=== PATIENT | female | born 1985 | race Caucasian/White ===

== ENCOUNTER 2022-12-21 10:50 | Outpatient (OUT) | payer OTHER, SELFPAY ==
[2022-12-21 09:44] LABS: Alanine Aminotransferase 15 U/L (14-59); Albumin Globulin Ratio 1.2; Albumin Level 3.9 g/dL (3.4-5.0); Alkaline Phosphatase 48 U/L (46-116); Anion Gap 10.3; Aspartate Amino Transferase 8 U/L (15-37); Bilirubin Total 0.5 mg/dL (0.2-1.0); Calcium 8.6 mg/dL (8.5-10.1); Carbon Dioxide 29.7 mmol/L (21.0-32.0); Chloride 105 mmol/L (98-107); Estimated GFR (African America >60 (>=60); Estimated GFR (Non-African Ame >60 (>=60); Globulin 3.3 g/dL; Glucose 99 mg/dL (74-106); Sodium 141 mmol/L (136-145); Total Protein 7.2 g/dL (6.4-8.2)
== END 2022-12-21 10:51 | disposition home or self-care (01) ==
LOC: LAB 12-25 10:50
PROVIDERS: PCP Family Medicine; Visit Provider Family Medicine
DX: Z00.00 Encounter for general adult medical examination without abnormal findings (principal); Z13.1 Encounter for screening for diabetes mellitus; Z13.6 Encounter for screening for cardiovascular disorders
CPT/HCPCS: 36415; 80053

== ENCOUNTER 2023-06-21 09:37 | Outpatient (OUT) | payer OTHER, SELFPAY ==
--- NOTE | 2023-06-21 | XR_ITS ---
The [address] [address] Patient Name: JAMIL QUINN MRN: [id number] date: 1985 Sex: F Assigned Patient Location: LAB Current Patient Location: LAB Accession/Order Number: [id number] Exam Date: 06/21/2023 10:12 Report Date: 06/23/2023 07:14 At the request of: THEODORA JIMENEZ Procedure: XR abdomen 1V EXAMINATION: XR abdomen 1V HISTORY: kidney stones COMPARISON: No relevant comparison available. FINDINGS: KIDNEY/URETER - RIGHT: Punctate nephrolithiasis KIDNEY/URETER - LEFT: Punctate nephrolithiasis PELVIS: No visible ureteral calcifications. Any visible calcifications favor phleboliths. BOWEL: No abnormal dilation or deviation. BONES: No acute abnormality. Rotatory levocurvature centered at L3 OTHER: Negative. No abnormal gaseous collections. XR/XR abdomen 1V IMPRESSION: Bilateral punctate nephrolithiasis Electronically authenticated by: JERONIMO MTZ Date: 06/23/2023 07:14
== END 2023-06-21 09:38 | disposition home or self-care (01) ==
LOC: LAB 09:38
PROVIDERS: PCP Family Medicine; Visit Provider Urology
DX: N20.0 Calculus of kidney (principal)
CPT/HCPCS: 74018

== ENCOUNTER 2023-08-12 18:11 | Emergency (ER) | payer OTHER, SELFPAY ==
--- OUTSIDE RECORDS SUMMARY | 2023-08-12 18:33 | XMS_ITS | CCD ---
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 Name Role Phone BASIASUMMEREVELYN Unavailable Unavailab JARET Osei Attending Unavailable Lorenzo Conteh Primary Care Provider WILLOW FERRERA Consulting Unavailable Lorenzo Conteh Unavailable DO Lorenzo Conteh Primary Care Provider DO Lorenzo Conteh Attending Provider [phone] Se Walker Unavailable DO Lorenzo Conteh Primary Care Provider DO Lorenzo Conteh Attending Provider [phone] MD Se Walker Attending Provider [phone] LORENZO CONTEH Primary Care Physician [phone] LORENZO CONTEH [facility] Care Unavailable JIMENEZ ., DR YIP Consulting Unavailable JIMENEZ ., DR YIP Attending Unavailable JIMENEZ ., DR YIP Admitting Unavailable JIMENEZ ., DR YIP Consulting Unavailable JIMENEZ ., DR YIP Attending Unavailable JIMENEZ ., DR YIP Admitting Unavailable LORENZO CONTEH Primary Care Unavailable LORENZO CONTEH Primary Care Unavailable JIMENEZ ., DR YIP Consulting Unavailable JIMENEZ ., DR YIP Attending Unavailable JIMENEZ ., DR YIP Admitting Unavailable SMITH, DR JERONIMO Ocasio Consulting Unavailable AGUBOSIM, GIO Consulting Unavailable DORKARL, JOSE Consulting Unavailable LORENZO CONTEH Primary Care Unavailable JIMENEZ ., DR YIP Admitting Unavailable JIMENEZ ., DR YIP Attending Unavailable JIMENEZ ., DR YIP Consulting Unavailable ZITALHAER, DR DENVER Rhoades Consulting Unavailable AGUBOSIM, GIO Consulting Unavailable JOSE PADILLA Consulting Unavailable LORENZO CONTEH Primary Care Unavailable JIMENEZ ., DR YIP Admitting Unavailable JIMENEZ ., DR YIP Attending Unavailable JIMENEZ ., DR YIP Consulting Unavailable SIMIN JIMENEZ Consulting Unavailable KASANDRA TOVAR Consulting Unavailable CONTEH, ALSTEAD Primary Care Unavailable JIMENEZ ., DR YIP Consulting Unavailable JIMENEZ ., DR YIP Attending Unavailable JIMENEZ ., DR YIP Admitting Unavailable SMITH, DR JERONIMO cOasio Consulting Unavailable PANKAJ MARK Consulting Unavailable MCCORNADENVER KONG Consulting Unavailable CONTEH, LORENZO Consulting Unavailable CONTEH, ALSTEAD Primary Care Unavailable JIMENEZ ., DR YIP Consulting Unavailable JIMENEZ ., DR YIP Admitting Unavailable JIMENEZ ., DR YIP Attending Unavailable CHALINO MCKEE Consulting Unavailable CONTEH, LORENZO Consulting Unavailable CONTEH, ALSTEAD Primary Care Unavailable JIMENEZ ., DR YIP Attending Unavailable JIMENEZ ., DR YIP Admitting Unavailable JIMENEZ ., DR YIP Consulting Unavailable MILTON ., NOLAN Attending Unavailable MILTON ., NOLAN Admitting Unavailable ZIEBER, DR DENVER Rhoades Consulting Unavailable CONTEH, ALSTEAD Primary Care Unavailable MILTON ., NOLAN Consulting Unavailable CONTEH, ALSTEAD Primary Care Unavailable JIMENEZ ., DR YIP Consulting Unavailable JIMENEZ ., DR YIP Attending Unavailable JIMENEZ ., DR YIP Admitting Unavailable CONTEH, [facility] Care Unavailable JIMENEZ ., DR YIP Admitting Unavailable JIMENEZ ., DR YIP Attending Unavailable JIMENEZ ., DR YIP Consulting Unavailable ZIEBER, DR DENVER Rhoades Consulting Unavailable VERONICA SEGURA Attending Unavailable VERONICA SEGURA Admitting Unavailable ZIEBER, DR DENVER Rhoades Consulting Unavailable CONTEH, ALSTEAD Primary Care Unavailable IMELDAVERONICA Consulting Unavailable JIMENEZ ., DR YIP Attending Unavailable JIMENEZ ., DR YIP Admitting Unavailable CONTEH, ALSTEAD Primary Care Unavailable JIMENEZ, Theodora Rhoades Attending Unavailable JIMENEZ, Theodora Rhoades Attending Unavailable JIMENEZ, Theodora Rhoades Attending Unavailable JIMENEZ, Theodora R Attending Unavailable JIMENEZ, Theodora R Attending Unavailable JIMENEZ, Theodora R Attending Unavailable JIMENEZ, Theodora Rhoades Attending Unavailable Conteh, Lorenzo R Primary Care Unavailable Conteh, Lorenzo R Attending Unavailable Conteh, Lorenzo R Admitting Unavailable Conteh, Lorenzo R Attending Unavailable Conteh, Lorenzo R Admitting Unavailable Conteh, Lorenzo R Primary Care Unavailable Se Walker Admitting Unavailable Se Walker Attending Unavailable Conteh, Lorenzo R Primary Care Unavailable Se Walker Admitting Unavailable Se Walker Attending Unavailable Conteh, Lorenzo R Primary Care Unavailable CONTEHLORENZO CALVILLO R Primary Care Physician [phone] Allergies Allergy Classification Reported Allergen(s) Allergy Type Date of Onset Reaction(s) Facility (7 sources) Cephalexin; Translations: [cephalexin] Drug Allergy Diarrhea (finding) [facility] (1 source) Cephalexin Drug Allergy 2 [facility] (1 source) No Known Medication Allergies; Translations: [No Known Medication Allergies] Propensity to adverse reactions (disorder) [facility] Repository Medications Current Medications Medication Drug Class(es) Dates Sig (Normalized) Sig (Original) [id number] 200 actuat albuterol 0.09 mg/actuat metered dose inhaler (3 sources) beta2-Adrenergic Agonist Start: 06-09-2022 take 2 puff(s) by inhalation every four to six hours as needed Albuterol Sulfate HFA 108 (90 Base) MCG/ACT 2 puffs as needed Inhalation every 4-6 hours for 14 days May, Active Start: 06-09-2022 take 2 puff(s) by in halation every four to six hours as needed Albuterol Sulfate HFA 108 (90 Base) MCG/ACT 2 puffs as needed Inhalation every 4-6 hours for 14 days May, Active amLODIPine 5 mg oral tablet (1 source) Dihydropyridine Calcium Channel Newton take 1 tablet by mouth once daily amLODIPine 5 MG Tab tablet Take 5 mg by mouth daily. 0 Active belladonna-opium 16.2 mg-60 mg Supp (1 source) Start: 3 belladonna-opium 16.2 mg-60 mg Supp 1 supp, Rectal, q12hr for pain, 2 supp, Refill(s) 0, [id number], 153, cm, 07/17/22 13:08:00 EDT, Height/Length Dosing, 51.1, kg, 07/17/22 13:08:00 EDT, Weight Dosing Start Date: 07/17/22 Status: Ordered losartan potassium 50 mg oral tablet (18 sources) Angiotensin 2 Receptor Newton Start: 2 take 1 mg by mouth once daily losartan 50 mg Tab mg tab(s), Oral, Daily, Refills(s) 0 Start Date: 05/17/21 Status: Ordered Start: 03-19-2019 take 50 mg by mouth twice marsha y Losartan Active 50 MG PO Twice daily March 19, 2019 1:00am Losartan Potassi um 25 mg TAKE 2 TABLETS ONCE DAILY Active methylPREDNISolone 4 mg oral tablet (1 source) Corticosteroid Start: 06-09-2022 methylPREDNISolone 4 MG as directed Orally for daily dose take half with breakfast, half with dinner for 6 days May, Active nitrofurantoin, macrocrystals 25 mg / nitrofurantoin, monohydrate 75 mg oral capsule (5 sources) Nitrofuran Antibacterial Start: 07-01-2022 take 1 capsule by mouth every twelve hours Nitrofurantoin Monohyd Macro 100 MG 1 capsule with food Orally every 12 hrs for 5 days Jun, Active Start: 01-14-2018 End: 07-13-2018 take 1 capsule by mouth every twelve hours at mealtime Nitrofurantoin Monohyd/M-Cryst (Macrobid) 100 mg capsule Discontinued 100 MG PO Q12H January 14, 2018 12:00am July 13, 2018 2:37pm administer with a meal/food; swallow whole; do not open, crush, dissolve , or chew potassium bicarbonate 25 meq effervescent oral tablet (2 sources) take 1 tablet by mouth twice daily at mealtime Effer-K 25 MEQ 1 tablet dissolved in water with meals Orally Twice a day Active predniSONE 50 mg oral tablet (5 sources) Start: 1 take 1 tablet by mouth every twenty-four hours predniSONE 50 MG 1 tablet Orally Once a day for 3 days Feb, Active tamsulosin hydrochloride 0.4 mg oral capsule (2 sources) alpha-Adrenergic Newton Start: 3 End: 3 take 1 capsule by mouth twice daily Flomax 0.4 mg Cap 0.4 mg = 1 cap(s), Oral, BID, X 7 day(s), # 14 cap(s), Refills(s) 0, Pharmacy: [facility][id number], 153, cm, 07/17/22 13:08:00 EDT, Height/Length Dosing, 51.1, kg, 07/17/22 13:08:00 EDT, Weight Dosing Start Date: 07/17/22 Stop Date: 07/24/22 Status: Ordered Start: 02-21-2023 take 1 capsule by [facility] once daily Flomax 0.4 mg Cap 0.4 mg = 1 cap(s), Oral, Daily, # 14 cap(s), Refills(s) 0, Pharmacy: [facility]/pharmacy #[id number], 153, cm, 06/19/21 15:08:00 EST, Height/Length Dosing, 52, kg, 06/19/21 15:08:00 EST, Weight Dosing Start Date: 06/18/22 Status: Ordered Completed/Discontinued Medications Medication Drug Class(es) Dates Sig (Normalized) Sig (Original) {1 (ascorbic acid 7540 MG / polyethylene glycol 3350 83743 MG / potassium chloride 1200 MG / sodium ascorbate 84921 MG / sodium chloride 3200 MG Powder for Oral Solution) / 1 (polyethylene glycol 3350 419454 MG / potassium chloride 1000 MG / sodium chloride 2000 MG / sodium sulfate 9000 MG Powder for Oral Solution) } Pack [Plenvu] (2 sources) Osmotic Laxative, Vitamin C Start: 01-09-2022 Plenvu 140 GM dose 1 pouch at 4pm, dose 2 pouch A & B at 11pm Orally twice a day for 1 days BIN:[id number] PCN: [id number] GROUP:[id number] ID:[id number] 14 Dec, 2021 Not-Taking Start: 01-09-2022 Plenvu 140 GM dose 1 pouch at 4pm, dose 2 pouch A & B at 11pm Orally twice a day for 1 days BIN:[id number] PCN: CNRX GROUP:[id number] ID:[id number] 14 Dec, 2021 Active cloNIDine hydrochloride 0.1 mg oral tablet (1 source) Central alpha-2 Adrenergic Agonist Start: 07-11-2018 End: 07-11-2018 cloNIDine (CATAPRES) tablet 0.1 mg Start: 07-11-2018 End: 07-11-2018 cloNIDine (CATAPRES) tablet 0.1 mg 12 hr dextromethorphan hydrobromide 30 mg / guaiFENesin 600 mg extended release oral tablet (3 sources) Uncompetitive S-bbiadj-T-aspartate Receptor Antagonist, Sigma-1 Agonist take 1 tablet by mouth every twelve hours Mucinex DM 30-600 MG 1 tablet as needed Orally every 12 hrs Not-Taking diclofenac sodium 75 mg delayed release oral tablet (8 sources) Nonsteroidal Anti-inflammatory Drug Start: 2020 take 1 tablet by mouth every twelve hours Diclofenac Sodium 75 MG 1 tablet Orally Twice a day for 30 day(s) Dec, Not-Taking K-Effervescent 25 mEq oral tablet, effervescent (3 sources) Start: 2022 End: 2023 take 1 tablet by mouth twice daily K-Effervescent 25 mEq oral tablet, effervescent 25 mEq = 1 tab(s), Oral, BID, X 90 day(s), # 180 tab(s), Refills(s) 3, Pharmacy: [facility], 153, cm, 07/17/22 13:08:00 EDT, Height/Length Dosing, 51.1, kg, 07/17/22 13:08:00 EDT, Weight Dosing Start Date: 08/22/22 Stop Date: 08/17/23 Status: Ordered Start: 06-24-2022 End: 06-19-2023 take 1 tablet by mouth twice daily K-Effervescent 25 mEq oral tablet, effervescent 25 mEq = 1 tab(s), Oral, BID, X 30 day(s), # 60 tab(s), Refills(s) 11, Pharmacy: [facility] #[id number], 153, cm, 06/24/22 15:08:00 EST, Height/Length Dosing, 49, kg, 06/24/22 15:08:00 EST, Weight Dosing Start Date: 06/24/22 Stop Date: 06/19/23 Status: Ordered 24 hr metoprolol succinate 50 mg extended release oral tablet (6 sources) beta-Adrenergic Newton Start: 07-13-2018 End: 03-19-2019 take 50 mg by mouth twice daily Metoprolol Succinate Discontinued 50 MG PO Twice daily July 13, 2018 12:00am March 19, 2019 6:55am Start: 07-11-2018 End: 07-11-2018 metoprolol (LOPRESSOR) table t 50 mg Start: 07-11-2018 End: 07-25-2018 take 1 capsule by mouth twice daily Metoprolol Succinate 50 MG Capsule ER 24 Hour Sprinkle Take 1 capsule by mouth 2 times daily for 14 days. 28 capsule 0 07/11/2018 07/25/2018 Active Triamcinolone (10 sources) Corticosteroid Start: 10-11-2020 Kenalog -40 mg Sep, 40 mg Problems Active Problems Problem Classification Problem Date Documented Date Episodic/Chronic Abdominal pain (4 sources) Unspecified abdominal pain; Translations: [UNSPECIFIED ABDOMINAL PAIN] Onset: 06-22-2022 Episodic Calculus of urinary tract (20 sources) Kidney stone; Translations: [Calculus of kidney] Onset: 11-07-2021 Episodic Disorders of lipid metabolism (11 sources) Mixed hyperlipidemia; Translations: [Mixed hyperlipidemia] Chronic Essential hypertension (16 sources) Essential (primary) hypertension; Translations: [Essential hypertension] Onset: 07-11-2018 05-17-2021 Chronic Genitourinary congenital anomalies (11 sources) Cystic disease of kidney; 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, unspecified] Chronic Genitourinary symptoms and ill-defined conditions (3 sources) Genuine stress incontinence 05-17-2021 Chronic Genitourinary symptoms and ill-defined conditions (10 sources) Microscopic hematuria; Translations: [Asymptomatic microscopic hematuria] Onset: 11-07-2021 Episodic Headache; including migraine (9 sources) Tension-type headache; Translations: [Tension-type headache, unspecified, not intractable] Chronic Hypertension with complications and secondary hypertension (11 sources) Renal hypertension; Translations: [Hypertension secondary to other renal disorders] Chronic Nutritional deficiencies (11 sources) Vitamin D deficiency; Translations: [Vitamin D deficiency, unspecified] Chronic Other aftercare (1 source) Other fci (current) drug therapy; Translations: [OTH FDC CURRENT DRUG THERAPY] Onset: 07-09-2022 Episodic Other diseases of kidney and ureters (11 sources) Disorder of the urinary system; Translations: [Other specified disorders of kidney and ureter] Chronic Other injuries and conditions due to external causes (3 sources) Foreign body in bladder; Translations: [Foreign body in bladder, initial encounter] Onset: 07-17-2022 Episodic Other lower respiratory disease (8 sources) Nodule of lung; Translations: [Solitary pulmonary nodule] Episodic Other nervous system disorders (9 sources) Paresthesia; Translations: [Paresthesia of skin] Episodic Other screening for suspected conditions (not mental disorders or infectious disease) (2 sources) Encounter for screening for cardiovascular disorders; Translations: [Encounter for screening for cardiovascular disorders] Onset: 02-06-2023 Episodic Unclassified (3 sources) Asymptomatic microscopic hematuria 06-24-2022 Unclassified (1 source) Encounter for general adult medical examination without abnormal findings; Translations: [Encounter for general adult medical examination without abnormal findings] Onset: 02-06-2023 Unclassified (1 source) Encounter for preprocedural laboratory examination; Translations: [Encounter for preprocedural laboratory examination] Onset: 02-25-2022 Unclassified (1 source) Encounter for screening for diabetes mellitus; Translations: [Encounter for screening for diabetes mellitus] Onset: 02-12-2022 Past or Other Problems Problem Classification Problem Date Documented Da te Episodic/Chronic Allergic reactions (1 source) Urticaria, unspecified Onset: 03-27-2021 Resolved: 03-27-2021 Episodic Hemorrhage during ; abruptio placenta; placenta previa (1 source) Threatened ; Translations: [Threatened ] Onset: 03-30-2017 Episodic Noninfectious gastroenteritis (1 source) Noninfective gastroenteritis and colitis, unspecified Onset: 07-06-2021 Resolved: 07-06-2021 Episodic Other gastrointestinal disorders (2 sources) Other specified symptoms and signs involving the digestive system and abdomen Onset: 01-03-2022 Resolved: 01-07-2022 Episodic Other gastrointestinal disorders (1 source) Change in bowel habit; Translations: [Change in bowel habit] Onset: 02-27-2022 Episodic Other lower respiratory disease (1 source) Solitary pulmonary nodule Onset: 07-06-2021 Resolved: 07-06-2021 Episodic Results Test Name Value Interpretation Reference Range Facility Lipid Panelon 02-06-2023 Cholesterol [Mass/Vol] 204 mg/dL High 140-200 [facility] Comment on above: Order Comment: Reaso n for Exam Well adult exam;Screening for cardiovascular condition Result Comment: Chol less than 200 mg/dl low risk Chol 201-239 mg/dl borderline risk Chol 240 mg/dl and greater high risk Performed By: #### L IPID #### [address] Cholesterol in HDL [Mass/Vol] 52 mg/dL Normal 23-92 [facility] Comment on above: Order Comment: Reaso n for Exam Well adult exam;Screening for cardiovascular condition Result Comment: HDL CHOL ATP-III CLASSIFICATION Cardiovascular Risk HDL > or equal to 60 mg/dL LOW HDL < 40 mg/dL HIGH Performed By: #### L IPID #### [facility] [address] Cholesterol.total/Elenita sterol in HDL [Mass ratio] 3.9 {ratio} Normal <5.0 [facility] Comment on above: Order Comment: Reaso n for Exam Well adult exam;Screening for cardiovascular condition Result Comment: PERF ORMED BY: [facility] [address] [facility] [place] [address] PATHOLOGIST GYPSUM BLOCK SETTER KADEN NOLASCO M.D. Performed By: #### L IPID #### [facility] [address] LDL Cholesterol,Calculated 130 mg/dL High 0-100 [facility] Comment on above: Order Comment: Reaso n for Exam Well adult exam;Screening for cardiovascular condition Result Comment: LDL ATP III CLASSIFICATION LDL less than 100 mg/dL Optimal LDL 100-129 mg/dL Near or above optimal LDL 130-159 mg/dL Borderline high LDL 160-189 mg/dL High LDL greater than 189 mg/dL Very high Performed By: #### L IPID #### [facility] [address] Triglyceride w/Reflex 111 mg/dL Normal 0-149 [facility] Comment on above: Order Comment: Reaso n for Exam Well adult exam;Screening for cardiovascular condition Result Comment: TRIG ATP III CLASSIFICATION TRIG less than 150 mg/dL Normal TRIG 150-199 mg/dL Borderline high TRIG 200-500 mg/dL High TRIG greater than 500 mg/dL Very high Standard traceable to the Center for Disease Conrtrol and Prevention (CDC) test method. Performed By: #### L IPID #### [facility] [address] [place] [id number] [facility] VLDL CHOLESTEROL 22 mg/dL Normal [facility] Comment on above: Order Comment: Reaso n for Exam Well adult exam;Screening for cardiovascular condition Performed By: #### L IPID #### [facility] [address] [place] [address] [place] ECG 12-Leadon 07-23-2022 ECG 12-Lead [id number] D:127 Normal [facility] ED Note-Physicianon 07-24-19 ED Note-Physician [id number] D:127 Normal [facility] Lab Reportson 07-23-2022 Lab Reports [id number] D:127 Normal [facility] RAD - MISCon 07-23-2022 RAD - MISC [id number] D:127 Normal [facility] Consent for Procedure/Surger yon 07-18-2022 Consent for Procedure/Surgery [id number] :127 Normal [facility] Patient Educationon 07-18-19 Patient Education Urology Kidney Stones Kidney stones are rock-like masses that form inside of the kidneys. Kidneys are organs that make pee (urine). A kidney stone may move into other parts of the urinary tract, including: ? The tubes that connect the kidneys to the bladder (ureters). ? The bladder. ? The tube that carries urine out of the body (urethra). Kidney stones can cause very bad pain and can block the flow of pee. The stone usually leaves your body (passes) through your pee. You may need to have a doctor take out the stone. What are the causes? Kidney stones may be caused by: ? A condition in which certain glands make too much parathyroid hormone (primary hyperparathyroidism). ? A buildup of a type of crystals in the bladder made of a chemical called uric acid. The body makes uric acid when you eat certain foods. ? Narrowing (stricture) of one or both of the ureters. ? A kidney blockage that you were born with. ? Past surgery on the kidney or the ureters, such as gastric bypass surgery. What increases the risk? You are more likely to develop this condition if: ? You have had a kidney stone in the past. ? You have a family history of kidney stones. ? You do not drink enough water. ? You eat a diet that is high in protein, salt (sodium), or sugar. ? You are overweight or very overweight (obese). What are the signs or symptoms? Symptoms of a kidney stone may include: ? Pain in the side of the belly, right below the ribs (flank pain). Pain usually spreads (radiates) to the groin. ? Needing to pee often or right away (urgently). ? Pain when going pee (urinating). ? Blood in your pee (hematuria). ? Feeling like you may vomit (nauseous). ? Vomiting. ? Fever and chills. How is this treated? Treatment depends on the size, location, and makeup of the kidney stones. The stones will often pass out of the body through peeing. You may need to: ? Drink more fluid to help pass the stone. In some cases, you may be given fluids through an IV tube put into one of your veins at the hospital. ? Take medicine for pain. ? Make changes in your diet to help keep kidney stones from coming back. Sometimes, medical procedures are needed to remove a kidney stone. This may involve: ? A procedure to break up kidney stones using a beam of light (laser) or shock waves. ? Surgery to remove the kidney stones. Follow these instructions at home: Medicines ? Take tayo-jex-nioyjka and prescription medicines only as told by your doctor. ? Ask your doctor if the medicine prescribed to you requires you to avoid driving or using heavy machinery. Eating and drinking ? Drink enough fluid to keep your pee pale yellow. You may be told to drink at least 8?10 glasses of water each day. This will help you pass the stone. ? If told by your doctor, change your diet. This may include: ? Limiting how much salt you eat. ? Eating more fruits and vegetables. ? Limiting how much meat, poultry, fish, and eggs you eat. ? Follow instructions from your doctor about eating or drinking restrictions. General instructions ? Collect pee samples as told by your doctor. You may need to collect a pee sample: ? 24 hours after a stone comes out. ? 8?12 weeks after a stone comes out, and every 6?12 months after that. ? Strain your pee every time you pee (urinate), for as long as told. Use the strainer that your doctor recommends. ? Do not throw out the stone. Keep it so that it can be tested by your doctor. ? Keep all follow-up visits as told by your doctor. This is important. You may need follow-up tests. How is this prevented? To prevent another kidney stone: ? Drink enough fluid to keep your pee pale yellow. This is the best way to prevent kidney stones. ? Eat healthy foods. ? Avoid certain foods as told by your doctor. You may be told to eat less protein. ? Stay at a healthy weight. Where to find more information ? National Kidney Foundation (NKF): www.kidney.org ? [employer] (UCF): www.urologyhealth.org Contact a doctor if: ? You have pain that gets worse or does not get better with medicine. Get help right away if: ? You have a fever or chills. ? You get very bad pain. ? You get new pain in your belly (abdomen). ? You pass out (faint). ? You cannot pee. Summary ? Kidney stones are rock-like masses that form inside of the kidneys. ? Kidney stones can cause very bad pain and can block the flow of pee. ? The stones will often pass out of the body through peeing. ? Drink enough fluid to keep your pee pale yellow. This information is not intended to replace advice given to you by your health care provider. Make sure you discuss any questions you have with your health care provider. Document Released: 09/30/2008 Document Revised: 08/31/2019 Document Reviewed: 08/31/2019 [employer] Patient Education ? 2019 [employer]. [facility] Urology Office/Clinic Noteon 07-17-2022 Urology Office/Clinic Note Chief Complaint pt here for cysto and right stent removal HPI Staff Pt here for right stent removal History of Present Illness I have reviewed and verified the staff HPI to be accurate for this encounter. Review of Systems PHQ Score Initial Depression Screen Score: 0 ROS - Provider Constitutional: denies weight loss, denies hot flashes. Eyes: denies eye problems. Gastrointestinal: denies nausea, denies vomiting. Cardiovascular: denies chest pain or angina. Integumentary: no dryness Musculoskeletal: denies musculoskeletal symptoms. ENMT: denies otolaryngeal symptoms. Respiratory: no shortness of breath. Heme/Lymph: denies easy bleeding tendency, denies easy bruising tendency. Psychiatric: no confusion, no anxiety. Genitourinary: denies vaginal discharge, denies incontinence, denies dysuria, denies hematuria, denies urinary frequency, denies amenorrhea, denies menorrhagia, denies abnormal bleeding, denies pelvic pain, denies genital sores, and denies decreased libido. Physical Exam Vitals & Measurements BP: 151/45 HT: 60 in HT: 153 cm WT: 51.1 kg WT: 112.42 lb BMI: 21.83 General Appearance: alert , no acute distress, well nourished, well developed female. Genitourinary: bladder nonpalpable, no flank pain. Procedure Operative Information Anesthesia Type: Local Procedure: Local Cystoscopy with Stent Removal Complications: None Surgical risks, benefits, details of the procedure have been explained to the patient. Full informed consent has been obtained. Intraoperative Information Prepped: Patient is placed in modified dorso/lithotomy position. The patient was prepped with the Betadine solution. Anesthesia: 2% Xylocaine Jelly per urethra. Procedure: Cystoscopy and right stent removal. The flexible Cystoscope was passed in retrograde fashion into the bladder without difficulty. The bladder was viewed in entirety and found to be without tumors or stones. Mild inflammation was seen surrounding the orifice with the stent seen protruding from it. The stent was then grasped and removed in its entirety. Specimens Removed: None Postoperative Information The patient tolerated the procedure well and was subsequently discharged home. Assessment/Plan 1. Foreign body in bladder (T19.1XXA: Foreign body in bladder, initial encounter) Cysto/Right stent removal done IO today. 2. Ureteral stone (N20.1: Calculus of ureter) S/P Cysto/UD/RG/Laser/Baske t/Right stent placement done 07/11/2022. KUB done 06/18/2022 showed 7 x 4 mm stone within the distal ureter. Cysto/Right stent removal done IO today w/o complications. 3. Kidney stone (N20.0: Calculus of kidney) S/P Rt ESWL 11/08/21 & 11/15/21. Lt ESWL done 07/19/21. Metabolic workup done 02/11/22: Volume 825 cc, very L. U24hr Citric acid 227 Effer-K 25 mEq BID. KUB done 06/18/2022 showed several tiny bilateral calcifications. Will order Flomax 1 tab BID 14tabs and B&O Suppository 60gms 1 per rectum q8 PRN for bladder spasms. Pt will f/u in 6 months w/KUB Follow-up With When Contact Information TONY ROSALES, Theodora Rhoades, [facility] [address], [place] [address] [phone] Additional Instructions: Pt will f/u in 6 months w/KUB. Patient Education Kidney Stones, [id number] I, Janelle Alvarez, personally scribed for Dr. Jimenez on 07/17/2022 13:25:41. . Documentation recorded by the scribe, Janelle Alvarez, accurately reflects the services(s) I performed and decisions made by me. Problem List/Past Medical History Ongoing Asymptomatic microscopic hematuria Foreign body in bladder Hematuria History of kidney stones Hypertension Kidney stone Stress incontinence Ureteral stone Urinary frequency Historical No qualifying data Procedure/Surgical History ESWL of kidney (11/15/2021), ESWL of kidney (11/08/2021), ESWL of kidney (07/19/2021), Cystoscopy (06/19/2021), Cataract, Cystoscopy, Lithotripsy. Medications Flomax 0.4 mg Cap, 0.4 mg= 1 cap(s), Oral, Daily K-Effervescent 25 mEq oral tablet, effervescent, 25 mEq= 1 tab(s), Oral, BID, 11 refills losartan 50 mg Tab, Oral, Daily Allergies Keflex (Diarrhea) Social History Tobacco Never (less than 100 in lifetime) Tobacco Use:. Never Smokeless Tobacco Use:., 07/17/2022 Immunizations Vaccine Date Status influenza virus vaccine, inactivated 06/20/2021 Recorded SARS-CoV-2 (COVID-19) Ad26 vaccine 07/2020 Recorded SARS-CoV-2 (COVID-19) mRNA BNT-162b2 vax 07/27/2020 Recorded SARS-CoV-2 (COVID-19) mRNA BNT-162b2 vax 07/06/2020 Recorded SARS-CoV-2 (COVID-19) Ad26 vaccine 06/2020 Recorded Normal [facility] Comment on above: Result Comment: Elec tronically Signed By: Theodora JIMENEZ MD\.br\Date and Time Signed: 07/17/22 13:48 EDT\.br\Electronically Co-Signed By: Janelle Alvarez MA\.br\Date and Time Co-Signed: 07/17/22 13:41 EDT CALCULI, URINARYon 3 2,8 Dihydroxyadenine Normal [facility] Comment on above: Performed By: #### C ALCULI #### [facility] [address] [address] [address] Holland Caballero Ammonium Acid Urate Normal [facility] Comment on above: Performed By: #### C ALCULI #### [facility] [address] [place] [address] Dr. Holland Caballero Bilirubin Ql (U) Normal [facility] Comment on above: Performed By: #### C ALCULI #### [facility] [address] [address] [address] Holland Caballero Ca Oxalate Dihydrate 70 % [facility] Comment on above: Performed By: #### C ALCULI #### [facility] [address] [address] [address] Holland Caballero CaHPO4 (Brushite) Normal [facility] Comment on above: Performed By: #### C ALCULI #### [facility] [address] [address] [address] Holland Caballero Calcium Bilirubinate Normal [facility] Comment on above: Performed By: #### C ALCULI #### [facility] [address] [address] [address] Holland Caballero Calcium Carbonate Normal [facility] Comment on above: Performed By: #### C ALCULI #### [facility] [address] [address] [address] Holland Caballero Calcium Oxalate Monohydrate 20 % Normal [facility] Comment on above: Performed By: #### C ALCULI #### [facility] [address] [address] [address] Holland Caballero Calcium Palmitate [facility] Comment on above: Performed By: #### C ALCULI #### [facility] [address] [address] [address] Holland Caballero Calcium Phosphate [facility] Comment on above: Performed By: #### C ALCULI #### [facility] [address] [address] [address] Holland Caballero Calcium Stearate [facility] Comment on above: Performed By: #### C ALCULI #### [facility] [address] [address] [address] Holland Caballero Carbonate Apatite [facility] Comment on above: Performed By: #### C ALCULI #### [facility] [address] [address] [address] Holland Caballero Cellular Material [facility] Comment on above: Performed By: #### C ALCULI #### [facility] [address] [place] [address] Dr. Holland Caballero Cholesterol [facility] Comment on above: Performed By: #### C ALCULI #### [facility] [address] [address] [address] Holland Caballero Color (U) [facility] Comment on above: Performed By: #### C ALCULI #### [facility] [address] [place] [address] Dr. Holland Caballero Comment Comment [facility] Comment on above: Result Comment: Calc ium phosphate (hydroxyl form) includes hydroxyapatite, amorphous calcium phosphate, and whitlockite. Hydroxyapatite is the most common of the calcium phosphate salts found in human kidney stones. Performed By: #### C ALCULI #### [facility] [address] [address] [address] Holland Caballero Result Comment: Calc ulus received wet. Wet calculi must be dried before analysis, which delays reporting of results. Leaving calculi wet (such as water, saline, blood, urine) may lead to changes in composition. Comment: Comment Normal [facility] Comment on above: Result Comment: Rudy maldonado questions regarding Calculi Analysis contact [employer] at: [phone]. Performed By: #### C ALCULI #### [facility] [address] [place] [address] Dr. Holland Caballero Composition Comment Normal [facility] Comment on above: Result Comment: Perc entage (Represents the % composition) Performed By: #### C ALCULI #### [facility] [address] [place] [address] Dr. Holland Caballero Cystine Normal [facility] Comment on above: Performed By: #### C ALCULI #### [facility] [address] [place] [address] Dr. Holland Caballero Disclaimer: Comment Normal [facility] Comment on above: Result Comment: This test was developed and its performance characteristics determined by [employer]. It has not been cleared or approved by the Food and Drug Administration. Performed By: #### C ALCULI #### [facility] [address] [place] [address] Dr. Holland Caballero Dried Blood Normal [facility] Comment on above: Performed By: #### C ALCULI #### [facility] [address] [place] [address] Dr. Holland Caballero Drug or Metabolite Normal [facility] Comment on above: Performed By: #### C ALCULI #### [facility] [address] [place] [address] Dr. Holland Caballero Hydroxyapatite 10 % Normal [facility] Comment on above: Performed By: #### C ALCULI #### [facility] [address] [place] [address] Dr. Holland Caballero Mg NH4 PO4 (Struvite) Normal [facility] Comment on above: Performed By: #### C ALCULI #### [facility] [address] [place] [address] Dr. Holland Caballero MgHPO4 (Newberyite) [facility] Comment on above: Performed By: #### C ALCULI #### [facility] [address] [place] [address] Dr. Holland Caballero Other component(s) Normal [facility] Comment on above: Performed By: #### C ALCULI #### [facility] [address] [address] [address] Holland Caballero PDF . Normal [facility] Comment on above: Performed By: #### C ALCULI #### [facility] [address] [address] [address] Holland Caballero Photo Comment Normal [facility] Comment on above: Result Comment: Phot ograph will follow under a separate cover Performed By: #### C ALCULI #### [facility] [address] [address] [address] Holland Caballero Please note: Comment Normal [facility] Comment on above: Result Comment: Calc erica report will follow via computer, mail or rod cup filler delivery. Performed By: #### C ALCULI #### [facility] [address] [address] [address] Holland Caballero Size 4x2 [facility] Comment on above: Result Comment: Mult iple pieces received. Dimensions of the largest piece reported. Performed By: #### C ALCULI #### [facility] [address] [address] [address] Holland Caballero Sodium Acid Urate [facility] Comment on above: Performed By: #### C ALCULI #### [facility] [address] [address] [address] Holland Caballero Source Comment [facility] Comment on above: Result Comment: Righ t Ureter Performed By: #### C ALCULI #### [facility] [address] [address] [address] Holland Caballero Triamterene [facility] Comment on above: Performed By: #### C ALCULI #### [facility] [address] [address] [address] Holland Caballero Uric Acid [facility] Comment on above: Performed By: #### C ALCULI #### [facility] [address] [address] [address] Holland Caballero Uric Acid Dihydrate [facility] Comment on above: Performed By: #### C ALCULI #### [facility] [address] [address] [address] Holland Caballero Weight 33.0 mg Normal [facility] Comment on above: Performed By: #### C ALCULI #### [facility] [address] [address] [address] Holland Caballero Xanthine Normal [facility] Comment on above: Performed By: #### C ALCULI #### [facility] [address] [address] [address] Holland Caballero Operative Reporton Operative Report [id number] D:127 Normal [facility] PREG HCG QUALon 07-11-2022 , QUAL Negative Normal NEGATIVE [facility] Comment on above: Performed By: #### C ITRATU #### [facility] [address] [place] [address] Dr. Holland Caballero Consent for Procedure/Surger yon 07-08-2022 Consent for Procedure/Surgery [id number] D:127 Normal [facility] CBC AUTO DIFFon 2022 BASO # 0.0 103/ul Normal 0.0-0.1 [facility] Comment on above: Performed By: #### P REGJEOVANNY SchreiberR UMICRO #### [facility] [address] [place] [address] Dr. Holladn Caballero Basophils/100 WBC (Bld) 0.7 % Normal 0.2-2.0 [facility] Comment on above: Performed By: #### P REGU ERUR, UMICRO #### [facility] [address] [place] [address] Dr. Holland Caballero EO # 0.2 103/ul Normal 0.0-0.7 [facility] Comment on above: Performed By: #### P REGU ERUR, UMICRO #### [facility] [address] [place] [address] Dr. Holland Caballero Eosinophils/100 WBC (Bld) 3.9 % Normal 0.9-7.0 [facility] Comment on above: Performed By: #### P REGUJEOVANNYR UMICRO #### [facility] [address] [place] [address] Dr. Holland Caballero Erythrocyte distribution width (RBC) [Ratio] 12.3 % Normal 11.0-15.0 [facility] Comment on above: Performed By: #### P REGUJEOVANNYR UMICRO #### [facility] [address] [place] [address] Dr. Holland Caballero Hematocrit (Bld) [Volume fraction] 42.5 % Normal 36.0-48.0 [facility] Comment on above: Performed By: #### P REGJEOVANNY SchreiberR UMICRO #### [facility] [address] [place] [address] Dr. Holland Caballero Hemoglobin (Bld) [Mass/Vol] 14.3 g/dL Normal 12.0-16.0 [facility] Comment on above: Performed By: #### P REGAbdoul ERUR UMICRO #### [facility] [address] [place] [address] Dr. Holland Caballero IG # 0.01 10e3/ul Normal 0.00-0.03 [facility] Comment on above: Performed By: #### P REGJEOVANNY SchreiberR UMICRO #### [facility] [address] [place] [address] Dr. Holland Caballero IG % 0.2 % Normal 0.0-0.5 [facility] Comment on above: Performed By: #### P REGU ERUR, UMICRO #### [facility] [address] [place] [address] Dr. Holland Caballero LYMPH # 1.2 103/ul Normal 1.2-3.8 [facility] Comment on above: Performed By: #### P REGU ERUR, UMICRO #### [facility] [address] [place] [address] Dr. Holland Caballero Lymphocytes/100 WBC (Bld) 25.4 % Normal 20.5-60.0 [facility] Comment on above: Performed By: #### P REGU, ERUR, UMICRO #### [facility] [address] [place] [address] Dr. Holland Caballero MANUAL DIFF REQ NO Normal [facility] Comment on above: Performed By: #### P REGU, ERUR, UMICRO #### [facility] [address] [place] [address] Dr. Holland Caballero MCH (RBC) [Entitic mass] 31.0 pg Normal 26.7-34.0 [facility] Comment on above: Performed By: #### P REGU, ERUR, UMICRO #### [facility] [address] [place] [address] Dr. Holland Caballero MCHC (RBC) [Mass/Vol] 33.6 g/dL Normal 29.9-35.2 [facility] Comment on above: Performed By: #### P REGU, ERUR, UMICRO #### [facility] [address] [place] [address] Dr. Holland Caballero MCV (RBC) [Entitic vol] 92.0 fL Normal 81.0-99.0 [facility] Comment on above: Performed By: #### P REGU, ERUR, UMICRO #### [facility] [address] [place] [address] Dr. Holland Caballero MONO # 0.6 103/ul Normal 0.3-0.8 [facility] Comment on above: Performed By: #### P REGU, ERUR, UMICRO #### [facility] [address] [place] [address] Dr. Holland Caballero Monocytes/100 WBC (Bld) 12.6 % Critically high 1.7-12. 0 [facility] Comment on above: Performed By: #### P REGU, ERUR, UMICRO #### [facility] [address] [place] [address] Dr. Holland Caballero NEUT # 2.6 103/ul Normal 1.4-6.5 [facility] Comment on above: Performed By: #### P REGU, ERUR, UMICRO #### [facility] [address] [address] [address] Holland Caballero Neutrophils/100 WBC (Bld) 57.2 % Normal 43.0-75.0 [facility] Comment on above: Performed By: #### P REGU, ERUR, UMICRO #### [facility] [address] [place] [address] Dr. Holland Caballero Platelet mean volume (Bld) [Entitic vol] 10.5 fL Normal 9.5-13.5 [facility] Comment on above: Performed By: #### P REGU, ERUR, UMICRO #### [facility] [address] [place] [address] Dr. Holland Caballero PLT 241 103/ul Normal 150-450 [facility] Comment on above: Performed By: #### P REGU, ERUR, UMICRO #### [facility] [address] [place] [address] Dr. Holland Caballero RBC 4.62 106/ul Normal 4.20-5.40 [facility] Comment on above: Performed By: #### P REGU, ERUR, UMICRO #### [facility] [address] [place] [address] Dr. Holland Caballero WBC 4.6 103/ul Normal 4.0-11.0 [facility] Comment on above: Performed By: #### P REGU, ERUR, UMICRO #### [facility] [address] [place] [address] Dr. Holland Caballero ER URINE PROFILEon 3 Bilirubin Ql (U) Negative Normal NEGATIVE [facility] Comment on above: Performed By: #### P REGU, ERUR, UMICRO #### [facility] [address] [place] [address] Dr. Holland Caballero Clarity (U) CLEAR Normal CLEAR [facility] Comment on above: Performed By: #### P REGU, ERUR, UMICRO #### [facility] [address] [place] [address] Dr. Holland Caballero Color (U) LT. YELLOW Normal YELLOW [facility] Comment on above: Performed By: #### P REGU, ERUR, UMICRO #### [facility] [address] [address] [address] Holland GARCIA A micrscopic examination will be performed if indicated. Normal [facility] Comment on above: Performed By: #### P REGU, ERUR, UMICRO #### [facility] [address] [address] [address] Holland Cablalero Glucose Ql (U) Negative Normal NEGATIVE [facility] Comment on above: Performed By: #### P REGU, ERUR, UMICRO #### [facility] [address] [address] [address] Holland Caballero Hemoglobin Ql (U) SMALL Abnormal NEGATIVE [facility] Comment on above: Performed By: #### P REGU, ERUR, UMICRO #### [facility] [address] [address] [address] Holland Caballero Ketones Ql (U) Negative Normal NEGATIVE [facility] Comment on above: Performed By: #### P REGU, ERUR, UMICRO #### [facility] [address] [address] [address] Holland Caballero LEUKOCYTES TRACE Abnormal NEGATIVE [facility] Comment on above: Performed By: #### P REGU, ERUR, UMICRO #### [facility] [address] [address] [address] Holland Caballero Nitrite Ql (U) Negative Normal NEGATIVE [facility] Comment on above: Performed By: #### P REGU, ERUR, UMICRO #### [facility] [address] [address] [address] Holland Caballero pH (U) 7.5 [pH] Normal 5-9 [facility] Comment on above: Performed By: #### P REGU, ERUR, UMICRO #### [facility] [address] [address] [address] Holland Caballero SPEC GRAVITY 1.010 Normal 1.005-<=1.0 25 [facility] Comment on above: Performed By: #### P REGU, ERUR, UMICRO #### [facility] [address] [place] [address] Dr. Holland Caballero UA PROTEIN Negative Normal NEGATIVE/ TRACE [facility] Comment on above: Performed By: #### P REGU, ERUR, UMICRO #### [facility] [address] [place] [address] Dr. Holland Caballero UR MICRO IND INDICATED Normal [facility] Comment on above: Performed By: #### P REGU, ERUR, UMICRO #### [facility] [address] [place] [address] Dr. Holland Caballero Urobilinogen Qn (U) 0.2 {Cheo'U}/dL Normal 0.2 - 1. 0 [facility] Comment on above: Performed By: #### P REGU, ERUR, UMICRO #### [facility] [address] [place] [address] Dr. Holland Caballero URon 2022 , QUAL Negative Normal NEGATIVE [facility] Comment on above: Performed By: #### P REGU, ERUR, UMICRO #### [facility] [address] [place] [address] Dr. Holland Caballero PROF CHEM 8 (BAS METB)on Anion gap [Moles/Vol] 13.4 mmol/L Normal [facility] Comment on above: Performed By: #### C ITRATU #### [facility] [address] [place] [address] Dr. Holland Caballero Calcium [Mass/Vol] 8.6 mg/dL Normal 8.5-10.1 [facility] Comment on above: Performed By: #### C ITRATU #### [facility] [address] [place] [address] Dr. Holland Caballero Chloride [Moles/Vol] 103 mmol/L Normal 98-107 [facility] Comment on above: Performed By: #### C ITRATU #### [facility] [address] [place] [address] Dr. Holland Caballero CO2 [Moles/Vol] 28.4 mmol/L Normal 21.0-32.0 [facility] Comment on above: Performed By: #### C ITRATU #### [facility] [address] [place] [address] Dr. Holland Caballero Creatinine [Mass/Vol] 0.82 mg/dL Normal 0.55-1.02 [facility] Comment on above: Performed By: #### C ITRATU #### [facility] [address] [address] [address] Holland Caballero EGFR-AF CYPRIOT >60 Normal >=60 [facility] Comment on above: Performed By: #### C ITRATU #### [facility] [address] [place] [address] Dr. Holland Caballero EGFR-NON AF CYPRIOT >60 Normal >=60 [facility] Comment on above: Performed By: #### C ITRATU #### [facility] [address] [place] [address] Dr. Holland Caballero Glucose [Mass/Vol] 104 mg/dL Normal 74-106 [facility] Comment on above: Performed By: #### C ITRATU #### [facility] [address] [place] [address] Dr. Holland Caballero Potassium [Moles/Vol] 3.8 mmol/L Normal 3.5-5.1 [facility] Comment on above: Performed By: #### C ITRATU #### [facility] [address] [place] [address] Dr. Holland Caballero Sodium [Moles/Vol] 141 mmol/L Normal 136-145 [facility] Comment on above: Performed By: #### C ITRATU #### [facility] [address] [place] [address] Dr. Holland Caballero Urea nitrogen [Mass/Vol] 16.0 mg/dL Normal 7.0-18.0 [facility] Comment on above: Performed By: #### C ITRATU #### [facility] [address] [place] [address] Dr. Holland Caballero Urea nitrogen/Creatinine [Mass ratio] 19.5 mg/mg Normal [facility] [facility] Comment on above: Performed By: #### C ITRATU #### [facility] [address] [place] [address] Dr. Holland Caballero URINE MICROSCOPIC ONLYon BACTERIA NONE SEEN Normal NONE SEEN [facility] Comment on above: Performed By: #### P REGU, ERUR, UMICRO #### [facility] [address] [place] [address] Dr. Holland Caballero Bacteria identified Cx Nom (U) NOT INDICATED Normal [facility] Comment on above: Performed By: #### P REGU, ERUR, UMICRO #### [facility] [address] [place] [address] Dr. Holland Caballero CAST NONE SEEN Normal NONE SEEN [facility] Comment on above: Performed By: #### P REGU, ERUR, UMICRO #### [facility] [address] [place] [address] Dr. Holland Caballero Crystals LM Nom (Urine sed) NONE SEEN Normal NONE SEEN [facility] Comment on above: Performed By: #### P REGU, ERUR, UMICRO #### [facility] [address] [place] [address] Dr. Holland Caballero Epithelial cells LM Ql (Urine sed) RARE Normal NONE SEEN /RARE [facility] Comment on above: Performed By: #### P REGU, ERUR, UMICRO #### [facility] [address] [place] [address] Dr. Holland Caballero MUCOUS NONE SEEN Normal NONE SEEN [facility] Comment on above: Performed By: #### P REGU, ERUR, UMICRO #### [facility] [address] [place] [address] Dr. Holland Caballero RBC 2-5 Abnormal 0-2 [facility] Comment on above: Performed By: #### P REGU, ERUR, UMICRO #### [facility] [address] [place] [address] Dr. Holland Caballero WBC NONE SEEN Normal NONE SEEN [facility] Comment on above: Performed By: #### P REGU, ERUR, UMICRO #### [facility] [address] [address] [address] Holland Caballero XR ABD FLAT UP_PA Kyleigh 07-07 XR ABD FLAT UP_PA CH EXAMINATION: XR ABD FLAT UP_PA CH HISTORY: Pain ; suprapubic pain, flank pain COMPARISON: XR KUB 06/18/2022 FINDINGS: LUNGS: No infiltrate, pneumothorax, or pleural effusion. MEDIASTINUM: No abnormal widening. BOWEL GAS PATTERN: Non-obstructed. FREE AIR: None. CALCIFICATIONS: Distal progression of a 7 x 4 mm stone, now likely within distal ureter approaching the ureterovesical junction. Additional pelvic calcifications are stable compatible with phleboliths. Several tiny calcifications projecting over kidneys. BONES: No fracture or visible bone lesion. OTHER: Negative. IMPRESSION: 1. Distal progression of distal right ureteral stone. 2. Bilateral nephrolithiasis. 3. Normal bowel gas pattern. Electronically authenticated by: DENVER SHINE Date: 2022 11:57 Normal [facility] Patient Educationon 06-24-19 Patient Education Urology Dietary Guidelines to Help Prevent Kidney Stones Kidney stones are deposits of minerals and salts that form inside your kidneys. Your risk of developing kidney stones may be greater depending on your diet, your lifestyle, the medicines you take, and whether you have certain medical conditions. Most people can reduce their chances of developing kidney stones by following the instructions below. Depending on your overall health and the type of kidney stones you tend to develop, your dietitian may give you more specific instructions. What are tips for following this plan? Reading food labels ? Choose foods with no salt added or low-salt labels. Limit your sodium intake to less than 1500 mg per day. ? Choose foods with calcium for each meal and snack. Try to eat about 300 mg of calcium at each meal. Foods that contain 200?500 mg of calcium per serving include: ? 8 oz (237 ml) of milk, fortified nondairy milk, and fortified fruit juice. ? 8 oz (237 ml) of kefir, yogurt, and soy yogurt. ? 4 oz (118 ml) of tofu. ? 1 oz of cheese. ? 1 cup (300 g) of dried figs. ? 1 cup (91 g) of cooked broccoli. ? 1?3 oz can of sardines or mackerel. ? Most people need 1000 to 1500 mg of calcium each day. Talk to your dietitian about how much calcium is recommended for you. Shopping ? Buy plenty of fresh fruits and vegetables. Most people do not need to avoid fruits and vegetables, even if they contain nutrients that may contribute to kidney stones. ? When shopping for convenience foods, choose: ? Whole pieces of fruit. ? Premade salads with dressing on the side. ? Low-fat fruit and yogurt smoothies. ? Avoid buying frozen meals or prepared deli foods. ? Look for foods with live cultures, such as yogurt and kefir. Cooking ? Do not add salt to food when cooking. Place a salt shaker on the table and allow each person to add his or her own salt to taste. ? Use vegetable protein, such as beans, textured vegetable protein (TVP), or tofu instead of meat in pasta, casseroles, and soups. Meal planning ? Eat less salt, if told by your dietitian. To do this: ? Avoid eating processed or premade food. ? Avoid eating fast food. ? Eat less animal protein, including cheese, meat, poultry, or fish, if told by your dietitian. To do this: ? Limit the number of times you have meat, poultry, fish, or cheese each week. Eat a diet free of meat at least 2 days a week. ? Eat only one serving each day of meat, poultry, fish, or seafood. ? When you prepare animal protein, cut pieces into small portion sizes. For most meat and fish, one serving is about the size of one deck of cards. ? Eat at least 5 servings of fresh fruits and vegetables each day. To do this: ? Keep fruits and vegetables on hand for snacks. ? Eat 1 piece of fruit or a handful of berries with breakfast. ? Have a salad and fruit at lunch. ? Have two kinds of vegetables at dinner. ? Limit foods that are high in a substance called oxalate. These include: ? Spinach. ? Rhubarb. ? Beets. ? Potato chips and swedish fries. ? Nuts. ? If you regularly take a diuretic medicine, make sure to eat at least 1?2 fruits or vegetables high in potassium each day. These include: ? Avocado. ? Banana. ? [place], prune, carrot, or tomato juice. ? Baked potato. ? Cabbage. ? Beans and split peas. General instructions ? Drink enough fluid to keep your urine clear or pale yellow. This is the most important thing you can do. ? Talk to your health care provider and dietitian about taking daily supplements. Depending on your health and the cause of your kidney stones, you may be advised: ? Not to take supplements with vitamin C. ? To take a calcium supplement. ? To take a daily probiotic supplement. ? To take other supplements such as magnesium, fish oil, or vitamin B6. ? Take all medicines and supplements as told by your health care provider. ? Limit alcohol intake to no more than 1 drink a day for non women and 2 drinks a day for men. One drink equals 12 oz of beer, 5 oz of wine, or 1? oz of hard liquor. ? Lose weight if told by your health care provider. Work with your dietitian to find strategies and an eating plan that works best for you. What foods are not recommended? Limit your intake of the following foods, or as told by your dietitian. Talk to your dietitian about specific foods you should avoid based on the type of kidney stones and your overall health. Grains Breads. Bagels. Rolls. Baked goods. Salted crackers. Cereal. Pasta. Vegetables Spinach. Rhubarb. Beets. Canned vegetables. Pickles. Olives. Meats and other protein foods Nuts. Nut butters. Large portions of meat, poultry, or fish. Salted or cured meats. Deli meats. Hot dogs. Sausages. Dairy Cheese. Beverages Regular soft drinks. Regular vegetable juice. Seasonings and other foods Seasoning blends with salt. Johnnie alexander (more content not included)... Normal [facility] RAD - MISCon 06-20-2022 [facility] - MIS [id number]#1.00C D:127 Normal [facility] XR KUB 1 VIEWon 06-19-2022 XR KUB 1 VIEW EXAMINATION: XR KUB 1 VIEW HISTORY: Kidney stone ; right flank pain for 4 days COMPARISON: XR KUB 12/08/2021 FINDINGS: KIDNEY/URETER - RIGHT: 4 mm calcification projecting over mid sacrum, possibly a ureteral stone. KIDNEY/URETER - LEFT: No visible renal or ureteral calcifications. PELVIS: Stable pelvic calcifications compatible with phleboliths. BOWEL: No abnormal dilation or deviation. BONES: No acute abnormality. OTHER: Negative. No abnormal gaseous collections. IMPRESSION: 1. New mid right ureter 4 mm stone versus bowel content artifact. Electronically authenticated by: DENVER SHINE Date: 2022-06-19 17:02 Normal [facility] HCG,Urineon 02-27-2022 Beta HCG ( test) Ql (U) Negative Normal [facility] Comment on above: Result Comment: PERF ORMED BY: [place] [address] PATHOLOGIST GYPSUM BLOCK SETTER KADEN NOLASCO M.D. Performed By: #### U HCG #### [address] COVID-19 Antigenon 2 COVID-19 Antigen Healthcare Worker?: N Reference Range: Negative Negative results, from patients with symptom onset beyond five days, should be treated as presumptive and confirmation with a molecular assay, if necessary, for patient management, may be performed. Negative results do not rule out COVID-19 and should not be used as the sole basis for treatment or patient management decisions, including infection control decisions. Negative results should be considered in the context of a patient's recent exposures, history and the presence of clinical signs and symptoms consistent with COVID-19. The Bret SARS Antigen BETTY does not differentiate between SARS-CoV and SARS-CoV-2. This test was developed and its performance characteristic determined by [employer] and validated at [facility]. This test has not been FDA cleared or approved. This test has been authorized by FDA under an Emergency Use Authorization (EUA). This test has been validated in accordance with the FDA's Guidance Document (Policy for Diagnostics Testing in Laboratories Certified to Perform High Complexity Testing under CLIA prior to Emergency Use Authorization for Coronavirus Disease-2019 during the Public Health Emergency) issued on July 29, 2019. This test is only authorized for the duration of time the declaration that circumstances exist justifying the authorization of the emergency use of in vitro diagnostic tests for detection of SARS-CoV-2 virus and/or diagnosis of COVID-19 infection under section 564(b)(1) of the Act, 21 U.S.C. 360bbb-3(b)(1), unless the authorization is terminated or revoked sooner. SARS-CoV+SARS-CoV-2 (COVID-19) Ag [Presence] in Respiratory specimen by Rapid immunoassay Negative for SARS Antigen by [employer] PERFORMED BY: [place] [address] PATHOLOGIST GYPSUM BLOCK SETTER KADEN NOLASCO M.D. Normal [facility] Comment on above: Performed By: #### S OFKERENEG, COVID-19 BRET #### [address] COVID-19 SOFIAOrdered By: Luzma Walker on 02-25-2022 SARS-CoV+SARS-CoV-2 (COVID-19) Ag IA.rapid Ql (Resp) Negative Negative [facility] Comment on above: This is a duplicate Bret SARS Antigen (BETTY) result to be used for statistical tracking purpose only. No Panel InformationOrdered By: Se Walker on 02-25-2022 SARS Antigen (LFIA) [facility] Bret Ag Negativeon 02-26-20 22 Bret Ag Negative Negative Normal Negative [facility] Comment on above: Result Comment: This is a duplicate Bret SARS Antigen (BETTY) result to be used for statistical tracking purpose only. PERFORMED BY: [place] [address] PATHOLOGIST GYPSUM BLOCK SETTER KADEN NOLASCO M.D. Performed By: #### S OFIANEG, COVID-19 BRET #### [facility] [address] [place] [address] Lab Reportson 02-18-2022 Lab Reports [id number]#1.00C D:127 Normal [facility] CITRATE URINE 24HRon 022 Citric Acid, U, 24hr 227 mg/24 hr Critically low 320-1240 [facility] Comment on above: Result Comment: This test was developed and its performance characteristics determined by [employer]. It has not been cleared or approved by the Food and Drug Administration. Performed By: #### C ITRATU #### [facility] [address] [place] [address] Dr. Holland Caballero Citric Acid, Urine 275 mg/L Normal Undefined [facility] Comment on above: Result Comment: For proper preservation, the pH of urine for analysis of oxalate or citric acid must be <3.0. Specimen received was not preserved correctly, therefore results may be questionable. Performed By: #### C ITRATU #### [facility] [address] [place] [address] Dr. Holland Caballero MAGNESIUM 24HR URINEon 02-14 Magnesium 24hr Urine 70.1 mg/24 hr Normal 12.0-293.0 T [facility] Comment on above: Result Comment: No t otal volume submitted. Unable to calculate 24 hour result. Performed By: #### P REGU, ERUR, UMICRO #### [facility] [address] [place] [address] Dr. Holland Caballero Magnesium UR 8.5 mg/dL Normal Not Estab. [facility] Comment on above: Performed By: #### P REGU, ERUR, UMICRO #### [facility] [address] [place] [address] Dr. Holland Caballero OXALATE 24HR URINEon 022 Oxalates, Urine 24 mg/L Normal Undefined [facility] Comment on above: Performed By: #### P THINT #### [facility] [address] [place] [address] Dr. Holland Caballero Oxalates, Urine 24hr 20 mg/24 hr Normal 4-31 [facility] Comment on above: Performed By: #### P THINT #### [facility] [address] [place] [address] Dr. Holland Caballero PHOSPHORUS 24HR URINEon 01-27 Phosphorus, Urine 69.2 mg/dL Normal Not Estab. [facility] Comment on above: Performed By: #### P HOS 24 #### [facility] [address] [address] [address] Holland Caballero Phosphorus, Urine 24hr 571 mg/24 hr Normal 261-1078 [facility] Comment on above: Result Comment: No t otal volume submitted. Unable to calculate 24 hour result. Performed By: #### P HOS 24 #### [facility] [address] [address] [address] Holland Caballero URIC ACID 24 HR URINEon 01-27 Uric Acid, Urine 37.6 mg/dL Normal Not Estab. [facility] Comment on above: Performed By: #### C ITRATU #### [facility] [address] [place] [address] Dr. Holland Caballero Uric Acid, Urine 24hr 310.2 mg/24 hr Normal 173.7-902. 1 [facility] Comment on above: Result Comment: No t otal volume submitted. Unable to calculate 24 hour result. Performed By: #### C ITRATU #### [facility] [address] [place] [address] Dr. Holland Caballero PTH INTACTon 02-13-2022 PTH, Intact 31 pg/mL Normal 15-65 [facility] Comment on above: Performed By: #### P THINT #### [facility] [address] [place] [address] Dr. Holland Caballero Body fluid albumin measureme nt (mass/volume)Ordered By: Lorenzo Conteh on 02-12-2022 Albumin (Body fld) [Mass/Vol] 4.0 g/dL 3.2-5.5 [facility] Cholesterol [Mass/volume] in Serum or PlasmaOrdered By: Lorenzo Conteh on 02-12-2022 Cholesterol [Mass/Vol] 203 mg/dL 140-200 [facility] Comment on above: Chol less than 200 m g/dl low riskChol 201-239 mg/dl borderline riskChol 240 mg/dl and greater high risk Cholesterol in LDL Calc [Mas s/Vol]Ordered By: Lorenzo Conteh on 02-12-2022 Cholesterol in LDL [Mass/Vol] 126 mg/dL 0-100 [facility] Comment on above: LDL ATP III CLASSIFI CATIONLDL less than 100 mg/dL OptimalLDL 100-129 mg/dL Near or above optimalLDL 130-159 mg/dL Borderline highLDL 160-189 mg/dL HighLDL greater than 189 mg/dL Very high Cholesterol in VLDL Calc [Ma ss/Vol]Ordered By: Lorenzo Conteh on 02-12-2022 Cholesterol in VLDL [Mass/Vol] 23 mg/dL [facility] Comprehensive Metabolic Pane josh 02-12-2022 Albumin [Mass/Vol] 4.0 g/dL Normal 3.2-5.5 [facility] Comment on above: Order Comment: Reaso n for Exam Screening for diabetes mellitus;Screening for cardiovascular Performed By: #### C MP, CBCNO, LIPID #### [facility] [address] Albumin/Globulin [Mass ratio] 1.7 {ratio} Normal [facility] Comment on above: Order Comment: Reaso n for Exam Screening for diabetes mellitus;Screening for cardiovascular Performed By: #### C MP, CBCNO, LIPID #### [facility] [address] [id number] [place] ALP [Catalytic activity/Vol] 50 U/L Normal 32-92 [facility] Comment on above: Order Comment: Reaso n for Exam Screening for diabetes mellitus;Screening for cardiovascular Performed By: #### C MP, CBCNO, LIPID #### [facility] [address] [id number] [place] ALT [Catalytic activity/Vol] 12 U/L Normal 10-60 [facility] Comment on above: Order Comment: Reaso n for Exam Screening for diabetes mellitus;Screening for cardiovascular Performed By: #### C MP, CBCNO, LIPID #### [facility] [address] [id number] [place] Anion gap [Moles/Vol] 11.0 mmol/L Normal 6.0-15.0 [facility] Comment on above: Order Comment: Reaso n for Exam Screening for diabetes mellitus;Screening for cardiovascular Performed By: #### C MP, CBCNO, LIPID #### [facility] [address] [id number] [place] AST [Catalytic activity/Vol] 16 U/L Normal 10-42 [facility] Comment on above: Order Comment: Reaso n for Exam Screening for diabetes mellitus;Screening for cardiovascular Performed By: #### C MP, CBCNO, LIPID #### [facility] [address] Bilirubin [Mass/Vol] 0.8 mg/dL Normal 0.3-1.2 [facility] Comment on above: Order Comment: Reaso n for Exam Screening for diabetes mellitus;Screening for cardiovascular Performed By: #### C MP, CBCNO, LIPID #### [facility] [address] Calcium [Mass/Vol] 9.3 mg/dL Normal 8.2-10.2 [facility] Comment on above: Order Comment: Reaso n for Exam Screening for diabetes mellitus;Screening for cardiovascular Performed By: #### C MP, CBCNO, LIPID #### [facility] [address] [place] [address] [place] Chloride [Moles/Vol] 103 mmol/L Normal 95-114 [facility] Comment on above: Order Comment: Reaso n for Exam Screening for diabetes mellitus;Screening for cardiovascular Performed By: #### C MP, CBCNO, LIPID #### [facility] [address] [place] [address] [place] CO2 [Moles/Vol] 26.0 mmol/L Normal 22.0-30.0 [facility] Comment on above: Order Comment: Reaso n for Exam Screening for diabetes mellitus;Screening for cardiovascular Performed By: #### C MP, CBCNO, LIPID #### [facility] [address] [id number] [place] Creatinine [Mass/Vol] 0.82 mg/dL Normal 0.44-1.03 [facility] Comment on above: Order Comment: Reaso n for Exam Screening for diabetes mellitus;Screening for cardiovascular Performed By: #### C MP, CBCNO, LIPID #### [facility] [address] [id number] [place] Estimated GFR ( Jocy > 60 Normal [facility] Comment on above: Order Comment: Reaso n for Exam Screening for diabetes mellitus;Screening for cardiovascular Result Comment: GFR estimated reference range: According to KDOQI guidelines, <60 ml/min/1.73m2 is sufficient to diagnose a patient with chronic kidney disease. Performed By: #### C MP, CBCNO, LIPID #### [facility] [address] Estimated GFR (Non- Am > 60 Normal [facility] Comment on above: Order Comment: Reaso n for Exam Screening for diabetes mellitus;Screening for cardiovascular Performed By: #### C MP, CBCNO, LIPID #### [facility] [address] Globulin (S) [Mass/Vol] 2.4 g/dL Normal [facility] Comment on above: Order Comment: Reaso n for Exam Screening for diabetes mellitus;Screening for cardiovascular Performed By: #### C MP, CBCNO, LIPID #### [address] Glucose [Mass/Vol] 100 mg/dL Normal 70-100 [facility] Comment on above: Order Comment: Reaso n for Exam Screening for diabetes mellitus;Screening for cardiovascular Result Comment: [place] Glucose Reference Range is dependent on time and content of last meal. Glucose of more than 200 mg/dL in a nonstressed, ambulatory subject supports the diagnosis of Diabetes Mellitus. ADA recommended reference range Performed By: #### C MP, CBCNO, LIPID #### [address] Potassium [Moles/Vol] 4.0 mmol/L Normal 3.5-5.1 [facility] Comment on above: Order Comment: Reaso n for Exam Screening for diabetes mellitus;Screening for cardiovascular Performed By: #### C MP, CBCNO, LIPID #### [place] [address] [place] Protein [Mass/Vol] 6.4 g/dL Normal 6.1-7.9 [facility] Comment on above: Order Comment: Reaso n for Exam Screening for diabetes mellitus;Screening for cardiovascular Performed By: #### C MP, CBCNO, LIPID #### [place] [address] [place] Sodium [Moles/Vol] 136 mmol/L Normal 136-146 [facility] Comment on above: Order Comment: Reaso n for Exam Screening for diabetes mellitus;Screening for cardiovascular Performed By: #### C MP, CBCNO, LIPID #### [facility] [address] [place] [address] [place] Urea nitrogen [Mass/Vol] 14 mg/dL Normal 9-23 [facility] Comment on above: Order Comment: Reaso n for Exam Screening for diabetes mellitus;Screening for cardiovascular Performed By: #### C MP, CBCNO, LIPID #### [facility] [address] [place] [address] [place] Creatinine and Glomerular fi ltration rate.predicted panel (S/P/Bld)Ordered By: Lorenzo Conteh on 02-12-2022 Creatinine [Mass/Vol] 0.82 mg/dL 0.44-1.03 [facility] Erythrocyte distribution wid th Auto (RBC) [Ratio]Ordered By: Lorenzo Conteh on 02-12-2022 Erythrocyte distribution width (RBC) [Ratio] 12.4 % 11.9-15.3 [facility] Estimated glomerular filtrat ion rate (GFR) non- AmericanOrdered By: Lorenzo Conteh on 02-12-2022 GFR/1.73 sq M.predicted among non-blacks MDRD (S/P/Bld) [Vol rate/Area] > 60 mL/Min [facility] Globulin Calc (S) [Mass/Vol] Ordered By: Lorenzo Conteh on 02-12-2022 Globulin (S) [Mass/Vol] 2.4 g/dL [facility] Hematocrit Auto (Bld) [Volum e fraction]Ordered By: Lorenzo Conteh on 02-12-2022 Hematocrit (Bld) [Volume fraction] 42.4 % 34.0-46.4 [facility] Hemoglobin [Mass/volume] in BloodOrdered By: Lorenzo Conteh on 02-12-2022 Hemoglobin (Bld) [Mass/Vol] 13.9 g/dL 11.8-15.4 [facility] Hemogram CBC Without Diffon 02-12-2022 Erythrocyte distribution width (RBC) [Ratio] 12.4 % Normal 11.9-15.3 [facility] Comment on above: Order Comment: Reaso n for Exam Screening for diabetes mellitus;Screening for cardiovascular Performed By: #### C MP, CBCNO, LIPID #### [facility] [address] Hematocrit (Bld) [Volume fraction] 42.4 % Normal 34.0-46.4 [facility] Comment on above: Order Comment: Reaso n for Exam Screening for diabetes mellitus;Screening for cardiovascular Performed By: #### C MP, CBCNO, LIPID #### [facility] [address] [place] [address] Hemoglobin (Bld) [Mass/Vol] 13.9 g/dL Normal 11.8-15.4 [facility] Comment on above: Order Comment: Reaso n for Exam Screening for diabetes mellitus;Screening for cardiovascular Performed By: #### C MP, CBCNO, LIPID #### [facility] [address] [place] [address] MCH (RBC) [Entitic mass] 30.8 pg Normal 24.7-34.3 [facility] Comment on above: Order Comment: Reaso n for Exam Screening for diabetes mellitus;Screening for cardiovascular Performed By: #### C MP, CBCNO, LIPID #### [facility] [address] [place] [address] MCV (RBC) [Entitic vol] 94.0 fL Normal 80-100 [facility] Comment on above: Order Comment: Reaso n for Exam Screening for diabetes mellitus;Screening for cardiovascular Performed By: #### C MP, CBCNO, LIPID #### [facility] [address] [place] [address] Mean Corpuscular HGB Conc 32.8 g/dL Normal 32.0-35.0 [facility] Comment on above: Order Comment: Reaso n for Exam Screening for diabetes mellitus;Screening for cardiovascular Performed By: #### C MP, CBCNO, LIPID #### [facility] [address] [place] [address] Platelet mean volume (Bld) [Entitic vol] 10.1 fL Normal 6.3-10.7 [facility] Comment on above: Order Comment: Reaso n for Exam Screening for diabetes mellitus;Screening for cardiovascular Result Comment: PERF ORMED BY: [place] [address] PATHOLOGIST GYPSUM BLOCK SETTER KADEN NOLASCO M.D. Performed By: #### C MP, CBCNO, LIPID #### [facility] [address] Platelets (Bld) [#/Vol] 250 10*3/uL Normal 150-450 [facility] Comment on above: Order Comment: Reaso n for Exam Screening for diabetes mellitus;Screening for cardiovascular Performed By: #### C MP, CBCNO, LIPID #### [facility] [address] [place] [address] RBC (Bld) [#/Vol] 4.51 10*6/uL Normal 3.60-5.00 [facility] Comment on above: Order Comment: Reaso n for Exam Screening for diabetes mellitus;Screening for cardiovascular Performed By: #### C MP, CBCNO, LIPID #### [facility] [address] WBC (Bld) [#/Vol] 4.4 10*3/uL Normal 3.8-11.6 [facility] Comment on above: Order Comment: Reaso n for Exam Screening for diabetes mellitus;Screening for cardiovascular Performed By: #### C MP, CBCNO, LIPID #### [facility] [address] [place] [address] Lipid Panelon 02-12-2022 Cholesterol [Mass/Vol] 203 mg/dL High 140-200 [facility] Comment on above: Order Comment: Reaso n for Exam Screening for diabetes mellitus;Screening for cardiovascular Result Comment: Chol less than 200 mg/dl low risk Chol 201-239 mg/dl borderline risk Chol 240 mg/dl and greater high risk Performed By: #### C MP, CBCNO, LIPID #### [facility] [address] [place] [address] Cholesterol in HDL [Mass/Vol] 54 mg/dL Normal 35-85 [facility] Comment on above: Order Comment: Reaso n for Exam Screening for diabetes mellitus;Screening for cardiovascular Result Comment: HDL CHOL ATP-III CLASSIFICATION Cardiovascular Risk HDL > or equal to 60 mg/dL LOW HDL < 40 mg/dL HIGH Performed By: #### C MP, CBCNO, LIPID #### [facility] [address] Cholesterol.total/Elenita sterol in HDL [Mass ratio] 3.8 {ratio} Normal <5.0 [facility] Comment on above: Order Comment: Reaso n for Exam Screening for diabetes mellitus;Screening for cardiovascular Result Comment: PERF ORMED BY: [place] [address] PATHOLOGIST GYPSUM BLOCK SETTER KADEN NOLASCO M.D. Performed By: #### C MP, CBCNO, LIPID #### [facility] [address] LDL Cholesterol,Calculated 126 mg/dL High 0-100 [facility] Comment on above: Order Comment: Reaso n for Exam Screening for diabetes mellitus;Screening for cardiovascular Result Comment: LDL ATP III CLASSIFICATION LDL less than 100 mg/dL Optimal LDL 100-129 mg/dL Near or above optimal LDL 130-159 mg/dL Borderline high LDL 160-189 mg/dL High LDL greater than 189 mg/dL Very high Performed By: #### C MP, CBCNO, LIPID #### [facility] [address] Triglyceride w/Reflex 116 mg/dL Normal 35-149 [facility] Comment on above: Order Comment: Reaso n for Exam Screening for diabetes mellitus;Screening for cardiovascular Result Comment: TRIG ATP III CLASSIFICATION TRIG less than 150 mg/dL Normal TRIG 150-199 mg/dL Borderline high TRIG 200-500 mg/dL High TRIG greater than 500 mg/dL Very high Standard traceable to the Center for Disease Conrtrol and Prevention (CDC) test method. Performed By: #### C MP, CBCNO, LIPID #### [facility] [address] VLDL CHOLESTEROL 23 mg/dL Normal [facility] Comment on above: Order Comment: Reaso n for Exam Screening for diabetes mellitus;Screening for cardiovascular Performed By: #### C MP, CBCNO, LIPID #### [facility] [address] MCH Auto (RBC) [Entitic mass ]Ordered By: Lorenzo Conteh on 02-12-2022 MCH (RBC) [Entitic mass] 30.8 pg 24.7-34.3 [facility] MCHC Auto (RBC) [Mass/Vol]Or dered By: Lorenzo Conteh on 02-12-2022 MCHC (RBC) [Mass/Vol] 32.8 g/dL 32.0-35.0 [facility] MCV Auto (RBC) [Entitic vol] Ordered By: Lorenzo Conteh on 02-12-2022 MCV (RBC) [Entitic vol] 94.0 fL 80-100 [facility] No Panel InformationOrdered By: Lorenzo Conteh on 02-12-2022 Estimated GFR () > 60 mL/Min [facility] Comment on above: GFR estimated refere nce range: According to KDOQI guidelines, <60 ml/min/1.73m2 is sufficient to diagnose a patient with chronic kidney disease. Pharmacy Creatinine Clearance (Chem N/A [facility] Platelet mean volume Auto (B ld) [Entitic vol]Ordered By: Lorenzo Conteh on 02-12-2022 Platelet mean volume (Bld) [Entitic vol] 10.1 fL 6.3-10.7 [facility] Platelets Auto (Bld) [#/Vol] Ordered By: Lorenzo Conteh on 02-12-2022 Platelets (Bld) [#/Vol] 250 10*3/uL 150-450 [facility] Protein [Mass/volume] in Ser um or PlasmaOrdered By: Lorenzo Conteh on 02-12-2022 Protein [Mass/Vol] 6.4 g/dL 6.1-7.9 [facility] RBC Auto (Bld) [#/Vol]Ordere d By: Lorenzo Conteh on 02-12-2022 RBC (Bld) [#/Vol] 4.51 10*6/uL 3.60-5.00 [facility] Serum or plasma alanine cobb otransferase measurement without P-5'-P (enzymatic activiOrdered By: Lorenzo Conteh on 02-12-2022 ALT No additional P-5'-P [Catalytic activity/Vol] 12 U/L 10-60 [facility] Serum or plasma albumin/glob ulin mass ratioOrdered By: Lorenzo Conteh on 02-12-2022 Albumin/Globulin [Mass ratio] 1.7 {ratio} [facility] Serum or plasma alkaline abril sphatase measurement (enzymatic activity/volume)Ordered By: Lorenzo Conteh on 02-12-2022 ALP [Catalytic activity/Vol] 50 U/L 32-92 [facility] Serum or plasma anion gap de terminationOrdered By: Lorenzo Conteh on 02-12-2022 Anion gap [Moles/Vol] 11.0 mmol/L 6.0-15.0 [facility] Serum or plasma aspartate am inotransferase measurement (enzymatic activity/volume)Ordered By: Lorenzo Conteh on 02-12-2022 AST [Catalytic activity/Vol] 16 U/L 10-42 [facility] Serum or plasma calcium sadia urement (mass/volume)Ordered By: Lorenzo Conteh on 02-12-2022 Calcium [Mass/Vol] 9.3 mg/dL 8.2-10.2 [facility] Serum or plasma chloride delfino surement (moles/volume)Ordered By: Lorenzo Conteh on 02-12-2022 Chloride [Moles/Vol] 103 mmol/L 95-114 [facility] Serum or plasma glucose sadia urement (mass/volume)Ordered By: Lorenzo Conteh on 02-12-2022 Glucose [Mass/Vol] 100 mg/dL 70-100 [facility] Comment on above: ADA recommended refe rence rangeRandom Glucose Reference Range is dependent on time and content of last meal. Glucose of more than 200 mg/dL in a nonstressed, ambulatory subject supports the diagnosis of Diabetes Mellitus. Serum or plasma high density lipoprotein (HDL) cholesterol measurementOrdered By: Lorenzo Conteh on 02-12-2022 Cholesterol in HDL [Mass/Vol] 54 mg/dL 35-85 [facility] Comment on above: HDL CHOL ATP-III CLA SSIFICATION Cardiovascular RiskHDL > or equal to 60 mg/dL LOWHDL < 40 mg/dL HIGH Serum or plasma potassium me asurement (moles/volume)Ordered By: Lorenzo Conteh on 02-12-2022 Potassium [Moles/Vol] 4.0 mmol/L 3.5-5.1 [facility] Serum or plasma sodium measu rement (moles/volume)Ordered By: Lorenzo Conteh on 02-12-2022 Sodium [Moles/Vol] 136 mmol/L 136-146 [facility] Serum or plasma total biliru bin measurement (mass/volume)Ordered By: Lorenzo Conteh on 02-12-2022 Bilirubin [Mass/Vol] 0.8 mg/dL 0.3-1.2 [facility] Serum or plasma total carbon dioxide measurement (moles/volume)Ordered By: Lorenzo Conteh on 02-12-2022 CO2 [Moles/Vol] 26.0 mmol/L 22.0-30.0 [facility] Serum or plasma total choles terol/high density lipoprotein (HDL) cholesterol mass ratOrdered By: Lorenzo Conteh on 02-12-2022 Cholesterol.total/Elenita sterol in HDL [Mass ratio] 3.8 {ratio} <5.0 [facility] Serum or plasma urea nitroge n measurement (mass/volume)Ordered By: Lorenzo Conteh on 02-12-2022 Urea nitrogen [Mass/Vol] 14 mg/dL 9-23 [facility] Triglyceride [Mass/volume] i n Serum or PlasmaOrdered By: Lorenzo Conteh on 02-12-2022 Triglyceride [Mass/Vol] 116 mg/dL 35-149 [facility] Comment on above: TRIG ATP III CLASSIF ICATIONTRIG less than 150 mg/dL NormalTRIG 150-199 mg/dL Borderline highTRIG 200-500 mg/dL High TRIG greater than 500 mg/dL Very highStandard traceable to the Center for Disease Conrtrol and Prevention (CDC) test method. WBC Auto (Bld) [#/Vol]Ordere d By: Lorenzo Conteh on 02-12-2022 WBC (Bld) [#/Vol] 4.4 10*3/uL 3.8-11.6 [facility] BUNon 02-11-2022 Urea nitrogen [Mass/Vol] 16.0 mg/dL Normal 7.0-18.0 [facility] Comment on above: Performed By: #### C ITRATU #### [facility] [address] [place] [address] Dr. Holland Caballero CALCIUMon 02-11-2022 Calcium [Mass/Vol] 8.4 mg/dL Critically low 8.5-10.1 [facility] Comment on above: Performed By: #### C ITRATU #### [facility] [address] [place] [address] Dr. Holland Caballero CALCIUM 24 HR URINEon 2021 CALC, 24 HR UR 54.4 mg/24 hr Critically low 100.0-300.0 [facility] Comment on above: Performed By: #### P ENRRIQUE MUÑOZ UMICRO #### [facility] [address] [place] [address] Dr. Holland Caballero UR CALCIUM 6.6 mg/dL Normal 5.1-21.0 [facility] Comment on above: Performed By: #### ENRRIQUE KRUSE UMICRO #### [facility] [address] [place] [address] Dr. Holland Caballero CHLORIDEon 02-11-2022 Chloride [Moles/Vol] 102 mmol/L Normal 98-107 [facility] Comment on above: Performed By: #### P ENRRIQUE MUÑOZ UMICRO #### [facility] [address] [place] [address] Dr. Holland Caballero CO2on 02-11-2022 CO2 [Moles/Vol] 27.7 mmol/L Normal 21.0-32.0 [facility] Comment on above: Performed By: #### C ITRATU #### [facility] [address] [place] [address] Dr. Holland Caballero CREA 24 HR URINEon 2 CREA, 24 HR UR 772.45 mg/24 hr Critically low 800.00-1 ,80 0.00 [facility] Comment on above: Performed By: #### C REA24U, NA24U #### [facility] [address] [place] [address] Dr. Holland Caballero URINE CREAT 93.63 mg/dL Normal 20.00-300.0 0 [facility] Comment on above: Performed By: #### C REA24U, NA24U #### [facility] [address] [place] [address] Dr. Holland Caballero CREATININEon 02-11-2022 Creatinine [Mass/Vol] 0.81 mg/dL Normal 0.55-1.02 [facility] Comment on above: Performed By: #### C ITRATU #### [facility] [address] [place] [address] Dr. Holland Caballero EGFR-AF CYPRIOT >60 Normal >=60 [facility] Comment on above: Performed By: #### C ITRATU #### [facility] [address] [place] [address] Dr. Holland Caballero EGFR-NON AF CYPRIOT >60 Normal >=60 [facility] Comment on above: Performed By: #### C ITRATU #### [facility] [address] [place] [address] Dr. Holland Caballero NAon 02-11-2022 Sodium [Moles/Vol] 138 mmol/L Normal 136-145 [facility] Comment on above: Performed By: #### C ITRATU #### [facility] [address] [place] [address] Dr. Holland Caballero POTASSIUMon 02-11-2022 Potassium [Moles/Vol] 3.7 mmol/L Normal 3.5-5.1 [facility] Comment on above: Performed By: #### C ITRATU #### [facility] [address] [place] [address] Dr. Holland Caballero SODIUM 24 HR URINEon 022 NA, 24 HR UR 67 mmol/24 hr Normal 40-220 [facility] Comment on above: Performed By: #### C REA24U, NA24U #### [facility] [address] [place] [address] Dr. Holland Caballero Sodium (U) [Moles/Vol] 81 mmol/L Normal 30-90 [facility] Comment on above: Performed By: #### C REA24U, NA24U #### [facility] [address] [address] [address] Holland Caballero UR TOT VOL 825 ml/24 HR Normal [facility] Comment on above: Performed By: #### C REA24U, NA24U #### [facility] [address] [address] [address] Holland Caballero Performed By: #### P REGU, ERUR, UMICRO #### [facility] [address] [address] [address] Holland Caballero URIC ACID SERUMon 02-11-2022 Urate [Mass/Vol] 3.5 mg/dL Normal 2.6-6.0 [facility] Comment on above: Performed By: #### C ITRATU #### [facility] [address] [place] [address] Dr. Holland Caballero Turner's yeast IgE Ab [Units/ volume] in SerumOrdered By: Lorenzo Conteh on 12-25-2021 Turner's yeast IgE Qn (S) <0.10 kU/L Class 0 [facility] Comment on above: Performed at: [address] [id number] Director: Zhane Roland MD, Phone: [phone] Turner's yeast IgG Ab [Units/ volume] in Serum by ImmunoassayOrdered By: Lorenzo Conteh on 12-25-2021 Turner's yeast IgG IA Qn (S) 23 units 0-50 [facility] Comment on above: Negative <45 Equivocal 45 - 50 Positive >50 Negative <45 Equivoc al 45 - 50 Positive >50 Banana IgE Ab [Units/volume] in SerumOrdered By: Lorenzo Conteh on 12-25-2021 Banana IgE Qn (S) <0.10 kU/L Class 0 [facility] Barley IgE Ab [Units/volume] in SerumOrdered By: Lorenzo Conteh on 12-25-2021 Barley IgE Qn (S) <0.10 kU/L Class 0 [facility] Beef IgE Ab [Units/volume] i n SerumOrdered By: Lorenzo Conteh on 12-25-2021 Beef IgE Qn (S) <0.10 kU/L Class 0 [facility] Cheese cheddar type IgE Ab [ Units/volume] in SerumOrdered By: Lorenzo Conteh on 12-25-2021 Cheese cheddar type IgE Qn (S) <0.10 kU/L Class 0 [facility] Chitobioside IgA Ab [Units/v olume] in Serum or Plasma by ImmunoassayOrdered By: Lorenzo Conteh on 12-25-2021 Chitobioside IgA IA Qn 26 units 0-90 [facility] Comment on above: Negative <80 Equivocal 80 - 90 Positive >90 Negative <80 Equivoc al 80 - 90 Positive >90 Showell IgE Ab [Units/volume] i n SerumOrdered By: Lorenzo Conteh on 12-25-2021 Showell IgE Qn (S) <0.10 kU/L Class 0 [facility] Cow milk IgE Ab [Units/volum e] in SerumOrdered By: Lorenzo Conteh on 12-25-2021 Cow milk IgE Qn (S) <0.10 kU/L Class 0 [facility] Gluten IgE Ab [Units/volume] in SerumOrdered By: Lorenzo Conteh on 12-25-2021 Gluten IgE Qn (S) <0.10 kU/L Class 0 [facility] IgA [Mass/volume] in Serum o r PlasmaOrdered By: Lorenzo Conteh on 12-25-2021 IgA [Mass/Vol] 285 mg/dL 87-352 [facility] Comment on above: Performed at: [employer] [address] [place] [id number] [employer] Bander: Anupam Castellanos PhD, Phone: [phone] Performed at: [employer] [facility] [place] [id number] Director: Anupam Castellanos PhD, Phone: [phone] Laminaribioside IgG Ab [Unit s/volume] in Serum or Plasma by ImmunoassayOrdered By: Lorenzo Conteh on 12-25-2021 Laminaribioside IgG IA Qn 6 units 0-60 [facility] Comment on above: Negative <55 Equivocal 55 - 60 Positive >60 Negative <55 Equivoc al 55 - 60 Positive >60 Mannobioside IgG Ab [Units/v olume] in Serum or Plasma by ImmunoassayOrdered By: Lorenzo Conteh on 12-25-2021 Mannobioside IgG IA Qn 14 units 0-100 [facility] Comment on above: Negative < 90 Equivocal 90 - 100 Positive >100 In patients diagnosed with Crohn's disease, a positive result for two or more antibodies in this panel (Alfonzo, ACCA, ALCA, or AMCA) has been reported to be associated with an elevated risk of more aggressive disease behavior (1-4). The incidence of complications and/or need for abdominal surgery has been reported to increase with both the number of positive antibodies and with the relative reactivity of individual antibodies (1-4). 1. Aletha I. et al. Gastroenterology. 2006; 131:366-378 2. Viola M. et al. Gut. 2007; 56:8185-9470 3. Philipp M. et al. Am J Gastroenterology. 2007; 102:1-17 4. Amara Griffin. et al. World J Gastroenterology. 2008; 14:5406-4561 This test was developed and its performance characteristics determined by [employer]. It has not been cleared or approved by the Food and Drug Administration. The FDA has determined that such clearance or approval is not necessary. Performed at: [address] [id number] Sizing [employer] Bander: Zhane Roland MD, Phone: [phone] Negative < 90 Equivo jessy 90 - 100 Positive >100In patients diagnosed with Crohn's disease, a positive result fortwo or more antibodies in this panel (Alfonzo, ACCA, ALCA, or AMCA)has been reported to be associated with an elevated risk of moreaggressive disease behavior (1-4). The incidence of complicationsand/or need for abdominal surgery has been reported to increase withboth the number of positive antibodies and with the relativereactivity of individual antibodies (1-4).1. Aletha I. et al. Gastroenterology. 2006; 131:366-3782. Viola M. et al. Gut. 2007; 56:1394-06086. Philipp M. et al. Am J Gastroenterology. 2007; 102:1-174. Li X. et al. World J Gastroenterology. 2008; 14:5115-5124This test was developed and its performance characteristics determinedby [facility]. It has not been cleared or approved by the Food and DrugAdministration. The FDA has determined that such clearance orapproval is not necessary.Performed at: [address] [id number] Director: Zhane Roland MD, Phone: [phone] No Panel InformationOrdered By: Lorenzo Conteh on 12-25-2021 Allergen Note See comment . [facility] Comment on above: Levels of Specific I gE Class Description of Class ----- < 0.10 0 Negative 0.10 - 0.31 0/I Equivocal/Low 0.32 - 0.55 I Low 0.56 - 1.40 II Moderate 1.41 - 3.90 III High 3.91 - 19.00 IV Very High 19.01 - 100.00 V Very High >100.00 Very High Endomysial IgA Antibody Negative Negative [facility] Oat IgE Ab [Units/volume] in SerumOrdered By: Lorenzo Conteh on 12-25-2021 Oat IgE Qn (S) <0.10 kU/L Class 0 [facility] Ballard IgE Ab [Units/volume] in SerumOrdered By: Lorenzo Conteh on 12-25-2021 Ballard IgE Qn (S) <0.10 kU/L Class 0 [facility] Peanut IgE Ab [Units/volume] in SerumOrdered By: Lorenzo Conteh on 12-25-2021 Peanut IgE Qn (S) <0.10 kU/L Class 0 [facility] Pork IgE Ab [Units/volume] i n SerumOrdered By: Lorenzo Conteh on 12-25-2021 Pork IgE Qn (S) <0.10 kU/L Class 0 [facility] Rice IgE Ab [Units/volume] i n SerumOrdered By: Lorenzo Conteh on 12-25-2021 Rice IgE Qn (S) <0.10 kU/L Class 0 [facility] Derby IgE Ab [Units/volume] in SerumOrdered By: Lorenzo Conteh on 12-25-2021 Derby IgE Qn (S) <0.10 kU/L Class 0 [facility] Serum chicken droppings IgE antibody assay (units/volume)Ordered By: Lorenzo Conteh on 12-25-2021 Chicken droppings IgE Qn (S) <0.10 kU/L Class 0 [facility] Serum gliadin peptide IgA an tibody assay (units/volume)Ordered By: Lorenzo Conteh on 12-25-2021 Gliadin peptide IgA Qn (S) 16 units 0-19 [facility] Comment on above: Negative 0 - 19 Weak Positive 20 - 30 Moderate to Strong Positive >30 Negative 0 - 19 Weak Positive 20 - 30 Moderate to Strong Positive >30 Serum gliadin peptide IgG an tibody assay (units/volume)Ordered By: Lorenzo Conteh on 12-25-2021 Gliadin peptide IgG Qn (S) 2 units 0-19 [facility] Comment on above: Negative 0 - 19 Weak Positive 20 - 30 Moderate to Strong Positive >30 Negative 0 - 19 Weak Positive 20 - 30 Moderate to Strong Positive >30 Serum tissue transglutaminas e (tTG) IgA antibody assay (units/volume)Ordered By: Lorenzo Conteh on 12-25-2021 tTG IgA Qn (S) <2 U/mL 0-3 [facility] Comment on above: Negative 0 - 3 Weak Positive 4 - 10 Positive >10 Tissue Transglutaminase (tTG) has been identified as the endomysial antigen. Studies have demonstr- ated that endomysial IgA antibodies have over 99% specificity for gluten sensitive enteropathy. Negative 0 - 3 Weak Positive 4 - 10 Positive >10 Tissue Transglutaminase (tTG) has been identified as the endomysial antigen. Studies have demonstr- ated that endomysial IgA antibodies have over 99% specificity for gluten sensitive enteropathy. Serum tissue transglutaminas e (tTG) IgG antibody assay (units/volume)Ordered By: Lorenzo Conteh on 12-25-2021 tTG IgG Qn (S) <2 U/mL 0-5 [facility] Comment on above: Negative 0 - 5 Weak Positive 6 - 9 Positive >9 Negative 0 - 5 Weak Positive 6 - 9 Positive >9 Serum white potato specific IgE antibody assayOrdered By: Lorenzo Conteh on 12-25-2021 Potato IgE Qn (S) <0.10 kU/L Class 0 [facility] Soybean specific IgE antibod y assayOrdered By: Lorenzo Conteh on 12-25-2021 Soybean IgE Qn (S) <0.10 kU/L Class 0 [facility] Tomato IgE Ab [Units/volume] in SerumOrdered By: Lorenzo Conteh on 12-25-2021 Tomato IgE Qn (S) <0.10 kU/L Class 0 [facility] Wheat IgE Ab [Units/volume] in SerumOrdered By: Lorenzo Conteh on 12-25-2021 Wheat IgE Qn (S) <0.10 kU/L Class 0 [facility] RAD - MISCon 12-11-2021 [facility] [id number] D:127 Normal [facility] XR KUB 1 VIEWon 12-10-2021 XR KUB 1 VIEW EXAMINATION: XR KUB 1 VIEW HISTORY: Kidney stone COMPARISON: XR KUB 11/15/2021 FINDINGS: KIDNEY/URETER - RIGHT: Several calcifications projecting over kidney, unchanged. KIDNEY/URETER - LEFT: Several tiny calcifications projecting over kidney, unchanged. PELVIS: No visible ureteral stones. Stable pelvic calcifications favoring phleboliths. BOWEL: No abnormal dilation or deviation. BONES: No acute abnormality. OTHER: Negative. No abnormal gaseous collections. IMPRESSION: 1. Grossly stable bilateral nephrolithiasis. Electronically authenticated by: DNEVER SHINE Date: 2021-12-10 07:15 Normal [facility] RAD - MISCon 11-16-2021 [facility] [id number] D:127 Normal [facility] RAD - [facility] [id number] D:127 Normal [facility] Operative Reporton Operative Report [id number] D:127 Normal [facility] PREG HCG QUALon 11-15-2021 , QUAL Negative Normal NEGATIVE [facility] Comment on above: Performed By: #### P ENRRIQUE MUÑOZ UMICRO #### [facility] [address] [place], [place] [address] Dr. Holland Caballero XR KUB 1 VIEWon 11-15-2021 XR KUB 1 VIEW EXAMINATION: XR KUB 1 VIEW HISTORY: Urolithiasis COMPARISON: 11/13/2021 FINDINGS: KIDNEY/URETER - RIGHT: Stable nephrolithiasis KIDNEY/URETER - LEFT: Stable nephrolithiasis PELVIS: No visible ureteral calcifications. Any visible calcifications favor phleboliths. BOWEL: No abnormal dilation or deviation. Moderate stool BONES: No acute abnormality. Rotatory levocurvature centered at L3 OTHER: Negative. No abnormal gaseous collections. IMPRESSION: Bilateral nephrolithiasis Electronically authenticated by: JERONIMO MTZ Date: 2021-11-15 16:21 Normal [facility] Provider Letter FTMCon 11-14 Provider Letter FT (Inserted Image. Un able to display) November 14, 2021 JAMIL QUINN [address] [place] [address] JAMIL QUINN 1985 To Whom It May Concern, Please excuse above patient from work. Date of Illness: From: 11/08/21 To: 11/18/21 May Return to Work On: 11/19/21 Restrictions: None Comments: Patient had surgical procedures with Dr. Jimenez on 11/08/21 and 11/15/21. She may return to work 11/19/21 without restrictions from urology. Sincerely, Theodora Jimenez M.D., F.A.C.S. [facility] [address] [place] [id number] Normal [facility] XR KUB 1 VIEWon 11-14-2021 XR KUB 1 VIEW EXAMINATION: XR KUB 1 VIEW HISTORY: Kidney stone on right COMPARISON: XR KUB 11/08/2021 FINDINGS: KIDNEY/URETER - RIGHT: 2 calcifications project over right kidney. A previously seen 5 mm calcification is no longer visible. KIDNEY/URETER - LEFT: A few tiny calcifications project over left kidney. PELVIS: No visible ureteral stones. Stable pelvic calcifications compatible with phleboliths. BOWEL: No abnormal dilation or deviation. BONES: No acute abnormality. OTHER: Negative. No abnormal gaseous collections. IMPRESSION: 1. Bilateral nephrolithiasis. 2. A previously seen 5 mm stone is no longer visible over the right kidney; recently passed stone versus bowel content artifact on prior study. Electronically authenticated by: DENVER SHINE Date: 2021-11-14 20:42 Normal [facility] Lab Reportson 11-09-2021 Lab Reports [id number]#1.00C D:127 Normal [facility] Lab Reports [id number] D:127 Normal [facility] Operative Reporton Operative Report [id number]#1.00C D:127 Normal [facility] RAD - MISCon 11-09-2021 RAD - MISC [id number] D:127 Normal [facility] PREG HCG QUALon 11-08-2021 , QUAL Negative Normal NEGATIVE [facility] Comment on above: Performed By: #### P REGU, ERUR, UMICRO #### [facility] [address] [place] [address] Dr. Holland Caballero XR KUB 1 VIEWon 11-08-2021 XR KUB 1 VIEW EXAMINATION: XR KUB 1 VIEW HISTORY: Urolithiasis COMPARISON: 08/04/2021 FINDINGS: KIDNEY/URETER - RIGHT: Stable nephrolithiasis KIDNEY/URETER - LEFT: Stable nephrolithiasis PELVIS: No visible ureteral calcifications. Any visible calcifications favor phleboliths. BOWEL: No abnormal dilation or deviation. Moderate stool in the rectum BONES: No acute abnormality. OTHER: Negative. No abnormal gaseous collections. IMPRESSION: Stable bilateral nephrolithiasis Electronically authenticated by: JERONIMO MTZ Date: 2021-11-08 08:10 Normal [facility] CBC AUTO DIFFon 11-05-2021 BASO # 0.0 103/ul Normal 0.0-0.1 [facility] Comment on above: Performed By: #### C BC #### [facility] [address] [place] [address] Dr. Holland Caballero Basophils/100 WBC (Bld) 0.4 % Normal 0.2-2.0 [facility] Comment on above: Performed By: #### C BC #### [facility] [address] [place] [address] Dr. Holland Caballero EO # 0.1 103/ul Normal 0.0-0.7 [facility] Comment on above: Performed By: #### C BC #### [facility] [address] [place] [address] Dr. Holland Caballero Eosinophils/100 WBC (Bld) 1.6 % Normal 0.9-7.0 [facility] Comment on above: Performed By: #### C BC #### [facility] [address] [place] [address] Dr. Holland Caballero Erythrocyte distribution width (RBC) [Ratio] 12.0 % Normal 11.0-15.0 [facility] Comment on above: Performed By: #### C BC #### [facility] [address] [place] [address] Dr. Holland Caballero Hematocrit (Bld) [Volume fraction] 43.3 % Normal 36.0-48.0 [facility] Comment on above: Performed By: #### C BC #### [facility] [address] [place] [address] Dr. Holland Caballero Hemoglobin (Bld) [Mass/Vol] 14.3 g/dL Normal 12.0-16.0 [facility] Comment on above: Performed By: #### C BC #### [facility] [address] [place] [address] Dr. Holland Caballero IG # 0.01 10e3/ul Normal 0.00-0.03 [facility] Comment on above: Performed By: #### C BC #### [facility] [address] [place] [address] Dr. Holland Caballero IG % 0.2 % Normal 0.0-0.5 [facility] Comment on above: Performed By: #### C BC #### [facility] [address] [place] [address] Dr. Holland Caballero LYMPH # 1.2 103/ul Normal 1.2-3.8 [facility] Comment on above: Performed By: #### C BC #### [facility] [address] [place] [address] Dr. Holland Caballero Lymphocytes/100 WBC (Bld) 23.9 % Normal 20.5-60.0 [facility] Comment on above: Performed By: #### C BC #### [facility] [address] [place] [address] Dr. Holland Caballero MANUAL DIFF REQ NO Normal [facility] Comment on above: Performed By: #### C BC #### [facility] [address] [place] [address] Dr. Holland Caballero MCH (RBC) [Entitic mass] 30.8 pg Normal 26.7-34.0 [facility] Comment on above: Performed By: #### C BC #### [facility] [address] [place] [address] Dr. Holland Caballero MCHC (RBC) [Mass/Vol] 33.0 g/dL Normal 29.9-35.2 [facility] Comment on above: Performed By: #### C BC #### [facility] [address] [place] [address] Dr. Holland Caballero MCV (RBC) [Entitic vol] 93.3 fL Normal 81.0-99.0 [facility] Comment on above: Performed By: #### C BC #### [facility] [address] [place] [address] Dr. Holland Caballero MONO # 0.7 103/ul Normal 0.3-0.8 [facility] Comment on above: Performed By: #### C BC #### [facility] [address] [place] [address] Dr. Holland Caballero Monocytes/100 WBC (Bld) 12.7 % Critically high 1.7-12. 0 [facility] Comment on above: Performed By: #### C BC #### [facility] [address] [place] [address] Dr. Holland Caballero NEUT # 3.1 103/ul Normal 1.4-6.5 [facility] Comment on above: Performed By: #### C BC #### [facility] [address] [address] [address] Holland Caballero Neutrophils/100 WBC (Bld) 61.2 % Normal 43.0-75.0 [facility] Comment on above: Performed By: #### C BC #### [facility] [address] [place] [address] Dr. Holland Caballero Platelet mean volume (Bld) [Entitic vol] 10.6 fL Normal 9.5-13.5 [facility] Comment on above: Performed By: #### C BC #### [facility] [address] [place] [address] Dr. Holland Caballero PLT 197 103/ul Normal 150-450 [facility] Comment on above: Performed By: #### C BC #### [facility] [address] [place] [address] Dr. Holland Caballero RBC 4.64 106/ul Normal 4.20-5.40 [facility] Comment on above: Performed By: #### C BC #### [facility] [address] [place] [address] Dr. Holland Caballero WBC 5.1 103/ul Normal 4.0-11.0 [facility] Comment on above: Performed By: #### C BC #### [facility] [address] [place] [address] Dr. Holland Caballero PROF CHEM 8 (BAS METB)on Anion gap [Moles/Vol] 12.5 mmol/L Normal [facility] Comment on above: Performed By: #### P REGU, ERUR, UMICRO #### [facility] [address] [place] [address] Dr. Holland Caballero Calcium [Mass/Vol] 9.1 mg/dL Normal 8.5-10.1 [facility] Comment on above: Performed By: #### P REGU, ERUR, UMICRO #### [facility] [address] [place] [address] Dr. Holland Caballero Chloride [Moles/Vol] 105 mmol/L Normal 98-107 [facility] Comment on above: Performed By: #### P REGU, ERUR, UMICRO #### [facility] [address] [place] [address] Dr. Holland Caballero CO2 [Moles/Vol] 26.4 mmol/L Normal 21.0-32.0 [facility] Comment on above: Performed By: #### P REGU, ERUR, UMICRO #### [facility] [address] [place] [address] Dr. Holland Caballero Creatinine [Mass/Vol] 0.83 mg/dL Normal 0.55-1.02 [facility] Comment on above: Performed By: #### P REGU, ERUR, UMICRO #### [facility] [address] [place] [address] Dr. Holland Caballero EGFR-AF CYPRIOT >60 Normal >=60 [facility] Comment on above: Performed By: #### P REGU, ERUR, UMICRO #### [facility] [address] [place] [address] Dr. Holland Caballero EGFR-NON AF CYPRIOT >60 Normal >=60 [facility] Comment on above: Performed By: #### P REGU, ERUR, UMICRO #### [facility] [address] [place] [address] Dr. Holland Caballero Glucose [Mass/Vol] 103 mg/dL Normal 74-106 [facility] Comment on above: Performed By: #### P REGU, ERUR, UMICRO #### [facility] [address] [place] [address] Dr. Holland Caballero Potassium [Moles/Vol] 3.9 mmol/L Normal 3.5-5.1 [facility] Comment on above: Performed By: #### P REGU, ERUR, UMICRO #### [facility] [address] [address] [address] Holland Caballero Sodium [Moles/Vol] 140 mmol/L Normal 136-145 [facility] Comment on above: Performed By: #### P REGJEOVANNY SchreiberR, UMICRO #### [facility] [address] [address] [address] Holland Caballero Urea nitrogen [Mass/Vol] 14.0 mg/dL Normal 7.0-18.0 [facility] Comment on above: Performed By: #### P REGUJEOVANNYR, UMICRO #### [facility] [address] [place] [address] Dr. Holland Caballero Urea nitrogen/Creatinine [Mass ratio] 16.9 mg/mg Normal [facility] Comment on above: Performed By: #### P REGJEOVANNY SchreiberR UMICRO #### [facility] [address] [place] [address] Dr. Holland Caballero PROTIMEon 11-05-2021 INR Coag (PPP) [Relative time] 1.02 {INR} Normal [facility] Comment on above: Performed By: #### P ENRRIQUE MUÑOZ UMICRO #### [facility] [address] [place] [address] Dr. Holland Caballero INR GUIDELINES SEE BELOW Normal [facility] Comment on above: Result Comment: GENARO RED INR: 2.0 - 3.0 CONDITIONS NOT LISTED BELOW 2.5 - 3.5 FOR PROSTHETIC HEART VALVE REPLACEMENT 2.5 - 3.5 RECURRENT THROMBOSIS Performed By: #### P REGU ERUR, UMICRO #### [facility] [address] [place] [address] Dr. Holland Caballero PT Coag (PPP) [Time] 11.0 s Normal 9.0-11.6 [facility] Comment on above: Performed By: #### P REGU, ERUR, UMICRO #### [facility] [address] [place] [address] Dr. Holland Caballero PTTon 11-05-2021 aPTT Coag (Bld) [Time] 29.7 s Normal 22.3-36.2 e [facility] Comment on above: Performed By: #### P ENRRIQUE MUÑOZ UMICRO #### [facility] [address] [address] [address] Holland Caballero RAD - MISCon 08-06-2021 RAD - MIS [id number]#1.00C D:127 Normal [facility] Reminderson 08-06-2021 Reminders - From: Morenita Silva To: EU - Clinical; Sent: 08/02/2021 12:58:11 EDT Show up: 08/06/2021 12:58:00 EDT Subject: Reminder Message Reminder Message Please Remember to:_ PATIENT RELATED REMINDER:_ Order was faxed to [facility] for KUB; Pt was to have done on Friday08/04/2021 ( ) Call Patient ( ) Ask Patient to ( ) Call Relative ( ) Schedule Patient ( ) Follow up on Results ( ) Other: PROVIDER RELATED REMINDER:_ ( ) Tar Roofer ( ) Call Pharmacy ( ) Call Lab ( ) Other: Special Instructions:_ Comments:_ addressed. SABINE Normal [facility] XR KUB 1 VIEWon 08-04-2021 XR KUB 1 VIEW EXAMINATION: XR KUB 1 VIEW HISTORY: Kidney stone COMPARISON: XR KUB 07/19/2021 FINDINGS: KIDNEY/URETER - RIGHT: 2 adjacent approximately 6 mm stones within superior pole and the small 3 mm stone within inferior pole. KIDNEY/URETER - LEFT: A few small calcifications project over left kidney. PELVIS: No appreciable ureteral stones. Stable pelvic calcifications favoring phleboliths. BOWEL: No abnormal dilation or deviation. BONES: No acute abnormality. OTHER: Negative. No abnormal gaseous collections. IMPRESSION: 1. Grossly stable right nephrolithiasis. 2. Decreased stone burden within left kidney. 3. No ureteral stones. Electronically authenticated by: DENVER SHINE Date: 2021-08-04 10:36 Normal [facility] PREG HCG QUALon 07-19-2021 , QUAL Negative Normal NEGATIVE [facility] Comment on above: Performed By: #### P ENRRIQUE MUÑOZ UMICRO #### [facility] [address] [address] [address] Holland Caballero XR KUB 1 VIEWon 07-19-2021 XR KUB 1 VIEW EXAMINATION: XR KUB 1 VIEW HISTORY: Urolithiasis COMPARISON: XR abdomen with PA chest 06/19/2021 FINDINGS: KIDNEY/URETER - RIGHT: Several kidney stones up to 6 mm in size. KIDNEY/URETER - LEFT: Several kidney stones up to 6 mm in size. PELVIS: No convincing ureteral stones. Stable pelvic calcifications favoring phlebolith. BOWEL: No abnormal dilation or deviation. BONES: No acute abnormality. OTHER: Negative. No abnormal gaseous collections. IMPRESSION: 1. Grossly stable bilateral nephrolithiasis. Electronically authenticated by: DENVER SHINE Date: 2021-07-19 07:48 Normal [facility] CNOVon 09-23-2018 CNOV Office Visit (NEPHMN ) CHEYENNEJAMIL Brittani ([id number]) 1985 F Date Time Provider Department 09/23/18 8:10 AM RANDY SILVA NEPHVENANCIO During your visit today, we recorded the following information about you: Temperature Pulse Blood pressure Weight 97.6 degrees 71/minute 124/83 49.3 kg Height 1.524 m Randy Silva MD 09/23/2018 3:03 PM Signed Ms. Quinn is a 33 year old woman from [place] here with her boyfriend seen at the request of Her LMD for my opinion regarding PKD. My final recommendations will be communicated back to the requesting physician by way of letter. ? ? Dr. Javier Piedra MD Internal Medicine, Nephrology [facility] [place] [address] ? ? HPI: ? 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 Done locally, not in Care Everywhere Also had CT abdomen in 2017 for stone pain. Will get the films to review At [facility]. Question if ADPKD ? No prior information. No family Hx. Adopted but she knows siblings. No renal hx there No mention of cysts in CT 2010. ? CT Abdomen and Pelvis without IV contrast COMPARISON- No prior for comparison. CLINICAL INDICATION- Left flank pain. Hematuria. FINDINGS- Lack of IV and oral contrast limits sensitivity for visceral organ pathology. Basilar atelectasis. Multiple intrarenal calculi are seen bilaterally. There is mild to moderate left hydronephrosis. A calculus is seen within the distal left ureter on image 63 measuring approximately 5 mm. This is approximately 1 cm proximal to the UVJ. Bladder is decompressed. No gross bladder calculus. 1.2 cm fluid density lesion within the right kidney, typically representing cyst in a young otherwise healthy patient. Noncontrast views of the liver and spleen are grossly unremarkable. Gallbladder is unremarkable. Adrenal glands are within normal limits. Aorta is grossly within normal limits in caliber. Loops of small and large bowel are nondilated, in a nonobstructed pattern. Stool seen within the colon. Portions of appendix are seen which contain air and are within normal limits in caliber. Low-density fullness of the adnexa, typically representing follicular change in a reproductive aged female. No evidence of free air. Probable bone islands within each iliac bone. IMPRESSION- 1. 5 mm distal left ureteral calculus with mild to moderate left hydronephrosis and hydroureter. 2. Additional nonobstructing intrarenal calculi bilaterally. These findings were communicated to the emergency department by the [facility] at the time of the exam. 10/16/2010 ? 2) HTN - BP up when on BCPs, had migraine Torre. Meds started then. Had elevated BPs during first . Was on bed rest but does not think it with eclampsia. Resolved and not started on meds. Had eval for secondary causes in 2009 that was negative with Dr. Jesse Dominguez at [facility]. 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 Better with decrease ? NA 139 ? ? K 4.0 ? ? CL 103 ? ? CO2 30 ? ? BUN 12 ? ? CREAT 0.7 ? ? eGFR ? ? ? GLUC 98 ? ? ALB/CREAT RATIO ? ? ? PROT/CREAT RATIO U/A neg ? ? PTH ? ? ? Ca++ / Phos 9.2 ? ? Hb ? 3. Renal stones since teen age years. Family Hx? Not in siblings. [place] Had ESWL in 2005, cysto - last event Passed 7 stones spontaneously Over 20 altogether First 2002 - Does not know type of stone. Did collect 24 hr urine told high CA++ but no Rx ever given. ? TODAY Stable Rec'd her records from [facility] but not RENAL US done in April. BP 124/83 (BP Site: Left Arm, BP Position: Sitting, BP Cuff Size: Regular Adult) Pulse 71 Temp 36.4 ?C (97.6 ?F) (Tympanic) Ht 152.4 cm (5') Wt 49.3 kg (108 lb 9.6 oz) BMI 21.21 kg/m? EXAM Average BP (BpTru): 124/83 BpTRU BP #1 discard value (BpTru): 144/93 Pulse #1 Discard Value (BpTru): 70 beats/min BP #2 (BpTru): 126/84 Pulse #2 (BpTru): 68 beats/min BP #3 (BpTru): 125/83 Pulse #3 (BpTru): 70 beats/min BP #4 (BpTru): 126/85 Pulse #4 (BpTru): 69 beats/min BP #5 (BpTru): 112/82 Pulse #5 (BpTru): 74 beats/min BP #6 (BpTru): 131/83 Pulse #6 (BpTru): 75 beats/min Average BP (BpTru): 124/83 Average Pulse (BpTru): 71 beats/min BP cuff location: Left upper arm BP cuff size: regular adult Orthostatic Vitals Standing BP (BpTru): 122/90 Standing pulse (BpTru): 76 GENERAL: WD,WN, NAD SKIN: Normal color, turgor. No rashes, lesions HEAD: Sclera anicteric, conjunctiva non inflamed, oral mucosa moist, no lesions NECK: No bruits, adenopathy, masses. Supple. No JVD LUNGS: Clear bilat CARDIOVASC: RRR no murmurs, rubs, or gallops. ABDOM: Soft, no tenderness, no organomegaly EXT: No edema. Normal turgor, color NEUROL: Alert, oriented A/P: 1) Renal stones Ask stone clinic to see. Dr. Holman 2) Cysts - awaiting RENAL US report - 04/2018 Will repeat a study here with stone eval ADPKD ? Current stones? - never evaluated , never had metabolic studies 2) HTN Fatigue, weight gain with metoprolol Unable to run as far or fast as before D/c metoprolol. Monitor BP for 4-6 weeks Can incr losartan to 50 mg daily if it rises. F/u after above Referring Provider: SELF [200] Allergies As of Date: 09/23/2018 (No Known Allergies) Date Reviewed: 09/23/2018 Reviewed by: Randy Silva - Fully Assessed Primary Visit Diagnosis:Screening for genitourinary condition [Z13.89] Other Visit Diagnoses:Renal stones [N20.0] Essential hypertension [I10] Multiple kidney stones [N20.0] Order(s):UA CHEMSTRIP ONLY [SQUA] Order #: [id number] FUTURE UA CHEMSTRIP ONLY [SQUA] Order #: [id number]. #:[id number] CONSULT TO NEPHROL/HYPERTENS [19990503] Order #: [id number]: 1 Prescriptions as of 09/23/2018 Sig: METOPROLOL SUCCINATE ER 25 MG* 25 mg once daily. LOSARTAN 25 MG TABLET 25 mg once daily. 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 Follow-up and Disposition History Recorded Encounter Status:Closed by RANDY SILVA MD on 09/23/18 Normal [facility] PROGRESSon 09-23-2018 Protein mass conc HNO ID: [id number] Author: Randy Silva Service: ? Author Type: Physician Type: Progress Notes Filed: 09/23/2018 3:03 PM Note Text: Ms. Quinn is a 33 year old woman from [place] here with her boyfriend seen at the request of Her LMD for my opinion regarding PKD. My final recommendations will be communicated back to the requesting physician by way of letter. ? ? Dr. Javier Piedra MD Internal Medicine, Nephrology [facility] [address] [place] [address] ? ? HPI: ? 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 Done locally, not in Care Everywhere Also had CT abdomen in 2017 for stone pain. Will get the films to review At [facility]. Question if ADPKD ? No prior information. No family Hx. Adopted but she knows siblings. No renal hx there No mention of cysts in CT 2010. ? CT Abdomen and Pelvis without IV contrast COMPARISON- No prior for comparison. CLINICAL INDICATION- Left flank pain. Hematuria. FINDINGS- Lack of IV and oral contrast limits sensitivity for visceral organ pathology. Basilar atelectasis. Multiple intrarenal calculi are seen bilaterally. There is mild to moderate left hydronephrosis. A calculus is seen within the distal left ureter on image 63 measuring approximately 5 mm. This is approximately 1 cm proximal to the UVJ. Bladder is decompressed. No gross bladder calculus. 1.2 cm fluid density lesion within the right kidney, typically representing cyst in a young otherwise healthy patient. Noncontrast views of the liver and spleen are grossly unremarkable. Gallbladder is unremarkable. Adrenal glands are within normal limits. Aorta is grossly within normal limits in caliber. Loops of small and large bowel are nondilated, in a nonobstructed pattern. Stool seen within the colon. Portions of appendix are seen which contain air and are within normal limits in caliber. Low-density fullness of the adnexa, typically representing follicular change in a reproductive aged female. No evidence of free air. Probable bone islands within each iliac bone. IMPRESSION- 1. 5 mm distal left ureteral calculus with mild to moderate left hydronephrosis and hydroureter. 2. Additional nonobstructing intrarenal calculi bilaterally. These findings were communicated to the emergency department by the [facility] at the time of the exam. 10/16/2010 ? 2) HTN - BP up when on BCPs, had migraine Torre. Meds started then. Had elevated BPs during first . Was on bed rest but does not think it with eclampsia. Resolved and not started on meds. Had eval for secondary causes in 2009 that was negative with Dr. Jesse Dominguez at [facility]. 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 Better with decrease ? NA 139 ? ? K 4.0 ? ? CL 103 ? ? CO2 30 ? ? BUN 12 ? ? CREAT 0.7 ? ? eGFR ? ? ? GLUC 98 ? ? ALB/CREAT RATIO ? ? ? PROT/CREAT RATIO U/A neg ? ? PTH ? ? ? Ca++ / Phos 9.2 ? ? Hb ? 3. Renal stones since teen age years. Family Hx? Not in siblings. [place] Had ESWL in 2005, cysto - last event Passed 7 stones spontaneously Over 20 altogether First 2002 - Does not know type of stone. Did collect 24 hr urine told high CA++ but no Rx ever given. ? TODAY Stable Rec'd her records from [facility] but not RENAL US done in April. BP 124/83 (BP Site: Left Arm, BP Position: Sitting, BP Cuff Size: Regular Adult) Pulse 71 Temp 36.4 ?C (97.6 ?F) (Tympanic) Ht 152.4 cm (5') Wt 49.3 kg (108 lb 9.6 oz) BMI 21.21 kg/m? EXAM Average BP (BpTru): 124/83 BpTRU BP #1 discard value (BpTru): 144/93 Pulse #1 Discard Value (BpTru): 70 beats/min BP #2 (BpTru): 126/84 Pulse #2 (BpTru): 68 beats/min BP #3 (BpTru): 125/83 Pulse #3 (BpTru): 70 beats/min BP #4 (BpTru): 126/85 Pulse #4 (BpTru): 69 beats/min BP #5 (BpTru): 112/82 Pulse #5 (BpTru): 74 beats/min BP #6 (BpTru): 131/83 Pulse #6 (BpTru): 75 beats/min Average BP (BpTru): 124/83 Average Pulse (BpTru): 71 beats/min BP cuff location: Left upper arm BP cuff size: regular adult Orthostatic Vitals Standing BP (BpTru): 122/90 Standing pulse (BpTru): 76 GENERAL: WD,WN, NAD SKIN: Normal color, turgor. No rashes, lesions HEAD: Sclera anicteric, conjunctiva non inflamed, oral mucosa moist, no lesions NECK: No bruits, adenopathy, masses. Supple. No JVD LUNGS: Clear bilat CARDIOVASC: RRR no murmurs, rubs, or gallops. ABDOM: Soft, no tenderness, no organomegaly EXT: No edema. Normal turgor, color NEUROL: Alert, oriented A/P: 1) Renal stones Ask stone clinic to see. Dr. Holman 2) Cysts - awaiting RENAL US report - 04/2018 Will repeat a study here with stone eval ADPKD ? Current stones? - never evaluated , never had metabolic studies 2) HTN Fatigue, weight gain with metoprolol Unable to run as far or fast as before D/c metoprolol. Monitor BP for 4-6 weeks Can incr losartan to 50 mg daily if it rises. F/u after above Normal [facility] Urinalysison 09-23-2018 Bilirubin, Urine Negative Normal [facility] Comment on above: Performed By: #### U A #### [facility] [employer] [facility] [place], [place] [address] Clarity Nom (U) Clear Normal Clear [facility] Comment on above: Performed By: #### U A #### [facility] [employer] [facility] [place], [place] [address] Color Nom (U) Yellow Normal Yellow [facility] Comment on above: Performed By: #### U A #### [facility] [employer] [address] [place] [id number] Comments SEE COMMENT Normal [facility] Comment on above: Result Comment: Micr oscopic Examination Performed Performed By: #### U A #### [facility] [employer] [facility] [place], [place] [address] Epithelial cells LM.HPF #/area (Urine sed) SEE COMMENT Normal [facility] Comment on above: Result Comment: Few Squamous Epithelial Cells Performed By: #### U A #### [facility] [employer] [address] [place], [place] [address] Glucose Ql (U) Negative Normal Negative [facility] Comment on above: Performed By: #### U A #### [facility] [employer] [facility] [place] [address] Hemoglobin/Blood,Ur Trace Critically abnormal Negative [facility] Comment on above: Performed By: #### U A #### [place] [address] [place] [address] Ketones Ql (U) Negative Normal Negative [facility] Comment on above: Performed By: #### U A #### [place] [address] Leukest Trace Critically abnormal Negative [facility] Comment on above: Performed By: #### U A #### [facility] [employer] [facility] [place] [address] Nitrite Ql (U) Negative Normal Negative [facility] Comment on above: Performed By: #### U A #### [facility] [employer] [facility] [place] [address] pH (Bld) 7.0 Normal 4.5-8.0 [facility] Comment on above: Performed By: #### U A #### [facility] [employer] [address] [place] [address] Protein mass conc (U) Negative Normal Negative [facility] Comment on above: Performed By: #### U A #### [facility] [employer] [facility] [place] [address] RBC #/vol (U) 0-3 Normal 0-3 [facility] Comment on above: Performed By: #### U A #### [facility] [employer] [address] [place], [place] [address] Specific [place], [place] 1.007 Normal 1.005-1.030 [facility] Comment on above: Performed By: #### U A #### [facility] [address] [place], [place] [id number] Urine Royal Comment SEE COMMENT Normal [facility] Comment on above: Result Comment: N/A Performed By: #### U A #### [facility] [employer] [address] [place] [phone] Urobilinogen Qn (U) Normal Normal Normal [facility] Comment on above: Performed By: #### U A #### [place] [address] [place], [place] [address] WBC #/vol (Bld) 0-5 Normal 0-5 [facility] Comment on above: Performed By: #### U A #### [facility] [address] [place] [phone] CNOVon 08-26-2018 CNOV Office Visit (NEPHMN ) JAMIL QUINN ([id number]) 1985 F Date Time Provider Department 08/26/18 9:30 AM RANDY SILVA NEPHMN During your visit today, we recorded the following information about you: Temperature Weight Height 97.5 degrees 48.5 kg 1.524 m Randy Silva MD 08/27/2018 2:06 PM Signed Ms. Quinn is a 33 year old woman from [place] here with her boyfriend seen at the request of Her LMD for my opinion regarding PKD. My final recommendations will be communicated back to the requesting physician by way of letter. Dr. 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 Done locally, not in Care Everywhere Also had CT abdomen in 2017 for stone pain. Will get the films to review At [facility]. Question if ADPKD No prior information. No family Hx. Adopted but she knows siblings. No renal hx there No mention of cysts in CT 2010. CT Abdomen and Pelvis without IV contrast COMPARISON- No prior for comparison. CLINICAL INDICATION- Left flank pain. Hematuria. FINDINGS- Lack of IV and oral contrast limits sensitivity for visceral organ pathology. Basilar atelectasis. Multiple intrarenal calculi are seen bilaterally. There is mild to moderate left hydronephrosis. A calculus is seen within the distal left ureter on image 63 measuring approximately 5 mm. This is approximately 1 cm proximal to the UVJ. Bladder is decompressed. No gross bladder calculus. 1.2 cm fluid density lesion within the right kidney, typically representing cyst in a young otherwise healthy patient. Noncontrast views of the liver and spleen are grossly unremarkable. Gallbladder is unremarkable. Adrenal glands are within normal limits. Aorta is grossly within normal limits in caliber. Loops of small and large bowel are nondilated, in a nonobstructed pattern. Stool seen within the colon. Portions of appendix are seen which contain air and are within normal limits in caliber. Low-density fullness of the adnexa, typically representing follicular change in a reproductive aged female. No evidence of free air. Probable bone islands within each iliac bone. IMPRESSION- 1. 5 mm distal left ureteral calculus with mild to moderate left hydronephrosis and hydroureter. 2. Additional nonobstructing intrarenal calculi bilaterally. These findings were communicated to the emergency department by the [facility] at the time of the exam. 10/16/2010 ? 2) HTN - BP up when on BCPs, had migraine Torre. Meds started then. Had elevated BPs during first . Was on bed rest but does not think it with eclampsia. Resolved and not started on meds. Had eval for secondary causes in 2009 that was negative with Dr. Jesse Dominguez at [facility]. 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 Better with decrease NA 139 K 4.0 CL 103 CO2 30 BUN 12 CREAT 0.7 eGFR GLUC 98 ALB/CREAT RATIO PROT/CREAT RATIO U/A neg PTH Ca++ / Phos 9.2 Hb 3. Renal stones since teen age years. Family Hx? Not in siblings. Bilat Had ESWL in 2005, cysto - last event Passed 7 stones spontaneously Over 20 altogether First 2002 - Does not know type of stone. Did collect 24 hr urine told high CA++ but no Rx ever given. 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 [facility] ADL / LIVING SITUATION: MARITAL STATUS: CHILDREN: miscarriage elevated BP. Not toxemia. Bedrest. COFFEE: no TEA: raspberry 1/da SODA: 2/wk ALCOHOL: no TOBACCO USE: never EXERCISE: 2-3 /wk running. Distances DIET: regular There is no problem list on file for this patient. Current Outpatient Medications: metoprolol succinate ER (TOPROL XL) 25 mg 24 hr tablet 25 mg once daily. losartan (COZAAR) 25 mg tablet 25 mg once daily. No current facility-administered medications for this visit. Allergies: Review of patient's allergies indicates: No Known Allergies. REVIEW OF SYSTEMS: Pertinent positives and negatives in HPI. All other systems reviewed and negative. Temp 36.4 ?C (97.5 ?F) (Tympanic) Ht 152.4 cm (5') Wt 48.5 kg (107 lb) BMI 20.90 kg/m? EXAM Average BP (BpTru): 126/92 BpTRU BP #1 discard value (BpTru): 140/103 Pulse #1 Discard Value (BpTru): 85 beats/min BP #2 (BpTru): 127/94 Pulse #2 (BpTru): 87 beats/min BP #3 (BpTru): 130/95 Pulse #3 (BpTru): 80 beats/min BP #4 (BpTru): 127/93 Pulse #4 (BpTru): 87 beats/min BP #5 (BpTru): 124/88 Pulse #5 (BpTru): 84 beats/min BP #6 (BpTru): 123/90 Pulse #6 (BpTru): 76 beats/min Average BP (BpTru): 126/92 Average Pulse (BpTru): 83 beats/min BP cuff location: Right upper arm BP cuff size: regular adult First BP (Left): 132/105 First BP (Right): 148/96 Orthostatic Vitals Standing BP (BpTru): 122/86 Standing pulse (BpTru): 86 No orthostatic Sx GENERAL: WD,WN, NAD SKIN: Normal color, turgor. No rashes, lesions HEAD: Sclera anicteric, conjunctiva non inflamed, oral mucosa moist, no lesions NECK: No bruits, adenopathy, masses. Supple. No JVD LUNGS: Clear bilat CARDIOVASC: RRR no murmurs, rubs, or gallops. ABDOM: Soft, no tenderness, no organomegaly. No palpable masses EXT: No edema. Normal turgor, color NEUROL: Alert, oriented A/P: 1) Stones / HTN / cysts One or multiple issues? Start with CT scan from 2017. ROR done Ask Dr. Holman is Stone clinic to see for her long, complicated Hx BP controlled . 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 #:[id number] CONSULT TO NEPHROL/HYPERTENS [19990503] Order #: [id number]: 1 Prescriptions as of 08/26/2018 Sig: METOPROLOL SUCCINATE ER 25 MG* 25 mg once daily. LOSARTAN 25 MG TABLET 25 mg once daily. Problem List As Of Date: 08/26/2018 (None) Medications Discontinued During This Encounter LABETALOL HCL (LABETALOL ORAL) 08/26/2018 Class: Historical Med Route: ORAL Sig: Take 100 mg by mouth. Disc: Course of therapy completed VIT CALC,IRON,FOLIC (PRENAT* 08/26/2018 Class: Historical Med Route: ORAL Sig: Take by mouth. Disc: Course of therapy completed Disposition: Return in about 1 month (around 09/23/2018). Follow-up and Disposition History Recorded Encounter Status:Closed by RANDY SILVA MD on 08/27/18 Normal [facility] PROGRESSon 08-26-2018 Protein mass conc HNO ID: [id number] Author: Randy Silva Service: ? Author Type: Physician Type: Progress Notes Filed: 08/27/2018 2:06 PM Note Text: Ms. Quinn is a 33 year old woman from [place] here with her boyfriend seen at the request of Her LMD for my opinion regarding PKD. My final recommendations will be communicated back to the requesting physician by way of letter. Dr. 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 Done locally, not in Care Everywhere Also had CT abdomen in 2017 for stone pain. Will get the films to review At [facility]. Question if ADPKD No prior information. No family Hx. Adopted but she knows siblings. No renal hx there No mention of cysts in CT 2010. CT Abdomen and Pelvis without IV contrast COMPARISON- No prior for comparison. CLINICAL INDICATION- Left flank pain. Hematuria. FINDINGS- Lack of IV and oral contrast limits sensitivity for visceral organ pathology. Basilar atelectasis. Multiple intrarenal calculi are seen bilaterally. There is mild to moderate left hydronephrosis. A calculus is seen within the distal left ureter on image 63 measuring approximately 5 mm. This is approximately 1 cm proximal to the UVJ. Bladder is decompressed. No gross bladder calculus. 1.2 cm fluid density lesion within the right kidney, typically representing cyst in a young otherwise healthy patient. Noncontrast views of the liver and spleen are grossly unremarkable. Gallbladder is unremarkable. Adrenal glands are within normal limits. Aorta is grossly within normal limits in caliber. Loops of small and large bowel are nondilated, in a nonobstructed pattern. Stool seen within the colon. Portions of appendix are seen which contain air and are within normal limits in caliber. Low-density fullness of the adnexa, typically representing follicular change in a reproductive aged female. No evidence of free air. Probable bone islands within each iliac bone. IMPRESSION- 1. 5 mm distal left ureteral calculus with mild to moderate left hydronephrosis and hydroureter. 2. Additional nonobstructing intrarenal calculi bilaterally. These findings were communicated to the emergency department by the [facility] at the time of the exam. 10/16/2010 ? 2) HTN - BP up when on BCPs, had migraine Torre. Meds started then. Had elevated BPs during first . Was on bed rest but does not think it with eclampsia. Resolved and not started on meds. Had eval for secondary causes in 2009 that was negative with Dr. Jesse Dominguez at [facility]. 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 Better with decrease NA 139 K 4.0 CL 103 CO2 30 BUN 12 CREAT 0.7 eGFR GLUC 98 ALB/CREAT RATIO PROT/CREAT RATIO U/A neg PTH Ca++ / Phos 9.2 Hb 3. Renal stones since teen age years. Family Hx? Not in siblings. Bilat Had ESWL in 2005, cysto - last event Passed 7 stones spontaneously Over 20 altogether First 2002 - Does not know type of stone. Did collect 24 hr urine told high CA++ but no Rx ever given. 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 [employer] ADL / LIVING SITUATION: MARITAL STATUS: CHILDREN: miscarriage elevated BP. Not toxemia. Bedrest. COFFEE: no TEA: raspberry 1/da SODA: 2/wk ALCOHOL: no TOBACCO USE: never EXERCISE: 2-3 /wk running. Distances DIET: regular There is no problem list on file for this patient. Current Outpatient Medications: metoprolol succinate ER (TOPROL XL) 25 mg 24 hr tablet 25 mg once daily. losartan (COZAAR) 25 mg tablet 25 mg once daily. No current facility-administered medications for this visit. Allergies: Review of patient's allergies indicates: No Known Allergies. REVIEW OF SYSTEMS: Pertinent positives and negatives in HPI. All other systems reviewed and negative. Temp 36.4 ?C (97.5 ?F) (Tympanic) Ht 152.4 cm (5') Wt 48.5 kg (107 lb) BMI 20.90 kg/m? EXAM Average BP (BpTru): 126/92 BpTRU BP #1 discard value (BpTru): 140/103 Pulse #1 Discard Value (BpTru): 85 beats/min BP #2 (BpTru): 127/94 Pulse #2 (BpTru): 87 beats/min BP #3 (BpTru): 130/95 Pulse #3 (BpTru): 80 beats/min BP #4 (BpTru): 127/93 Pulse #4 (BpTru): 87 beats/min BP #5 (BpTru): 124/88 Pulse #5 (BpTru): 84 beats/min BP #6 (BpTru): 123/90 Pulse #6 (BpTru): 76 beats/min Average BP (BpTru): 126/92 Average Pulse (BpTru): 83 beats/min BP cuff location: Right upper arm BP cuff size: regular adult First BP (Left): 132/105 First BP (Right): 148/96 Orthostatic Vitals Standing BP (BpTru): 122/86 Standing pulse (BpTru): 86 No orthostatic Sx GENERAL: WD,WN, NAD SKIN: Normal color, turgor. No rashes, lesions HEAD: Sclera anicteric, conjunctiva non inflamed, oral mucosa moist, no lesions NECK: No bruits, adenopathy, masses. Supple. No JVD LUNGS: Clear bilat CARDIOVASC: RRR no murmurs, rubs, or gallops. ABDOM: Soft, no tenderness, no organomegaly. No palpable masses EXT: No edema. Normal turgor, color NEUROL: Alert, oriented A/P: 1) Stones / HTN / cysts One or multiple issues? Start with CT scan from 2017. ROR done Ask Dr. Holman is Stone clinic to see for her long, complicated Hx BP controlled . As is 3-4 weeks Normal [facility] Urinalysison 08-26-2018 Bilirubin, Urine Negative Normal Negative [facility] Comment on above: Performed By: #### U A #### [place] [id number] [place] [phone] Clarity Nom (U) Cloudy Critically abnormal Clear [facility] Comment on above: Performed By: #### U A #### [place] [phone] Color Nom (U) Yellow Normal Yellow [facility] Comment on above: Performed By: #### U A #### [place] [phone] Comments SEE COMMENT Normal [facility] Comment on above: Result Comment: Micr oscopic not warranted Performed By: #### U A #### [place] [phone] Glucose Ql (U) Negative Normal Negative [facility] Comment on above: Performed By: #### U A #### [place] [phone] Hemoglobin/Blood,Ur Negative Normal Negative [facility] Comment on above: Performed By: #### U A #### [place] [phone] Ketones Ql (U) Negative Normal Negative [facility] Comment on above: Performed By: #### U A #### [place] [phone] Leukest 1+ Critically abnormal Negative [facility] Comment on above: Performed By: #### U A #### [facility] [address] [place] [address] Nitrite Ql (U) Negative Normal Negative [facility] Comment on above: Performed By: #### U A #### [place] [address] [place] [phone] pH (Bld) 7.0 Normal 4.5-8.0 [facility] Comment on above: Performed By: #### U A #### [place] [address] [place] [address] Protein mass conc (U) Trace Critically abnormal Negative [facility] Comment on above: Performed By: #### U A #### [place] [address] Specific [place], [place] 1.[address] Normal 1.005-1.030 [facility] Comment on above: Performed By: #### U A #### [place] [address] Urine Royal Comment SEE COMMENT Normal [facility] Comment on above: Result Comment: N/A Performed By: #### U A #### [place] [address] Urobilinogen Qn (U) Normal Normal Normal [facility] Comment on above: Performed By: #### U A #### [place] [address] CBCon 07-11-2018 ABSOLUTE BAS 0.0 X10 Normal [facility] Comment on above: Result Comment: Test ing performed at [place] [address] Performed By: #### GINGER Peter SR, CHEM7F #### [place] [address] ABSOLUTE EOS 0.00 X10 Normal [facility] Comment on above: Performed By: #### E SR, ACBC, CHEM7F #### Testing performed at [address] [place] [address] ABSOLUTE NEUTROPHIL COUNT 3.5 x10 Normal 1.0-7.0 [facility] Comment on above: Performed By: #### E SR, ACBC, CHEM7F #### Testing performed at [address] [address] Basophils/100 WBC (Bld) 0.4 % Normal 0.0-2.0 [facility] Comment on above: Performed By: #### E SR, ACBC, CHEM7F #### Testing performed at [address] [address] DTYPE AUTO DIFF Normal [facility] Comment on above: Performed By: #### E SR, ACBC, CHEM7F #### Testing performed at [address] [address] Eosinophils/100 WBC (Bld) 0.9 % Normal 0.0-11.0 [facility] Comment on above: Performed By: #### E SR, ACBC, CHEM7F #### Testing performed at [address] [address] Lymphocytes #/vol (Bld) 1.10 X10 Normal [facility] Comment on above: Performed By: #### E SR, ACBC, CHEM7F #### Testing performed at [address] [address] Lymphocytes/100 WBC (Bld) 21.6 % Normal 20.0-55.0 [facility] Comment on above: Performed By: #### E SR, ACBC, CHEM7F #### Testing performed at [address] [address] Monocytes #/vol (Bld) 0.5 X10 Normal [facility] Comment on above: Performed By: #### E SR, ACBC, CHEM7F #### Testing performed at [address] [address] Monocytes/100 WBC (Bld) 10.0 % Normal 0.0-10.0 [facility] Comment on above: Performed By: #### E SR, ACBC, CHEM7F #### Testing performed at [place] [phone] Neutrophils/100 WBC (Bld) 67.1 % Normal 37.0-75.0 [facility] Comment on above: Performed By: #### E SR, ACBC, CHEM7F #### Testing performed at [place] [phone] Erythrocyte distribution width Ratio (RBC) 13.1 % Normal 11.5-14.5 [facility] Comment on above: Performed By: #### E SR, ACBC, CHEM7F #### [place] [address] Hematocrit Volume Fraction (Bld) 42.5 % Normal 36.0-48.0 [facility] Comment on above: Performed By: #### E SR, ACBC, CHEM7F #### Testing performed at [place] [phone] Hemoglobin mass conc (Bld) 14.8 g/dL Normal 12.0-16.0 [facility] Comment on above: Performed By: #### E SR, ACBC, CHEM7F #### Testing performed at [place] [phone] MCH Entitic mass (RBC) 31.6 pg Normal 26.0-35.0 [facility] Comment on above: Performed By: #### E SR, ACBC, CHEM7F #### Testing performed at [place] [phone] MCHC mass conc (RBC) 34.7 g/dL Normal 27.0-37.0 [facility] Comment on above: Performed By: #### E SR, ACBC, CHEM7F #### Testing performed at [place] [phone] MCV Entitic volume (RBC) 91.2 fL Normal 80.0-100.0 [facility] Comment on above: Performed By: #### E SR, ACBC, CHEM7F #### Testing performed at [address] [address] Platelet mean volume Entitic volume (Bld) 8.9 fL Normal 7.4-11.0 [facility] Comment on above: Performed By: #### E SR, ACBC, CHEM7F #### Testing performed at [address] [address] Platelets #/vol (Bld) 229 /cmm Normal 130.0-400.0 [facility] Comment on above: Performed By: #### E , ACBC, CHEM7F #### Testing performed at [place] [phone] RBC #/vol (Bld) 4.67 /cmm Normal 4.0-5.4 [facility] Comment on above: Performed By: #### Brittani REDDY, ACBC, CHEM7F #### Testing performed at [place] [phone] WBC #/vol (Bld) 5.3 /cmm Normal 3.6-11.0 [facility] Comment on above: Performed By: #### E , ACBC, CHEM7F #### Testing performed at [place] [phone] CBC, EDIF, PLATELETon 2018 ABSOLUTE BASOPHIL COUNT 0.0 X10 [facility] Comment on above: Testing performed at [place] [id number] Basophils/100 WBC (Bld) 0.4 % 0 - 2 % [facility] Differential cell count method Nom (Bld) AUTO DIFF % [facility] [employer] Eosinophils (Bld) [#/Vol] 0.00 10*3/uL X10 [facility] Eosinophils/100 WBC (Bld) 0.9 % 0 - 11 % [facility] Erythrocyte distribution width (RBC) [Ratio] 13.1 % 11.5 - 14.5 % [facility] Hematocrit (Bld) [Volume fraction] 42.5 % 36 - 48 % [facility] Hemoglobin (Bld) [Mass/Vol] 14.8 g/dL [facility] [employer] Lymphocytes (Bld) [#/Vol] 1.10 10*3/uL X10 [facility] Lymphocytes/100 WBC (Bld) 21.6 % 20 - 55 % [facility] [employer] MCH (RBC) [Entitic mass] 31.6 pg 26 - 35 PG [facility] MCHC (RBC) [Mass/Vol] 34.7 g/dL [facility] [employer] MCV (RBC) [Entitic vol] 91.2 fL [facility] Monocytes (Bld) [#/Vol] 0.5 10*3/uL X10 [facility] Monocytes/100 WBC (Bld) 10.0 % 0 - 10 % [facility] Neutrophils (Bld) [#/Vol] 3.5 10*3/uL [facility] [employer] Neutrophils/100 WBC (Bld) 67.1 % 37 - 75 % [facility] Platelet mean volume (Bld) [Entitic vol] 8.9 fL [facility] [employer] Platelets (Bld) [#/Vol] 229 10*3/uL [facility] [employer] RBC (Bld) [#/Vol] 4.67 10*6/uL [facility] [employer] WBC (Bld) [#/Vol] 5.3 10*3/uL [facility] [employer] CHEM 7 FASTINGon 07-11-2018 Chloride molar conc 104 mmol/L Normal 98-107 [facility] Comment on above: Result Comment: Librado betancur note: Triglyceride levels of 600mg/dL or higher may positively bias chloride results by approximately 2.1 mmol Performed By: #### Brittani REDDY ACBC, CHEM7F #### [place] [address] CO2 molar conc 27 mmol/L Normal 22-30 [facility] Comment on above: Performed By: #### Brittani REDDY ACBC, CHEM7F #### Testing performed at [address] [address] Creatinine mass conc 0.7 mg/dL Normal 0.7-1.2 [facility] Comment on above: Performed By: #### Brittani REDDY ACBC, CHEM7F #### Testing performed at [address] [address] EST. GFR, >60 Normal [facility] Comment on above: Performed By: #### E SR, ACBC, CHEM7F #### Testing performed at [place] [id number] EST. GFR,Non >60 Normal [facility] Comment on above: Performed By: #### GINGER Peter SR CHEM7F #### [place] [address] GFR/1.73 sq M predicted among non-blacks MDRD vol rate/area (S/P/Bld) Average GFR for 30-39 years old = 109. Normal [facility] Comment on above: Result Comment: Executive Coordinator elidia Kidney disease, GFR = <60. Kidney failure, GFR = <15. The GFR estimate is not adjusted for extreme body surface area or acute process, nor has it been validated for women or ethnic groups other than and . Testing performed at [place] [address] Performed By: #### GINGER Peter SR, CHEM7F #### [place] [address] Glucose mass conc 93 mg/dL Normal 70-100 [facility] Comment on above: Result Comment: NORMAL <100 mg/dL PREDIABETES 101-126 mg/dL DIABETES 126 mg/dL or higher Performed By: #### GINGER Peter SR CHEM7F #### [place] [address] Potassium molar conc 3.5 mmol/L Normal 3.5-5.1 [facility] Comment on above: Performed By: #### GINGER Peter SR CHEM7F #### [place] [address] Sodium molar conc 140 mmol/L Normal 137-145 [facility] Comment on above: Performed By: #### GINGER Peter SR, CHEM7F #### [place] [address] Urea nitrogen mass conc 18 mg/dL Normal 7-20 [facility] Comment on above: Performed By: #### GINGER Peter SR, CHEM7F #### Testing performed at [address] [place] [address] CHEM 7 (LYTES,BUN,CREA,GLUC) on 07-11-2018 Chloride [Moles/Vol] 104 mmol/L [facility] [employer] Comment on above: Please note: Triglyc eride levels of 600mg/dL or higher may positively bias chloride results by approximately 2.1 mmol CO2 [Moles/Vol] 27 mmol/L [facility] [employer] Creatinine [Mass/Vol] 0.7 mg/dL [facility] [employer] GFR/1.73 sq M predicted among blacks MDRD (S/P/Bld) [Vol rate/Area] mL/min/{1.73_m2} ml/min/1.73 sq.m [facility] [employer] GFR/1.73 sq M predicted among non-blacks MDRD (S/P/Bld) [Vol rate/Area] Average GFR for 30-39 years old = 109. [facility] [employer] Comment on above: Chronic Kidney disea se, GFR = <60. Kidney failure, GFR = <15. The GFR estimate is not adjusted for extreme body surface area or acute process, nor has it been validated for women or ethnic groups other than and . Testing performed at [place] [address] GFR/1.73 sq M predicted among non-blacks MDRD (S/P/Bld) [Vol rate/Area] mL/min/{1.73_m2} ml/min/1.73 sq.m [facility] [employer] Glucose post fast [Mass/Vol] 93 mg/dL [facility] [employer] Comment on above: NORMAL <100 mg/dL PREDIABETES 101-126 mg/dL DIABETES 126 mg/dL or higher Potassium [Moles/Vol] 3.5 mmol/L [facility] [employer] Sodium [Moles/Vol] 140 mmol/L [facility] [employer] Urea nitrogen [Mass/Vol] 18 mg/dL [facility] [employer] ESRon 07-11-2018 ESR Velocity (Bld) 3 mm/h Normal 0-15 [facility] Comment on above: Result Comment: Test ing performed at [place] [id number] Performed By: #### E SR, ACBC, CHEM7F #### Testing performed at [place] [id number] SEDIMENTATION RATE, AUTOMATE Don 07-11-2018 ESR (Bld) [Velocity] 3 mm/h [facility] Comment on above: Testing performed at [facility], [place], [place] [address] CT-CT abdomen pelvis w con I MPORTon 01-14-2018 CT-CT abdomen pelvis w con IMPORT Images were obtained outside of [facility] [id number] Normal [facility] Bact/Cand Vag Grm Ston 03-30 Bact/Cand Vag Grm St Smear Result - BACTERIAL VAGINOSIS RESULT: Stain results consistent with normal vaginal luann. No Yeast observed Few Polymorphonuclear leukocytes Normal [facility] Comment on above: Performed By: #### B VCNSM ####[facility] [address] [place], [place] [phone] CBC and Differentialon 03-30 Abs Baso 0.05 k/uL Normal <0.11 [facility] Abs [place] 1.24 k/uL High <0.87 [facility] Abs Neut 6.94 k/uL Normal 1.45-7.50 [facility] Basophils/100 WBC Auto (Bld) 0.5 % Normal [facility] DTYPE Auto Diff Normal [facility] Eosinophils 0.12 10*3/uL Normal <0.46 [facility] Eosinophils/100 leukocytes 1.2 % Normal [facility] Erythrocyte distribution width Auto Ratio (RBC) 12.3 % Normal 11.5-15.0 [facility] Erythrocytes (RBC) 10*6/uL Normal <0.01 [facility] Erythrocytes (RBC) 4.16 10*6/uL Normal 3.90-5.20 [facility] Erythrocytes (RBC) 0.0 /100 WBC Normal 0 [facility] Hematocrit (HCT) 38.2 % Normal 36.0-46.0 [facility] Hemoglobin mass conc (Bld) 12.9 g/dL Normal 11.5-15.5 [facility] Lymphocytes 1.79 10*3/uL Normal 1.00-4.00 [facility] Lymphocytes/100 leukocytes 17.6 % Normal [facility] MCH 31.0 pG Normal 26.0-34.0 [facility] MCHC mass conc (RBC) 33.8 g/dL Normal 30.5-36.0 [facility] MCV 91.8 fL Normal 80.0-100.0 [facility] Monocytes/100 leukocytes 12.2 % Normal [facility] Neutrophils/100 WBC Auto (Bld) 68.5 % Normal [facility] Platelet mean volume (PMV) 11.2 fL Normal 9.0-12.7 [facility] Platelets 210 10*3/uL Normal 150-400 [facility] WBC (Leukocytes) 10.16 10*3/uL Normal 3.70-11.00 [facility] Comp Metabolic Panelon 03-30 Alanine aminotransferase (ALT) 9 U/L Normal 7-38 [facility] Albumin 4.0 g/dL Normal 3.9-4.9 [facility] Alkaline phosphatase (ALP) 49 U/L Normal 32-117 [facility] Anion gap 12 mmol/L Normal 9-18 [facility] Aspartate aminotransferase (AST) 13 U/L Normal 13-35 [facility] Bilirubin (total) mg/dL Low 0.2-1.3 [facility] Calcium 8.6 mg/dL Normal 8.6-10.0 [facility] Chloride 101 mmol/L Normal 97-105 [facility] CO2 24 mmol/L Normal 22-30 [facility] Creatinine 0.70 mg/dL Normal 0.58-0.96 [facility] eGFR (non-black) mL/min/{1.73_m2} Normal [facility] Comment on above: Result Comment: eGFR (Estimated GFR) Units of measure: mL/min/1.73 meters squaredeGFR is derived from the reexpressed MDRD Study equation using the following parameters: serum creatinine, age, gender and race. The creatinine assay has been calibrated to be traceable to IDMS.An eGFR <60 mL/min/1.73m2 for >3 months is consistent with chronic kidney disease. Refer to KDOQI guidelines for clinical interpretation.In patients with unstable renal function, e.g. those with acute kidney injury, the eGFR may not accurately reflect actual GFR. Glucose mass conc 104 mg/dL High 74-99 [facility] Comment on above: Result Comment: The [place] Diabetes [employer] (ADA) provides guidance for cutoff values for fasting glucose and random glucose. The ADA defines fasting as no caloric intake for at least 8 hours. Fasting plasma glucose results between 100 to 125 mg/dL indicate increased risk for diabetes (prediabetes).Fasting plasma glucose results greater than or equal to 126 mg/dL meet the criteria for diagnosis of diabetes. In the absence of unequivocal hyperglycemia, results should be confirmed by repeat testing. In a patient with classic symptoms of hyperglycemia or hyperglycemic crisis, random plasma glucose results greater than or equal to 200 mg/dL meet the criteria for diagnosis of diabetes.Reference: Standards of Medical Care in Diabetes 2016, [place] [employer]. Diabetes Care. 2016.39(Suppl 1). Potassium molar conc 3.5 mmol/L Low 3.7-5.1 [facility] Protein 6.9 g/dL Normal 6.3-8.0 [facility] Sodium 137 mmol/L Normal 136-144 [facility] Urea nitrogen 11 mg/dL Normal 7-21 [facility] ED NOTEon 03-30-2017 ED NOTE HNO ID: [id number]: Veronica (Rn) Melissa Douglasice: (none)Author Type: Registered NurseType: ED NotesFiled: 03/30/2017 1:21 AMNote Text: Discharge instructions per provider, the patient verbalizesunderstanding . No additional questions or concerns at this time. Patient Vital signs stable, no acute distress noted. Patient ambulatory out ofED. Psychiatric ED NOTE HNO ID: [id number] Author: Veronica (Rn) MEGA Douglas Service: (none) Author Type: Registered Nurse Type: ED Notes Filed: 03/30/2017 12:43 AM Note Text: Dr. Evans at bedside. Psychiatric ED NOTE HNO ID: [id number] Author: Nato (Medic) Dylon VILLALTA Service: (none) Author Type: Seasonal Greenery Bundler and Heavy Forging Machine Operator Type: ED Notes Filed: 03/30/2017 12:07 AM Note Text: Pt ambulated to the restroom. Psychiatric ED NOTE HNO ID: [id number]: Veronica (Rn) REJI Douglaservice: (none)Author Type: Registered NurseType: ED NotesFiled: 03/29/2017 11:37 PMNote Text: Introduced myself to the Pt as the nurse that is caring for her today. Ptis speaking full sentences and has regular respirations. No needs at themoment. Pt is awake, alert and oriented. Informed the pt that I will keepthem updated about her care throughout the day. Will continue to monitorpt. Call light within reach. Pt states of having abdominal cramping, pt issitting up in bed with at bedside. Psychiatric ED NOTE HNO ID: [id number] Author: Veronica VasquezRn) MEGA Goins Service: Nursing Author Type: Registered Nurse Type: ED Notes Filed: 03/29/2017 11:09 PM Note Text: Reported off to Veronica Rhoades RN. Pt to u/s with tech. Psychiatric ED NOTE HNO ID: [id number]: Veronica VasquezRn) REJI Goinservice: NursingAuthor Type: Registered NurseType: ED NotesFiled: 03/29/2017 10:32 PMNote Text: Agree with triage note. Pt has soaked more than 1 pad an hour prior toarrival. Pt felt lightheaded and dizzy prior to arrival, and feelsslightly lightheaded now. Pt in bed, significant other at bedside. Calllight within reach. Psychiatric ED NOTE HNO ID: [id number] Author: Suzanne Palomino) MEGA Warren Service: (none) Author Type: Registered Nurse Type: ED Notes Filed: 03/29/2017 10:24 PM Note Text: Urine specimen obtained and sent. Psychiatric ED NOTE HNO ID: [id number]: Suzanne Palomino) REJI Warrenervice: (none)Author Type: Registered NurseType: ED NotesFiled: 03/29/2017 10:17 PMNote Text:Pt presents to the ED with complaints of abd cramping, pelvic pain andvaginal bleeding with . Pt states 7 weeks . Statesbleeding started this morning and has progressed throughout the day. Shealso states she just had her blood pressure medication changed fromlosartan to labetalol once she had a positive test. Startedtaking the labetalol on . Psychiatric ED PROV NOTEon 03-30-2017 ED PROV NOTE HNO ID: [id number]: Mary Ruelasice: (none)Author Type: PhysicianType: ED Provider NotesFiled: 03/30/2017 8:59 AMNote Text:ED Provider NotePatient Name: Jamil SimonsMRN: [id number] DATE: 03/29/17HistoryPatient presents with:Abdominal Pain: since this amBleeding With : since this am 7 weeks HPIThe patient is a 31-year-old female, approximately 7 weeks bylast menstrual period, , presenting today for evaluation of abdominalcramping and vaginal bleeding which started this morning. Bleeding hasbecome somewhat more heavy throughout the day today. She states shefilled up one pad in 30 minutes she presents to the ED. She states shefelt lightheaded and dizzy earlier today which has improved. She deniesany nausea, vomiting or diarrhea. She denies any chest pain or shortnessof breath. She does report lower abdominal cramping but no severeabdominal pain. She denies a flank pain, fevers or chills. She has notyet had an ultrasound to confirm IUP.PAST MEDICAL HISTORYDiagnosis Date- HypertensionNo past surgical history on file.No family history on file.Social HistorySocial History Main Topics- Smoking status: Never Smoker- Smokeless tobacco: None- Alcohol use No- Drug use: No- Sexual activity: Not AskedALLERGIESNo Known AllergiesReview of SystemsConstitutional: Negative for chills, fatigue and fever.HENT: Negative for ear pain, rhinorrhea and sore throat.Eyes: Negative for pain and redness.Respiratory: Negative for cough and shortness of breath.Cardiovascular: Negative for chest pain.Gastrointestinal: Positive for abdominal pain. Negative for diarrhea,nausea and vomiting.Endocrine: Negative for polyuria.Genitourinary: Positive for pelvic pain (cramping) and vaginal bleeding.Negative for dysuria, frequency and urgency.Musculoskeletal : Negative for back pain and neck pain.Skin: Negative for rash.Neurological: Positive for dizziness and light-headedness. Negative forsyncope, weakness and headaches.Hematological : Does not bruise/bleed easily.Psychiatric/Beha vioral: Negative for confusion.Physical ExamBP 132/94 Pulse 87 Temp (Src) 98.6 (Oral) Resp 18 Ht 5' 0 (1.52m) Wt 105 lb (47.6kg) SpO2 99% BMI 20.51 kg/(m2).Physical ExamConstitutional: She is oriented to person, place, and time. She appearswell-developed and well-nourished. No distress.Nontoxic appearingHENT:Head: Normocephalic.Mouth/Thr oat: Oropharynx is clear and moist.Eyes: Conjunctivae are normal.Neck: Normal range of motion. Neck supple.Cardiovascular: Normal rate, regular rhythm and intact distal pulses.Pulmonary/Chest: Effort normal and breath sounds normal. She exhibits notenderness.Abdominal: Soft. Bowel sounds are normal. She exhibits no distension.There is no tenderness. There is no rebound and no guarding.No flank tenderness.Genitourinar y:Genitourinary Comments: Pelvic exam: On external inspection there is noswelling, erythema or lesions. Speculum exam revealed a moderate amountof dark red blood in the vaginal vault with no clotting or tissue. Thereis a small amount of active bleeding. Cervical os difficult to visualize,but on palpation does feel somewhat open. There is no cervical motiontenderness or adnexal tenderness.Neurological : She is alert and oriented to person, place, and time.Skin: Skin is warm and dry. She is not diaphoretic.Nursing note and vitals reviewed.Diagnostic TestingED Labs Ordered and ReviewedURINALYSIS WITH MICROSCOPIC (AK,AV,EU,FV,HL,VICKY,MM,S P) - Abnormal; Notablefor the following: Result Value Ref Range Color Ballard (*) Yellow Hemoglobin/Blood,Ur 3+ (*) Negative Protein, Urine 30 (*) Negative mg/dL Leukest 2+ (*) Negative WBC, Urine 11-25 (*) 0 - 5 /HPF RBC, Urine 6-10 (*) 0 - 3 /HPF Bacteria Present (*) 0 /HPF All other components within normal limitsHCG URINE - ED(POC) - Abnormal; Notable for the following:CBC + AUTO DIFF (AK,AV,EU,FV,HL,VICKY,MM,S P) - Abnormal; Notable for thefollowing: Abs [place] 1.24 (*) <0.87 k/uL All other components within normal limitsCOMPREHENSIVE METABOLIC PANEL (AK,AV,EU,FV,HL,VICKY,MM,S P) - Abnormal;Notable for the following: Bilirubin, Total <0.2 (*) 0.2 - 1.3 mg/dL Glucose 104 (*) 74 - 99 mg/dL Potassium 3.5 (*) 3.7 - 5.1 mmol/L All other components within normal limitsHCG QUANTITATIVE BLOOD (AK,AV,EU,FV,HL,VICKY,MM,S P) - Abnormal; Notable forthe following: hCG Quantitative, Blood 137.5 (*) <5.3 mU/mL All other components within normal limitsTYPE + SCREEN (AK,AV,EU,FV,HL,VICKY,MM,S P)GC/CHLAMYDIA DNA DETECTION (AK,AV,EU,FV,HL,VICKY,MM,S P)TRICHOMONAS PREP (AK,AV,EU,FV,HL,VICKY,MM,S P)BACT/LASHA VAG GRAM STAIN (AV,EU,FV,HL,VICKY,MM,SP)U RINE CULTURE (AK,AV,EU,FV,HL,VICKY,MM,S P)ProceduresMedical Decision Making / ED CourseAttending NoteI have personally performed a face to face assessment of the patient andhave reviewed the PA/RELAY ASSEMBLER note. My torres findings include:the pt was seen bythe pa and presented to me. The pt states her lmp was mid January. She is. She has not had any care yet, but has an appointmentscheduled for Friday. She states she is about 7 weeks . Shelast had sexual intercourse Friday night. She awoke Friday and notedlower belly cramping. She also had vaginal bleeding. She noted dime sizeclots. She was initially using panty liners, but was soaking them so shestarted using pads. She has been changing a pad every hour. Mildlightheadedness that has improved over the day. No n/v. No loc. Nochest pain. No sob. She denies urinary symptoms. No bleeding from otherareas. Nothing makes her better or worse. No radiation.PHYSICAL EXAMINATIONBP 132/94 Pulse 87 Temp 37 ?C (98.6 ?F) (Oral) Resp 18 Ht 152.4 cm(5') Wt 47.6 kg (105 lb) SpO2 99% BMI 20.51 kg/y1TIKLSJV APPEARANCE: nontoxic; no acute distressSKIN:warm, dry; intact; no rashes; no bruisingHEAD:normocepha lic, atraumaticEYES:no icterusEARS:normal hearingNOSE:patentMOUTH and PHARYNX: moist oral mucosaTONGUE:normalTEET H:normalNECK:no nuchal rigidity; no meningeal signsLUNGS:no conversational dyspneaEXTERNAL GENITALIA: see pa noteBACK, MUSCLES AND BONES:no swellingNEUROLOGIC FINDIGNS, MENTAL STATUS: aANDox3; no focal neuro deficitsGAIT: steadyCRANIAL NERVES: intactMOTOR: full rom ue/le bilateralCatherine MD NathanOther additions or changes:noneThe pa initiated a workup, including labs and an u/s.Cbc shows no anemia or leukocytosis.ua appears contaminated. Urine cx ordered.Pelvic swabs done.Serum quant is low.U/s report reviewed.I talked with the pt and her spouse. They are aware of the low hcg levelsand u/s report. They are aware there is no signs of iup. I discussed thepossible causes of the us findings, including ectopic, miscarriage, orthreatended ab. The pt is aware she will need to have a repeat hormonelevel to assess viability, etc. I instructed to on pelvic rest, no sex,nothing in the vagina, and close ob f/u. The pt agreed. Signs andsymptoms of concern discussed at length with the pt. Instructed the pt toreturn to the ER if any concerns or problems. Pt agrees. Close f/urecommended. Pt agrees. Fluids.Signature: vEelyn Evans, MDDate: 03/30/2017Time: 8:41 SUYAPA CourseCourse:Vital signs were reviewed.Triage records were reviewed.Medical records were reviewed.Nursing notes were reviewed and incorporated.31 yo F, , ~ 7 wks by LMP w/ vaginal bleeding and lowerabdominal cramping started this morning, no history of miscarriage. Doescomplain of lightheadedness and dizziness which has improved throughoutthe day. On exam she is well appearing, initially hypertensive, she doeshave a history of hypertension, blood pressure improved throughout ED staywithout intervention. Her abdomen is soft and nontender. Pelvic examrevealing a moderate amount of blood in the vaginal vault, with a smallamount of active bleeding, the os does feel somewhat open. No cervicalmotion tenderness or adnexal tenderness.Intravenous fluids were given.CBC negative for leukocytosis. No anemia noted. Mild hypokalemia withpotassium of 3.5Blood type A+, no indication for Rhogam. HCG quantitative 137.5.Urinalysis with 11-25 white blood cells, but also red blood cells, likelycontaminated, sent for culture, no urinary complaints. Urine ispositive.Ultrasound showing no intrauterine gestational sac or adnexal masses.Thickened endometrium, concerning for failed with spontaneousabortion.His tory, exam and workup consistent with threatened miscarriage in earlypregnancy, likely incomplete miscarriage. Patient has a follow-up in 3days with her MARINE PAINTER. Recommend she have repeat ultrasound and Quantdrawn in 2 days. We will suspicion for early ectopic, however sheunderstands this cannot be entirely ruled out and she will need a repeatultrasound and blood work and close follow-up. At this time do not seeindication for further workup or admission. Patient is feeling betterwith IV fluids. She was educated on emergency department returnprecautions. She voiced understanding and agreement with plan asconsultation discharge home.The attending who evaluated and managed this patient was Dr. Evans.Encounter Diagnosis ICD-10-CM1. Threatened miscarriage in early O20.0PlanThe Patient was DISCHARGED: Counseled patient and family regarding labresults AND radiology results AND suspected diagnosis AND need for follow-up.Discharged home with verbal and written instructions. They wereinstructed to return as needed for persistent or worsening symptoms or anynew concerns.Condition at time of disposition: stableSIGNATURE: Demetrice De Jesus (Pa)03/30/17 0304Catherine Ondina Evans DO03/30/17 0859 Psychiatric GC/Chlamydia Amplifon 2016 Chlamydia Amplif Negative Psychiatric Comment on above: Performed By: #### G CCT ####[facility] [address] [place], [place] [phone] GC Amplification Negative Psychiatric Comment on above: Performed By: #### G CCT ####[facility] [address] [place], [place] [phone] GC/Chlam Amp Source Vaginal Normal [facility] Comment on above: Performed By: #### G CCT ####[facility] [address] [place], [place] [phone] HCG, Quantitative Blon 03-30 HCG, Quantitative Bl 137.5 mU/mL High <5.3 [facility] Comment on above: Result Comment: NUNU TITATIVE HCG NORMAL RANGESWeeks of Gestation (Weeks Since LMP)3 Weeks (5.8-71.2 mIU/mL)4 Weeks (9.5-750 mIU/mL)5 Weeks (217-7138 mIU/mL)6 Weeks (158-62396 mIU/mL)7 Weeks (3697-016339 mIU/mL)8 Weeks (25161-009178 mIU/mL)9 Weeks (68319-429661 mIU/mL)10 Weeks (76098-339063 mIU/mL)12 Weeks (61421-368675 mIU/mL)Referenced to 4th IS of NIBSCReference ranges were not locally established for this patient's age group. PROGRESSon 03-30-2017 PROGRESS HNO ID: [id number]: Maggie Alexandreervice: RadiologyAuthor Type: Cardiac SonographerType: Progress NotesFiled: 03/29/2017 11:25 PMNote Text: Radiology Service Progress NotePATIENT NAME: Jamil SimonsMRN: [id number] OF SERVICE: March 29, 2017TIME: 11:24 PMPATIENT IDENTITY VERIFICATION COMPLETED USING TWO (2) METHODS: Patientconfirmed name verbally and Date of .PATIENT GENDER DATA: Female. status: : Yes.Urinalysis hCG results are as follows: Positive status:NO.PATIENT RELEVANT IMPLANT DATA REVIEWED: Not ApplicableRADIOLOGY DEPARTMENT: UltrasoundPERIPHERAL IV DATA: Not applicablePregnancy transvaginal US doneSIGNED BY: Maggie Monaco RDMS, RVTDecember 2016 11:24 PM Psychiatric Trichomonas Prepon 7 Trichomonas Prep Smear Result - Negat nic for Trichomonas vaginalis antigen This test was developed and its performance characteristics determined by [facility]'s Randy Candido [facility] Pathology and Laboratory [facility] [place] ([facility]). It has not been cleared or approved by the FDA. [facility] is regulated under CLIA as qualified to perform high-complexity testing. This test is used for clinical purposes. It should not be regarded as investigational or for research. Psychiatric Comment on above: Performed By: #### T SANDRA ####[facility] [place], [place] [phone] Type and Screenon 03-30-2017 ABO/RH(D) Positive Psychiatric Antibody Screen Negative Psychiatric US PREG TRANSVAG <14 WEEKSon 03-30-2017 US PREG TRANSVAG <14 WEEKS * * *Final Report* * *DATE OF EXAM: Mar 29 2017 11:28PM U 1034 - US PREG TRANSVAG <14 WEEKS / REASON: Vaginal bleeding in * * * * Physician Interpretation * * * * Technique: Endovaginal OB/pelvic ultrasound to evaluate early less than 14 weeks. Complementary color Doppler assessment. Images were obtained and stored in a permanent archive.COMPARISON: No relevant prior studies are available for comparison.CLINICAL INDICATION:Vaginal bleeding in . First trimester female presented to emergency department with heavy bleeding.RESULTS:Uterus measures 8.4 x 4.9 x 5.9 cm with heterogeneous thickened endometrium measuring 1.7 cm in thickness. Linear hypoechogenicity noted at the anterior isthmus may suggest prior .No Gestational sac is noted within the uterus.No yolk sac is visualized.No adnexal masses.The right ovary measures 3.1 x 1.4 x 1.8 cm and appears unremarkable with color Doppler flow.The left ovary measures 3.3 x 2.1 x 3.2 cm and containing simple appearing cyst measuring 1.9 x 1.5 x 1.7 cm favoring dominant follicle.Trace free fluid in the pelvis.IMPRESSION:No intrauterine gestational sac or adnexal masses. Heterogeneous thickened endometrium, along with the history of heavy bleeding, the findings are concerning for failed with spontaneous . Please correlate with beta-hCG levels and if the levels are suggesting early , then short-term follow-up ultrasound can be considered.Please reviewed the body of the report for complete information.Transcripti onist: JOELLE Transcribe Date/Time: Mar 29 2017 11:35PDictated by : HLAI SAHU MDThis examination was interpreted and the report reviewed and electronically signed by: HALI SAHU MD on Mar 29 2017 11:41PM [id number] CN [facility]iatric Urinalysis with Microscopico n 03-30-2017 Bilirubin, Urine Negative Normal Negative [facility] Cast SEE COMMENT Normal 0 [facility] Comment on above: Result Comment: 0 Erythrocytes (RBC) 6-10 Critically abnormal 0-3 [facility] Hemoglobin mass conc (Bld) 3+ Critically abnormal Negative [facility] Leukest 2+ Critically abnormal Negative [facility] pH of blood 7.5 [pH] Normal 4.5-8.0 [facility] Protein, Urine 30 mg/dL Critically abnormal Negative [facility] Specific [place], Ur 1.016 Normal 1.005-1.030 [facility] Urine, bacteria in sediment Present Critically abnormal 0 [facility] Urine, clarity Clear Normal Clear [facility] Urine, color [place] Critically abnormal Yellow [facility] Urine, epithelial cells in sediment SEE COMMENT Normal [facility] Comment on above: Result Comment: Rare Urine, glucose presence Negative Normal [facility] Urine, ketones presence Negative Normal Negative [facility] Urine, nitrite presence Negative Normal Negative [facility] Urine, urobilinogen Normal Normal Normal [facility] WBC (Leukocytes) 11-25 Critically abnormal 0-5 [facility] Urine Cultureon 03-30-2017 Urine culture, bacteria Sp. Request/Comm ent: - Specimen received in preservative Culture Result - 10,000 - <50,000 CFU/ml Normal urogenital luann Normal [facility] Comment on above: Performed By: #### U RCUL ####[facility] [id number] [place], [place] [id number] Vital Signs Date Time Vital Sign Value Performing Clinician Facility 06-27-2023 08:16-0500 Blood Pressure Location Theodora JIMENEZ [facility] 06-27-2023 08:16-0500 Diastolic blood pressure 86 mm[Hg] Theodora JIMENEZ [facility] 06-27-2023 08:16-0500 Heart rate 89 /min Theodora JIMENEZ [facility] 06-27-2023 08:16-0500 Respiratory rate 16 /min Theodora JIMENEZ [facility] 06-27-2023 08:16-0500 Systolic blood pressure 107 mm[Hg] Theodora JIMENEZ [facility] 07-17-2022 12:58-0400 Blood Pressure Location Theodora JIMENEZ [facility] 07-17-2022 12:58-0400 Diastolic blood pressure 45 mm[Hg] Theodora JIMENEZ [facility] 07-17-2022 12:58-0400 Systolic blood pressure 151 mm[Hg] Theodora JIMENEZ [facility] 06-24-2022 15:05-0500 Blood Pressure Location Theodoraelaina JIMENEZ [facility] 06-24-2022 15:05-0500 Diastolic blood pressure 80 mm[Hg] Theodoraelaina JIMENEZ [facility] 06-24-2022 15:05-0500 Heart rate 86 /min Theodora JIMENEZ [facility] 06-24-2022 15:05-0500 Respiratory rate 16 /min Theodora JIMENEZ [facility] 06-24-2022 15:05-0500 Systolic blood pressure 112 mm[Hg] Theodora JIMENEZ [facility] 02-12-2022 16:30-0400 Body height 152.4 cm Lorenzo Conteh Other [facility] Other 02-12-2022 16:30-0400 Body mass index (BMI) [Ratio] 21.48 kg/m2 Lorenzo Conteh Other [facility] 02-12-2022 16:30-0400 Body weight 49.9 kg Lorenzo Conteh Other [facility] Other 02-12-2022 16:30-0400 Diastolic blood pressure 84 mm[Hg] Lorenzo Conteh Other [facility] Other 02-12-2022 16:30-0400 Respiratory rate 18 /min Lorenzo Conteh Other [facility] Other 02-12-2022 16:30-0400 SaO2% (BldA) [Mass fraction] 98 % Lorenzo Conteh Other [facility] Other 02-12-2022 16:30-0400 Systolic blood pressure 136 mm[Hg] Lorenzo Conteh Other [facility] 01-03-2022 17:00-0400 Body height 152.4 cm Lorenzo Conteh Other [facility] 01-03-2022 17:00-0400 Body mass index (BMI) [Ratio] 22.07 kg/m2 Lorenzo Conteh Other [facility] 01-03-2022 17:00-0400 Body weight 51.26 kg Lorenzo Conteh Other [facility] Other 01-03-2022 17:00-0400 Diastolic blood pressure 87 mm[Hg] Lorenzo Conteh Other [facility] Other 01-03-2022 17:00-0400 Respiratory rate 18 /min Lorenzo Conteh Other [facility] Other 01-03-2022 17:00-0400 SaO2% (BldA) [Mass fraction] 99 % Lorenzo Conteh Other [facility] Other 01-03-2022 17:00-0400 Systolic blood pressure 129 mm[Hg] Lorenzo Conteh Other [facility] Other 03-27-2021 17:30-0500 Body height 152.4 cm Lorenzo Conteh Other [facility] Other 03-27-2021 17:30-0500 Body mass index (BMI) [Ratio] 23.04 kg/m2 Lorenzo Conteh Other [facility] Other 03-27-2021 17:30-0500 Body temperature 97.6 [degF] Lorenzo Conteh Other [facility] Other 03-27-2021 17:30-0500 Body weight 53.52 kg Lorenzo Conteh Other [facility] Other 03-27-2021 17:30-0500 Diastolic blood pressure 82 mm[Hg] Lorenzo Conteh Other [facility] 03-27-2021 17:30-0500 Respiratory rate 16 /min Lorenzo Conteh Other [facility] Other 03-27-2021 17:30-0500 SaO2% (BldA) [Mass fraction] 100 % Lorenzo Conteh Other [facility] Other 03-27-2021 17:30-0500 Systolic blood pressure 134 mm[Hg] Lorenzo Conteh Other [facility] Other 07-11-2018 17:34-0400 BP Diastolic 89 mm[Hg] [facility] 07-11-2018 17:34-0400 BP Systolic 129 mm[Hg] [facility] 07-11-2018 17:34-0400 Pulse (Heart Rate) 74 /min [facility] 07-11-2018 17:34-0400 Pulse Oximetry 99 % [facility] 07-11-2018 17:34-0400 Respiratory Rate 16 /min [facility] 07-11-2018 15:05-0400 Height 152.4 cm [facility] 07-11-2018 15:04-0400 Body Temperature 98.01 [degF] [facility] Encounters Encounter Date Encounter Type Care Provider Facility Start: 06-27-2023 End: 06-27-2023 Patient encounter procedure Theodora JIMENEZ [facility] Start: 02-06-2023 End: 02-06-2023 ambulatory Lorenzo Conteh Facility:[facility] Start: 02-04-2023 End: 02-04-2023 ambulatory Lorenzo Conteh Other [facility] Other Start: 02-04-2023 Encounter for genera l adult medical examination without abnormal findings [facility] [place] Start: 02-04-2023 Telephone encounter Lorenzo [facility] Start: 01-28-2023 End: 01-28-2023 ambulatory Lorenzo Conteh Other [facility] Other Start: 01-28-2023 Telephone encounter Lorenzo [facility] [place] Start: 07-17-2022 Encounter for preprocedural cardiovascular examination DR THEODORA JIMENEZ . [facility] Start: 07-17-2022 End: 03-23-2023 ambulatory Theodora JIMENEZ Facility:[facility] [place] Start: 07-17-2022 End: 07-17-2022 Patient encounter procedure Theodora JIMENEZ [facility] [place] Start: 07-11-2022 End: 07-11-2022 ambulatory LORENZO CONTEH Facility:[facility] Start: 07-10-2022 End: 07-11-2022 ambulatory LORENZO CONTEH Facility:[facility] Start: 07-10-2022 End: 07-11-2022 Encounter for preprocedural cardiovascular examination LORENZO CONTEH Facility:[facility] Start: 2022 End: 2022 ambulatory NOLAN Greco Facility:[facility] Start: 07-01-2022 End: 07-01-2022 ambulatory Lorenzo Conteh Other [facility] Other Start: 07-01-2022 Telephone encounter Lorenzo Conteh [facility] [place] Start: 06-24-2022 End: 06-25-2022 ambulatory Theodora JIMENEZ Facility:[facility] Start: 06-24-2022 End: 06-24-2022 Patient encounter procedure Theodora JIMENEZ [facility] Start: 06-18-2022 End: 06-19-2022 ambulatory VERONICA SEGURA Facility:[facility] Start: 03-06-2022 ambulatory Theodora JIMENEZ Facili ty:[facility] [place] Start: 02-27-2022 End: 02-27-2022 ambulatory Se Walker Facility:[facility] Start: 02-25-2022 End: 02-25-2022 ambulatory Se Walker Facility:[facility] Start: 02-25-2022 End: 02-25-2022 ambulatory DO Lorenzo Conteh Work Phone: [facility] Work Phone: Start: 02-25-2022 End: 02-25-2022 Patient encounter procedure DO Lorenzo Conteh Work Phone: [facility] Start: 02-12-2022 Encounter for genera l adult medical examination without abnormal findings Lorenzo Conteh [facility] [place] Start: 02-12-2022 Periodic preventive med est patient 18-39 yrs Lorenzo Conteh [facility] [place] Start: 02-12-2022 End: 02-12-2022 ambulatory Lorenzo Conteh Facility:[facility] Start: 02-12-2022 End: 02-12-2022 ambulatory DO Lorenzo Conteh Work Phone: [facility] Work Phone: Start: 02-12-2022 End: 02-12-2022 Patient encounter procedure DO Lorenzo Conteh Work Phone: [facility] Start: 02-11-2022 End: 02-12-[address] THEODORA JIMENEZ . Facility: Start: 01-31-2022 End: 02-01-[address] THEODORA JIMENEZ . Facility: Start: 01-07-2022 End: 01-07-2022 ambulatory Se Walker Other [facility] Other Start: 01-07-2022 Telephone encounter Se Rose [facility] Start: 01-03-2022 End: 01-03-2022 ambulatory Lorenzo Conteh Other [facility] Other Start: 01-03-2022 Office outpatient vi sit 15 minutes Lorenzo Conteh [facility] [place] Start: 01-01-2022 End: 01-01-2022 ambulatory Lorenzo Conteh Other [facility] Other Start: 01-01-2022 Telephone encounter Lorenzo Rose [facility] [place] Start: 12-29-2021 End: 12-29-2021 Patient encounter procedure DO Lorenzo Conteh Work Phone: [facility] [place] Start: 12-25-2021 End: 12-25-2021 Patient encounter procedure DO Lorenzo Conteh Work Phone: [facility] [place] Start: 12-08-2021 End: 12-09-2021 ambulatory LORENZO CONTEH Facility:[facility] Start: 11-15-2021 End: 11-16-2021 ambulatory LORENZO CONTEH Facility:[facility] Start: 11-13-2021 End: 11-14-2021 ambulatory LORENZO CONTEH Facility:[facility] Start: 11-08-2021 End: 11-09-2021 ambulatory LORENZO CONTEH Facility:[facility] Start: 11-07-2021 Encounter for preprocedural laboratory examination DR THEODORA JIMENEZ . [facility] Start: 11-05-2021 End: 11-06-2021 ambulatory LORENZO CONTEH Facility:[facility] Start: 10-26-2021 End: 10-26-2021 Patient encounter procedure DO Lorenzo Conteh Work Phone: [facility] [place] Start: 08-16-2021 End: 08-16-2021 ambulatory Lorenzo Conteh Other [facility] Other Start: 08-16-2021 Telephone encounter Lorenzo [facility] [place] Start: 08-04-2021 End: 08-05-2021 ambulatory LORENZO CONTEH Facility:[facility] Start: 07-19-2021 End: 07-19-2021 ambulatory LORENZO CONTEH Facility:[facility] Start: 07-16-2021 End: 07-16-2021 ambulatory Lorenzo Conteh Other [facility] Other Start: 07-16-2021 Telephone encounter Lorenzo [facility] [place] Start: 07-06-2021 End: 07-06-2021 ambulatory Lorenzo Conteh Other [facility] Other Start: 07-06-2021 Telephone encounter Lorenzo [facility] [place] Start: 06-16-2021 ambulatory WILLOW Salamanca y:[facility] Start: 03-27-2021 End: 03-27-2021 ambulatory Lorenzo Conteh Other [facility] [employer] Other Start: 03-27-2021 Office outpatient vi sit 15 minutes Lroenzo Conteh [facility] [place] Start: 07-11-2018 End: 07-11-2018 Emergency department patient visit JARET MANNING [facility] Start: 07-11-2018 End: 07-11-2018 Emergency department patient visit Jaret Manning Work Phone: [facility] Start: 03-30-2017 End: 03-30-2017 Emergency department patient visit [facility] Procedures Date Procedure Procedure Detail Performing Clinician Start: 11-15-2021 Extracorporeal shock wave lithotripsy of calculus of kidney Theodora JIMENEZ Start: 11-08-2021 Extracorporeal shock wave lithotripsy of calculus of kidney Theodora JIMENEZ Start: 10-26-2021 CT of chest without contrast DO Lorenzo Conteh Work Phone: Start: 07-19-2021 Extracorporeal shock wave lithotripsy of calculus of kidney Theodora JIMENEZ Start: 06-19-2021 Cystoscopy Theodora CLYDE QUILESColin Start: 07-11-2018 CBC, EDIF, PLATELET Barrera ene Aleida Minussusan Work Phone: Start: 07-11-2018 Creatinine blood Jaret Aleida Nigel Work Phone: Start: 07-11-2018 Sedimentation rate r bc automated Jaret Aleida Nigel Work Phone: Cataract (disorder) Theodora JIMENEZ Cystoscopy Theodora JIMENEZ Lactoferrin measurement DO John Conteh Work Phone: Lithotripsy Theodora JIMENEZ SARS Antigen (LFIA) DO Marleni Conteh Work Phone: Stool culture for bacteria Terri Conteh Work Phone: Plan of Treatment Date Care Activity Detail Author Start: 06-27-2023 ambulatory Ambulatory Facility:[facility] [place] Start: 12-27-2017 Influenza vaccination INFLUENZA VACC INE (#1) [facility] Start: 2005 Screening for malign ant neoplasm of cervix PAP SMEAR DISCUSSION [facility] Start: 07-08-2003 Third diphtheria, tetanus and acellular pertussis (DTaP) vaccination TDAP (ADULT) [facility] Start: 2002 Tetanus vaccination [facility] Start: 1997 HIV screening [facility] Bacteria identified in Stool by Culture [facility] Work Phone: Turner's yeast IgE Ab [Units/volume] in Serum [facility] Work Phone: Banana IgE Ab [Units/volume] in Serum [facility] Work Phone: Barley IgE Ab [Units/volume] in Serum [facility] Work Phone: Beef IgE Ab [Units/volume] in Serum [facility] Work Phone: Cheese cheddar type IgE Ab [Units/volume] in Serum [facility] Work Phone: Chicken meat IgE Ab [Units/volume] in Serum [facility] Work Phone: [place] IgE Ab [Units/volume] in Serum [facility] Work Phone: Cow milk IgE Ab [Units/volume] in Serum [facility] Work Phone: Egg white IgE Ab [Units/volume] in Serum [facility] Work Phone: Gluten IgE Ab [Units/volume] in Serum [facility] Work Phone: Oat IgE Ab [Units/volume] in Serum [facility] Work Phone: Ballard IgE Ab [Units/volume] in Serum [facility] Work Phone: Peanut IgE Ab [Units/volume] in Serum [facility] Work Phone: Pork IgE Ab [Units/volume] in Serum [facility] Work Phone: Potato IgE Ab [Units/volume] in Serum [facility] Work Phone: Rice IgE Ab [Units/volume] in Serum [facility] Work Phone: [place] IgE Ab [Units/volume] in Serum [facility] Work Phone: Soybean IgE Ab [Units/volume] in Serum [facility] Work Phone: Tomato IgE Ab [Units/volume] in Serum [facility] Work Phone: Wheat IgE Ab [Units/volume] in Serum [facility] Work Phone: Immunizations Immunization Date Immunization Notes Care Provider [facility] 12-28-2022 influenza, injectabl e, quadrivalent, preservative free Lorenzo Conteh Other [facility] Other 12-28-2022 influenza virus vaccine, unspecified formulation Theodora JIMENEZ [facility] 06-20-2021 influenza virus vaccine, unspecified formulation Theodora JIMENEZ [facility] 07-27-2020 COVID-19 Vaccine Pfi zer - Documentation Purposes Only Lorenzo Conteh Other [facility] 07-27-2020 SARS-CoV-2 (COVID-19 ) Ad26 vaccine, recombinant Theodora JIMENEZ [facility] 07-06-2020 COVID-19 Vaccine Pfi zer - Documentation Purposes Only Lorenzo Conteh Other [facility] 06-26-2020 SARS-CoV-2 (COVID-19 ) Ad26 vaccine, recombinant Theodora JIMENEZ [facility] Payers Date Payer Category Payer Self-pay [id number] 2018 Unknown [employer] [place] xxxxxxxxxxxx 2018-Present [id number] 1984 Unknown [id number] 1984 Unknown [id number] [id number]3 1984 Unknown [id number] 2.16.840.1.146231.3.579.2.593 1984 Unknown [id number] 2.16.840.1.228805.3.579.2.593 1984 Unknown [id number] 2.16.840.1.545653.3.579.2.593 1984 Unknown [id number] 2.16.840.1.032320.3.579.2.593 1984 Unknown [id number] 2.16.840.1.286364.3.579.2.593 1984 Unknown [id number] 2.16.840.1.575244.3.579.2.593 1984 Unknown [id number] 2.16.840.1.988878.3.579.2.593 1984 Unknown [id number] 2.16.840.1.798705.3.579.2.593 1984 Unknown [id number] 2.16.840.1.292333.3.579.2.593 1984 Unknown [id number] 2.16840.1.969295.3.579.2.593 1984 Unknown [id number] 2.16840.1.448516.3.579.2.593 1984 Unknown [id number] 2.16840.1.658333.3.579.2.593 1984 Unknown [id number] 2.16840.1.978011.3.579.2.727 1984 Unknown [id number] 2.16840.1.312164.3.579.2.727 1984 Unknown [id number] 2.16840.1.320234.3.579.2.727 1984 Unknown [id number] 2.840.1.069307.3.579.2.727 1984 Unknown [id number] 2.840.1.963570.3.579.2.727 1984 Unknown [id number] 2.840.1.068791.3.579.2.727 1959 Unknown [id number] Medicaid [place] Medicaid [place] HMO 110 [id number] Unknown [id number] 06.13.830.1.834526.3.579.2.531 Unknown [id number] 06.13.830.1.443386.3.579.2.531 Unknown [id number] Unknown [id number].531 Social History Date Type Detail Facility Start: 07-11-2018 End: 06-27-2023 Tobacco smoking status NHIS Never smoker [facility] Start: 07-11-2018 History SDOH Alcohol Frequency 1 [facility] Sex Assigned At Not on file [facility] Sex Assigned At [facility] Start: 1985 Sex Assigned At Female [facility] Tobacco smoking status Never [facility] Functional Status Date Assessment Result Facility 06-27-2023 Functional Status N/A [facility] 07-17-2022 Functional Status N/A [facility] 06-24-2022 Functional Status N/A [facility] Clinical Notes 03-27-2021 to 06-27-2023 Note Date & Type Note Facility 06-27-2023 Hospital Discharg e instructions Patient Education 06/27/2023 08:46:20 Dietary Guidelines to Help Prevent Kidney Stones Dietary Guidelines to Help Prevent Kidney Stones Kidney stones are deposits of minerals and salts that form inside your kidneys. Your risk of developing kidney stones may be greater depending on your diet, your lifestyle, the medicines you take, and whether you have certain medical conditions. Most people can lower their risks of developing kidney stones by following these dietary guidelines. Your dietitian may give you more specific instructions depending on your overall health and the type of kidney stones you tend to develop. What are tips for following this plan? Reading food labels Choose foods with no salt added or low-salt labels. Limit your salt (sodium) intake to less than 1,500 mg a day. Choose foods with calcium for each meal and snack. Try to eat about 300 mg of calcium at each meal. Foods that contain 200 500 mg of calcium a serving include: ?8 oz (237 mL) of milk, lhoptkb-kycjbfybwyvu-pbazl milk, and calcium-fortifiedfruit juice. Calcium-fortified means that calcium has been added to these drinks. ?8 oz (237 mL) of kefir, yogurt, and soy yogurt. ?4 oz (114 g) of tofu. ?1 oz (28 g) of cheese. ?1 cup (150 g) of dried figs. ?1 cup (91 g) of cooked broccoli. ?One 3 oz (85 g) can of sardines or mackerel. Most people need 1,000 1,500 mg of calcium a day. Talk to your dietitian about how much calcium is recommended for you. Shopping Buy plenty of fresh fruits and vegetables. Most people do not need to avoid fruits and vegetables, even if these foods contain nutrients that may contribute to kidney stones. When shopping for convenience foods, choose: ?Whole pieces of fruit. ?Pre-made salads with dressing on the side. ?Low-fat fruit and yogurt smoothies. Avoid buying frozen meals or prepared deli foods. These can be high in sodium. Look for foods with live cultures, such as yogurt and kefir. Choose high-fiber grains, such as whole-wheat breads, oat bran, and wheat cereals. Cooking Do not add salt to food when cooking. Place a salt shaker on the table and allow each person to add their own salt to taste. Use vegetable protein, such as beans, textured vegetable protein (TVP), or tofu, instead of meat in pasta, casseroles, and soups. Meal planning Eat less salt, if told by your dietitian. To do this: ?Avoid eating processed or pre-made food. ?Avoid eating fast food. Eat less animal protein, including cheese, meat, poultry, or fish, if told by your dietitian. To do this: ?Limit the number of times you have meat, poultry, fish, or cheese each week. Eat a diet free of meat at least 2 days a week. ?Eat only one serving each day of meat, poultry, fish, or seafood. ?When you prepare animal proteins, cut pieces into small portion sizes. For most meat and fish, one serving is about the size of the palm of your hand. Eat at least five servings of fresh fruits and vegetables each day. To do this: ?Keep fruits and vegetables on hand for snacks. ?Eat one piece of fruit or a handful of berries with breakfast. ?Have a salad and fruit at lunch. ?Have two kinds of vegetables at dinner. You may be told to limit foods that are high in a substance called oxalate. These include: ?Spinach (cooked), rhubarb, beets, sweet potatoes, and [place] chard. ?Peanuts. ?Potato chips, swedish fries, and baked potatoes with skin on. ?Nuts and nut products. ?Chocolate. If you regularly take a diuretic medicine, make sure to eat at least 1 or 2 servings of fruits or vegetables that are high in potassium each day. These include: ?Avocado. ?Banana. ?Ballard, prune, carrot, or tomato juice. ?Baked potato. ?Cabbage. ?Beans and split peas. Lifestyle Drink enough fluid to keep your urine pale yellow. This is the most important thing you can do. Spread your fluid intake throughout the day. If you drink alcohol: ?Limit how much you have to: ?0 1 drink a day for women who are not . ?0 2 drinks a day for men. ?Know how much alcohol is in your drink. In the [place] one drink equals one 12 oz bottle of beer (355 mL), one 5 oz glass of wine (148 mL), or one 1 oz glass of hard liquor (44 mL). Lose weight if told by your health care provider. Work with your dietitian to find an eating plan and weight loss strategies that work best for you. General information Talk to your health care provider and dietitian about taking daily supplements. Depending on your health and the cause of your kidney stones, you may be told: ?Do not take high-dose supplements of vitamin C (1,000 mg a day or more). ?To take a calcium supplement. ?To take a daily probiotic supplement. ?To take other supplements such as magnesium, fish oil, or vitamin B6. Take fjtc-jwt-mrcksgs and prescription medicines only as told by your health care provider. These include supplements. What foods should I limit? Limit your intake of the following foods, or eat them as told by your dietitian. Vegetables Spinach. Rhubarb. Beets. Canned vegetables. Pickles. Olives. Baked potatoes with skin. Grains Wheat bran. Baked goods. Salted crackers. Cereals high in sugar. Meats and other proteins Nuts. Nut butters. Large portions of meat, poultry, or fish. Salted, precooked, or cured meats, such as sausages, meat loaves, and hot dogs. Dairy Cheeses. Beverages Regular soft drinks. Regular vegetable juice. Seasonings and condiments Seasoning blends with salt. Salad dressings. Soy sauce. Ketchup. Barbecue sauce. Other foods Canned soups. Canned pasta sauce. Casseroles. Pizza. Lasagna. Frozen meals. Potato chips. Kosovan fries. The items listed above may not be a complete list of foods and beverages you should limit. Contact a dietitian for more information. What foods should I avoid? Talk to your dietitian about specific foods you should avoid based on the type of kidney stones you have and your overall health. Fruits Grapefruit. The item listed above may not be a complete list of foods and beverages you should avoid. Contact a dietitian for more information. Summary Kidney stones are deposits of minerals and salts that form inside your kidneys. You can lower your risk of kidney stones by making changes to your diet. The most important thing you can do is drink enough fluid. Drink enough fluid to keep your urine pale yellow. Talk to your dietitian about how much calcium you should have each day, and eat less salt and animal protein as told by your dietitian. This information is not intended to replace advice given to you by your health care provider. Make sure you discuss any questions you have with your health care provider. Document Revised: 07/25/2022 Document Reviewed: 07/25/2022 [employer] Patient Education 2022 [employer]. Follow Up Care 06/24/2022 15:38:24 With:TONY ROSALES, Theodora Rhoades, URL Address: [address] [place], [place] [id number]- When: Unknown [facility] 02-04-2023 Evaluation note Encounter Date Diagnosis Assessment Notes Jan, Well adult exam (ICD-10 - Z00.00) Jan, Screening for cardiovascular condition (ICD-10 - Z13.6) [facility] Other 03-22-2023 Hospital Discharge instructions Patient Education 07/17/2022 13:05:05 Kidney Stones, Pqku-ra-Yngv Kidney Stones Kidney stones are rock-like masses that form inside of the kidneys. Kidneys are organs that make pee (urine). A kidney stone may move into other parts of the urinary tract, including: The tubes that connect the kidneys to the bladder (ureters). The bladder. The tube that carries urine out of the body (urethra). Kidney stones can cause very bad pain and can block the flow of pee. The stone usually leaves your body (passes) through your pee. You may need to have a doctor take out the stone. What are the causes? Kidney stones may be caused by: A condition in which certain glands make too much parathyroid hormone (primary hyperparathyroidism). A buildup of a type of crystals in the bladder made of a chemical called uric acid. The body makes uric acid when you eat certain foods. Narrowing (stricture) of one or both of the ureters. A kidney blockage that you were born with. Past surgery on the kidney or the ureters, such as gastric bypass surgery. What increases the risk? You are more likely to develop this condition if: You have had a kidney stone in the past. You have a family history of kidney stones. You do not drink enough water. You eat a diet that is high in protein, salt (sodium), or sugar. You are overweight or very overweight (obese). What are the signs or symptoms? Symptoms of a kidney stone may include: Pain in the side of the belly, right below the ribs (flank pain). Pain usually spreads (radiates) to the groin. Needing to pee often or right away (urgently). Pain when going pee (urinating). Blood in your pee (hematuria). Feeling like you may vomit (nauseous). Vomiting. Fever and chills. How is this treated? Treatment depends on the size, location, and makeup of the kidney stones. The stones will often pass out of the body through peeing. You may need to: Drink more fluid to help pass the stone. In some cases, you may be given fluids through an IV tube put into one of your veins at the hospital. Take medicine for pain. Make changes in your diet to help keep kidney stones from coming back. Sometimes, medical procedures are needed to remove a kidney stone. This may involve: A procedure to break up kidney stones using a beam of light (laser) or shock waves. Surgery to remove the kidney stones. Follow these instructions at home: Medicines Take wctl-zhx-pqtrmek and prescription medicines only as told by your doctor. Ask your doctor if the medicine prescribed to you requires you to avoid driving or using heavy machinery. Eating and drinking Drink enough fluid to keep your pee pale yellow. You may be told to drink at least 8 10 glasses of water each day. This will help you pass the stone. If told by your doctor, change your diet. This may include: ?Limiting how much salt you eat. ?Eating more fruits and vegetables. ?Limiting how much meat, poultry, fish, and eggs you eat. Follow instructions from your doctor about eating or drinking restrictions. General instructions Collect pee samples as told by your doctor. You may need to collect a pee sample: ?24 hours after a stone comes out. ?8 12 weeks after a stone comes out, and every 6 12 months after that. Strain your pee every time you pee (urinate), for as long as told. Use the strainer that your doctor recommends. Do not throw out the stone. Keep it so that it can be tested by your doctor. Keep all follow-up visits as told by your doctor. This is important. You may need follow-up tests. How is this prevented? To prevent another kidney stone: Drink enough fluid to keep your pee pale yellow. This is the best way to prevent kidney stones. Eat healthy foods. Avoid certain foods as told by your doctor. You may be told to eat less protein. Stay at a healthy weight. Where to find more information National Kidney Foundation (NKF): www.kidney.org [facility] [employer] [facility] (UCF): www.urologyhealth.org Contact a doctor if: You have pain that gets worse or does not get better with medicine. Get help right away if: You have a fever or chills. You get very bad pain. You get new pain in your belly (abdomen). You pass out (faint). You cannot pee. Summary Kidney stones are rock-like masses that form inside of the kidneys. Kidney stones can cause very bad pain and can block the flow of pee. The stones will often pass out of the body through peeing. Drink enough fluid to keep your pee pale yellow. This information is not intended to replace advice given to you by your health care provider. Make sure you discuss any questions you have with your health care provider. Document Released: 09/30/2008 Document Revised: 08/31/2019 Document Reviewed: 08/31/2019 [employer] Patient Education 2020 [employer]. Follow Up Care 07/12/2022 14:53:06 With:TONY ROSALES, Theodora Rhoades, URL Address: [facility] [address] , [place] [phone] When: Unknown [facility] 03-16-2023 NoteOP Note OPERATION DATE: 07/11/2022 PREOPERATIVE DIAGNOSIS: Right ureteral calculus. POSTOPERATIVE DIAGNOSIS: Right ureteral calculus. PROCEDURE: 1. Cystoscopy. 2. Rigid right ureteral dilation. 3. Right ureteroscopy. 4. Right holmium laser lithotripsy of ureteral calculus. 5. Right stone basket extraction. 6. Placement of 6-Kosovan variable length right ureteral stent. ANESTHESIA: General by LMA. COMPLICATIONS: None. BLOOD LOSS: Minimal. INDICATIONS: Jamil Quinn is a 37-year-old lady with history of recurrent nephrolithiasis. She has had bilateral ESWL and she has passed numerous pieces from these procedures. She was found to have a large 7-9 mm distal right ureteral calculus causing pain and exquisite urinary frequency and urgency. She has been unable to pass this stone. She now presents for definitive ureteroscopic stone manipulation and possible right stent placement. She has signed an informed consent, after the risks were explained to her. PROCEDURE: Patient was brought to the operating room and placed on the operating room table in the spine position. Time out was done by all parties in the room. We all agreed upon the patient's identification and the planned procedures for this patient. General anesthesia was then administered via LMA. She was then repositioned in to the modified dorsolithotomy position. All pressure points were satisfactorily padded. Genitalia was sterilely prepped and draped in the usual fashion. I started by passing a 22-Kosovan Olympus cystoscope per urethra and into the bladder. Black endoscopy in the bladder showed no pathology. I then passed a Glidewire through the scope and cannulated the right ureter. Within 3 cm of the UO, the wire buckled and, while using fluoroscopy, I could see that was the area of the stone burden. The wire was able to get beyond the stone and up into the kidney. I then used an 8 and 10-Kosovan rigid dilator to dilate the distal ureter. I was actually very difficult due to a stricture formation. The cystoscope was removed. I then passed a semi-rigid ureteroscope adjacent to the wire, through the urethra, into the bladder and up the right ureter. I had a somewhat difficult time getting the scope through this narrowed area, but eventually I was able. I then got to the stone. The stone seemed as though it was impacted. I passed a 365 angstrom holmium laser fiber through the scope and made contact with the stone. Laser lithotripsy was done at 6 matamoros continuously. There was quite a bit of stone and quite a bit of lasering that took place. Once I had satisfactory fragmentation, I then used a Zero-Tip Nitinol basket and engaged pieces and dumped them in the base of the bladder. I went up and down the ureter numerous times, pulling out pieces, until the ureter was free of stone. The ureter was very friable, edematous and bleeding somewhat; therefore, I elected to place a stent. The ureteroscope was removed. I then backloaded the cystoscope over the wire and passed it into the bladder, and then slid a 6-Kosovan variable length ureteral stent over the wire, into the kidney. The wire was removed and there were good curls in the kidney and in the bladder. I then used the Thalchemy evacuator to get all the stone pieces from the base of the bladder out, and they were sent for stone analysis. The bladder was drained of its contents and the scope was the removed. She was then transferred to a [facility] bed and wheeled to PACU in stable condition. She will be discharged to home later today with a script for VESIcare 10 mg daily, #14 and Macrobid 100 mg daily, #14. Her stent will get taken out within two weeks.[facility] [id number] NoteChief Complaint F/U to ESWL procedures. HPI Staff 3m KUB & Metabolic Work Up. S/P Rt ESWl 11/08/21 & 11/15/21. Lt ESWL done 07/19/21 Pt called our office last week c/o Rt Flank pain. KUB was done at that time. Was given Toradol & Flomax from our office. Passed stone, Friday. Willow immediate relief after passing. Flank pain has since then subsided. No KUB after passing stone. Denies visible blood in urine. Denies any complaints at this time. History of Present Illness Tests reviewed: reviewed UA, 24 hr urine, KUB. I have reviewed the previous health record information and history for this patient from Dr. Jimenez. I have reviewed and verified the staff HPI to be accurate for this encounter. There have been no associated fever, chills, flank pain, or blood in the urine. Denies any urinary infections since last encounter. Review of Systems PHQ Score Initial Depression Screen Score: 0 ROS - Provider Constitutional: denies weight loss, denies hot flashes. Eyes: denies eye problems. Gastrointestinal: denies nausea, denies vomiting. Cardiovascular: denies chest pain or angina. Integumentary: no dryness Musculoskeletal: denies musculoskeletal symptoms. ENMT: denies otolaryngeal symptoms. Respiratory: no shortness of breath. Heme/Lymph: denies easy bleeding tendency, denies easy bruising tendency. Psychiatric: no confusion, no anxiety. Genitourinary: See HPI. Physical Exam Vitals & Measurements HR: 86(Peripheral) RR: 16 BP: 112/80 HT: 60 in HT: 153 cm WT: 49 kg WT: 107.8 lb BMI: 20.93 General Appearance: alert , no acute distress, well nourished, well developed female. Genitourinary: bladder nonpalpable, no flank pain. Assessment/Plan 1. Ureteral stone (N20.1: Calculus of ureter) S/P Rt ESWL 11/08/21 & 11/15/21. Lt ESWL done 07/19/21. Metabolic workup done 02/11/22: Volume 825 cc, very L. U24hr Citric acid 227 L. Pt called our office last week c/o Rt Flank pain. Was given Toradol & Flomax from our office. KUB was done at that time. KUB done 06/18/22 shows new mid right ureter 4 mm stones versus bowel content artifact. Passed stone, Friday. Willow immediate relief after passing. Flank pain has since thensubsided. No KUB after passing stone. Explained findings from metabolic workup. Pt to start Effer-K 25 mEq BID. Rx sent to [facility]. Verydehydrated. Recommended to increase fluid intake to ten to twelve 16 oz bottles a day; preferably water, clear pop, and sugar free lemonade. Follow up 1 year with KUB or sooner if needed. Pt understands and agrees with plan. -start Effer-K 25 mEq BID -high fluid intake 2. History of kidney stones (Z87.442: Personal history of urinary calculi) See #1. 3. Asymptomatic microscopic hematuria (R31.21: Asymptomatic microscopic hematuria) UA today shows trace-lysed blood (small) and small leuks. Denies visible blood in urine. Will continue to monitor as stone events subsides. Follow-up With When Contact Information TONY ROSALES, Theodora Rhoades, URL [facility] [address] [place] [address] Additional Instructions: 1 yr w/KUB Patient Education Dietary Guidelines to Help Prevent Kidney Stones I, Angy Nuno, personally scribed for Dr. Jimenez on 06/24/2022 15:35:15. . Documentation recorded by the scribe, Angy Nuno, accurately reflects the services(s) I performed and decisions made by me. Authenticated by Dr. Jimenez on 06/24/2022 15:38:23. Problem List/Past Medical History Ongoing Asymptomatic microscopic hematuria Hematuria History of kidney stones Hypertension Kidney stone Stress incontinence Ureteral stone Urinary frequency Historical No qualifying data Procedure/Surgical History ESWL of kidney (11/15/2021), ESWL of kidney (11/08/2021), ESWL of kidney (07/19/2021), Cystoscopy (06/19/2021), Cataract, Lithotripsy. Medications Flomax 0.4 mg Cap, 0.4 mg= 1 cap(s), Oral, Daily losartan 50 mg Tab, Oral, Daily Allergies Keflex (Diarrhea) Social History Tobacco Never (less than 100 in lifetime) Tobacco Use:. Never Smokeless Tobacco Use:., 06/24/2022 Immunizations Vaccine Date Status influenza virus vaccine, inactivated 06/20/2021 Recorded SARS-CoV-2 (COVID-19) Ad26 vaccine 07/2020 Recorded SARS-CoV-2 (COVID-19) mRNA BNT-162b2 vax 07/27/2020 Recorded SARS-CoV-2 (COVID-19) mRNA BNT-162b2 vax 07/06/2020 Recorded SARS-CoV-2 (COVID-19) Ad26 vaccine 06/2020 Recorded Lab Results Ambulatory Point of Care Results Bilirubin Urine Dipstick: Negative (06/24/22 15:04:00) Blood Urine Dipstick: Trace-lysed (06/24/22 15:04:00) Glucose Urine Dipstick: Negative (06/24/22 15:04:00) Ketones Urine Dipstick: Negative (06/24/22 15:04:00) Leukocytes Urine Dipstick: 1+ Small (06/24/22 15:04:00) Nitrite Urine Dipstick: Negative (06/24/22 15:04:00) Protein Urine Dipstick: Trace (06/24/22 15:04:00) Specific [place] Urine Dipstick: 1.025 (06/24/22 15:04:00 (more content not included)...[facility] SystemComment on above:Result Comment: Electronically Signed By: Theodora JIMENEZ MD\.br\Date and Time Signed: 06/24/22 15:38 EST\.br\Electronically Co-Signed By: Angy Nuno\.br\Date and Time Co-Signed: 06/24/22 15:35 [id number] Hospital Discharge instructions Patient Education 06/24/2022 08:36:57 Dietary Guidelines to Help Prevent Kidney Stones Dietary Guidelines to Help Prevent Kidney Stones Kidney stones are deposits of minerals and salts that form inside your kidneys. Your risk of developing kidney stones may be greater depending on your diet, your lifestyle, the medicines you take, and whether you have certain medical conditions. Most people can reduce their chances of developing kidney stones by following the instructions below. Depending on your overall health and the type of kidney stones you tend to develop, your dietitian may give you more specific instructions. What are tips for following this plan? Reading food labels Choose foods with no salt added or low-salt labels. Limit your sodium intake to less than 1500 mg per day. Choose foods with calcium for each meal and snack. Try to eat about 300 mg of calcium at each meal.Foods that contain 200 500 mg of calcium per serving include: ?8 oz (237 ml) of milk, fortified nondairy milk, and fortified fruit juice. ?8 oz (237 ml) of kefir, yogurt, and soy yogurt. ?4 oz (118 ml) of tofu. ?1 oz of cheese. ?1 cup (300 g) of dried figs. ?1 cup (91 g) of cooked broccoli. ?1 3 oz can of sardines or mackerel. Most people need 1000 to 1500 mg of calcium each day. Talk to your dietitian about how much calciumis recommended for you. Shopping Buy plenty of fresh fruits and vegetables. Most people do not need to avoid fruits and vegetables, even if they contain nutrients that may contribute to kidney stones. When shopping for convenience foods, choose: ?Whole pieces of fruit. ?Premade salads with dressing on the side. ?Low-fat fruit and yogurt smoothies. Avoid buying frozen meals or prepared deli foods. Look for foods with live cultures, such as yogurt and kefir. Cooking Do not add salt to food when cooking. Place a salt shaker on the table and allow each person to addhis or her own salt to taste. Use vegetable protein, such as beans, textured vegetable protein (TVP), or tofu instead of meat in pasta, casseroles, and soups. Meal planning Eat less salt, if told by your dietitian. To do this: ?Avoid eating processed or premade food. ?Avoid eating fast food. Eat less animal protein, including cheese, meat, poultry, or fish, if told by your dietitian. To dothis: ?Limit the number of times you have meat, poultry, fish, or cheese each week. Eat a diet free of meat at least 2 days a week. ?Eat only one serving each day of meat, poultry, fish, or seafood. ?When you prepare animal protein, cut pieces into small portion sizes. For most meat and fish, one serving is about the size of one deck of cards. Eat at least 5 servings of fresh fruits and vegetables each day. To do this: ?Keep fruits and vegetables on hand for snacks. ?Eat 1 piece of fruit or a handful of berries with breakfast. ?Have a salad and fruit at lunch. ?Have two kinds of vegetables at dinner. Limit foods that are high in a substance called oxalate. These include: ?Spinach. ?Rhubarb. ?Beets. ?Potato chips and swedish fries. ?Nuts. If you regularly take a diuretic medicine, make sure to eat at least 1 2 fruits or vegetables high in potassium each day. These include: ?Avocado. ?Banana. ?[place], prune, carrot, or tomato juice. ?Baked potato. ?Cabbage. ?Beans and split peas. General instructions Drink enough fluid to keep your urine clear or pale yellow. This is the most important thing you can do. Talk to your health care provider and dietitian about taking daily supplements. Depending on your health and the cause of your kidney stones, you may be advised: ?Not to take supplements with vitamin C. ?To take a calcium supplement. ?To take a daily probiotic supplement. ?To take other supplements such as magnesium, fish oil, or vitamin B6. Take all medicines and supplements as told by your health care provider. Limit alcohol intake to no more than 1 drink a day for non women and 2 drinks a day for men. One drink equals 12 oz of beer, 5 oz of wine, or 1 oz of hard liquor. Lose weight if told by your health care provider. Work with your dietitian to find strategies and an eating plan that works best for you. What foods are not recommended? Limit your intake of the following foods, or as told by your dietitian. Talk to your dietitian about specific foods you should avoid based on the type of kidney stones and your overall health. Grains Breads. Bagels. Rolls. Baked goods. Salted crackers. Cereal. Pasta. Vegetables Spinach. Rhubarb. Beets. Canned vegetables. Pickles. Olives. Meats and other protein foods Nuts. Nut butters. Large portions of meat, poultry, or fish. Salted or cured meats. Deli meats. Hotdogs. Sausages. Dairy Cheese. Beverages Regular soft drinks. Regular vegetable juice. Seasonings and other foods Seasoning blends with salt. Salad dressings. Canned soups. Soy sauce. Ketchup. Barbecue sauce. Canned pasta sauce. Casseroles. Pizza. Lasagna. Frozen meals. Potato chips. Kosovan fries. Summary You can reduce your risk of kidney stones by making changes to your diet. The most important thing you can do is drink enough fluid. You should drink enough fluid to keep your urine clear or pale yellow. Ask your health care provider or dietitian how much protein from animal sources you should eat eachday, and also how much salt and calcium you should have each day. This information is not intended to replace advice given to you by your health care provider. Make sure you discuss any questions you have with your health care provider. Document Released: 08/09/2011 Document Revised: 08/04/2019 Document Reviewed: 03/25/2017 [employer] Patient Education 2020 [employer]. Follow Up Care 03/01/2022 09:02:20 With:TONY ROSALES, Theodora Rhoades, URL Address: [facility] [address] , [place] [address]- When: Unknown [facility] [place] 10-18-2022 Evaluation note* Encounter Date Diagnosis Assessment Notes Treatment Notes Treatment Clinical Notes Jan, Well adult exam (ICD-10 - Z00.00) Paperwork completed for her physical, she will continue working with healthy dietary and exercise habits. She does plan to follow through with her colonoscopy, given the length and severity of her symptoms I agree with her doing so [facility] Other 09-12-2022 Evaluation note* Encounter Date Diagnosis Assessment Notes Treatment Notes Treatment Clinical Notes Dec, Alternating constipation and diarrhea (ICD-10 - R19.8) [facility] Other 09-08-2022 Evaluation note* Encounter Date Diagnosis Assessment Notes Treatment Notes Treatment Clinical Notes Dec, Alternating constipation and diarrhea (ICD-10 - R19.8) She needs to have a colonoscopy done, referral sent. In the meantime I recommended a lactose-free, low FODMAP diet and I also recommended she start an [id number] probiotic [facility] Other 07-01-2022 History general Narrative - Reported* Type Description Date Medical History hypertension Surgical History Cataract Surgery 10/2021 Surgical History Lithotripsy X2 10/2021 Hospitalization History child x 2 [facility] Other 07-01-2022 History general Narrative - Reported* Type Description Date Medical History hypertension Medical History kidney stones Surgical History Cataract Surgery 10/2021 Surgical History Lithotripsy X2 10/2021 Hospitalization History child x 2 [facility] Other 03-11-2022 Evaluation note* Encounter Date Diagnosis Assessment Notes Treatment Notes Treatment Clinical Notes Jun, Right lower lobe pulmonary nodule (ICD-10 - R91.1) 11 Jun, 2021 Chronic diarrhea (ICD-10 - K52.9) [facility] Other 11-30-2021 Evaluation note* Encounter Date Diagnosis Assessment Notes Treatment Notes Treatment Clinical Notes Feb, Urticarial rash (ICD-10 - L50.9) Discussed that this would likely resolve on its own with Benadryl, but she prefers to take a few days of prednisone. She will call if the rash does not completely resolve [facility] Other Evaluation + Plan note Future Appointments Appointment Date:06/27/2023 08:00:00 AM Scheduled Provider:Theodora JIMENEZ MD Location:[facility] Appointment Type:URO Office Visit [facility] [facility] evaluation + Plan note Future Appointments Appointment Date:07/02/2024 08:00:00 AM Scheduled Provider:Theodora JIMENEZ MD Location:[facility] Appointment Type:URO Office Visit [facility] evalpetlfp noteNo [employer] Other evaluation noteNo assessment information available [facility] Work Phone: Hisrrur general Narrative - Reported* Type Description Date Medical History hypertension Surgical History No Surgical history information Hospitalization History child x 2 Div[facility] Other Hospital course Narrative No data available for this section [facility] progress note No data available for this section [facility] Summary Purpose Family History Relationship Condition Age at Onset Recorded Date/T jody Not Specified Adopted Unknown Advance Directives Advance Directive Response Recorded Date/ Time Advance Directives No March 31, 2017 12:07pm Discharge Instructions * Instructions* Jaret Manning DO - 07/11/2018 Follow-up with your physician for recheck. Take your blood pressure once a day. See a physician if new or worsening symptoms. Do not take metoprolol if your heart rate is less than 60 * Attachments The following attachments cannot be sent through Care Everywhere. * High Blood Pressure ([facility]) (Setswana) documented in this encounter Assessments Diagnosis Essential hypertension- Primary Unspecified essential hypertension Chief Complaint and Reason for Visit Chief Complaint right lower lobe pul monary nodule K52.9 Chief Complaint right lower lobe pul monary nodule K52.9 K52.9 Chief Complaint K52.9 K52.9 Z13.1 Z13.6 Chief Complaint K52.9 K52.9 Z13.1 Z13.6 Constipation, Diarrhea Reason for Referral Reason alternating constipa tion and diarrhea -needs colonoscopy Diagnosis 1 Alternating constipa tion and diarrhea (R19.8) Referral Organization [facility] Iesha Hamilton Referring Provider First Name Lorenzo Referring Provider Last Name Angel Referring Provider Specialty Family Prac krystal Referred Provider Specialty Gastroentero logy Referral Priority Routine Additional Source Comments INFORMATION SOURCE (unrecogn ized section and content) DATE CREATED AUTHOR 10/21/2017 [facility] DATE CREATED AUTHOR AUTHOR'S ORGANIZ ATION [facility]12/[facility] DATE CREATED AUTHOR AUTHOR'S ORGANIZ ATION 10/04/2018 [facility] DATE CREATED AUTHOR AUTHOR'S ORGANIZ ATION 06/17/2021 [facility] DATE CREATED AUTHOR AUTHOR'S ORGANIZ ATION 07/17/2022 [facility] DATE CREATED AUTHOR AUTHOR'S ORGANIZ ATION 07/25/2022 [facility] DATE CREATED AUTHOR AUTHOR'S ORGANIZ ATION 02/07/2023 [facility] Reason for Visit (unrecogniz ed section and content) Reason Comments Dizziness pt c/o dizziness jasvir t started yesterday. pt denies any syncopal episodes at this time. pt denies any n/v. Care Teams (unrecognized sec tion and content) Personnel Name: LORENZO CONTEH DO Address: Address: [address] [place] [address] [place], [place] [address] Team Status: Inactive Member Role Status Dates Lorenzo Conteh DO Primary Care Provider, Attending Provider Active Team Status: Active Member Role Status Dates Lorenzo Conteh DO Primary Care Provider Active Team Status: Inactive Member Role Status Dates Lorenzo Conteh , DO Primary Care Provider Active Se Walker MD Attending Provider Active Goals (unrecognized section and content) Goals may be documented in a n alternate section FOR RECORDS PERTAINING TO PATIENTS WHO ARE OR HAVE BEEN ENROLLED IN A CHEMICAL DEPENDENCY/SUBSTANCEABUSE PROGRAM, SOME INFORMATION MAY BE OMITTED. This clinical summary was aggregated from multiple sources. Caution should be exercised in using it in the provision of clinical care. This summary normalizes information from multiple sources, and as a consequence, information in this document may materially change the coding, format and clinical context of patient data. In addition, data may be omitted in some cases. CLINICAL DECISIONS SHOULD BE BASED ON THE PRIMARY CLINICAL RECORDS. [employer] [facility]. provides no warranty or guarantee of the accuracy or completeness of information in this document.
[2023-08-12 18:39] VITALS: BP 146/84; PULSE 92; TEMP 36.8; O2SAT 100; BMI 21.1
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
[2023-08-12 19:50] LABS: Basophils Percent Auto 0.5 % (0.2-2.0); Eosinophils Percent Auto 0.5 % (0.9-7.0); Hematocrit 45.5 % (36.0-48.0); Hemoglobin 14.9 g/dL (12.0-16.0); Immature Granulocytes Abs Auto 0.02 10^3/uL (0.00-0.03); Immature Granulocytes Pct Auto 0.2 % (0.0-0.5); Lymphocytes Absolute Auto 1.3 10^3/uL (1.2-3.8); Lymphocytes Percent Auto 14.1 % (20.5-60.0); Mean Corpuscular HGB Conc 32.7 g/dL (29.9-35.2); Mean Corpuscular Hemoglobin 31.2 pg (26.7-34.0); Mean Corpuscular Volume 95.2 fL (81.0-99.0); Mean Platelet Volume 10.7 fL (9.5-13.5); Monocytes Absolute Auto 0.7 10^3/uL (0.3-0.8); Monocytes Percent Auto 7.6 % (1.7-12.0); Neutrophils Absolute Auto 6.8 10^3/uL (1.4-6.5); Neutrophils Percent Auto 77.1 % (43.0-75.0); Platelet Count 309 10^3/uL (150-450); Red Blood Count 4.78 10^6/uL (4.20-5.40); Red Cell Distribution Width 11.9 % (11.0-15.0); White Blood Count 8.8 10^3/uL (4.0-11.0)
[2023-08-12 19:50] LABS: Bilirubin Urine NEGATIVE (NEGATIVE); Blood Urine NEGATIVE (NEGATIVE); Clarity Urine CLEAR (CLEAR); Color Urine LT. YELLOW (YELLOW); Glucose Urine UA NEGATIVE (NEGATIVE); Ketones Urine NEGATIVE (NEGATIVE); Leukocyte Esterase Urine NEGATIVE (NEGATIVE); Nitrite Urine NEGATIVE (NEGATIVE); Protein Urine NEGATIVE (NEG/TRACE); Specific Gravity Urine <=1.005 (1.005-1.025); Urobilinogen Urine 0.2 EU/dL (0.2-1.0)
[2023-08-12 19:51] LABS: Urine Microscopic Indicated NO
[2023-08-12 20:04] LABS: HCG Qualitative NEGATIVE (NEGATIVE)
[2023-08-12 20:09] LABS: Lactate/Lactic Acid 1.2 mmol/L (0.4-2.0)
[2023-08-12 20:10] LABS: Alanine Aminotransferase 19 U/L (14-59); Albumin Globulin Ratio 1.1; Albumin Level 4.4 g/dL (3.4-5.0); Alkaline Phosphatase 64 U/L (46-116); Anion Gap 15.1; Aspartate Amino Transferase 13 U/L (15-37); BUN Creatinine Ratio 14.8; Bilirubin Total 0.3 mg/dL (0.2-1.0); Calcium 9.4 mg/dL (8.5-10.1); Carbon Dioxide 26.9 mmol/L (21.0-32.0); Chloride 101 mmol/L (98-107); Estimated GFR (African America >60 (>=60); Estimated GFR (Non-African Ame >60 (>=60); Globulin 3.9 g/dL; Glucose 103 mg/dL (74-106); Sodium 139 mmol/L (136-145); Total Protein 8.3 g/dL (6.4-8.2); Troponin I High Sensitivity 4.3 pg/mL (4.0-51.3)
== END 2023-08-12 22:09 | disposition home or self-care (01) ==
PROVIDERS: Emergency Provider Internal Medicine; PCP Family Medicine
DX: S09.90XA Unspecified injury of head, initial encounter (principal); S30.1XXA Contusion of abdominal wall, initial encounter; S20.219A Contusion of unspecified front wall of thorax, initial encounter; V43.52XA Car driver injured in collision with other type car in traffic accident, initial encounter
CPT/HCPCS: 36415; 70450; 70486; 71260; 72125; 74177; 80053; 81003; 83605; 83690; 84484; 84703; 85025; 99285; Q9967

== ENCOUNTER 2024-07-01 16:36 | Outpatient (OUT) | payer OTHER, SELFPAY ==
--- NOTE | 2024-07-01 16:48 | XR_ITS ---
The [address] [address] Patient Name: JAMIL QUINN MRN: [id number] date: 1985 Sex: F Assigned Patient Location: [facility] Current Patient Location: [facility] Accession/Order Number: [id number] Exam Date: 07/01/2024 23:15 Report Date: 07/01/2024 23:16 At the request of: CYNDIE CÁRDENAS Procedure: XR abdomen 1V KUB: CLINICAL INFORMATION: Kidney stone follow-up. COMPARISON: CT abdomen and pelvis 08/12/2023. FINDINGS: 3 mm stone left kidney. 3 mm stone right kidney. Phleboliths are seen within the pelvis. No bowel obstruction or free air. XR/XR abdomen 1V IMPRESSION: BILATERAL NEPHROLITHIASIS. Impression dictated by: Srinivasan Mabry Jr. [email or web address]/01/2024 11:16 PM Dictation Location: [place] [address] Electronically authenticated by: [id number] Y Date: 07/01/2024 23:16
--- OUTSIDE RECORDS SUMMARY | 2024-07-01 16:58 | XMS_ITS | CCD ---
Author Organization [facility] ion [facility] Care Team Providers Care Third Cook Name Role Phone BASIASUMMER EVELYN ANNA Unavailable Unavailab JARET Osei Attending Unavailable Lorenzo Conteh Primary Care Provider [phone] WILLOW FERRERA Consulting Unavailable Lorenzo Conteh Unavailable DO Lorenzo Conteh Primary Care Provider DO Lorenzo Conteh Attending Provider Se Walker Unavailable DO Lorenzo Conteh Primary Care Provider DO Lorenzo Conteh Attending Provider MD Se Walker Attending Provider LORENZO CONTEH Primary Care Physician LORENZO CONTEH [facility] Unavailable JIMENEZ ., DR YIP Consulting Unavailable JIMENEZ ., DR YIP Attending Unavailable JIMENEZ ., DR YIP Admitting Unavailable JIMENEZ ., DR YIP Consulting Unavailable JIMENEZ ., DR YIP Attending Unavailable JIMENEZ ., DR YIP Admitting Unavailable LORENZO CONTEH Primary Care Unavailable LORENZO CONTEH [facility] Unavailable JIMENEZ ., DR YIP Consulting Unavailable JIMENEZ ., DR YIP Attending Unavailable JIMENEZ ., DR YIP Admitting Unavailable SMITH, DR JERONIMO Ocasio Consulting Unavailable ZION, GIO Consulting Unavailable JOSE PADILLA Consulting Unavailable LORENZO CONTEH [facility] Unavailable JIMENEZ ., DR YIP Admitting Unavailable JIMENEZ ., DR YIP Attending Unavailable JIMENEZ ., DR YIP Consulting Unavailable ZIHÉCTOR, DR DENVER Rhoades Consulting Unavailable AGCURTIS, GIO Consulting Unavailable JOSE PDAILLA Consulting Unavailable LORENZO CONTEH Primary Care Unavailable JIMENEZ ., DR YIP Admitting Unavailable JIMENEZ ., DR YIP Attending Unavailable JIMENEZ ., DR YIP Consulting Unavailable SIMIN JIMENEZ Consulting Unavailable KASANDRA TOVAR Consulting Unavailable CON[place]H, [place] Primary Care Unavailable JIMENEZ ., DR YIP Consulting Unavailable JIMENEZ ., DR YIP Attending Unavailable JIMENEZ ., DR YIP Admfranko Unavailable WEST, DR JERONIMO Ocasio Consulting Unavailable JAS, PANKAJ Consulting Unavailable DENVER COYNE Consulting Unavailable CONTEH, LORENZO Consulting Unavailable CONTEH, [place] Primary Care Unavailable JIMENEZ ., DR YIP Consulting Unavailable JIMENEZ ., DR YIP Admitting Unavailable JIMENEZ ., DR YIP Attending Unavailable CHALINO MCKEE Consulting Unavailable CONTEH, LORENZO Consulting Unavailable CON[place]H, [place] Primary Care Unavailable JIMENEZ ., DR YIP Attending Unavailable JIMENEZ ., DR YIP Admitting Unavailable JIMENEZ ., DR YIP Consulting Unavailable MILTON ., NOLAN Attending Unavailable MILTON ., NOLAN Admitting Unavailable ZIEBER, DR DENVER Rhoades Consulting Unavailable CON[place]H, [place] Primary Care Unavailable MILTON ., NOLAN Consulting Unavailable CON[place]H, [place] Primary Care Unavailable JIMENEZ ., DR YIP Consulting Unavailable JIMENEZ ., DR YIP Attending Unavailable JIMENEZ ., DR YIP Admitting Unavailable CON[place]H, [place] Primary Care Unavailable JIMENEZ ., DR YIP Admitting Unavailable JIMENEZ ., DR YIP Attending Unavailable JIMENEZ ., DR YIP Consulting Unavailable ZIEBER, DR DENVER Rhoades Consulting Unavailable VERONICA SEGURA Attending Unavailable VERONICA SEGURA Admitting Unavailable ZIEBER, DR DENVER Rhoades Consulting Unavailable CONTEH, [place] Primary Care Unavailable VERONICA SEGURA Consulting Unavailable JIMENEZ ., DR YIP Attending Unavailable JIMENEZ ., DR YIP Admitting Unavailable CONTEH, LORENZO Primary Care Unavailable LORENZO CONTEH R Primary Care Physician DO Lorenzo Conteh Primary Care Provider Angel, DO Bennett R Attending Provider Lorenzo Conteh R Attending Unavailable Angel, Lorenzo R Admitting Unavailable Conteh, Lorenzo R Primary Care Unavailable Lorenzo Conteh R Attending Unavailable Conteh, Lorenzo R Admitting Unavailable Conteh, Lorenzo R Primary Care Unavailable Lorenzo Conteh MD Primary Care Provider WILLIAM POSADA Attending Unavailable TANIA MASSEY Attending Unavailable RIKKI SHEIKH Attending Unavailable RUSSELL SEGURA Attending Theodora Ellison Attending Unavailable Allergies Allergy Classification Reported Allergen(s) Allergy Type Date of Onset Reaction(s) Facility (14 sources) Cephalexin; Translations: [cephalexin] Drug Allergy 3 Diarrhea (finding), Diarrhea [facility] (1 source) Cephalexin Drug Allergy 2 [facility] Rep[facility] (1 source) Cephalexin Drug Allergy 4 [facility] Repository (1 source) No Known Medication Allergies; Translations: [No Known Medication Allergies] Propensity to adverse reactions (disorder) [facility] Rep[facility] Medications Current Medications Medication Drug Class(es) Dates Sig (Normalized) Sig (Original) [id number] 200 actuat albuterol 0.09 mg/actuat metered dose [...] oral tablet (1 source) Dihydropyridine Calcium Channel Joceline take 1 tablet by mouth once daily amLODIPine 5 MG Tab tablet Take 5 mg by mouth daily. 0 Active belladonna-opium 16.2 mg-60 mg Supp (1 source) Start: 07-18-19 belladonna-opium 16.2 mg-60 mg Supp 1 supp, Rectal, q12hr for pain, 2 supp, Refill(s) 0, [facility]/pharmacy #[id number], 153, cm, 07/17/22 13:08:00 EDT, Height/Length Dosing, 51.1, kg, 07/17/22 13:08:00 EDT, Weight Dosing Start Date: 07/17/22 Status: Ordered cetirizine hydrochloride 10 mg oral tablet (2 sources) Histamine-1 Receptor Antagonist Start: 04-29-19 End: 04-29-19 take 2 tablets by mouth in the morning cetirizine (ZyrTEC) 10 MG tablet Indications: Chronic Urticaria , L50 Chronic Urticaria Take 2 tablets (20 mg) by mouth in the morning and 2 tablets (20 mg) before bedtime. 360 tablet 3 04/29/2024 04/29/2025 Active famotidine 20 mg oral tablet (2 sources) Histamine-2 Receptor Antagonist Start: 04-29-19 End: 04-29-19 take 1 tablet by mouth in the morning famotidine (Pepcid) 20 MG tablet Indications: Chronic idiopathic urticaria Take 1 tablet (20 mg) by mouth in the morning and 1 tablet (20 mg) before bedtime. 180 tablet 3 04/29/2024 04/29/2025 Active losartan potassium 25 mg oral tablet (20 sources) Angiotensin 2 Receptor Joceline Start: 12-01-19 take 50 mg by mouth once daily Losartan Active 50 MG PO Daily December 01, 2023 2:35pm Start: 05-17-2021 take 1 mg by mouth once daily losartan 50 mg Tab mg tab(s), Oral, Daily, Refills(s) 0 Start Date: 05/17/21 Status: Ordered Start: 03-19-2019 End: 12-01-2023 take 50 mg by mouth twice daily Losartan Discontinued 50 MG PO Twice daily March 19, 2019 1:00am December 01, 2023 2:36pm take 1 tablet by nneka th twice daily losartan (Cozaar) 25 MG tablet 1 tablet Orally two times daily Active Losartan Potassi um 25 mg TAKE 2 TABLETS ONCE DAILY Active montelukast 10 mg oral tablet (2 sources) Leukotriene Receptor Antagonist Start: 04-29-2024 End: 04-29-2025 take 1 tablet by mouth at bedtime montelukast (Singulair) 10 MG tablet Indications: Chronic idiopathic urticaria Take 1 tablet (10 mg) by mouth at bedtime 90 tablet 3 04/29/2024 04/29/2025 Active nitrofurantoin, macrocrystals 25 mg / nitrofurantoin, monohydrate 75 mg oral capsule (11 sources) Nitrofuran Antibacterial Start: 07-01-2022 take 1 [...] not open, crush, dissolve , or chew predniSONE 50 mg oral tablet (5 sources) Start: 03-27-2021 take 1 tablet by mouth every twenty-four hours predniSONE 50 MG 1 tablet Orally Once a day for 3 days Feb, Active tamsulosin hydrochloride 0.4 mg oral capsule (2 sources) alpha-Adrenerg ic Joceline Start: 07-17-2022 End: 07-24-2022 take 1 capsule by mouth twice daily Flomax 0.4 mg Cap 0.4 mg = 1 cap(s), Oral, BID, X 7 day(s), # 14 cap(s), Refills(s) 0, Pharmacy: [facility]/pharmacy #[id number], 153, cm, 07/17/22 13:08:00 EDT, Height/Length Dosing, 51.1, kg, 07/17/22 13:08:00 EDT, Weight Dosing Start Date: 07/17/22 Stop Date: 07/24/22 Status: Ordered Start: 06-18-2022 take 1 capsule by mo uth once daily Flomax 0.4 mg Cap 0.4 mg = 1 cap(s), Oral, Daily, # 14 cap(s), Refills(s) 0, Pharmacy: [facility]/pharmacy #[id number], 153, cm, 06/19/21 15:08:00 EST, Height/Length Dosing, 52, kg, 06/19/21 15:08:00 EST, Weight Dosing Start Date: 06/18/22 Status: Ordered Completed/Discontinued Medications Medication Drug Class(es) Dates Sig (Normalized) Sig (Original) {1 (ascorbic acid 7540 MG / polyethylene glycol 3350 27173 MG / potassium chloride 1200 MG / sodium ascorbate 35391 MG / sodium chloride 3200 MG Powder for Oral Solution) / 1 (polyethylene glycol 3350 889205 MG / potassium chloride 1000 MG / sodium chloride 2000 MG / sodium sulfate 9000 MG Powder for Oral Solution) } Pack [Plenvu] (2 sources) Osmotic Laxative, Vitamin C Start: 01-09-2022 Plenvu 140 GM dose 1 pouch at 4pm, dose 2 pouch A & B at 11pm Orally twice a day for 1 days BIN:[id number] PCN: CNRX GROUP:[id number] ID:[id number] 14 Dec, 2021 Not-Taking Start: 01-09-2022 Plenvu 140 GM dose 1 pouch at 4pm, dose 2 pouch A & B at 11pm Orally twice a day for 1 days BIN:[id number] PCN: CNRX GROUP:[id number] ID:[id number] Dec, Active cloNIDine hydrochloride 0.1 mg oral tablet (1 source) Central alpha-2 Adrenergic Agonist Start: 07-11-2018 End: 07-11-2018 cloNIDine (CATAPRES) tablet 0.1 mg Start: 07-11-2018 End: 07-11-2018 cloNIDine (CATAPRES) tablet 0.1 mg 12 hr dextromethorphan hydrobromide 30 mg / guaiFENesin 600 mg extended release oral tablet (3 sources) Uncompetitive V-qvunju-T-aspartate Receptor Antagonist, Sigma-1 Agonist take 1 tablet [...] day(s), # 180 tab(s), Refills(s) 3, Pharmacy: [facility], 153, cm, 07/17/22 13:08:00 EDT, Height/Length Dosing, 51.1, kg, 07/17/22 13:08:00 EDT, Weight Dosing Start Date: 08/22/22 Stop Date: 08/17/23 Status: Ordered Start: 06-24-2022 End: 06-19-2023 take 1 tablet by mouth twice daily K-Effervescent 25 mEq oral tablet, effervescent 25 mEq = 1 tab(s), Oral, BID, X 30 day(s), # 60 tab(s), Refills(s) 11, Pharmacy: [facility] #[id number], 153, cm, 06/24/22 15:08:00 EST, Height/Length Dosing, 49, kg, 06/24/22 15:08:00 EST, Weight Dosing Start Date: 06/24/22 Stop Date: 06/19/23 Status: Ordered methylPREDNISolone 4 mg oral tablet (7 sources) Corticosteroid Start: 12-01-2023 End: 12-24-2023 take 1 tablet by mouth once Methylprednisolone (Medrol ([place])) 4 mg tablets,dose pack Discontinued 0 PO per package directions December 01, 2023 12:00am December 24, 2023 1:47pm PO PER PKG DIR for 6 days Start: 06-09-2022 methylPREDNISo lone 4 MG as directed Orally for daily dose take half with breakfast, half with dinner for 6 days May, Active 24 hr metoprolol succinate 50 mg extended release oral tablet (12 sources) beta-Adrenergic Joceline Start: 07-13-2018 End: 03-19-2019 take 50 mg [...] days. 28 capsule 0 07/11/2018 07/25/2018 Active potassium bicarbonate 25 meq effervescent oral tablet (20 sources) Start: 12-01-2023 End: 03-12-2024 Klor-Con/EF 25 MEQ effervesc ent tablet 01/25/2024 03/12/2024 Discontinued Potassium Bicarb bradly (EFFER-K PO) Effer-K Active take 1 tablet by nneka twice daily at mealtime Effer-K 25 MEQ 1 tablet dissolved in sharon er with meals Orally Twice a day Active Triamcinolone (10 sources) Corticosteroid Start: 10-11-2020 Kenalog -40 mg Sep, 40 mg Problems Active Problems Problem Classification Problem Date Documented Date Episodic/Chronic Abdominal pain (4 sources) Unspecified abdominal pain; Translations: [UNSPECIFIED ABDOMINAL PAIN] Onset: 06-22-2022 Episodic Allergic reactions (5 sources) Urticaria, unspecified; Translations: [Idiopathic urticaria] Onset: 03-27-2021 Resolved: 03-27-2021 Episodic Calculus of urinary tract (20 sources) Kidney stone; Translations: [Calculus of kidney] Onset: 11-07-2021 Episodic Disorders of lipid metabolism (17 sources) Mixed hyperlipidemia; Translations: [Mixed hyperlipidemia] 11-28-2023 Chronic Essential hypertension (20 sources) Essential (primary) hypertension; Translations: [Essential hypertension] Onset: 07-11-2018 05-17-2021 Chronic Genitourinary congenital anomalies (17 sources) Cystic disease of kidney; 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, unspecified] 11-28-2023 Chronic Genitourinary symptoms and ill-defined conditions (3 sources) Genuine stress incontinence 05-17-2021 Chronic Genitourinary symptoms and ill-defined conditions (10 sources) Microscopic hematuria; Translations: [Asymptomatic microscopic hematuria] Onset: 11-07-2021 Episodic Headache; including migraine (9 sources) Tension-type headache; Translations: [Tension-type headache, unspecified, not intractable] Chronic Hypertension with complications and secondary hypertension (17 sources) Renal hypertension; Translations: [Hypertension secondary to other renal disorders] 11-28-2023 Chronic Nutritional deficiencies (17 sources) Vitamin D deficiency; Translations: [Vitamin D deficiency, unspecified] 11-28-2023 Chronic Other aftercare (1 source) Other fpc (current) drug therapy; Translations: [OTH HALFWAY CURRENT DRUG THERAPY] Onset: 07-09-2022 Episodic Other circulatory disease (2 sources) Spider nevus; Translations: [Nevus, non-neoplastic] 02-25-2024 Episodic Other connective tissue disease (6 sources) Trochanteric bursitis, right hip; Translations: [Enthesopathy of hip region] 12-24-2023 Episodic Other connective tissue disease (2 sources) Myalgia, other site; Translations: [Myalgia and myositis, unspecified] 01-14-2024 Episodic Other diseases of kidney and ureters [...] pulmonary nodule] Episodic Other nervous system disorders (7 sources) Lesion of sciatic nerve, right lower limb; 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] 12-24-2023 Chronic Other nervous system disorders (9 sources) Paresthesia; Translations: [Paresthesia of skin] Episodic Other screening for suspected conditions (not mental disorders or infectious disease) (11 sources) Encounter for screening for cardiovascular disorders; Translations: [Encounter for screening for diabetes mellitus] Onset: 01-30-2024 Episodic Spondylosis; intervertebral disc disorders; other back problems (6 sources) Low back pain; Translations: [Chronic lumbosacral pain] 12-01-2023 Episodic Unclassified (3 sources) Asymptomatic microscopic hematuria 06-24-2022 Unclassified (1 source) Low back pain, unspecified; Translations: [Low back pain, unspecified] Onset: 12-01-2023 Past or Other Problems Problem Classification Problem Date Documented Da te Episodic/Chronic Hemorrhage during ; abruptio placenta; placenta previa (1 source) Threatened ; Translations: [Threatened ] Onset: 03-30-2017 Episodic Noninfectious gastroenteritis (1 source) Noninfective gastroenteritis and colitis, unspecified Onset: 07-06-2021 Resolved: 07-06-2021 Episodic Other gastrointestinal disorders (2 sources) Other specified symptoms and signs involving the digestive system and abdomen Onset: 01-03-2022 Resolved: 01-07-2022 Episodic Other lower respiratory disease (1 source) Solitary pulmonary nodule Onset: 07-06-2021 Resolved: 07-06-2021 Episodic Results Test Name Value Interpretation Reference Range Facility Alanine aminotransferase [En zymatic activity/volume] in Serum or PlasmaOrdered By: Lorenzo Conteh on 01-30-2024 ALT [Catalytic activity/Vol] 7 U/L Normal 7-52 [facility] Comment on above: Order Comment: [email or web address] Performed By: #### C MP wRFX A1C, LIPID, TSH3 wRFLX, CBC #### [place] [address] [place] #### NICOTINE #### [facility] , Albumin [Mass/volume] in Ser um or Plasma by Bromocresol green (BCG) dye binding methoOrdered By: Lorenzo Conteh on 01-30-2024 Albumin BCG dye [Mass/Vol] 4.1 g/dL 3.5-5.7 [facility] Alkaline phosphatase [Enzyma tic activity/volume] in Serum or PlasmaOrdered By: Lorenzo Conteh on 01-30-2024 ALP [Catalytic activity/Vol] 46 U/L Normal 34-104 [facility] Comment on above: Order Comment: [email or web address] Performed By: #### C MP wRFX A1C, LIPID, TSH3 wRFLX, CBC #### [place] [address] [place] #### NICOTINE #### [facility] , Aspartate aminotransferase [ Enzymatic activity/volume] in Serum or PlasmaOrdered By: Lorenzo Conteh on 01-30-2024 AST [Catalytic activity/Vol] 11 U/L Low 13-39 [facility] Comment on above: Order Comment: [email or web address] Performed By: #### C MP wRFX A1C, LIPID, TSH3 wRFLX, CBC #### [facility] [address] [place] [address] [place] #### NICOTINE #### [facility] , Automated basophil %Ordered By: Lorenzo Conteh on 01-30-2024 Basophils/100 WBC (Bld) 0.4 % Normal . [facility] Comment on above: Order Comment: Comme [facility] for all labs Performed By: #### C MP wRFX A1C, LIPID, TSH3 wRFLX, CBC #### [facility] [address] [place] [address] [place] #### NICOTINE #### [facility] , Automated basophil countOrde red By: Lorenzo Conteh on 01-30-2024 Basophils (Bld) [#/Vol] 0.0 10*3/uL Normal 0.0-0.2 [facility] Comment on above: Order Comment: Comme [facility] for all labs Result Comment: PERF ORMED BY: [place] [address] PATHOLOGIST SALES ARCHITECT KADEN NOLASCO M.D. Performed By: #### C MP wRFX A1C, LIPID, TSH3 wRFLX, CBC #### [facility] [address] [place] [address] #### NICOTINE #### [facility] , Automated blood monocyte cou ntOrdered By: Lorenzo Conteh on 01-30-2024 Monocytes (Bld) [#/Vol] 0.7 10*3/uL Normal 0.0-0.8 [facility] Comment on above: Order Comment: [facility] Performed By: #### C MP wRFX A1C, LIPID, TSH3 wRFLX, CBC #### [facility] [address] [place] [address] [place] #### NICOTINE #### [facility] , Automated eosinophil %Ordere d By: Lorenzo Conteh on 01-30-2024 Eosinophils/100 WBC (Bld) 2.5 % Normal . [facility] Comment on above: Order Comment: Comme [facility] for all labs Performed By: #### C MP wRFX A1C, LIPID, TSH3 wRFLX, CBC #### [facility] [address] [place] [address] [place] #### NICOTINE #### [facility] , Automated eosinophil countOr dered By: Lorenzo Conteh on 01-30-2024 Eosinophils (Bld) [#/Vol] 0.1 10*3/uL Normal 0.0-0.45 [facility] Comment on above: Order Comment: Comme [facility] for all labs Performed By: #### C MP wRFX A1C, LIPID, TSH3 wRFLX, CBC #### [facility] [address] [place] [address] [place] #### NICOTINE #### [facility] , Automated monocyte %Ordered By: Lorenzo Conteh on 01-30-2024 Monocytes/100 WBC (Bld) 12.1 % Normal . [facility] Comment on above: Order Comment: Comme [facility] for all labs Performed By: #### C MP wRFX A1C, LIPID, TSH3 wRFLX, CBC #### [facility] [address] [place] [address] [place] #### NICOTINE #### [facility] , Automated neutrophil %Ordere d By: Lorenzo Conteh on 01-30-2024 Neutrophils/100 WBC (Bld) 62.6 % Normal . [facility] Comment on above: Order Comment: Comme [facility] for all labs Performed By: #### C MP wRFX A1C, LIPID, TSH3 wRFLX, CBC #### [facility] [address] [place] [address] [place] #### NICOTINE #### [facility] , Bilirubin.total [Mass/volume ] in Serum or PlasmaOrdered By: Lorenzo Conteh on 01-30-2024 Bilirubin [Mass/Vol] 0.7 mg/dL Normal 0.3-1.0 [facility] Comment on above: Order Comment: [email or web address] Performed By: #### C MP wRFX A1C, LIPID, TSH3 wRFLX, CBC #### [facility] [address] [place] [address] [place] #### NICOTINE #### [facility] , CMP with reflex to A1Con Albumin [Mass/Vol] 4.1 g/dL Normal 3.5-5.7 [facility] Comment on above: Order Comment: [email or web address] Performed By: #### C MP wRFX A1C, LIPID, TSH3 wRFLX, CBC #### [place] [address] [place] #### NICOTINE #### [facility] , GFR/1.73 sq M.predicted MDRD (S/P/Bld) [Vol rate/Area] mL/min/{1.73_m2} Normal [facility] Comment on above: Order Comment: [email or web address] Performed By: #### C MP wRFX A1C, LIPID, TSH3 wRFLX, CBC #### [place] [address] [place] #### NICOTINE #### [facility] , Calcium [Mass/volume] in Ser um or PlasmaOrdered By: Lorenzo Conteh on 01-30-2024 Calcium [Mass/Vol] 9.0 mg/dL Normal 8.6-10.3 [facility] Comment on above: Order Comment: [email or web address] Performed By: #### C MP wRFX A1C, LIPID, TSH3 wRFLX, CBC #### [place] [address] [place] #### NICOTINE #### [facility] , Carbon dioxide, total [Moles /volume] in Serum or PlasmaOrdered By: Lorenzo Conteh on 01-30-2024 CO2 [Moles/Vol] 29.3 mmol/L Normal 21.0-31.0 [facility] Comment on above: Order Comment: [email or web address] Performed By: #### C MP wRFX A1C, LIPID, TSH3 wRFLX, CBC #### [place] [address] [place] #### NICOTINE #### [facility] , Chloride [Moles/volume] in S irma or PlasmaOrdered By: Lorenzo Conteh on 01-30-2024 Chloride [Moles/Vol] 106 mmol/L Normal 98-107 [facility] Comment on above: Order Comment: [email or web address] Performed By: #### C MP wRFX A1C, LIPID, TSH3 wRFLX, CBC #### [facility] [address] [place] [address] [place] #### NICOTINE #### [facility] , Cholesterol [Mass/volume] in Serum or PlasmaOrdered By: Lorenzo Conteh on 01-30-2024 Cholesterol [Mass/Vol] 211 mg/dL High 140-200 [facility] Comment on above: Chol less than 200 m g/dl low riskChol 201-239 mg/dl borderline riskChol 240 mg/dl and greater high risk Order Comment: ISIDRA FERREIRAKW Result Comment: Chol less than 200 mg/dl low risk Chol 201-239 mg/dl borderline risk Chol 240 mg/dl and greater high risk Performed By: #### C MP wRFX A1C, LIPID, TSH3 wRFLX, CBC #### [facility] [address] [place] [address] [place] #### NICOTINE #### [facility] , Cholesterol in LDL Calc [Mas s/Vol]Ordered By: Lorenzo Conteh on 01-30-2024 Cholesterol in LDL [Mass/Vol] 138 mg/dL High 0-100 [facility] Comment on above: LDL ATP III CLASSIFI CATIONLDL less than 100 mg/dL OptimalLDL 100-129 mg/dL Near or above optimalLDL 130-159 mg/dL Borderline highLDL 160-189 mg/dL HighLDL greater than 189 mg/dL Very high Cholesterol in VLDL Calc [Ma ss/Vol]Ordered By: Lorenzo Conteh on 01-30-2024 Cholesterol in VLDL [Mass/Vol] 15 mg/dL [facility] Complete Blood Count Auto Di ffon 01-30-2024 Mean Corpuscular HGB Conc 33.3 g/dL Normal 32.0-35.0 [facility] Comment on above: Order Comment: Svetlana castillo [facility] for all labs Performed By: #### C MP wRFX A1C, LIPID, TSH3 wRFLX, CBC #### [facility] [address] [place] [address] [place] #### NICOTINE #### [facility] , NRBC% 0.1 /100{WBC} Normal 0-0.5 [facility] Comment on above: Order Comment: Comme [facility] for all labs Performed By: #### C MP wRFX A1C, LIPID, TSH3 wRFLX, CBC #### [address] #### NICOTINE #### [facility] , Creatinine [Mass/volume] in Serum or PlasmaOrdered By: Lorenzo Conteh on 01-30-2024 Creatinine [Mass/Vol] 0.82 mg/dL Normal 0.60-1.20 [facility] Comment on above: Order Comment: ISIDRA LYNCHW Performed By: #### C MP wRFX A1C, LIPID, TSH3 wRFLX, CBC #### [address] #### NICOTINE #### [facility] , Erythrocyte distribution wid th [Ratio] by Automated countOrdered By: Lorenzo Conteh on 01-30-2024 Erythrocyte distribution width (RBC) [Ratio] 13.3 % Normal 11.9-15.3 [facility] Comment on above: Order Comment: Svetlana [facility] for all labs Performed By: #### C MP wRFX A1C, LIPID, TSH3 wRFLX, CBC #### [address] #### NICOTINE #### [facility] , Erythrocytes [#/volume] in B lood by Automated countOrdered By: Lorenzo Conteh on 01-30-2024 RBC (Bld) [#/Vol] 4.59 10*6/uL Normal 3.60-5.00 [facility] Comment on above: Order Comment: Svetlana [facility] for all labs Performed By: #### C MP wRFX A1C, LIPID, TSH3 wRFLX, CBC #### [place] [address] [place] #### NICOTINE #### [facility] , Glucose [Mass/volume] in Ser um or PlasmaOrdered By: Lorenzo Conteh on 01-30-2024 Glucose [Mass/Vol] 98 mg/dL Normal 70-100 [facility] Comment on above: Order Comment: ISIDRA LYNCHW Performed By: #### C MP wRFX A1C, LIPID, TSH3 wRFLX, CBC #### [place] [address] [place] #### NICOTINE #### [facility] , Hematocrit [Volume Fraction] of Blood by Automated countOrdered By: Lorenzo Conteh on 01-30-2024 Hematocrit (Bld) [Volume fraction] 43.5 % Normal 34.0-46.4 [facility] Comment on above: Order Comment: [facility] for all labs Performed By: #### C MP wRFX A1C, LIPID, TSH3 wRFLX, CBC #### [place] [address] [place] #### NICOTINE #### [facility] , Hemoglobin [Mass/volume] in BloodOrdered By: Lorenzo Conteh on 01-30-2024 Hemoglobin (Bld) [Mass/Vol] 14.5 g/dL Normal 11.8-15.4 [facility] Comment on above: Order Comment: [facility] Performed By: #### C MP wRFX A1C, LIPID, TSH3 wRFLX, CBC #### [place] [address] [place] #### NICOTINE #### [facility] , Leukocytes [#/volume] correc ej for nucleated erythrocytes in Blood by Automated counOrdered By: Lorenzo Conteh on 01-30-2024 WBC corrected for nucl RBC Auto (Bld) [#/Vol] 5.5 10*3/uL 3.8-11.6 [facility] Leukocytes [#/volume] in Blo od by Automated countOrdered By: Lorenzo Conteh on 01-30-2024 WBC (Bld) [#/Vol] 5.5 10*3/uL Normal 3.8-11.6 [facility] Comment on above: Order Comment: Comme [facility] for all labs Performed By: #### C MP wRFX A1C, LIPID, TSH3 wRFLX, CBC #### [facility] [address] [place] [address] [place] #### NICOTINE #### [facility] , Lipid Panelon 01-30-2024 LDL Cholesterol,Calculated 138 mg/dL High 0-100 [facility] Comment on above: Order Comment: [email or web address] Result Comment: LDL ATP III CLASSIFICATION LDL less than 100 mg/dL Optimal LDL 100-129 mg/dL Near or above optimal LDL 130-159 mg/dL Borderline high LDL 160-189 mg/dL High LDL greater than 189 mg/dL Very high Performed By: #### C MP wRFX A1C, LIPID, TSH3 wRFLX, CBC #### [place] [address] [place] #### NICOTINE #### [facility] , Triglyceride w/Reflex 77 mg/dL Normal 0-149 [facility] Comment on above: Order Comment: [email or web address] Result Comment: TRIG ATP III CLASSIFICATION TRIG less than 150 mg/dL Normal TRIG 150-199 mg/dL Borderline high TRIG 200-500 mg/dL High TRIG greater than 500 mg/dL Very high Standard traceable to the Center for Disease Conrtrol and Prevention (CDC) test method. Performed By: #### C MP wRFX A1C, LIPID, TSH3 wRFLX, CBC #### [facility] [address] [place] [address] [place] #### NICOTINE #### [facility] , VLDL CHOLESTEROL 15 mg/dL Normal [facility] Comment on above: Order Comment: [email or web address] Performed By: #### C MP wRFX A1C, LIPID, TSH3 wRFLX, CBC #### [facility] [address] [place] [address] [place] #### NICOTINE #### [facility] , Lymphocytes [#/volume] in Bl ood by Automated countOrdered By: Lorenzo Conteh on 01-30-2024 Lymphocytes (Bld) [#/Vol] 1.2 10*3/uL Normal 1.00-4.8 [facility] Comment on above: Order Comment: [facility] for all labs Performed By: #### C MP wRFX A1C, LIPID, TSH3 wRFLX, CBC #### [place] [address] [place] #### NICOTINE #### [facility] , Lymphocytes/100 leukocytes i n Blood by Automated countOrdered By: Lorenzo Conteh on 01-30-2024 Lymphocytes/100 WBC (Bld) 22.4 % Normal . [facility] Comment on above: Order Comment: [facility]lana [facility] for [facility] labs Performed By: #### C MP wRFX A1C, LIPID, TSH3 wRFLX, CBC #### [place] [address] [place] #### NICOTINE #### [facility] , MCH [Entitic mass] by Automa ej countOrdered By: Lorenzo Conteh on 01-30-2024 MCH (RBC) [Entitic mass] 31.6 pg Normal 24.7-34.3 [facility] Comment on above: Order Comment: [facility] Performed By: #### C MP wRFX A1C, LIPID, TSH3 wRFLX, CBC #### [place] [address] [place] #### NICOTINE #### [facility] , MCHC Auto (RBC) [Mass/Vol]Or dered By: Lorenzo Conteh on 01-30-2024 MCHC (RBC) [Mass/Vol] 33.3 g/dL 32.0-35.0 [facility] MCV [Entitic volume] by Auto mated countOrdered By: Lorenzo Conteh on 01-30-2024 MCV (RBC) [Entitic vol] 94.8 fL Normal 80-100 [facility] Comment on above: Order Comment: [facility] Performed By: #### C MP wRFX A1C, LIPID, TSH3 wRFLX, CBC #### [place] [address] [place] #### NICOTINE #### [facility] , Neutrophils [#/volume] in Bl ood by Automated countOrdered By: Lorenzo Conteh on 01-30-2024 Neutrophils (Bld) [#/Vol] 3.4 10*3/uL Normal 1.8-7.7 [facility] Comment on above: Order Comment: Comme [facility] labs Performed By: #### C MP wRFX A1C, LIPID, TSH3 wRFLX, CBC #### [facility] [address] [place] [address] [place] #### NICOTINE #### [facility] , Nicotine/Cotinine Bloodon Cotinine, Blood <1.0 Normal . [facility] Comment on above: Result Comment: This test was developed and its performance characteristics determined by [employer]. It has not been cleared or approved by the Food and Drug Administration. Cotinine levels greater than 20.0 are consistent with the use of tobacco or tobacco cessation products. Performed at: [address] [id number] Home Lending Officer: Zhane Roland MD, Phone: [phone] PERFORMED BY: [place] [address] PATHOLOGIST SALES ARCHITECT KADEN NOLASCO M.D. Performed By: #### C MP wRFX A1C, LIPID, TSH3 wRFLX, CBC #### [facility] [address] [place] [address] [place] #### NICOTINE #### [facility] , Nicotine, Blood <1.0 Normal . [facility] Comment on above: Result Comment: This test was developed and its performance characteristics determined by [employer]. It has not been cleared or approved by the Food and Drug Administration. Nicotine levels greater than 2.0 are consistent with the use of tobacco or tobacco cessation products. Performed By: #### C MP wRFX A1C, LIPID, TSH3 wRFLX, CBC #### [facility] [address] [place] [address] [place] #### NICOTINE #### [facility] , No Panel InformationOrdered By: Lorenzo Conteh on 01-30-2024 Estimated GFR (CKD-EPI) > 60.0 mL/Min [facility] Creatinine Clearance (Chem N/A [facility] Nucleated erythrocytes [Pres ence] in Blood by Automated countOrdered By: Lorenzo Conteh on 01-30-2024 Nucleated RBC Auto Ql (Bld) 0.1 /100{WBC} 0-0.5 [facility] Platelet mean volume [Entiti c volume] in Blood by Automated countOrdered By: Lorenzo Conteh on 01-30-2024 Platelet mean volume (Bld) [Entitic vol] 9.4 fL Normal 6.3-10.7 [facility] Comment on above: Order Comment: [facility] labs Performed By: #### C MP wRFX A1C, LIPID, TSH3 wRFLX, CBC #### [facility] [address] [place] [address] [place] #### NICOTINE #### [facility] , Platelets [#/volume] in Bloo d by Automated countOrdered By: Lorenzo Conteh on 01-30-2024 Platelets (Bld) [#/Vol] 222 10*3/uL Normal 150-450 [facility] Comment on above: Order Comment: [facility] labs Performed By: #### C MP wRFX A1C, LIPID, TSH3 wRFLX, CBC #### [facility] [address] [place] [address] [place] #### NICOTINE #### [facility] , Potassium [Moles/volume] in Serum or PlasmaOrdered By: Lorenzo Conteh on 01-30-2024 Potassium [Moles/Vol] 4.2 mmol/L Normal 3.5-5.1 [facility] Comment on above: Order Comment: ISIDRA FERREIRAKW Performed By: #### C MP wRFX A1C, LIPID, TSH3 wRFLX, CBC #### [facility] [address] [place] [address] [place] #### NICOTINE #### [facility] , Protein [Mass/volume] in Ser um or PlasmaOrdered By: Lorenzo Conteh on 01-30-2024 Protein [Mass/Vol] 6.8 g/dL Normal 6.4-8.9 [facility] Comment on above: Order Comment: [email or web address] [email or web address] Performed By: #### C MP wRFX A1C, LIPID, TSH3 wRFLX, CBC #### [facility] [address] [place] [address] [place] #### NICOTINE #### [facility] , Serum globulin measurement b y calculation (mass/volume)Ordered By: Lorenzo Conteh on 01-30-2024 Globulin (S) [Mass/Vol] 2.7 g/dL Normal [facility] Comment on above: Order Comment: [email or web address] [email or web address] Performed By: #### C MP wRFX A1C, LIPID, TSH3 wRFLX, CBC #### [facility] [address] [place] [address] [place] #### NICOTINE #### [facility] , Serum or plasma albumin/glob ulin mass ratioOrdered By: Lorenzo Conteh on 01-30-2024 Albumin/Globulin [Mass ratio] 1.5 {ratio} [facility] Comment on above: Order Comment: [email or web address] Performed By: #### C MP wRFX A1C, LIPID, TSH3 wRFLX, CBC #### [facility] [address] [place] [address] [place] #### NICOTINE #### [facility] , Serum or plasma anion gap de terminationOrdered By: Lorenzo Conteh on 01-30-2024 Anion gap [Moles/Vol] 9.9 mmol/L Normal 6.0-15.0 [facility] Comment on above: Order Comment: [email or web address] Performed By: #### C MP wRFX A1C, LIPID, TSH3 wRFLX, CBC #### [facility] [address] [place] [address] [place] #### NICOTINE #### [facility] , Serum or plasma high density lipoprotein (HDL) cholesterol measurementOrdered By: Lorenzo Conteh on 01-30-2024 Cholesterol in HDL [Mass/Vol] 58 mg/dL Normal 23-92 [facility] Comment on above: HDL CHOL ATP-III CLA SSIFICATION Cardiovascular RiskHDL > or equal to 60 mg/dL LOWHDL < 40 mg/dL HIGH Order Comment: [email or web address] Result Comment: HDL CHOL ATP-III CLASSIFICATION Cardiovascular Risk HDL > or equal to 60 mg/dL LOW HDL < 40 mg/dL HIGH Performed By: #### C MP wRFX A1C, LIPID, TSH3 wRFLX, CBC #### [facility] [address] [place] [address] [place] #### NICOTINE #### [facility] , Serum or plasma total choles terol/high density lipoprotein (HDL) cholesterol mass ratOrdered By: Lorenzo Conteh on 01-30-2024 Cholesterol.total/[place] sterol in HDL [Mass ratio] 3.6 {ratio} Normal <5.0 [facility] Comment on above: Order Comment: [email or web address] Performed By: #### C MP wRFX A1C, LIPID, TSH3 wRFLX, CBC #### [place] [address] [place] #### NICOTINE #### [facility] , Sodium [Moles/volume] in Ser um or PlasmaOrdered By: Lorenzo Conteh on 01-30-2024 Sodium [Moles/Vol] 141 mmol/L Normal 136-145 [facility] Comment on above: Order Comment: [email or web address] Performed By: #### C MP wRFX A1C, LIPID, TSH3 wRFLX, CBC #### [facility] [address] [place] [address] [place] #### NICOTINE #### [facility] , Thyroid Stim Hormone w/Rflxo n 01-30-2024 Thyroid Stim Hormone w/Rflx 1.85 u[iU]/mL Normal 0.45-5.33 [facility] Comment on above: Order Comment: ISIDRA MAC Result Comment: PERF ORMED BY: [place] [address] PATHOLOGIST SALES ARCHITECT KADEN NOLASCO M.D. Performed By: #### C MP wRFX A1C, LIPID, TSH3 wRFLX, CBC #### [place] [address] [place] #### NICOTINE #### [facility] , Thyrotropin [Units/volume] i n Serum or PlasmaOrdered By: Lorenzo Conteh on 01-30-2024 TSH Qn 1.85 m[IU]/L 0.45-5.33 [facility] Triglyceride [Mass/volume] i n Serum or PlasmaOrdered By: Lorenzo Conteh on 01-30-2024 Triglyceride [Mass/Vol] 77 mg/dL 0-149 F [facility] Comment on above: TRIG ATP III CLASSIF ICATIONTRIG less than 150 mg/dL NormalTRIG 150-199 mg/dL Borderline highTRIG 200-500 mg/dL High TRIG greater than 500 mg/dL Very highStandard traceable to the Center for Disease Conrtrol and Prevention (CDC) test method. Urea nitrogen [Mass/volume] in Serum or PlasmaOrdered By: Lorenzo Conteh on 01-30-2024 Urea nitrogen [Mass/Vol] 14 mg/dL Normal 7-25 [facility] Comment on above: Order Comment: ISIDRA MAC Performed By: #### C MP wRFX A1C, LIPID, TSH3 wRFLX, CBC #### [place] [address] [place] #### NICOTINE #### [facility] , XR lumbar spine 6V w bending on 12-01-2023 XR lumbar spine 6V w bending [facility] [place] [address] [place] [address] XRay Report Signed Patient: Jamil Quinn MR#: [id number] : 1985 Acct:[id number] Age/Sex: 38 / F ADM Date: 12/01/23 Loc: [facility] Room: Type: [facility] Attending Dr: Lorenzo Conteh DO Copies to: Lorenzo Conteh DO Ordering Provider: Lorenzo Conteh DO Date of Service: 12/01/23 XR/XR lumbar spine 6V w bending: M54.50 - Low back pain, unspecified LUMBAR SPINE - 7 views CLINICAL HISTORY: Low back pain COMPARISON: None FINDINGS: Scoliosis. Vertebral body and disc space heights appear maintained. Mild facet joint degenerative changes. XR/XR lumbar spine 6V w bending IMPRESSION: SCOLIOSIS WITH MILD FACET JOINT DEGENERATIVE CHANGES. NO SIGNIFICANT DISC HEIGHT LOSS. Impression dictated by: Srinivasan Mabry Jr., D.O.12/01/2023 4:11 PM Dictation Location: [place] [address] Transcribed By: [facility] 12/01/23 1611 Dictated By: Srinivasan Mabry Jr, DO 12/01/23 1611 Signed By: 12/01/23 1611 Normal [facility] Ambulatory Visit Summaryon 0 06-27-2023 Ambulatory Visit Summary JAMIL QUINN :1985 Visit Date:06/27/2023 Ambulatory Visit Instructions Your Diagnosis Kidney stone Ureteral stone Tests Performed XR Abdomen 1 View -- Results Pending -- Please visit your patient portal for your results or contact your primary care physician. Your Care Team Attending Physician - Theodora JIMENEZ MD Primary Care Physician - LORENZO CONTEH DO This Is Your Medications List potassium bicarbonate (K-Effervescent 25 mEq oral tablet, effervescent) Contact prescribing physician if questions or concerns losartan (losartan 50 mg Tab) Procedures Performed ESWL of kidney (11/15/2021), ESWL of kidney (11/08/2021), ESWL of kidney (07/19/2021), Cystoscopy (06/19/2021), Cataract, Cystoscopy, Lithotripsy. Discharge Vitals Heart Rate (Peripheral) 89 Respiratory Rate 16 Blood Pressure 107/86 Height 153 cm Height 60 in Weight 48.5 kg Weight 106.7 lb BMI 20.72 What to do next Scheduled Follow-Up Appointments Friday 8:00 AM EST With: TONY ROSALES, Theodora Rhoades Where: [facility] Patient Educationon 06-27-19 24 Patient Education Nephrology Dietary Guidelines to Help Prevent Kidney Stones [...] to less than 1,500 mg a day. ? Choose foods with calcium for each meal and snack. Try to eat about 300 mg of calcium at each meal. Foods that contain 200?500 mg of calcium a serving include: ? 8 oz (237 mL) of milk, abobzyf-qiyqfwwbcmse-dr iry milk, and calcium-fortifiedfruit juice. Calcium-fortified means that calcium has been added to these drinks. ? 8 oz (237 mL) of kefir, yogurt, and soy yogurt. ? 4 oz (114 g) of tofu. ? 1 oz (28 g) of cheese. ? 1 cup (150 g) of dried figs. ? 1 cup (91 g) of cooked broccoli. ? One 3 oz (85 g) can of sardines or mackerel. Most people need 1,000?1,500 mg of calcium a day. Talk to your dietitian about how much calcium is recommended for you. Shopping ? Buy plenty of fresh fruits and vegetables. Most people do not need to avoid fruits and vegetables, even if these foods contain nutrients that may contribute to kidney stones. ? When shopping for convenience foods, choose: ? Whole pieces of fruit. ? Pre-made salads with dressing on the side. ? Low-fat fruit and yogurt smoothies. ? Avoid buying frozen meals or prepared deli foods. These can be high in sodium. ? Look for foods with live cultures, such as yogurt and kefir. ? Choose high-fiber grains, such as whole-wheat breads, oat bran, and wheat cereals. Cooking ? Do not add salt to food when cooking. Place a salt shaker on the table and allow each person to add their own salt to taste. ? Use vegetable protein, such as beans, textured vegetable protein (TVP), or tofu, instead of meat in pasta, casseroles, and soups. Meal planning ? Eat less salt, if told by your dietitian. To do this: ? Avoid eating processed or pre-made food. ? Avoid eating fast food. ? [...] or seafood. ? When you prepare animal proteins, cut pieces into small portion sizes. For most meat and fish, one serving is about the size of the palm of your hand. ? Eat at least five servings of fresh fruits and vegetables each day. To do this: ? Keep fruits and vegetables on hand for snacks. ? Eat one piece of fruit or a handful of berries with breakfast. ? Have a salad and fruit at lunch. ? Have two kinds of vegetables at dinner. ? You may be told to limit foods that are high in a substance called oxalate. These include: ? Spinach (cooked), rhubarb, beets, sweet potatoes, and [place] chard. ? Peanuts. ? Potato chips, welsh fries, and baked potatoes with skin on. ? Nuts and nut products. ? Chocolate. ? If you regularly take a diuretic medicine, make sure to eat at least 1 or 2 servings of fruits or vegetables that are high in potassium each day. These include: ? Avocado. ? Banana. ? [place], prune, carrot, or tomato juice. ? Baked potato. ? Cabbage. ? Beans and split peas. Lifestyle ? Drink enough fluid to keep your urine pale yellow. This is the most important thing you can do. Spread your fluid intake throughout the day. ? If you drink alcohol: ? Limit how much you have to: ? 0?1 drink a day for women who are not . ? 0?2 drinks a day for men. ? Know how much alcohol is in your drink. In the [place] one drink equals one 12 oz bottle of beer (355 mL), one 5 oz glass of wine (148 mL), or one 1? oz glass of hard liquor (44 mL). ? Lose weight if told by your health care provider. Work with your dietitian to find an eating plan and weight loss strategies that work best for you. General information ? Talk to your health care provider and dietitian about taking daily supplements. Depending on your health and the cause of your kidney stones, you may be told: ? Do not take high-dose supplements of vitamin C (1,000 mg a day or more). ? To take a calcium supplement. ? To take a daily probiotic supplement. ? To take other supplements such as magnesium, fish oil, or vitamin B6. ? Take jnaj-dow-utqjirh and prescription medicines only as told by your health care provider. These include supplements. What foods sh (more content not included)... [facility] Provider Letteron 06-27-2023 Provider Letter (Inserted Image. Maile ble to display) June 27, 2023 JAMIL CHEYENNE [address] [place] [id number] : 1985 To Whom It May Concern, Please excuse above patient from work. Date of Illness: From: 06/27/2023 To: 06/27/2023 May Return to Work On: 06/27/2023 Restrictions: None Comments: Patient had an appointment with Dr. Jimenez 06/27/23. Sincerely, [facility] Urology Office/Clinic Noteon 06-27-2023 Urology Office/Clinic Note Chief Complaint 1yr KUB HPI Staff 1 year f/u with KUB Dx: ureteral stone, hx of kidney stone and asymptomatic microhematuria KUB done 06/21/23 showed bilateral punctate nephrolithiasis. Effer-K 25mEq BID started at last office visit. Denies all sx of kidney stone. Denies pain/burning and blood in urine. No concerns at this time. History of Present Illness Tests reviewed: reviewed UA, KUB, and prior stone analysis. I have reviewed the previous health record information and history for this patient from Dr. Jimenez. I have reviewed and verified the staff HPI to be accurate for this encounter. There have been no associated fever, chills, flank pain, or blood in the urine. Denies any urinary infections since last encounter. Review of Systems PHQ Score Initial Depression Screen Score: 0 SCORE ROS - Provider Constitutional: denies weight loss, [...] HPI. Physical Exam Vitals & Measurements HR: 89(Peripheral) RR: 16 BP: 107/86 HT: 60 in HT: 153 cm WT: 48.5 kg WT: 106.7 lb BMI: 20.72 General Appearance: alert , no acute distress, well nourished, well developed female. Assessment/Plan 1. Kidney stone (N20.0: Calculus of kidney) S/p L ESWL 07/19/21. S/p R ESWL 11/08/21 & 11/15/21. Stone analysis 05/2021 - 45% ca ox monohydrate, 50% ca ox dihydrate, and 5% hydroxyapatite. Metabolic workup completed 02/11/22: Volume 825 cc, very L. Urine Citric acid 227 KUB 06/18/2022 showed several tiny bilateral calcifications. KUB 06/21/23 shows punctate bilateral nephrolithiasis. UA today shows trace-intact blood and small leuks. Denies infections since last visit. Taking Effer-K 25 mEq bid. Reports she takes medication routinely. 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 Again discussed the importance of adequate water intake for stone prevention. -Cont Effer-K as directed, call for refills -Follow up in 1 year with KUB 2. Ureteral stone (N20.1: Calculus of ureter) KUB 06/18/2022 showed 7 x 4 mm stone within the distal ureter. S/p Cysto/UD/RG/Laser/Baske t/Right stent placement 07/11/2022. Cysto with R stent removal 07/17/22. See #1 Follow-up With When Contact Information TONY ROSALES, Theodora Rhoades, URL [address] [place] [phone] Additional Instructions: 1 year w/ KUB Patient Education Dietary Guidelines to Help Prevent Kidney Stones I, Nyla Bledsoe, personally scribed for Dr. Jimenez on 06/27/2023 08:49:08. . Documentation recorded by the scribe, Nyla Bledsoe, accurately reflects the services(s) I performed and decisions made by me. Authenticated by Dr. Jimenez on 06/27/2023 08:50:29. Problem List/Past Medical History Ongoing Asymptomatic microscopic hematuria Foreign body in bladder Hematuria History of kidney stones Hypertension Kidney stone Stress incontinence Ureteral stone Urinary frequency Historical No qualifying data Procedure/Surgical History ESWL of kidney (11/15/2021), ESWL of kidney (11/08/2021), ESWL of kidney (07/19/2021), Cystoscopy (06/19/2021), Cataract, Cystoscopy, Lithotripsy. Medications K-Effervescent 25 mEq oral tablet, effervescent, 25 mEq= 1 tab(s), Oral, BID, 3 refills losartan 50 mg Tab, Oral, Daily Allergies Keflex (Diarrhea) Social History Tobacco Never (less than 100 in lifetime) Tobacco Use:. Never Smokeless Tobacco Use:. Household tobacco concerns: No. Yes, 06/27/2023 Family History Patient was adopted Immunizations Vaccine Date Status influenza virus vaccine, inactivated 12/28/2022 Recorded influenza virus vaccine, inactivated 06/20/2021 Recorded SARS-CoV-2 (COVID-19) Ad26 vaccine 07/2020 Recorded SARS-CoV-2 (COVID-19) mRNA BNT-162b2 vax 07/27/2020 Recorded SARS-CoV-2 (COVID-19) mRNA BNT-162b2 vax 07/06/2020 Recorded SARS-CoV-2 (COVID-19) Ad26 vaccine 06/2020 Recorded Lab Results Ambulatory Point of Care Results Bilirubin Urine Dipstick: 1+ Small (06/27/23 08:13:00) Blood Urine Dipstick: Trace-intact (06/27/23 08:13:00) Glucose Urine Dipstick: Negative (06/27/23 08:13:00) Ketones Urine Dipstick: Negative (06/27/23 08:13:00) Leukocytes Urine Dipstick: 1+ Small (06/27/23 08:13:00) Nitrite Urine Dipstick: Negative (06/27/23 08:13:00) Protein Urine Dipstick: 1+ (30 mg/dl) (06/27/23 08:13:00) Specific [place] Urine Dipstick: 1.015 (06/27/23 08:13:00) Urine Appearance Urine Dipstick: Cloudy (06/27/23 08:13:00) Urine Color Urine Dipstick: Yellow (06/27/23 (more content not included)... [facility] Comment on above: Result Comment: Elec tronically Signed By: Theodora JIMENEZ MD\.br\Date and Time Signed: 06/27/23 08:50 EST\.br\Electronically Co-Signed By: Nyla Bledsoe\.br\Date and Time Co-Signed: 06/27/23 08:49 EST RAD - MISCon 06-23-2023 RAD - MISC [id number] IFF [facility] CALCULI, URINARYon 3 2,8 Dihydroxyadenine Normal [facility] Comment on above: Performed By: #### C ALCULI #### [facility] [address] [place] [address] [address] Holland Caballero Ammonium Acid Urate Normal [facility] Comment on above: Performed By: #### C ALCULI #### [facility] [address] [place] [address] [address] Holland Caballero Bilirubin Ql (U) Normal [facility] Comment on above: Performed By: #### C ALCULI #### [facility] [address] [place] [address] [address] Holland Caballero Ca Oxalate Dihydrate 70 % [facility] Comment on above: Performed By: #### C ALCULI #### [facility] [address] [address] [address] Holland Caballero CaHPO4 (Brushite) Normal [facility] Comment on above: Performed By: #### C ALCULI #### [facility] [address] [address] [address] Holland Caballero Calcium Bilirubinate [facility] Comment on above: Performed By: #### C ALCULI #### [facility] [address] [address] [address] Holland Caballero Calcium Carbonate [facility] Comment on above: Performed By: #### C ALCULI #### [facility] [address] [place] [address] Dr. Holland Caballero Calcium Oxalate Monohydrate 20 % [facility] Comment on above: Performed By: #### C ALCULI #### [facility] [address] [place] [address] Dr. Holland Caballero Calcium Palmitate [facility] Comment on above: Performed By: #### C ALCULI #### [facility] [address] [address] [address] Holland Caballero Calcium Phosphate Normal [facility] Comment on above: Performed By: #### C ALCULI #### [facility] [address] [address] [address] Holland Caballero Calcium Stearate [facility] Comment on above: Performed By: #### C ALCULI #### [facility] [address] [address] [address] Holland Caballero Carbonate Apatite [place] [facility] Comment on above: Performed By: #### C ALCULI #### [facility] [address] [place] [address] Dr. Holland Caballero Cellular Material [facility] Comment on above: Performed By: #### C ALCULI #### [facility] [address] [address] [address] Holland Caballero Cholesterol [facility] Comment on above: Performed By: #### C ALCULI #### [facility] [address] [place] [address] Dr. Holland Caballero Color (U) Smith [facility] Comment on above: Performed By: #### C ALCULI #### [facility] [address] [place] [address] Dr. Holland Caballero Comment Comment [facility] Comment on above: Result Comment: Calc ium phosphate (hydroxyl form) includes hydroxyapatite, amorphous calcium phosphate, and whitlockite. Hydroxyapatite is the most common of the calcium phosphate salts found in human kidney stones. Performed By: #### C ALCULI #### [facility] [address] [place] [address] Dr. Holland Caballero Result Comment: Calc ulus received wet. Wet calculi must be dried before analysis, which delays reporting of results. Leaving calculi wet (such as water, saline, blood, urine) may lead to changes in composition. Comment: Comment Normal [facility] Comment on above: Result Comment: Rudy maldonado questions regarding Calculi Analysis contact [employer] at: [phone]. Performed By: #### C ALCULI #### [facility] [address] [place] [address] Dr. Holland Caballero Composition Comment [facility] Comment on above: Result Comment: Perc entage (Represents the % composition) Performed By: #### C ALCULI #### [facility] [address] [place] [address] Dr. Holland Caballero Cystine [facility] Comment on above: Performed By: #### C ALCULI #### [facility] [address] [place] [address] Dr. Holland Caballero Disclaimer: Comment [facility] Comment on above: Result Comment: This test was developed and its performance characteristics determined by [facility]. It has not been cleared or approved by the Food and Drug Administration. Performed By: #### C ALCULI #### [facility] [address] [place] [address] Dr. Holland Caballero Dried Blood [facility] Comment on above: Performed By: #### C ALCULI #### [facility] [address] [address] [address] Holland Caballero Drug or Metabolite Normal [facility] Comment on above: Performed By: #### C ALCULI #### [facility] [address] [address] [address] Holland Caballero Hydroxyapatite 10 % Normal [facility] Comment on above: Performed By: #### C ALCULI #### [facility] [address] [address] [address] Holland Caballero Mg NH4 PO4 (Struvite) [facility] Comment on above: Performed By: #### C ALCULI #### [facility] [address] [address] [address] Holland Caballero MgHPO4 (Newberyite) Normal [facility] Comment on above: Performed By: #### C ALCULI #### [facility] [address] [place] [address] Dr. Holland Caballero Other component(s) Normal [facility] Comment on above: Performed By: #### C ALCULI #### [facility] [address] [address] [address] Holland Caballero PDF . [facility] Comment on above: Performed By: #### C ALCULI #### [facility] [address] [place] [address] Dr. Holland Caballero Photo Comment Normal [facility] Comment on above: Result Comment: Phot ograph will follow under a separate cover Performed By: #### C ALCULI #### [facility] [address] [place] [address] Dr. Holland Caballero Please note: Comment Normal [facility] Comment on above: Result Comment: Calc erica report will follow via computer, mail or counter former delivery. Performed By: #### C ALCULI #### [facility] [address] [place] [address] Dr. Holland Caballero Size 4x2 Normal [facility] Comment on above: Result Comment: Mult iple pieces received. Dimensions of the largest piece reported. Performed By: #### C ALCULI #### [facility] [address] [place] [address] Dr. Holland Caballero Sodium Acid Urate Normal [facility] Comment on above: Performed By: #### C ALCULI #### [facility] [address] [place] [address] Dr. Holland Caballero Source Comment [facility] Comment on above: Result Comment: Righ t Ureter Performed By: #### C ALCULI #### [facility] [address] [place] [address] Dr. Holland Caballero Triamterene [facility] Comment on above: Performed By: #### C ALCULI #### [facility] [address] [place] [address] Dr. Holland Caballero Uric Acid [facility] Comment on above: Performed By: #### C ALCULI #### [facility] [address] [place] [address] Dr. Holland Caballero Uric Acid Dihydrate [facility] Comment on above: Performed By: #### C ALCULI #### [facility] [address] [place] [address] Dr. Holland Caballero Weight 33.0 mg [facility] Comment on above: Performed By: #### C ALCULI #### [facility] [address] [place] [address] Dr. Holland Caballero Xanthine [facility] Comment on above: Performed By: #### C ALCULI #### [facility] [address] [place] [address] Dr. Holland Caballero PREG HCG QUALon 07-11-2022 , QUAL Negative Normal NEGATIVE [facility] Comment on above: Performed By: #### C ITRATU #### [facility] [address] [place] [address] Dr. Holland Caballero CBC AUTO DIFFon 2022 BASO # 0.0 103/ul Normal 0.0-0.1 [facility] Comment on above: Performed By: #### P REGU, ERUR, UMICRO #### [facility] [address] [address] [address] Holland Caballero Basophils/100 WBC (Bld) 0.7 % Normal 0.2-2.0 [facility] Comment on above: Performed By: #### P REGU, ERUR, UMICRO #### [facility] [address] [place] [address] Dr. Holland Caballero EO # 0.2 103/ul Normal 0.0-0.7 [facility] Comment on above: Performed By: #### P REGU, ERUR, UMICRO #### [facility] [address] [place] [address] Dr. Holland Caballero Eosinophils/100 WBC (Bld) 3.9 % Normal 0.9-7.0 [facility] Comment on above: Performed By: #### P REGU, ERUR, UMICRO #### [facility] [address] [place] [address] Dr. Holland Caballero Erythrocyte distribution width (RBC) [Ratio] 12.3 % Normal 11.0-15.0 [facility] Comment on above: Performed By: #### P REGU ERUR, UMICRO #### [facility] [address] [place] [address] Dr. Holland Caballero Hematocrit (Bld) [Volume fraction] 42.5 % Normal 36.0-48.0 [facility] Comment on above: Performed By: #### P REGU ERUR, UMICRO #### [facility] [address] [place] [address] Dr. Holland Caballero Hemoglobin (Bld) [Mass/Vol] 14.3 g/dL Normal 12.0-16.0 [facility] Comment on above: Performed By: #### P REGU, ERUR, UMICRO #### [facility] [address] [place] [address] Dr. Holland Caballero IG # 0.01 10e3/ul Normal 0.00-0.03 [facility] Comment on above: Performed By: #### P REGU, ERUR, UMICRO #### [facility] [address] [place] [address] Dr. Holland Caballero IG % 0.2 % Normal 0.0-0.5 [facility] Comment on above: Performed By: #### P REGU, ERUR, UMICRO #### [facility] [address] [place] [address] Dr. Holland Caballero LYMPH # 1.2 103/ul Normal 1.2-3.8 [facility] Comment on above: Performed By: #### P REGU, ERUR, UMICRO #### [facility] [address] [place] [address] Dr. Holland Caballero Lymphocytes/100 WBC (Bld) 25.4 % Normal 20.5-60.0 [facility] Comment on above: Performed By: #### P REGU, ERUR, UMICRO #### [facility] [address] [place] [address] Dr. Holland Caballero MANUAL DIFF REQ NO Normal [facility] Comment on above: Performed By: #### P REGU, ERUR, UMICRO #### [facility] [address] [place] [address] Dr. Holland Caballero MCH (RBC) [Entitic mass] 31.0 pg Normal 26.7-34.0 [facility] Comment on above: Performed By: #### P REGU, ERUR, UMICRO #### [facility] [address] [place] [address] Dr. Holland Caballero MCHC (RBC) [Mass/Vol] 33.6 g/dL Normal 29.9-35.2 [facility] Comment on above: Performed By: #### P REGU, ERUR, UMICRO #### [facility] [address] [place] [address] Dr. Holland Caballero MCV (RBC) [Entitic vol] 92.0 fL Normal 81.0-99.0 [facility] Comment on above: Performed By: #### P REGU, ERUR, UMICRO #### [facility] [address] [place] [address] Dr. Holland Caballero MONO # 0.6 103/ul Normal 0.3-0.8 [facility] Comment on above: Performed By: #### P REGU, ERUR, UMICRO #### [facility] [address] [place] [address] Dr. Holland Caballero Monocytes/100 WBC (Bld) 12.6 % Critically high 1.7-12. 0 [facility] Comment on above: Performed By: #### P REGU, ERUR, UMICRO #### [facility] [address] [place] [address] Dr. Holland Caballero NEUT # 2.6 103/ul Normal 1.4-6.5 [facility] Comment on above: Performed By: #### P REGU, ERUR, UMICRO #### [facility] [address] [place] [address] Dr. Holland Caballero Neutrophils/100 WBC (Bld) 57.2 % Normal 43.0-75.0 [facility] Comment on above: Performed By: #### P REGU, ERUR, UMICRO #### [facility] [address] [place] [address] Dr. Holland Caballero Platelet mean volume (Bld) [Entitic vol] 10.5 fL Normal 9.5-13.5 [facility] Comment on above: Performed By: #### P REGU, ERUR, UMICRO #### [facility] [address] [place] [address] Dr. Holland Caballero PLT 241 103/ul Normal 150-450 [facility] Comment on above: Performed By: #### P REGU, ERUR, UMICRO #### [facility] [address] [place] [address] Dr. Holland Caballero RBC 4.62 106/ul Normal 4.20-5.40 [facility] Comment on above: Performed By: #### P REGU, ERUR, UMICRO #### [facility] [address] [place] [address] Dr. Holland Caballero WBC 4.6 103/ul Normal 4.0-11.0 [facility] Comment on above: Performed By: #### P REGU, ERUR, UMICRO #### [facility] [address] [address] [address] Holland Caballero ER URINE PROFILEon 3 Bilirubin Ql (U) Negative Normal NEGATIVE [facility] Comment on above: Performed By: #### P REGU, ERUR, UMICRO #### [facility] [address] [address] [address] Holland Caballero Clarity (U) CLEAR Normal CLEAR [facility] Comment on above: Performed By: #### P REGU, ERUR, UMICRO #### [facility] [address] [address] [address] Holland Caballero Color (U) LT. YELLOW Normal YELLOW [facility] Comment on above: Performed By: #### P REGU, ERUR, UMICRO #### [facility] [address] [place] [address] Dr. Holland GARCIA A micrscopic examination will be performed if indicated. Normal [facility] Comment on above: Performed By: #### P REGU, ERUR, UMICRO #### [facility] [address] [address] [address] Holland Caballero Glucose Ql (U) Negative Normal NEGATIVE [facility] Comment on above: Performed By: #### P REGU, ERUR, UMICRO #### [facility] [address] [address] [address] Holland Caballero Hemoglobin Ql (U) SMALL Abnormal NEGATIVE [facility] Comment on above: Performed By: #### P REGU, ERUR, UMICRO #### [facility] [address] [address] [address] Holland Caballero Ketones Ql (U) Negative Normal NEGATIVE [facility] Comment on above: Performed By: #### P REGU, ERUR, UMICRO #### [facility] [address] [address] [address] Holland Caballero LEUKOCYTES TRACE Abnormal NEGATIVE [facility] Comment on above: Performed By: #### P REGU, ERUR, UMICRO #### [facility] [address] [address] [address] Holland Caballero Nitrite Ql (U) Negative Normal NEGATIVE [facility] Comment on above: Performed By: #### P REGENRRIQUE Schreiber UMICRO #### [facility] [address] [address] [address] Holland Caballero pH (U) 7.5 [pH] Normal 5-9 [facility] Comment on above: Performed By: #### P ENRRIQUE MUÑOZ UMICRO #### [facility] [address] [address] [address] Holland Caballero SPEC GRAVITY 1.010 Normal 1.005-<=1.0 25 [facility] Comment on above: Performed By: #### P REGJEOVANNY SchreiberR, UMICRO #### [facility] [address] [address] [address] Holland Caballero UA PROTEIN Negative Normal NEGATIVE/ TRACE [facility] Comment on above: Performed By: #### JEOVANNY KRUSER, UMICRO #### [facility] [address] [address] [address] Holland Caballero UR MICRO IND INDICATED Normal [facility] Comment on above: Performed By: #### P JEOVANNY MUÑOZR, UMICRO #### [facility] [address] [address] [address] Holland Caballero Urobilinogen Qn (U) 0.2 {Cheo'U}/dL Normal 0.2 - 1. 0 [facility] Comment on above: Performed By: #### P REGJEOVANNY SchreiberR, UMICRO #### [facility] [address] [address] [address] Holland Caballero URon 2022 , QUAL Negative Normal NEGATIVE [facility] Comment on above: Performed By: #### P REGJEOVANNY SchreiberR, UMICRO #### [facility] [address] [address] [address] Holland Caballero PROF CHEM 8 (BAS METB)on Anion gap [Moles/Vol] 13.4 mmol/L Normal [facility] Comment on above: Performed By: #### C ITRATU #### [facility] [address] [place] [address] Dr. Holland Caballero Calcium [Mass/Vol] 8.6 mg/dL Normal 8.5-10.1 [facility] Comment on above: Performed By: #### C ITRATU #### [facility] [address] [place] [address] Dr. Holland Caballero Chloride [Moles/Vol] 103 mmol/L Normal 98-107 [facility] Comment on above: Performed By: #### C ITRATU #### [facility] [address] [place] [address] Dr. Holland Caballero CO2 [Moles/Vol] 28.4 mmol/L Normal 21.0-32.0 [facility] Comment on above: Performed By: #### C ITRATU #### [facility] [address] [place] [address] Dr. Holland Caballero Creatinine [Mass/Vol] 0.82 mg/dL Normal 0.55-1.02 [facility] Comment on above: Performed By: #### C ITRATU #### [facility] [address] [place] [address] Dr. Holland Caballero EGFR-AF UGANDAN >60 Normal >=60 [facility] Comment on above: Performed By: #### C ITRATU #### [facility] [address] [place] [address] Dr. Holland Caballero EGFR-NON AF UGANDAN >60 Normal >=60 [facility] Comment on above: Performed By: #### C ITRATU #### [facility] [address] [place] [address] Dr. Holland Caballero Glucose [Mass/Vol] 104 mg/dL Normal 74-106 [facility] Comment on above: Performed By: #### C ITRATU #### [facility] [address] [place] [address] Dr. Holland Caballero Potassium [Moles/Vol] 3.8 mmol/L Normal 3.5-5.1 [facility] Comment on above: Performed By: #### C ITRATU #### [facility] [address] [address] [address] Holland Caballero Sodium [Moles/Vol] 141 mmol/L Normal 136-145 [facility] Comment on above: Performed By: #### C ITRATU #### [facility] [address] [address] [address] Holland Caballero Urea nitrogen [Mass/Vol] 16.0 mg/dL Normal 7.0-18.0 [facility] Comment on above: Performed By: #### C ITRATU #### [facility] [address] [address] [address] Holland Caballero Urea nitrogen/Creatinine [Mass ratio] 19.5 mg/mg Normal [facility] Comment on above: Performed By: #### C ITRATU #### [facility] [address] [place] [address] Dr. Holland Caballero URINE MICROSCOPIC ONLYon BACTERIA NONE SEEN Normal NONE SEEN [facility] Comment on above: Performed By: #### P REGU, ERUR, UMICRO #### [facility] [address] [address] [address] Holland Caballero Bacteria identified Cx Nom (U) NOT INDICATED Normal [facility] Comment on above: Performed By: #### P REGU, ERUR, UMICRO #### [facility] [address] [place] [address] Dr. Holland Caballero CAST NONE SEEN Normal NONE SEEN [facility] Comment on above: Performed By: #### P REGU, ERUR, UMICRO #### [facility] [address] [address] [address] Holland Caballero Crystals LM Nom (Urine sed) NONE SEEN Normal NONE SEEN [facility] Comment on above: Performed By: #### P REGU, ERUR, UMICRO #### [facility] [address] [address] [address] Holland Caballero Epithelial cells LM Ql (Urine sed) RARE Normal NONE SEEN /RARE [facility] Comment on above: Performed By: #### P REGU, ERUR, UMICRO #### [facility] [address], [place] [address] Dr. Holland Caballero MUCOUS NONE SEEN Normal NONE SEEN [facility] Comment on above: Performed By: #### P REGU, ERUR, UMICRO #### [facility] [address], [place] [address] Dr. Holland Caballero RBC 2-5 Abnormal 0-2 [facility] Comment on above: Performed By: #### P REGU, ERUR, UMICRO #### [facility] [address], [place] [address] Dr. Holland Caballero WBC NONE SEEN Normal NONE SEEN [facility] Comment on above: Performed By: #### P REGU, ERUR, UMICRO #### [facility] [address], [place] [address] Dr. Holland Caballero XR ABD FLAT UP_PA [...] DENVER SHINE Date: 2022 11:57 Normal [facility] XR KUB 1 VIEWon 06-19-2022 XR KUB [...] by: DENVER SHINE Date: 2022-06-19 17:02 Normal [facility] COVID-19 SOFIAOrdered By: Luzma Walker on 02-25-2022 SARS-CoV+SARS-CoV-2 (COVID-19) Ag IA.rapid Ql (Resp) Negative Negative [facility] Comment on above: This is a duplicate Mary SARS Antigen (BETTY) result to be used for statistical tracking purpose only. No Panel InformationOrdered By: Se Walker on 02-25-2022 SARS Antigen (LFIA) [facility] CITRATE URINE 24HRon 022 Citric Acid, U, 24hr 227 mg/24 hr Critically low 320-1240 [facility] Comment on above: Result Comment: This test was developed and its performance characteristics determined by [employer]. It has not been cleared or approved by the Food and Drug Administration. Performed By: #### C ITRATU #### [facility] [address] [address] [address] Holland Caballero Citric Acid, Urine 275 mg/L Normal Undefined [facility] Comment on above: Result Comment: For proper preservation, the pH of urine for analysis of oxalate or citric acid must be <3.0. Specimen received was not preserved correctly, therefore results may be questionable. Performed By: #### C ITRATU #### [facility] [address] [address] [address] Holland Caballero MAGNESIUM 24HR URINEon 02-14 Magnesium 24hr Urine 70.1 mg/24 hr Normal 12.0-293.[address] [facility] Comment on above: Result Comment: No t otal volume submitted. Unable to calculate 24 hour result. Performed By: #### P REGUJEOVANNYR, UMICRO #### [facility] [address] [address] [address] Holland Caballero Magnesium UR 8.5 mg/dL Normal Not Estab. [facility] Comment on above: Performed By: #### P JEOVANNY MUÑOZR, UMICRO #### [facility] [address] [place] [address] Dr. Holland Caballero OXALATE 24HR URINEon 022 Oxalates, Urine 24 mg/L Normal Undefined [facility] Comment on above: Performed By: #### P THINT #### [facility] [address] [place] [address] Dr. Holland Caballero Oxalates, Urine 24hr 20 mg/24 hr Normal 4-31 [facility] Comment on above: Performed By: #### P THINT #### [facility] [address] [place] [address] Dr. Holland Caballero PHOSPHORUS 24HR URINEon 01-27 Phosphorus, Urine 69.2 mg/dL Normal Not Estab. [facility] Comment on above: Performed By: #### P HOS 24 #### [facility] [address] [place] [address] Dr. Holland Caballero Phosphorus, Urine 24hr 571 mg/24 hr Normal [id number] [facility] Comment on above: Result Comment: No t otal volume submitted. Unable to calculate 24 hour result. Performed By: #### P HOS 24 #### [facility] [address] [place] [address] Dr. Holland Caballero URIC ACID 24 HR URINEon 01-27 Uric Acid, Urine 37.6 mg/dL Normal Not Estab. [facility] Comment on above: Performed By: #### C ITRATU #### [facility] [address] [place] [address] Dr. Holland Caballero Uric Acid, Urine 24hr 310.2 mg/24 hr Normal 173.7-902. 1 [facility] Comment on above: Result Comment: No t otal volume submitted. Unable to calculate 24 hour result. Performed By: #### C ITRATU #### [facility] [address] [place] [address] Dr. Holland Caballero PTH INTACTon 02-13-2022 PTH, Intact 31 pg/mL Normal 15-65 [facility] Comment on above: Performed By: #### P THINT #### [facility] [address] [address] [address] Holland Caballero Body fluid albumin measureme nt (mass/volume)Ordered By: Lorenzo Conteh on 02-12-2022 Albumin (Body fld) [Mass/Vol] 4.0 g/dL 3.2-5.5 [facility] Cholesterol [Mass/volume] in Serum or PlasmaOrdered By: Lorenzo Conteh on 02-12-2022 Cholesterol [Mass/Vol] 203 mg/dL 140-200 [facility] Comment on above: Chol less than 200 m g/dl low riskChol 201-239 mg/dl borderline riskChol 240 mg/dl and greater high risk Cholesterol in LDL Calc [Mas s/Vol]Ordered By: Lorenzo Conteh on 02-12-2022 Cholesterol in LDL [Mass/Vol] 126 mg/dL 0-100 [facility] Comment on above: LDL ATP III CLASSIFI CATIONLDL less than 100 mg/dL OptimalLDL 100-129 mg/dL Near or above optimalLDL 130-159 mg/dL Borderline highLDL 160-189 mg/dL HighLDL greater than 189 mg/dL Very high Cholesterol in VLDL Calc [Ma ss/Vol]Ordered By: Lorenzo Conteh on 02-12-2022 Cholesterol in VLDL [Mass/Vol] 23 mg/dL [facility] Creatinine and Glomerular fi ltration rate.predicted panel (S/P/Bld)Ordered By: Lorenzo Conteh on 02-12-2022 Creatinine [Mass/Vol] 0.82 mg/dL 0.44-1.03 [facility] Erythrocyte distribution wid th Auto (RBC) [Ratio]Ordered By: Lorenzo Conteh on 02-12-2022 Erythrocyte distribution width (RBC) [Ratio] 12.4 % 11.9-15.3 [facility] Estimated glomerular filtrat ion rate (GFR) non- AmericanOrdered By: Lorenzo Conteh on 02-12-2022 GFR/1.73 sq M.predicted among non-blacks MDRD (S/P/Bld) [Vol rate/Area] > 60 mL/Min [facility] Globulin Calc (S) [Mass/Vol] Ordered By: Lorenzo Conteh on 02-12-2022 Globulin (S) [Mass/Vol] 2.4 g/dL [facility] Hematocrit Auto (Bld) [Volum e fraction]Ordered By: Lorenzo Conteh on 02-12-2022 Hematocrit (Bld) [Volume fraction] 42.4 % 34.0-46.4 [facility] Hemoglobin [Mass/volume] in BloodOrdered By: Lorenzo Conteh on 02-12-2022 Hemoglobin (Bld) [Mass/Vol] 13.9 g/dL 11.8-15.4 [facility] MCH Auto (RBC) [Entitic mass ]Ordered By: Lorenzo Conteh on 02-12-2022 MCH (RBC) [Entitic mass] 30.8 pg 24.7-34.3 [facility] MCHC Auto (RBC) [Mass/Vol]Or dered By: Lorenzo Conteh on 02-12-2022 MCHC (RBC) [Mass/Vol] 32.8 g/dL 32.0-35.0 Fir [facility] MCV Auto (RBC) [Entitic vol] Ordered By: Lorenzo Conteh on 02-12-2022 MCV (RBC) [Entitic vol] 94.0 fL 80-100 F [facility] No Panel InformationOrdered By: Lorenzo Conteh on 02-12-2022 Estimated GFR () > 60 mL/Min [facility] Comment on above: GFR estimated refere nce range: According to KDOQI guidelines, <60 ml/min/1.73m2 is sufficient to diagnose a patient with chronic kidney disease. Pharmacy Creatinine Clearance (Chem N/A [facility] Platelet mean volume Auto (B ld) [Entitic vol]Ordered By: Lorenzo Conteh on 02-12-2022 Platelet mean volume (Bld) [Entitic vol] 10.1 fL 6.3-10.7 [facility] Platelets Auto (Bld) [#/Vol] Ordered By: Lorenzo Conteh on 02-12-2022 Platelets (Bld) [#/Vol] 250 10*3/uL 150-450 [facility] Protein [Mass/volume] in Ser um or PlasmaOrdered By: Lorenzo Conteh on 02-12-2022 Protein [Mass/Vol] 6.4 g/dL 6.1-7.9 [facility] RBC Auto (Bld) [#/Vol]Ordere d By: Lorenzo Conteh on 02-12-2022 RBC (Bld) [#/Vol] 4.51 10*6/uL 3.60-5.00 [facility] Serum or plasma alanine cobb otransferase measurement without P-5'-P (enzymatic activiOrdered By: Lorenzo Conteh on 02-12-2022 ALT No additional P-5'-P [Catalytic activity/Vol] 12 U/L 10-60 [facility] Serum or plasma albumin/glob ulin mass ratioOrdered By: Lorenzo Conteh on 02-12-2022 Albumin/Globulin [Mass ratio] 1.7 {ratio} [facility] Serum or plasma alkaline abril sphatase measurement (enzymatic activity/volume)Ordered By: Lorenzo Conteh on 02-12-2022 ALP [Catalytic activity/Vol] 50 U/L 32-92 [facility] Serum or plasma anion gap de terminationOrdered By: Lorenzo Conteh on 02-12-2022 Anion gap [Moles/Vol] 11.0 mmol/L 6.0-15.0 [facility] Serum or plasma aspartate am inotransferase measurement (enzymatic activity/volume)Ordered By: Lorenzo Conteh on 02-12-2022 AST [Catalytic activity/Vol] 16 U/L 10- [facility] Serum or plasma calcium sadia urement (mass/volume)Ordered By: Lorenzo Conteh on 02-12-2022 Calcium [Mass/Vol] 9.3 mg/dL 8.2-10.2 [facility] Serum or plasma chloride delfino surement (moles/volume)Ordered By: Lorenzo Conteh on 02-12-2022 Chloride [Moles/Vol] 103 mmol/L 95-114 [facility] Serum or plasma glucose sadia urement (mass/volume)Ordered By: Lorenzo Conteh on 02-12-2022 Glucose [Mass/Vol] 100 mg/dL 70-100 [facility] Comment on above: ADA recommended refe rence rangeRandom Glucose Reference Range is dependent on time and content of last meal. Glucose of more than 200 mg/dL in a nonstressed, ambulatory subject supports the diagnosis of Diabetes Mellitus. Serum or plasma high density lipoprotein (HDL) cholesterol measurementOrdered By: Lorenzo Conteh on 02-12-2022 Cholesterol in HDL [Mass/Vol] 54 mg/dL 35-85 [facility] Comment on above: HDL CHOL ATP-III CLA SSIFICATION Cardiovascular RiskHDL > or equal to 60 mg/dL LOWHDL < 40 mg/dL HIGH Serum or plasma potassium me asurement (moles/volume)Ordered By: Lorenzo Conteh on 02-12-2022 Potassium [Moles/Vol] 4.0 mmol/L 3.5-5.1 [facility] Serum or plasma sodium measu rement (moles/volume)Ordered By: Lorenzo Conteh on 02-12-2022 Sodium [Moles/Vol] 136 mmol/L 136-146 [facility] Serum or plasma total biliru bin measurement (mass/volume)Ordered By: Lorenzo Conteh on 02-12-2022 Bilirubin [Mass/Vol] 0.8 mg/dL 0.3-1.2 [facility] Serum or plasma total carbon dioxide measurement (moles/volume)Ordered By: Lorenzo Conteh on 02-12-2022 CO2 [Moles/Vol] 26.0 mmol/L 22.0-30.0 [facility] Serum or plasma total choles terol/high density lipoprotein (HDL) cholesterol mass ratOrdered By: Lorenzo Conteh on 02-12-2022 Cholesterol.total/Elenita sterol in HDL [Mass ratio] 3.8 {ratio} <5.0 [facility] Serum or plasma urea nitroge n measurement (mass/volume)Ordered By: Lorenzo Conteh on 02-12-2022 Urea nitrogen [Mass/Vol] 14 mg/dL 9- [facility] Triglyceride [Mass/volume] i n Serum or PlasmaOrdered By: Lorenzo Conteh on 02-12-2022 Triglyceride [Mass/Vol] 116 mg/dL 35-149 [facility] Comment on above: TRIG ATP III CLASSIF ICATIONTRIG less than 150 mg/dL NormalTRIG 150-199 mg/dL Borderline highTRIG 200-500 mg/dL High TRIG greater than 500 mg/dL Very highStandard traceable to the Center for Disease Conrtrol and Prevention (CDC) test method. WBC Auto (Bld) [#/Vol]Ordere d By: Lorenzo Conteh on 02-12-2022 WBC (Bld) [#/Vol] 4.4 10*3/uL 3.8-11.6 [facility] BUNon 02-11-2022 Urea nitrogen [Mass/Vol] 16.0 mg/dL Normal 7.0-18.0 [facility] Comment on above: Performed By: #### C ITRATU #### [facility] [address] [place] [address] Dr. Holland Caballero CALCIUMon 02-11-2022 Calcium [Mass/Vol] 8.4 mg/dL Critically low 8.5-10.1 [facility] Comment on above: Performed By: #### C ITRATU #### [facility] [address] [place] [address] Dr. Holland Caballero CALCIUM 24 HR URINEon 2021 CALC, 24 HR UR 54.4 mg/24 hr Critically low 100.0-300.0 [facility] Comment on above: Performed By: #### P REGU ERUR, UMICRO #### [facility] [address] [address] [address] Holland Caballero UR CALCIUM 6.6 mg/dL Normal 5.1-21.0 [facility] Comment on above: Performed By: #### P REGU ERUR, UMICRO #### [facility] [address] [place] [address] Dr. Holland Caballero CHLORIDEon 02-11-2022 Chloride [Moles/Vol] 102 mmol/L Normal 98-107 [facility] Comment on above: Performed By: #### P REGU, ERUR, UMICRO #### [facility] [address] [place] [address] Dr. Holland Caballero CO2on 02-11-2022 CO2 [Moles/Vol] 27.7 mmol/L Normal 21.0-32.0 [facility] Comment on above: Performed By: #### C ITRATU #### [facility] [address] [place] [address] Dr. Holland Caballero CREA 24 HR URINEon 2 CREA, 24 HR UR 772.45 mg/24 hr Critically low 800.00-1 ,80 0.00 [facility] Comment on above: Performed By: #### C REA24U, NA24U #### [facility] [address] [place] [address] Dr. Holland Caballero URINE CREAT 93.63 mg/dL Normal 20.00-300.0 0 [facility] Comment on above: Performed By: #### C REA24U, NA24U #### [facility] [address] [address] [address] Holland Caballero CREATININEon 02-11-2022 Creatinine [Mass/Vol] 0.81 mg/dL Normal 0.55-1.02 [facility] Comment on above: Performed By: #### C ITRATU #### [facility] [address] [place] [address] Dr. Holland Caballero EGFR-AF UGANDAN >60 Normal >=60 [facility] Comment on above: Performed By: #### C ITRATU #### [facility] [address] [place] [address] Dr. Holland Caballero EGFR-NON AF UGANDAN >60 Normal >=60 [facility] Comment on above: Performed By: #### C ITRATU #### [facility] [address] [place] [address] Dr. Holland Caballero NAon 02-11-2022 Sodium [Moles/Vol] 138 mmol/L Normal 136-145 [facility] Comment on above: Performed By: #### C ITRATU #### [facility] [address] [place] [address] Dr. Holland Caballero POTASSIUMon 02-11-2022 Potassium [Moles/Vol] 3.7 mmol/L Normal 3.5-5.1 [facility] Comment on above: Performed By: #### C ITRATU #### [facility] [address] [place] [address] Dr. Holland Caballero SODIUM 24 HR URINEon 022 NA, 24 HR UR 67 mmol/24 hr Normal 40-220 [facility] Comment on above: Performed By: #### C REA24U, NA24U #### [facility] [address] [address] [address] Holland Caballero Sodium (U) [Moles/Vol] 81 mmol/L Normal - [facility] Comment on above: Performed By: #### C REA24U, NA24U #### [facility] [address] [address] [address] Holland Caballero UR TOT VOL 825 ml/24 HR Normal [facility] Comment on above: Performed By: #### C REA24U, NA24U #### [facility] [address] [place] [address] Dr. Holland Caballero Performed By: #### P REGU, ERUR, UMICRO #### [facility] [address] [place] [address] Dr. Holland Caballero URIC ACID SERUMon 02-11-2022 Urate [Mass/Vol] 3.5 mg/dL Normal 2.6-6.0 [facility] Comment on above: Performed By: #### C ITRATU #### [facility] [address] [place] [address] Dr. Holland Caballero Turner's yeast IgE Ab [Units/ volume] in SerumOrdered By: Lorenzo Conteh on 12-25-2021 Turner's yeast IgE Qn (S) <0.10 kU/L Class 0 [facility] Comment on above: Performed at: [address] [id number] Director: Zhane Roland MD, Phone: [phone] Turner's yeast IgG Ab [Units/ volume] in Serum by ImmunoassayOrdered By: Lorenzo Conteh on 12-25-2021 Turner's yeast IgG IA Qn (S) 23 units 0-50 [facility] Comment on above: Negative <45 Equivocal 45 - 50 Positive >50 Negative <45 Equivoc al 45 - 50 Positive >50 Banana IgE Ab [Units/volume] in SerumOrdered By: Lorenzo Conteh on 12-25-2021 Banana IgE Qn (S) <0.10 kU/L Class 0 [facility] Barley IgE Ab [Units/volume] in SerumOrdered By: Lorenzo Conteh on 12-25-2021 Barley IgE Qn (S) <0.10 kU/L Class 0 [facility] Beef IgE Ab [Units/volume] i n SerumOrdered By: Lorenzo Conteh on 12-25-2021 Beef IgE Qn (S) <0.10 kU/L Class 0 [facility] Cheese cheddar type IgE Ab [ Units/volume] in SerumOrdered By: Lorenzo Conteh on 12-25-2021 Cheese cheddar type IgE Qn (S) <0.10 kU/L Class 0 [facility] Chitobioside IgA Ab [Units/v olume] in Serum or Plasma by ImmunoassayOrdered By: Lorenzo Conteh on 12-25-2021 Chitobioside IgA IA Qn 26 units 0-90 [facility] Comment on above: Negative <80 Equivocal 80 - 90 Positive >90 Negative <80 Equivoc al 80 - 90 Positive >90 [place] IgE Ab [Units/volume] i n SerumOrdered By: Lorenzo Conteh on 12-25-2021 [place] IgE Qn (S) <0.10 kU/L Class 0 [facility] Cow milk IgE Ab [Units/volum e] in SerumOrdered By: Lorenzo Conteh on 12-25-2021 Cow milk IgE Qn (S) <0.10 kU/L Class 0 [facility] Gluten IgE Ab [Units/volume] in SerumOrdered By: Lorenzo Conteh on 12-25-2021 Gluten IgE Qn (S) <0.10 kU/L Class 0 [facility] IgA [Mass/volume] in Serum o r PlasmaOrdered By: Lorenzo Conteh on 12-25-2021 IgA [Mass/Vol] 285 mg/dL 87-352 [facility] Comment on above: Performed at: [facility] [employer] [address] [id number] Home Lending Officer: Anupam Castellanos PhD, Phone: [phone] Performed at: [facility] [employer] [address] [id number] Director: Anupam Castellanos PhD, Phone: [phone] Laminaribioside IgG Ab [Unit s/volume] in Serum or Plasma by ImmunoassayOrdered By: Lorenzo Conteh on 12-25-2021 Laminaribioside IgG IA Qn 6 units 0-60 [facility] Comment on above: Negative <55 Equivocal 55 - 60 Positive >60 Negative <55 Equivoc al 55 - 60 Positive >60 Mannobioside IgG Ab [Units/v olume] in Serum or Plasma by ImmunoassayOrdered By: Lorenzo Conteh on 12-25-2021 Mannobioside IgG IA Qn 14 units 0-100 [facility] Comment on above: Negative < 90 Equivocal [...] 2. Viola M. et al. Gut. 2007; 56:0184-3795 3. Philipp M. et al. Am J Gastroenterology. 2007; 102:1-17 4. Amara Griffin. et al. World J Gastroenterology. 2008; 14:4311-7607 This test was developed and its performance characteristics determined by [employer] It has not been cleared or approved by the Food and Drug Administration. The FDA has determined that such clearance or approval is not necessary. Performed at: [address] [id number] Home Lending Officer: Zhane Roalnd MD, Phone: [phone] Negative < 90 Equivo jessy 90 - [...] 131:[id number]. Viola M. et al. Gut. 2007; 56:1394-96102. Philipp M. et al. Am J Gastroenterology. 2007; 102:1-174. Amara X. et al. World J Gastroenterology. 2008; 14:5115-5124This test was developed and its performance characteristics determinedby [facility]. It has not been cleared or approved by the Food and DrugAdministration. The FDA has determined that such clearance orapproval is not necessary.Performed at: [address] [id number] Director: Zhane Roland MD, Phone: [phone] No Panel InformationOrdered By: Lorenzo Conteh on 12-25-2021 Allergen Note See comment . [facility] Comment on above: Levels of Specific I gE Class Description of Class ----- < 0.10 0 Negative 0.10 - 0.31 0/I Equivocal/Low 0.32 - 0.55 I Low 0.56 - 1.40 II Moderate 1.41 - 3.90 III High 3.91 - 19.00 IV Very High 19.01 - 100.00 V Very High >100.00 Very High Endomysial IgA Antibody Negative Negative F [facility] Oat IgE Ab [Units/volume] in SerumOrdered By: Lorenzo Conteh on 12-25-2021 Oat IgE Qn (S) <0.10 kU/L Class 0 [facility] [place] IgE Ab [Units/volume] in SerumOrdered By: Lorenzo Conteh on 12-25-2021 [place] IgE Qn (S) <0.10 kU/L Class 0 [facility] Peanut IgE Ab [Units/volume] in SerumOrdered By: Lorenzo Conteh on 12-25-2021 Peanut IgE Qn (S) <0.10 kU/L Class 0 [facility] Pork IgE Ab [Units/volume] i n SerumOrdered By: Lorenzo Conteh on 12-25-2021 Pork IgE Qn (S) <0.10 kU/L Class 0 [facility] [place] IgE Ab [Units/volume] i n SerumOrdered By: Lorenzo Conteh on 12-25-2021 [place] IgE Qn (S) <0.10 kU/L Class 0 [facility] [place] IgE Ab [Units/volume] in SerumOrdered By: Lorenzo Conteh on 12-25-2021 [place] IgE Qn (S) <0.10 kU/L Class 0 [facility] Serum chicken droppings IgE antibody assay (units/volume)Ordered By: Lorenzo Conteh on 12-25-2021 Chicken droppings IgE Qn (S) <0.10 kU/L Class 0 [facility] Serum gliadin peptide IgA an tibody assay (units/volume)Ordered By: Lorenzo Conteh on 12-25-2021 Gliadin peptide IgA Qn (S) 16 units 0-19 [facility] Comment on above: Negative 0 - 19 Weak Positive 20 - 30 Moderate to Strong Positive >30 Negative 0 - 19 Weak Positive 20 - 30 Moderate to Strong Positive >30 Serum gliadin peptide IgG an tibody assay (units/volume)Ordered By: Lorenzo Conteh on 12-25-2021 Gliadin peptide IgG Qn (S) 2 units 0-19 [facility] Comment on above: Negative 0 - 19 Weak Positive 20 - 30 Moderate to Strong Positive >30 Negative 0 - 19 Weak Positive 20 - 30 Moderate to Strong Positive >30 Serum tissue transglutaminas e (tTG) IgA antibody assay (units/volume)Ordered By: Lorenzo Conteh on 12-25-2021 tTG IgA Qn (S) <2 U/mL 0-3 [facility] Comment on above: Negative 0 - 3 [...] tTG IgG Qn (S) <2 U/mL 0-5 [facility] Comment on above: Negative 0 - 5 Weak Positive 6 - 9 Positive >9 Negative 0 - 5 Weak Positive 6 - 9 Positive >9 Serum white potato specific IgE antibody assayOrdered By: Lorenzo Conteh on 12-25-2021 Potato IgE Qn (S) <0.10 kU/L Class 0 [facility] Soybean specific IgE antibod y assayOrdered By: Lorenzo Conteh on 12-25-2021 Soybean IgE Qn (S) <0.10 kU/L Class 0 [facility] Tomato IgE Ab [Units/volume] in SerumOrdered By: Lorenzo Conteh on 12-25-2021 Tomato IgE Qn (S) <0.10 kU/L Class 0 [facility] Wheat IgE Ab [Units/volume] in SerumOrdered By: Lorenzo Conteh on 12-25-2021 Wheat IgE Qn (S) <0.10 kU/L Class 0 [facility] XR KUB 1 VIEWon 12-10-2021 XR KUB [...] nephrolithiasis. Electronically authenticated by: DENVER SHINE Date: 2021-12-10 07:15 Normal [facility] PREG HCG QUALon 11-15-2021 , QUAL Negative Normal NEGATIVE [facility] Comment on above: Performed By: #### P ENRRIQUE MUÑOZ UMICRO #### [facility] [address] [place] [address] Dr. Holland Caballero XR KUB 1 VIEWon [...] by: JERONIMO MTZ Date: 2021-11-15 16:21 Normal [facility] XR KUB 1 VIEWon 11-14-2021 XR KUB [...] by: DENVER SHINE Date: 2021-11-14 20:42 Normal [facility] PREG HCG QUALon 11-08-2021 , QUAL Negative Normal NEGATIVE [facility] Comment on above: Performed By: #### P ENRRIQUE MUÑOZ UMICRO #### [facility] [address] [place] [address] Dr. Holland Caballero XR KUB 1 VIEWon [...] by: JERONIMO MTZ Date: 2021-11-08 08:10 Normal [facility] CBC AUTO DIFFon 11-05-2021 BASO # 0.0 103/ul Normal 0.0-0.1 [facility] Comment on above: Performed By: #### C BC #### [facility] [address] [place] [address] Dr. Holland Caballero Basophils/100 WBC (Bld) 0.4 % Normal 0.2-2.0 [facility] Comment on above: Performed By: #### C BC #### [facility] [address] [place] [address] Dr. Holland Caballero EO # 0.1 103/ul Normal 0.0-0.7 [facility] Comment on above: Performed By: #### C BC #### [facility] [address] [place] [address] Dr. Holland Caballero Eosinophils/100 WBC (Bld) 1.6 % Normal 0.9-7.0 [facility] Comment on above: Performed By: #### C BC #### [facility] [address] [place] [address] Dr. Holland Caballero Erythrocyte distribution width (RBC) [Ratio] 12.0 % Normal 11.0-15.0 [facility] Comment on above: Performed By: #### C BC #### [facility] [address] [place] [address] Dr. Holland Caballero Hematocrit (Bld) [Volume fraction] 43.3 % Normal 36.0-48.0 [facility] Comment on above: Performed By: #### C BC #### [facility] [address] [place] [address] Dr. Holland Caballero Hemoglobin (Bld) [Mass/Vol] 14.3 g/dL Normal 12.0-16.0 [facility] Comment on above: Performed By: #### C BC #### [facility] [address] [place] [address] Dr. Holland Caballero IG # 0.01 10e3/ul Normal 0.00-0.03 [facility] Comment on above: Performed By: #### C BC #### [facility] [address] [place] [address] Dr. Holland Caballero IG % 0.2 % Normal 0.0-0.5 [facility] Comment on above: Performed By: #### C BC #### [facility] [address] [place] [address] Dr. Holland Caballero LYMPH # 1.2 103/ul Normal 1.2-3.8 [facility] Comment on above: Performed By: #### C BC #### [facility] [address] [place] [address] Dr. Holland Caballero Lymphocytes/100 WBC (Bld) 23.9 % Normal 20.5-60.0 [facility] Comment on above: Performed By: #### C BC #### [facility] [address] [place] [address] Dr. Holland Caballero MANUAL DIFF REQ NO Normal [facility] Comment on above: Performed By: #### C BC #### [facility] [address] [place] [address] Dr. Holland Caballero MCH (RBC) [Entitic mass] 30.8 pg Normal 26.7-34.0 [facility] Comment on above: Performed By: #### C BC #### [facility] [address] [place] [address] Dr. Holland Caballero MCHC (RBC) [Mass/Vol] 33.0 g/dL Normal 29.9-35.2 [facility] Comment on above: Performed By: #### C BC #### [facility] [address] [place] [address] Dr. Holland Caballero MCV (RBC) [Entitic vol] 93.3 fL Normal 81.0-99.0 [facility] Comment on above: Performed By: #### C BC #### [facility] [address] [place] [address] Dr. Holland Caballero MONO # 0.7 103/ul Normal 0.3-0.8 [facility] Comment on above: Performed By: #### C BC #### [facility] [address] [place] [address] Dr. Holland Caballero Monocytes/100 WBC (Bld) 12.7 % Critically high 1.7-12. 0 [facility] Comment on above: Performed By: #### C BC #### [facility] [address] [place] [address] Dr. Holland Caballero NEUT # 3.1 103/ul Normal 1.4-6.5 [facility] Comment on above: Performed By: #### C BC #### [facility] [address] [place] [address] Dr. Holland Caballero Neutrophils/100 WBC (Bld) 61.2 % Normal 43.0-75.0 [facility] Comment on above: Performed By: #### C BC #### [facility] [address] [place] [address] Dr. Holland Caballero Platelet mean volume (Bld) [Entitic vol] 10.6 fL Normal 9.5-13.5 [facility] Comment on above: Performed By: #### C BC #### [facility] [address] [place] [address] Dr. Holland Caballero PLT 197 103/ul Normal 150-450 [facility] Comment on above: Performed By: #### C BC #### [facility] [address] [place] [address] Dr. Holland Caballero RBC 4.64 106/ul Normal 4.20-5.40 [facility] Comment on above: Performed By: #### C BC #### [facility] [address] [place] [address] Dr. Holland Caballero WBC 5.1 103/ul Normal 4.0-11.0 [facility] Comment on above: Performed By: #### C BC #### [facility] [address] [place] [address] Dr. Holland Caballero PROF CHEM 8 (BAS METB)on Anion gap [Moles/Vol] 12.5 mmol/L Normal [facility] Comment on above: Performed By: #### P REGU, ERUR, UMICRO #### [facility] [address] [place] [address] Dr. Holland Caballero Calcium [Mass/Vol] 9.1 mg/dL Normal 8.5-10.1 [facility] Comment on above: Performed By: #### P REGU, ERUR, UMICRO #### [facility] [address] [address] [address] Holland Caballero Chloride [Moles/Vol] 105 mmol/L Normal 98-107 [facility] Comment on above: Performed By: #### P REGU, ERUR, UMICRO #### [facility] [address] [address] [address] Holland Caballero CO2 [Moles/Vol] 26.4 mmol/L Normal 21.0-32.0 [facility] Comment on above: Performed By: #### P REGU, ERUR, UMICRO #### [facility] [address] [place] [address] Dr. Holland Caballero Creatinine [Mass/Vol] 0.83 mg/dL Normal 0.55-1.02 [facility] Comment on above: Performed By: #### P REGU, ERUR, UMICRO #### [facility] [address] [place] [address] Dr. Holland Caballero EGFR-AF UGANDAN >60 Normal >=60 [facility] Comment on above: Performed By: #### P REGU, ERUR, UMICRO #### [facility] [address] [place] [address] Dr. Holland Caballero EGFR-NON AF UGANDAN >60 Normal >=60 [facility] Comment on above: Performed By: #### P REGU, ERUR, UMICRO #### [facility] [address] [place] [address] Dr. Holland Caballero Glucose [Mass/Vol] 103 mg/dL Normal 74-106 [facility] Comment on above: Performed By: #### P REGU, ERUR, UMICRO #### [facility] [address] [address] [address] Holland Caballero Potassium [Moles/Vol] 3.9 mmol/L Normal 3.5-5.1 [facility] Comment on above: Performed By: #### P REGU, ERUR, UMICRO #### [facility] [address] [address] [address] Holland Caballero Sodium [Moles/Vol] 140 mmol/L Normal 136-145 [facility] Comment on above: Performed By: #### P REGU, ERUR, UMICRO #### [facility] [address] [address] [address] Holland Caballero Urea nitrogen [Mass/Vol] 14.0 mg/dL Normal 7.0-18.0 [facility] Comment on above: Performed By: #### P REGU, ERUR, UMICRO #### [facility] [address] [place] [address] Dr. Holland Caballero Urea nitrogen/Creatinine [Mass ratio] 16.9 mg/mg Normal [facility] Comment on above: Performed By: #### P REGU, ERUR, UMICRO #### [facility] [address] [address] [address] Holland Caballero PROTIMEon 11-05-2021 INR Coag (PPP) [Relative time] 1.02 {INR} Normal [facility] Comment on above: Performed By: #### P REGU, ERUR, UMICRO #### [facility] [address] [place] [address] Dr. Holland Caballero INR GUIDELINES SEE BELOW Normal [facility] Comment on above: Result Comment: GENARO RED INR: 2.0 - 3.0 CONDITIONS NOT LISTED BELOW 2.5 - 3.5 FOR PROSTHETIC HEART VALVE REPLACEMENT 2.5 - 3.5 RECURRENT THROMBOSIS Performed By: #### P REGU, ERUR, UMICRO #### [facility] [address] [address] [address] Holland Caballero PT Coag (PPP) [Time] 11.0 s Normal 9.0-11.6 [facility] Comment on above: Performed By: #### P REGU, ERUR, UMICRO #### [facility] [address] [address] [address] Holland Caballero PTTon 11-05-2021 aPTT Coag (Bld) [Time] 29.7 s Normal 22.3-36.2 Th e [facility] Comment on above: Performed By: #### ENRRIQUE KRUSE UMICRO #### [facility] [address] [place] [address] Dr. Holland Caballero XR KUB 1 VIEWon 08-04-2021 XR KUB [...] by: DENVER SHINE Date: 2021-08-04 10:36 Normal [facility] PREG HCG QUALon 07-19-2021 , QUAL Negative Normal NEGATIVE [facility] Comment on above: Performed By: #### ENRRIQUE KRUSE UMICRO #### [facility] [address] [place] [address] Dr. Holland Caballero XR KUB 1 VIEWon [...] by: DENVER SHINE Date: 2021-07-19 07:48 Normal [facility] CNOVon 09-23-2018 CNOV Office Visit (NEPHMN ) JAMIL QUINN ([id number]) 1985 F Date Time Provider Department 09/23/18 8:10 AM RANDY SILVA NEPHVENANCIO During your visit today, we recorded the following information about you: Temperature Pulse Blood pressure Weight 97.6 degrees 71/minute 124/83 49.3 kg Height 1.524 m Randy Silva MD 09/23/2018 3:03 PM Signed Ms. Quinn is a 33 year old woman from [place] here with her boyfriend seen at the request of Her LMD for my opinion regarding PKD. My final recommendations will be communicated back to the requesting physician by way of letter. ? ? Dr. Javier Piedra MD Internal Medicine, Nephrology [facility] [address] [place] [address] ? ? HPI: ? 1) Found to have renal cysts on ultrasound during eval for ROLL LINE OPERATOR ablation - 2018. Done locally, not in Care Everywhere Also had CT abdomen in 2017 for stone pain. Will get the films to review At [facility]. Question if ADPKD ? No prior information. [...] was negative with Dr. Jesse Dominguez at [facility]. 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 TODAY Stable Rec'd her records from [employer] but not RENAL US done in April. [...] [N20.0] Order(s):UA CHEMSTRIP ONLY [SQUA] Order #: [id number] FUTURE UA CHEMSTRIP ONLY [SQUA] Order #: [id number]. #:[id number] CONSULT TO NEPHROL/HYPERTENS [19990503] Order #: [id number]: 1 Prescriptions as of 09/23/2018 Sig: METOPROLOL [...] by RANDY SILVA MD on 09/23/18 Normal [facility] PROGRESSon 09-23-2018 Protein mass conc HNO ID: [id number] Author: Randy Silva Service: ? Author Type: Physician Type: Progress Notes Filed: 09/23/2018 3:03 PM Note Text: Ms. Quinn is a 33 year old woman from [place] here with her boyfriend seen at the request of Her LMD for my opinion regarding PKD. My final recommendations will be communicated back to the requesting physician by way of letter. ? ? Dr. Javier Piedra MD Internal Medicine, Nephrology [facility] [address] [place] [address] ? ? HPI: ? 1) Found to have renal cysts on ultrasound during eval for ROLL LINE OPERATOR ablation - 2018. Done locally, not in Care Everywhere Also had CT abdomen in 2017 for stone pain. Will get the films to review At [facility]. Question if ADPKD ? No prior information. [...] was negative with Dr. Jesse Dominguez at [facility]. 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 TODAY Stable Rec'd her records from [facility] but not RENAL US done in April. [...] if it rises. F/u after above Normal [facility] Urinalysison 09-23-2018 Bilirubin, Urine Negative Normal Negative [facility] Comment on above: Performed By: #### U A #### [address] [place] [phone] Clarity Nom (U) Clear Normal Clear [facility] Comment on above: Performed By: #### U A #### [address] [address] [phone] Color Nom (U) Yellow Normal Yellow [facility] Comment on above: Performed By: #### U A #### [address] [phone] Comments SEE COMMENT Normal [facility] Comment on above: Result Comment: Micr oscopic Examination Performed Performed By: #### U A #### [address] [phone] Epithelial cells LM.HPF #/area (Urine sed) SEE COMMENT Normal [facility] Comment on above: Result Comment: Few Squamous Epithelial Cells Performed By: #### U A #### [address] [phone] Glucose Ql (U) Negative Normal Negative [facility] Comment on above: Performed By: #### U A #### [address] [phone] Hemoglobin/Blood,Ur Trace Critically abnormal Negative [facility] Comment on above: Performed By: #### U A #### [address] [phone] Ketones Ql (U) Negative Normal Negative [facility] Comment on above: Performed By: #### U A #### [facility] [address] [address] Leukest Trace Critically abnormal Negative [facility] Comment on above: Performed By: #### U A #### [address] [place] [address] Nitrite Ql (U) Negative Normal Negative [facility] Comment on above: Performed By: #### U A #### [place] [address] pH (Bld) 7.0 Normal 4.5-8.0 [facility] Comment on above: Performed By: #### U A #### [place] [address] Protein mass conc (U) Negative Normal Negative [facility] Comment on above: Performed By: #### U A #### [address] [phone] RBC #/vol (U) 0-3 Normal 0-3 [facility] Comment on above: Performed By: #### U A #### [address] [place] [address] Specific [place], Ur 1.007 Normal 1.005-1.030 [facility] Comment on above: Performed By: #### U A #### [place] [address] Urine Royal Comment SEE COMMENT Normal [facility] Comment on above: Result Comment: N/A Performed By: #### U A #### [address] [place] [address] Urobilinogen Qn (U) Normal Normal Normal [facility] Comment on above: Performed By: #### U A #### [address] [phone] WBC #/vol (Bld) 0-5 Normal 0-5 [facility] Comment on above: Performed By: #### U A #### [facility] [address] [place], [place] [address] CNOVon 08-26-2018 CNOV Office Visit (NEPHMN ) JAMIL QIUNN ([id number]) 1985 F Date Time Provider Department 08/26/18 9:30 AM RANDY SILVA NEPHMN During your visit today, we recorded the following information about you: Temperature Weight Height 97.5 degrees 48.5 kg 1.524 m Randy Silva MD 08/27/2018 2:06 PM Signed Ms. Quinn is a 33 year old woman from [place] here with her boyfriend seen at the request of Her LMD for my opinion regarding PKD. My final recommendations will be communicated back to the requesting physician by way of letter. Dr. Javier Piedra MD Internal Medicine, Nephrology [facility] [address] [place] [address] HPI: 1) Found to have renal cysts on ultrasound during eval for ROLL LINE OPERATOR ablation - 2018. Done locally, not in Care Everywhere Also had CT abdomen in 2017 for stone pain. Will get the films to review At [facility]. Question if ADPKD No prior information. No [...] was negative with Dr. Jesse Dominguez at [facility]. 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 #:[id number] CONSULT TO NEPHROL/HYPERTENS [19990503] Order #: [id number]: 1 Prescriptions as of 08/26/2018 Sig: METOPROLOL [...] by RANDY SILVA MD on 08/27/18 Normal [facility] PROGRESSon 08-26-2018 Protein mass conc HNO ID: [id number] Author: Randy Silva Service: ? Author Type: Physician Type: Progress Notes Filed: 08/27/2018 2:06 PM Note Text: Ms. Quinn is a 33 year old woman from [place] here with her boyfriend seen at the request of Her LMD for my opinion regarding PKD. My final recommendations will be communicated back to the requesting physician by way of letter. Dr. Javier Piedra MD Internal Medicine, Nephrology [facility] [address] [address] [address] [facility] [place] [address] HPI: 1) Found to have renal cysts on ultrasound during eval for ROLL LINE OPERATOR ablation - 2018. Done locally, not in Care Everywhere Also had CT abdomen in 2017 for stone pain. Will get the films to review At [facility]. Question if ADPKD No prior information. No [...] was negative with Dr. Jesse Dominguez at [facility]. 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 As is 3-4 weeks Normal [facility] Urinalysison 08-26-2018 Bilirubin, Urine Negative [facility] Comment on above: Performed By: #### U A #### [facility] [employer] [address] [employer] [place], [place] [address] Clarity Nom (U) Cloudy Critically abnormal Clear [facility] Comment on above: Performed By: #### U A #### [facility] [employer] [address] [employer] [place], [place] [address] Color Nom (U) Yellow Normal Yellow [facility] Comment on above: Performed By: #### U A #### [address] [place] [address] Comments SEE COMMENT Normal [facility] Comment on above: Result Comment: Micr oscopic not warranted Performed By: #### U A #### [place] [address] Glucose Ql (U) Negative Normal Negative [facility] Comment on above: Performed By: #### U A #### [place] [phone] Hemoglobin/Blood,Ur Negative Normal Negative [facility] Comment on above: Performed By: #### U A #### [place] [phone] Ketones Ql (U) Negative Normal Negative [facility] Comment on above: Performed By: #### U A #### [place] [phone] Leukest 1+ Critically abnormal Negative [facility] Comment on above: Performed By: #### U A #### [place] [phone] Nitrite Ql (U) Negative Normal Negative [facility] Comment on above: Performed By: #### U A #### [address] [place] [address] pH (Bld) 7.0 Normal 4.5-8.0 [facility] Comment on above: Performed By: #### U A #### [place] [phone] Protein mass conc (U) Trace Critically abnormal Negative [facility] Comment on above: Performed By: #### U A #### [address] [phone] Specific [place], Ur 1.017 Normal 1.005-1.030 [facility] Comment on above: Performed By: #### U A #### [facility] [address] [address] Urine Royal Comment SEE COMMENT Normal [facility] Comment on above: Result Comment: N/A Performed By: #### U A #### [address] [place] [address] Urobilinogen Qn (U) Normal Normal Normal [facility] Comment on above: Performed By: #### U A #### [place] [address] CBCon 07-11-2018 ABSOLUTE BAS 0.0 X10 Normal [facility] Comment on above: Result Comment: Test ing performed at [place] [address] Performed By: #### E SR, ACBC, CHEM7F #### [place] [address] ABSOLUTE EOS 0.00 X10 Normal [facility] Comment on above: Performed By: #### E SR, ACBC, CHEM7F #### [place] [address] ABSOLUTE NEUTROPHIL COUNT 3.5 x10 Normal 1.0-7.0 [facility] Comment on above: Performed By: #### E SR, ACBC, CHEM7F #### [place] [address] Basophils/100 WBC (Bld) 0.4 % Normal 0.0-2.0 [facility] Comment on above: Performed By: #### E SR, ACBC, CHEM7F #### [place] [address] DTYPE AUTO DIFF Normal [facility] Comment on above: Performed By: #### E SR, ACBC, CHEM7F #### Testing performed at [address] [address] Eosinophils/100 WBC (Bld) 0.9 % Normal 0.0-11.0 [facility] Comment on above: Performed By: #### Brittani REDDY ACBC, CHEM7F #### Testing performed at [address] [address] Lymphocytes #/vol (Bld) 1.10 X10 Normal [facility] Comment on above: Performed By: #### Brittani REDDY, ACBC, CHEM7F #### Testing performed at [address] [address] Lymphocytes/100 WBC (Bld) 21.6 % Normal 20.0-55.0 [facility] Comment on above: Performed By: #### Brittani REDDY, ACBC, CHEM7F #### Testing performed at [address] [address] Monocytes #/vol (Bld) 0.5 X10 Normal [facility] Comment on above: Performed By: #### Brittani REDDY, ACBC, CHEM7F #### Testing performed at [address] [address] Monocytes/100 WBC (Bld) 10.0 % Normal 0.0-10.0 [facility] Comment on above: Performed By: #### Brittani REDDY, ACBC, CHEM7F #### Testing performed at [address] [address] Neutrophils/100 WBC (Bld) 67.1 % Normal 37.0-75.0 [facility] Comment on above: Performed By: #### E SR, ACBC, CHEM7F #### Testing performed at [address] [address] Erythrocyte distribution width Ratio (RBC) 13.1 % Normal 11.5-14.5 [facility] Comment on above: Performed By: #### E SR, ACBC, CHEM7F #### Testing performed at [address] [address] Hematocrit Volume Fraction (Bld) 42.5 % Normal 36.0-48.0 [facility] Comment on above: Performed By: #### E SR, ACBC, CHEM7F #### [place] [address] Hemoglobin mass conc (Bld) 14.8 g/dL Normal 12.0-16.0 [facility] Comment on above: Performed By: #### E SR, ACBC, CHEM7F #### [place] [address] MCH Entitic mass (RBC) 31.6 pg Normal 26.0-35.0 [facility] Comment on above: Performed By: #### E SR, ACBC, CHEM7F #### [place] [address] MCHC mass conc (RBC) 34.7 g/dL Normal 27.0-37.0 [facility] Comment on above: Performed By: #### E SR, ACBC, CHEM7F #### [place] [address] MCV Entitic volume (RBC) 91.2 fL Normal 80.0-100.0 [facility] Comment on above: Performed By: #### E SR, ACBC, CHEM7F #### [place] [address] Platelet mean volume Entitic volume (Bld) 8.9 fL Normal 7.4-11.0 [facility] Comment on above: Performed By: #### E SR, ACBC, CHEM7F #### [place] [address] Platelets #/vol (Bld) 229 /cmm Normal 130.0-400.0 [facility] Comment on above: Performed By: #### E SR, ACBC, CHEM7F #### [place] [address] RBC #/vol (Bld) 4.67 /cmm Normal 4.0-5.4 [facility] Comment on above: Performed By: #### E SR, ACBC, CHEM7F #### Testing performed at [facility] [address] [place] [address] WBC #/vol (Bld) 5.3 /cmm Normal 3.6-11.0 [facility] Comment on above: Performed By: #### E , GINGER, CHEM7F #### Testing performed at [facility] [address] [place] [address] CBC, EDIF, PLATELETon 2018 ABSOLUTE BASOPHIL COUNT 0.0 X10 [facility] Comment on above: Testing performed at [place], [place] [address] Basophils/100 WBC (Bld) 0.4 % 0 - 2 % [facility] Differential cell count method Nom (Bld) AUTO DIFF % [facility] Eosinophils (Bld) [#/Vol] 0.00 10*3/uL X10 [facility] Eosinophils/100 WBC (Bld) 0.9 % 0 - 11 % [facility] Erythrocyte distribution width (RBC) [Ratio] 13.1 % 11.5 - 14.5 % [facility] Hematocrit (Bld) [Volume fraction] 42.5 % 36 - 48 % [facility] Hemoglobin (Bld) [Mass/Vol] 14.8 g/dL [facility] Lymphocytes (Bld) [#/Vol] 1.10 10*3/uL X10 [facility] Lymphocytes/100 WBC (Bld) 21.6 % 20 - 55 % [facility] MCH (RBC) [Entitic mass] 31.6 pg 26 - 35 PG [facility] MCHC (RBC) [Mass/Vol] 34.7 g/dL [facility] MCV (RBC) [Entitic vol] 91.2 fL [facility] Monocytes (Bld) [#/Vol] 0.5 10*3/uL X10 [facility] Monocytes/100 WBC (Bld) 10.0 % 0 - 10 % [facility] Neutrophils (Bld) [#/Vol] 3.5 10*3/uL [facility] Neutrophils/100 WBC (Bld) 67.1 % 37 - 75 % [facility] Platelet mean volume (Bld) [Entitic vol] 8.9 fL [facility] Platelets (Bld) [#/Vol] 229 10*3/uL [facility] RBC (Bld) [#/Vol] 4.67 10*6/uL [facility] WBC (Bld) [#/Vol] 5.3 10*3/uL [facility] CHEM 7 FASTINGon 07-11-2018 Chloride molar conc 104 mmol/L Normal 98-107 [facility] Comment on above: Result Comment: Librado betancur note: Triglyceride levels of 600mg/dL or higher may positively bias chloride results by approximately 2.1 mmol Performed By: #### Brittani REDDY ACBC, CHEM7F #### [place] [address] CO2 molar conc 27 mmol/L Normal 22-30 [facility] Comment on above: Performed By: #### Brittani REDDY ACBC, CHEM7F #### [place] [address] Creatinine mass conc 0.7 mg/dL Normal 0.7-1.2 [facility] Comment on above: Performed By: #### Brittani REDDY ACBC, CHEM7F #### [place] [address] EST. GFR, >60 Normal [facility] Comment on above: Performed By: #### Brittani REDDY ACBC, CHEM7F #### [place] [address] EST. GFR,Non >60 Normal [facility] Comment on above: Performed By: #### Brittani REDDY ACBC, CHEM7F #### [place] [address] GFR/1.73 sq M predicted among non-blacks MDRD vol rate/area (S/P/Bld) Average GFR for 30-39 years old = 109. Normal [facility] Comment on above: Result Comment: Radiation Oncologist elidia Kidney disease, GFR = <60. Kidney failure, GFR = <15. The GFR estimate is not adjusted for extreme body surface area or acute process, nor has it been validated for women or ethnic groups other than and . Testing performed at [place] [address] Performed By: #### E SR, ACBC, CHEM7F #### Testing performed at [place] [id number] Glucose mass conc 93 mg/dL Normal 70-100 [facility] Comment on above: Result Comment: NORMAL <100 mg/dL PREDIABETES 101-126 mg/dL DIABETES 126 mg/dL or higher Performed By: #### E SR, ACBC, CHEM7F #### Testing performed at [place] [id number] Potassium molar conc 3.5 mmol/L Normal 3.5-5.1 [facility] Comment on above: Performed By: #### E SR, ACBC, CHEM7F #### [place] [address] Sodium molar conc 140 mmol/L Normal 137-145 [facility] Comment on above: Performed By: #### E SR, ACBC, CHEM7F #### [place] [address] Urea nitrogen mass conc 18 mg/dL Normal 7-20 [facility] Comment on above: Performed By: #### E SR, ACBC, CHEM7F #### [place] [address] CHEM 7 (LYTES,BUN,CREA,GLUC) on 07-11-2018 Chloride [Moles/Vol] 104 mmol/L [facility] Comment on above: Please note: Triglyc eride levels of 600mg/dL or higher may positively bias chloride results by approximately 2.1 mmol CO2 [Moles/Vol] 27 mmol/L [facility] Spotted Creatinine [Mass/Vol] 0.7 mg/dL [facility] Spotted GFR/1.73 sq M predicted among blacks MDRD (S/P/Bld) [Vol rate/Area] mL/min/{1.73_m2} ml/min/1.73 sq.m [facility] Spotted GFR/1.73 sq M predicted among non-blacks MDRD (S/P/Bld) [Vol rate/Area] Average GFR for 30-39 years old = 109. [facility] Comment on above: Chronic Kidney disea se, GFR = <60. Kidney failure, GFR = <15. The GFR estimate is not adjusted for extreme body surface area or acute process, nor has it been validated for women or ethnic groups other than and . Testing performed at [place] [address] GFR/1.73 sq M predicted among non-blacks MDRD (S/P/Bld) [Vol rate/Area] mL/min/{1.73_m2} ml/min/1.73 sq.m [facility] Spotted Glucose post fast [Mass/Vol] 93 mg/dL [facility] Comment on above: NORMAL <100 mg/dL PREDIABETES 101-126 mg/dL DIABETES 126 mg/dL or higher Potassium [Moles/Vol] 3.5 mmol/L [facility] Spotted Sodium [Moles/Vol] 140 mmol/L [facility] Urea nitrogen [Mass/Vol] 18 mg/dL [facility] ESRon 07-11-2018 ESR Velocity (Bld) 3 mm/h Normal 0-15 [facility] Comment on above: Result Comment: Test ing performed at [place] [address] Performed By: #### E SR, ACBC, CHEM7F #### Testing performed at [place] [id number] SEDIMENTATION RATE, AUTOMATE Don 07-11-2018 ESR (Bld) [Velocity] 3 mm/h [facility] Spotted Comment on above: Testing performed at [place] [address] CT-CT abdomen pelvis w con I MPORTon 01-14-2018 CT-CT abdomen pelvis w con IMPORT Images were obtained outside of [facility] [id number] Normal [facility] Bact/Cand Vag Grm Ston 03-30 Bact/Cand Vag Grm St Smear Result - BACTERIAL VAGINOSIS RESULT: Stain results consistent with normal vaginal luann. No Yeast observed Few Polymorphonuclear leukocytes Normal [facility] Comment on above: Performed By: #### B VCNSM ####[facility] [address] [place], [place] [phone] CBC and Differentialon 03-30 Abs Baso 0.05 k/uL Normal <0.11 [facility] Abs [place] 1.24 k/uL High <0.87 [facility] Abs Neut 6.94 k/uL Normal 1.45-7.50 [facility] Basophils/100 WBC Auto (Bld) 0.5 % Normal [facility] DTYPE Auto Diff Normal [facility] Eosinophils 0.12 10*3/uL Normal <0.46 [facility] Eosinophils/100 leukocytes 1.2 % Normal [facility] Erythrocyte distribution width Auto Ratio (RBC) 12.3 % Normal 11.5-15.0 [facility] Erythrocytes (RBC) 10*6/uL Normal <0.01 [facility] Erythrocytes (RBC) 4.16 10*6/uL Normal 3.90-5.20 [facility] Erythrocytes (RBC) 0.0 /100 WBC Normal 0 [facility] Hematocrit (HCT) 38.2 % Normal 36.0-46.0 [facility] Hemoglobin mass conc (Bld) 12.9 g/dL Normal 11.5-15.5 [facility] Lymphocytes 1.79 10*3/uL Normal 1.00-4.00 [facility] Lymphocytes/100 leukocytes 17.6 % Normal [facility] MCH 31.0 pG Normal 26.0-34.0 [facility] MCHC mass conc (RBC) 33.8 g/dL Normal 30.5-36.0 [facility] MCV 91.8 fL Normal 80.0-100.0 [facility] Monocytes/100 leukocytes 12.2 % Normal [facility] Neutrophils/100 WBC Auto (Bld) 68.5 % Normal [facility] Platelet mean volume (PMV) 11.2 fL Normal 9.0-12.7 [facility] Platelets 210 10*3/uL Normal 150-400 [facility] WBC (Leukocytes) 10.16 10*3/uL Normal 3.70-11.00 [facility] Comp Metabolic Panelon 03-30 Alanine aminotransferase (ALT) 9 U/L Normal 7-38 [facility] Albumin 4.0 g/dL Normal 3.9-4.9 [facility] Alkaline phosphatase (ALP) 49 U/L Normal 32-117 [facility] Anion gap 12 mmol/L Normal 9-18 [facility] Aspartate aminotransferase (AST) 13 U/L Normal 13-35 [facility] Bilirubin (total) mg/dL Low 0.2-1.3 [facility] Calcium 8.6 mg/dL Normal 8.6-10.0 [facility] Chloride 101 mmol/L Normal 97-105 [facility] CO2 24 mmol/L Normal 22-30 [facility] Creatinine 0.70 mg/dL Normal 0.58-0.96 [facility] eGFR (non-black) mL/min/{1.73_m2} [facility] Comment on above: Result Comment: eGFR [...] Glucose mass conc 104 mg/dL High 74-99 [facility] Comment on above: Result Comment: The [place] Diabetes Association (ADA) provides guidance for cutoff [...] Standards of Medical Care in Diabetes 2016, [place] Diabetes Association. Diabetes Care. 2016.39(Suppl 1). Potassium molar conc 3.5 mmol/L Low 3.7-5.1 [facility] Protein 6.9 g/dL Normal 6.3-8.0 [facility] Sodium 137 mmol/L Normal 136-144 [facility] Urea nitrogen 11 mg/dL Normal 7-21 [facility] ED NOTEon 03-30-2017 ED NOTE HNO ID: [id number]: Veronica (Rn) REJI Douglaservice: (none)Author Type: Registered NurseType: ED NotesFiled: 03/30/2017 1:21 AMNote Text: Discharge instructions per provider, the patient verbalizesunderstanding . No additional questions or concerns at this time. Patient Vital signs stable, no acute distress noted. Patient ambulatory out ofED. [facility] ED NOTE HNO ID: [id number] Author: Veronica Palomino) MEGA Douglas Service: (none) Author Type: Registered Nurse Type: ED Notes Filed: 03/30/2017 12:43 AM Note Text: Dr. Evans at bedside. [facility] ED NOTE HNO ID: [id number] Author: Nato (Medic) Dylon III Service: (none) Author Type: Vascular Neurologist and Auto Salvage Worker Type: ED Notes Filed: 03/30/2017 12:07 AM Note Text: Pt ambulated to the restroom. [facility] ED NOTE HNO ID: [id number]: Veronica Palomino) REJI Douglaservice: (none)Author Type: Registered NurseType: ED [...] issitting up in bed with at bedside. [facility] ED NOTE HNO ID: [id number] Author: Veronica Goins RN Service: Nursing Author Type: Registered Nurse Type: ED Notes Filed: 03/29/2017 11:09 PM Note Text: Reported off to Veronica Rhoades RN. Pt to u/s with tech. [facility] ED NOTE HNO ID: [id number]: REJI Childress Rnervice: NursingAuthor Type: Registered NurseType: ED NotesFiled: 03/29/2017 10:32 PMNote Text: Agree with triage note. Pt has soaked more than 1 pad an hour prior toarrival. Pt felt lightheaded and dizzy prior to arrival, and feelsslightly lightheaded now. Pt in bed, significant other at bedside. Calllight within reach. [facility] ED NOTE HNO ID: [id number] Author: Suzanne VasquezRn) MEGA Warren Service: (none) Author Type: Registered Nurse Type: ED Notes Filed: 03/29/2017 10:24 PM Note Text: Urine specimen obtained and sent. [facility] ED NOTE HNO ID: [id number]: Suzanne (Rn) Briana RNService: (none)Author Type: Registered NurseType: ED NotesFiled: 03/29/2017 [...] positive test. Startedtaking the labetalol on . [facility] ED PROV NOTEon 03-30-2017 ED PROV NOTE HNO ID: [id number]: Evelyn Evans, DOService: (none)Author Type: PhysicianType: ED Provider NotesFiled: 03/30/2017 8:59 AMNote Text:ED Provider NotePatient Name: Jamil SimonsMRN: [id number] DATE: 03/29/17HistoryPatient presents with:Abdominal Pain: since this [...] the following: Result Value Ref Range Color [place] (*) Yellow Hemoglobin/Blood,Ur 3+ (*) Negative Protein, Urine 30 (*) Negative mg/dL Leukest 2+ (*) Negative WBC, Urine 11-25 (*) 0 - 5 /HPF RBC, Urine 6-10 (*) 0 - 3 /HPF Bacteria Present (*) 0 /HPF All other components within normal limitsHCG URINE - ED(POC) - Abnormal; Notable for the following:CBC + AUTO DIFF (AK,AV,EU,FV,HL,VICKY,MM,S P) - Abnormal; Notable for thefollowing: Abs [place] 1.24 (*) <0.87 k/uL All other components [...] assessment of the patient andhave reviewed the PA/LOOKBACK COORDINATOR note. My torres findings include:the pt was seen bythe pa and presented to me. The pt states her lmp was mid January. She is. She has not had any care yet, but has an appointmentscheduled for Friday. She states she is about 7 weeks . Eusebio had sexual intercourse Friday night. She awoke [...] kg (105 lb) SpO2 99% BMI 20.51 kg/e9NSQAZSU APPEARANCE: nontoxic; no acute distressSKIN:warm, dry; intact; no rashes; no bruisingHEAD:normocepha lic, atraumaticEYES:no icterusEARS:normal hearingNOSE:patentMOUTH and PHARYNX: moist oral mucosaTONGUE:normalTEET H:normalNECK:no nuchal rigidity; no meningeal signsLUNGS:no conversational dyspneaEXTERNAL GENITALIA: see pa noteBACK, MUSCLES AND BONES:no swellingNEUROLOGIC FINDIGNS, MENTAL STATUS: aANDox3; no focal neuro deficitsGAIT: steadyCRANIAL NERVES: intactMOTOR: full rom ue/le bilateralCatherine MD NathanOther additions or changes:noneThe avi initiated a workup, including labs and an [...] Pt agrees. Close f/urecommended. Pt agrees. Fluids.Signature: Evelyn Evans MDDate: 03/30/2017Time: 8:41 SUYAPA CourseCourse:Vital signs were [...] has a follow-up in 3days with her ENGINE OILER. Recommend she have repeat ultrasound and Quantdrawn [...] at time of disposition: stableSIGNATURE: Demetrice De Jesus) 03/30/17 0304Catherbere Evans DO03/30/17 0859 [facility] GC/Chlamydia Amplifon 2016 Chlamydia Amplif Negative [facility] Comment on above: Performed By: #### G CCT ####[facility] [address] [place], [place] [phone] GC Amplification Negative [facility] Comment on above: Performed By: #### G CCT ####[facility] [address] [place], [place] [phone] GC/Chlam Amp Source Vaginal [facility] Comment on above: Performed By: #### G CCT ####[facility] [address] [place], [place] [phone] HCG, Quantitative Blon 03-30 HCG, Quantitative Bl 137.5 mU/mL High <5.3 [facility] Comment on above: Result Comment: NUNU TITATIVE HCG NORMAL RANGESWeeks of Gestation (Weeks Since LMP)3 Weeks (5.8-71.2 mIU/mL)4 Weeks (9.5-750 mIU/mL)5 Weeks (217-7138 mIU/mL)6 Weeks (158-74159 mIU/mL)7 Weeks (3697-807105 mIU/mL)8 Weeks (05544-638593 mIU/mL)9 Weeks (37249-944915 mIU/mL)10 Weeks (79878-461353 mIU/mL)12 Weeks (06671-801990 mIU/mL)Referenced to 4th IS of NIBSCReference ranges were not locally established for this patient's age group. PROGRESSon 03-30-2017 PROGRESS HNO ID: [id number]: Maggie Alexandreervice: RadiologyAuthor Type: Cardiac SonographerType: Progress NotesFiled: 03/29/2017 11:25 PMNote Text: Radiology Service Progress NotePATIENT NAME: Jamil SimonsMRN: [id number] OF SERVICE: March 29, 2017TIME: 11:24 PMPATIENT IDENTITY VERIFICATION COMPLETED USING TWO (2) METHODS: Patientconfirmed name verbally and Date of .PATIENT GENDER DATA: Female. status: : Yes.Urinalysis hCG results are as follows: Positive status:NO.PATIENT RELEVANT IMPLANT DATA REVIEWED: Not ApplicableRADIOLOGY DEPARTMENT: UltrasoundPERIPHERAL IV DATA: Not applicablePregnancy transvaginal US doneSIGNED BY: Maggie Monaco RDMS, RVTDecekingman regional medical center 2016 11:24 PM [facility] Trichomonas Prepon 7 Trichomonas Prep Smear Result - Negat nic for Trichomonas vaginalis antigen This test was developed and its performance characteristics determined by [facility] [place] ([facility]). It has not been cleared or approved by the FDA. -PLMI is regulated under CLIA as qualified to perform high-complexity testing. This test is used for clinical purposes. It should not be regarded as investigational or for research. [facility] Comment on above: Performed By: #### T SANDRA ####[facility] [address] [place], [place] [phone] Type and Screenon 03-30-2017 ABO/RH(D) Positive [facility] Antibody Screen Negative [facility] US PREG TRANSVAG <14 WEEKSon 03-30-2017 US [...] Date/Time: Mar 29 2017 11:35PDictated by : HALI SAHU MDThis examination was interpreted and the report reviewed and electronically signed by: HALI SAHU MD on Mar 29 2017 11:41PM [id number] Normal [facility] Urinalysis with Microscopico n 03-30-2017 Bilirubin, Urine Negative Normal Negative [facility] Cast SEE COMMENT Normal 0 [facility] Comment on above: Result Comment: 0 Erythrocytes (RBC) 6-10 Critically abnormal 0-3 [facility] Hemoglobin mass conc (Bld) 3+ Critically abnormal Negative [facility] Leukest 2+ Critically abnormal Negative [facility] pH of blood 7.5 [pH] Normal 4.5-8.0 [facility] Protein, Urine 30 mg/dL Critically abnormal Negative [facility] Specific [place], Ur 1.016 Normal 1.005-1.030 [facility] Urine, bacteria in sediment Present Critically abnormal 0 [facility] Urine, clarity Clear Normal Clear [facility] Urine, color [place] Critically abnormal Yellow [facility] Urine, epithelial cells in sediment SEE COMMENT Normal [facility] Comment on above: Result Comment: Rare Urine, glucose presence Negative Normal Negative [facility] Urine, ketones presence Negative Normal Negative [facility] Urine, nitrite presence Negative Normal Negative [facility] Urine, urobilinogen Normal Normal Normal [facility] WBC (Leukocytes) 11-25 Critically abnormal 0-5 [facility] Urine Cultureon 03-30-2017 Urine culture, bacteria Sp. Request/Comm ent: - Specimen received in preservative Culture Result - 10,000 - <50,000 CFU/ml Normal urogenital luann Normal [facility] Comment on above: Performed By: #### U RCUL ####[facility] [address] [place], [place] [phone] Vital Signs Date Time Vital Sign Value Performing Clinician Facility 04-29-2024 14:20-0500 Body height 152.4 cm Rikki Sheikh MD Work Phone: [facility] 04-29-2024 14:20-0500 Body mass index (BMI) [Ratio] 22.46 kg/m2 Rikki Sheikh MD Work Phone: [facility] 04-29-2024 14:20-0500 Body weight 52.16 kg Rikki Sheikh MD Work Phone: [facility] 03-12-2024 11:48-0500 Body mass index (BMI) [Ratio] 21.68 kg/m2 Tania Rinkes DO Work Phone: [facility] 03-12-2024 11:48-0500 Body weight 50.35 kg Tania Rinkes DO Work Phone: [facility] 03-12-2024 11:48-0500 Diastolic blood pressure 80 mm[Hg] Tania Rinkes DO Work Phone: [facility] 03-12-2024 11:48-0500 Systolic blood pressure 120 mm[Hg] Tania Rinkes DO Work Phone: [facility] 01-27-2024 16:04-0400 Body height 152.4 cm DO Lorenzo Conteh Work Phone: [facility] 01-27-2024 16:04-0400 Body mass index (BMI) [Ratio] 21.4 kg/m2 DO Lorenzo Conteh Work Phone: [facility] 01-27-2024 16:04-0400 Body weight 49.89 kg DO Lorenzo Conteh Work Phone: [facility] 01-27-2024 16:04-0400 Diastolic blood pressure 80 mm[Hg] DO Lorenzo Conteh Work Phone: [facility] 01-27-2024 16:04-0400 Heart rate 83 /min DO Lorenzo Conteh Work Phone: [facility] 01-27-2024 16:04-0400 SaO2% (BldA) [Mass fraction] 99 % DO Lorenzo Conteh Work Phone: [facility] 01-27-2024 16:04-0400 Systolic blood pressure 116 mm[Hg] DO Lorenzo Conteh Work Phone: [facility] 01-14-2024 16:24-0400 Body height 152.4 cm DO Lorenzo Conteh Work Phone: [facility] 01-14-2024 16:24-0400 Body mass index (BMI) [Ratio] 21.7 kg/m2 DO Lorenzo Kauffmanley Work Phone: [facility] 01-14-2024 16:24-0400 Body weight 50.34 kg DO Lorenzo Kauffmanley Work Phone: [facility] 01-14-2024 16:24-0400 Diastolic blood pressure 78 mm[Hg] DO Lorenzo Conteh Work Phone: [facility] 01-14-2024 16:24-0400 Heart rate 80 /min DO Lorenzo Conteh Work Phone: [facility] 01-14-2024 16:24-0400 SaO2% (BldA) [Mass fraction] 98 % DO Lorenzo Conteh Work Phone: [facility] 01-14-2024 16:24-0400 Systolic blood pressure 116 mm[Hg] DO Lorenzo Conteh Work Phone: [facility] 12-24-2023 13:44-0400 Body height 152.4 cm DO Lorenzo Conteh Work Phone: [facility] 12-24-2023 13:44-0400 Body mass index (BMI) [Ratio] 21.7 kg/m2 DO Lorenzo Conteh Work Phone: [facility] 12-24-2023 13:44-0400 Body weight 50.34 kg DO Lorenzo Conteh Work Phone: [facility] 12-24-2023 13:44-0400 Diastolic blood pressure 70 mm[Hg] DO Lorenzo Conteh Work Phone: [facility] 12-24-2023 13:44-0400 Heart rate 68 /min DO Lorenzo Conteh Work Phone: [facility] 12-24-2023 13:44-0400 SaO2% (BldA) [Mass fraction] 99 % DO Lorenzo Conteh Work Phone: [facility] 12-24-2023 13:44-0400 Systolic blood pressure 130 mm[Hg] DO Lorenzo Conteh Work Phone: [facility] 12-01-2023 14:34-0400 Body height 152.4 cm [facility] 12-01-2023 14:34-0400 Body mass index (BMI) [Ratio] 21.4 kg/m2 [facility] 12-01-2023 14:34-0400 Body weight 49.89 kg [facility] 12-01-2023 14:34-0400 Diastolic blood pressure 76 mm[Hg] [facility] 12-01-2023 14:34-0400 Heart rate 98 /min [facility] 12-01-2023 14:34-0400 SaO2% (BldA) [Mass fraction] 99 % [facility] 12-01-2023 14:34-0400 Systolic blood pressure 102 mm[Hg] [facility] 06-27-2023 08:16-0500 Blood Pressure Location Theodora JIMENEZ [facility] 06-27-2023 08:16-0500 Diastolic blood pressure 86 mm[Hg] Theodora JIMENEZ [facility] 06-27-2023 08:16-0500 Heart rate 89 /min Theodora JIMENEZ [facility] 06-27-2023 08:16-0500 Respiratory rate 16 /min Theodora JIMENEZ [facility] 06-27-2023 08:16-0500 Systolic blood pressure 107 mm[Hg] Theodora JIMENEZ [facility] 07-17-2022 12:58-0400 Blood Pressure Location Theodora JIMENEZ [facility] 07-17-2022 12:58-0400 Diastolic blood pressure 45 mm[Hg] Theodora JIMENEZ [facility] 07-17-2022 12:58-0400 Systolic blood pressure 151 mm[Hg] Theodora JIMENEZ [facility] 06-24-2022 15:05-0500 Blood Pressure Location Theodora JIMENEZ [facility] 06-24-2022 15:05-0500 Diastolic blood pressure 80 mm[Hg] Theodora JIMENEZ [facility] 06-24-2022 15:05-0500 Heart rate 86 /min Theodora JIMENEZ [facility] 06-24-2022 15:05-0500 Respiratory rate 16 /min Theodora JIMENEZ [facility] 06-24-2022 15:05-0500 Systolic blood pressure 112 mm[Hg] Theodora JIMENEZ [facility] 02-12-2022 16:30-0400 Body height 152.4 cm Lorenzo Conteh Other [employer] Other 02-12-2022 16:30-0400 Body mass index (BMI) [Ratio] 21.48 kg/m2 Lorenzo Conteh Other [employer] Other 02-12-2022 16:30-0400 Body weight 49.9 kg Lorenzo Conteh Other [employer] Other 02-12-2022 16:30-0400 Diastolic blood pressure 84 mm[Hg] Lorenzo Conteh Other [employer] Other 02-12-2022 16:30-0400 Respiratory rate 18 /min Lorenzo Conteh Other [employer] Other 02-12-2022 16:30-0400 SaO2% (BldA) [Mass fraction] 98 % Lorenzo Conteh Other [employer] Other 02-12-2022 16:30-0400 Systolic blood pressure 136 mm[Hg] Lorenzo Conteh Other [employer] Other 01-03-2022 17:00-0400 Body height 152.4 cm Lorenzo Conteh Other [employer] Other 01-03-2022 17:00-0400 Body mass index (BMI) [Ratio] 22.07 kg/m2 Lorenzo Conteh Other [employer] Other 01-03-2022 17:00-0400 Body weight 51.26 kg Lorenzo Conteh Other [employer] Other 01-03-2022 17:00-0400 Diastolic blood pressure 87 mm[Hg] Lorenzo Conteh Other [employer] Other 01-03-2022 17:00-0400 Respiratory rate 18 /min Lorenzo Conteh Other [employer] Other 01-03-2022 17:00-0400 SaO2% (BldA) [Mass fraction] 99 % Lorenzo Conteh Other [employer] Other 01-03-2022 17:00-0400 Systolic blood pressure 129 mm[Hg] Lorenzo Conteh Other [employer] Other 03-27-2021 17:30-0500 Body height 152.4 cm Lorenzo Conteh Other [employer] Other 03-27-2021 17:30-0500 Body mass index (BMI) [Ratio] 23.04 kg/m2 Lorenzo Conteh Other [employer] Other 03-27-2021 17:30-0500 Body temperature 97.6 [degF] Lorenzo Conteh Other [employer] Other 03-27-2021 17:30-0500 Body weight 53.52 kg Lorenzo Conteh Other [employer] Other 03-27-2021 17:30-0500 Diastolic blood pressure 82 mm[Hg] Lorenzo Conteh Other [employer] Other 03-27-2021 17:30-0500 Respiratory rate 16 /min Lorenzo Conteh Other [employer] Other 03-27-2021 17:30-0500 SaO2% (BldA) [Mass fraction] 100 % Lorenzo Conteh Other [employer] Other 03-27-2021 17:30-0500 Systolic blood pressure 134 mm[Hg] Lorenzo Conteh Other [employer] Other 07-11-2018 17:34-0400 BP Diastolic 89 mm[Hg] [facility] 07-11-2018 17:34-0400 BP Systolic 129 mm[Hg] [facility] 07-11-2018 17:34-0400 Pulse (Heart Rate) 74 /min [facility] 07-11-2018 17:34-0400 Pulse Oximetry 99 % [facility] 07-11-2018 17:34-0400 Respiratory Rate 16 /min [facility] 07-11-2018 15:05-0400 Height 152.4 cm [facility] 07-11-2018 15:04-0400 Body Temperature 98.01 [degF] [facility] Encounters Encounter Date Encounter Type Care Provider Facility Start: 07-09-2024 ambulatory RUSSELL SEGURA Facility:[facility] Start: 04-29-2024 End: 04-29-2024 Office outpatient new 30 minutes Rikki Sheikh MD Work Phone: [facility] Comment on above: Chronic idiopathic u rticaria (Primary Dx) Start: 04-29-2024 End: 04-29-2024 ambulatory RIKKI SHEIKH Not Available Start: 03-12-2024 End: 03-12-2024 Bamboo flowsdayron Massey DO Work Phone: [facility] Start: 03-12-2024 End: 03-12-2024 Bamboo flowsheet Tania Massey DO Work Phone: [facility] Start: 03-12-2024 End: 03-12-2024 Patient encounter status Tania Massey DO Work Phone: [facility] Start: 03-12-2024 End: 03-12-2024 Periodic preventive med est patient 18-39 yrs Tania Massey DO Work Phone: [facility] Comment on above: Encounter for gyneco logical examination without abnormal finding; Screening for malignant neoplasm of cervix; Encounter for screening mammogram for breast cancer Start: 03-12-2024 End: 03-12-2024 ambulatory TANIA MASSEY Not Available Start: 02-25-2024 End: 02-25-2024 ambulatory [facility] Not Available Start: 02-25-2024 End: 02-25-2024 Office outpatient new 30 minutes [facility] Work Phone: [facility] Comment on above: Capillary angioma (P rimary Dx); Idiopathic urticaria Start: 01-30-2024 End: 01-30-2024 Patient encounter procedure DO Lorenzo Conteh Work Phone: [facility] Start: 01-30-2024 End: 01-30-2024 ambulatory DO Lorenzo Conteh Work Phone: [facility] Work Phone: Start: 01-30-2024 Encounter for genera l adult medical examination without abnormal findings Lorenzo Conteh [facility] Start: 01-27-2024 End: 01-27-2024 ambulatory DO Lorenzo Conteh Work Phone: [facility] Work Phone: Start: 01-27-2024 End: 01-27-2024 Encounter for general adult medical examination without abnormal findings DO Lorenzo Conteh Work Phone: [facility] Start: 01-27-2024 End: 01-27-2024 Patient encounter procedure DO Lorenzo Conteh Work Phone: [facility] [place] Work Phone: Start: 01-14-2024 End: 01-14-2024 ambulatory DO Lorenzo Kauffmanley Work Phone: [facility] Work Phone: Start: 01-14-2024 End: 01-14-2024 Patient encounter procedure DO Lorenzo Conteh Work Phone: [facility] [place] Work Phone: Start: 12-24-2023 End: 12-24-2023 ambulatory DO Lorenzo Kauffmanley Work Phone: [facility] Work Phone: Start: 12-24-2023 End: 12-24-2023 Patient encounter procedure DO Lorenzo Conteh Work Phone: [facility] [place] Work Phone: Start: 12-01-2023 End: 12-01-2023 ambulatory DO Lorenzo Verona Conteh Work Phone: [facility] Work Phone: Start: 12-01-2023 End: 12-01-2023 Patient encounter procedure [facility] [place] Work Phone: Start: 06-27-2023 End: 06-27-2023 ambulatory Theodora JIMENEZ Facility:[facility] Start: 06-27-2023 End: 06-27-2023 Patient encounter procedure Theodora JIMENEZ [facility] Start: 02-04-2023 End: 02-04-2023 ambulatory Lorenzo Conteh Other [employer] Other Start: 02-04-2023 Encounter for genera l adult medical examination without abnormal findings Lorenzo RENDON [facility] [place] Start: 02-04-2023 Telephone encounter Lorenzo BLANCHARD [facility] [place] Start: 01-28-2023 End: 01-28-2023 ambulatory Lorenzo Conteh Other [employer] Other Start: 01-28-2023 Telephone encounter Lorenzo BLANCHARD [facility] [place] Start: 07-17-2022 Encounter for preprocedural cardiovascular examination DR THEODORA JIMENEZ . [facility] Start: 07-17-2022 End: 07-17-2022 Patient encounter procedure Theodora JIMENEZ [facility] Start: 07-11-2022 End: 07-11-2022 ambulatory LORENZO CONTEH Facility:[facility] Start: 07-10-2022 End: 07-11-2022 ambulatory LORENZO CONTEH Facility:[facility] Start: 07-10-2022 End: 07-11-2022 Encounter for preprocedural cardiovascular examination LORENZO CONTEH Facility:[facility] Start: 2022 End: 2022 ambulatory NOLAN ROSE . Facility:[facility] Start: 07-01-2022 End: 07-01-2022 ambulatory Lorenzo Conteh Other [employer] Other Start: 07-01-2022 Telephone encounter Lorenzo BLANCHARD [facility] [place] Start: 06-24-2022 End: 06-24-2022 Patient encounter procedure Theodora JIMENEZ [facility] Start: 06-18-2022 End: 06-19-2022 ambulatory VERONICA SEGURA Facility:[facility] Start: 02-25-2022 End: 02-25-2022 ambulatory DO Lorenzo Conteh Work Phone: [facility] Work Phone: Start: 02-25-2022 End: 02-25-2022 Patient encounter procedure DO Lorenzo Conteh Work Phone: [facility]-Pre-Surgical Testing Start: 02-12-2022 Encounter for genera l adult medical examination without abnormal findings Lorenzo Conteh [facility] Start: 02-12-2022 Periodic preventive med est patient 18-39 yrs Lorenzo Conteh [facility] Start: 02-12-2022 End: 02-12-2022 ambulatory DO Lorenzo Conteh Work Phone: [facility] Work Phone: Start: 02-12-2022 End: 02-12-2022 Patient encounter procedure DO Lorenzo Conteh Work Phone: [facility] Start: 02-11-2022 End: 02-12-[address] THEODORA JIMENEZ . Facility: Start: 01-31-2022 End: 02-01-[address] THEODORA JIMENEZ . Facility: Start: 01-07-2022 End: 01-07-2022 ambulatory Se Walker Other [employer] Other Start: 01-07-2022 Telephone encounter Se Rose [employer] Start: 01-03-2022 End: 01-03-2022 ambulatory Lorenzo Conteh Other [employer] Other Start: 01-03-2022 Office outpatient vi sit 15 minutes Lorenzo Conteh [facility] [place] Start: 01-01-2022 End: 01-01-2022 ambulatory Lorenzo Conteh Other [employer] Other Start: 01-01-2022 Telephone encounter Lorenzo Rose [facility] Start: 12-29-2021 End: 12-29-2021 Patient encounter procedure DO Lorenzo Conteh Work Phone: [facility] [place] Start: 12-25-2021 End: 12-25-2021 Patient encounter procedure DO Lorenzo Conteh Work Phone: [facility] [place] Start: 12-08-2021 End: 12-09-2021 ambulatory LORENZO CONTEH Facility:[facility] Start: 11-15-2021 End: 11-15-2021 ambulatory LORENZO CONTEH Facility:[facility] Start: 11-13-2021 End: 11-14-2021 ambulatory LORENZO CONTEH Facility:[facility] Start: 11-08-2021 End: 11-08-2021 ambulatory LORENZO CONTEH Facility:[facility] Start: 11-07-2021 Encounter for preprocedural laboratory examination DR THEODORA JIMENEZ . [facility] Start: 11-05-2021 End: 11-06-2021 ambulatory LORENZO CONTEH Facility:[facility] Start: 10-26-2021 End: 10-26-2021 Patient encounter procedure DO Lorenzo Conteh Work Phone: [facility] [place] Start: 08-16-2021 End: 08-16-2021 ambulatory Lorenzo Conteh Other [employer] Other Start: 08-16-2021 Telephone encounter Lorenzo Rose [facility] [place] Start: 08-04-2021 End: 08-05-2021 ambulatory LORENZO CONTEH Facility:[facility] Start: 07-19-2021 End: 07-19-2021 ambulatory LORENZO CONTEH Facility:[facility] Start: 07-16-2021 End: 07-16-2021 ambulatory Lorenzo Conteh Other [employer] Other Start: 07-16-2021 Telephone encounter Lorenzo Rose [facility] [place] Start: 07-06-2021 End: 07-06-2021 ambulatory Lorenzo Conteh Other [employer] Other Start: 07-06-2021 Telephone encounter Lorenzo Rose [facility] [place] Start: 06-16-2021 ambulatory WILLOW Brown:[facility] Start: 03-27-2021 End: 03-27-2021 ambulatory Lorenzo Conteh Other [employer] Other Start: 03-27-2021 Office outpatient vi sit 15 minutes Lorenzo Conteh [facility] [place] Start: 07-11-2018 End: 07-11-2018 Emergency department patient visit [facility] Start: 07-11-2018 End: 07-11-2018 Emergency department patient visit Jaret Manning Work Phone: [facility] Start: 03-30-2017 End: 03-30-2017 Emergency department patient visit [facility] Procedures Date Procedure Procedure Detail Performing Clinician Start: 12-01-2023 X-ray of lumbar spin e, six views including bending views DO Lorenzo Conteh Work Phone: Start: 02-14-2023 Microscopic observat ion [Identifier] in Cervix by Cyto stain William CÁRDENAS Work Phone: Start: 11-15-2021 Extracorporeal shock wave lithotripsy of calculus of kidney Theodora JIMENEZ Start: 11-08-2021 Extracorporeal shock wave lithotripsy of calculus of kidney Theodora JIMENEZ Start: 10-26-2021 CT of chest without contrast DO Lorenzo Conteh Work Phone: Start: 07-19-2021 Extracorporeal shock wave lithotripsy of calculus of kidney Theodora JIMENEZ Start: 06-19-2021 Cystoscopy Theodora STARK Start: 07-11-2018 CBC, EDIF, PLATELET Barrera Manning Work Phone: Start: 07-11-2018 Creatinine blood Jaret Manning Work Phone: Start: 07-11-2018 Sedimentation rate r bc automated Jaret Manning Work Phone: Cataract (disorder) Theodora JIMENEZ Cystoscopy Theodora JIMENEZ Lactoferrin measurement DO John Conteh Work Phone: Lithotripsy Theodora JIMENEZ SARS Antigen (LFIA) DO Marleni Conteh Work Phone: Stool culture for bacteria D Meme Conteh Work Phone: Plan of Treatment Date Care Activity Detail Author Start: 02-15-2028 Screening for malign ant neoplasm of cervix [facility] Start: 02-14-2026 Screening for malign ant neoplasm of cervix Pap Smear [facility] Start: 04-01-2025 End: 04-01-2025 Patient encounter procedure 04/01/2025 11:30 AM EST Office Visit [facility] [address] [place] [id number] Tania Massey, DO [address] [place] [address] [facility] Start: 03-12-2024 End: 03-12-2024 Patient encounter procedure 03/12/2024 11:45 AM EST Office Visit [facility] [address] [place] [id number] Tania Massey, DO [address] [place] [address] [facility] Start: 01-30-2024 [facility] Start: 12-28-2023 Influenza vaccination Influenza Vacc ine (#1) [facility] Start: 12-27-2017 Influenza vaccination INFLUENZA VACC INE (#1) [facility] Start: 2005 Screening for malign ant neoplasm of cervix PAP SMEAR DISCUSSION [facility] Start: 07-08-2003 Third diphtheria, tetanus and acellular pertussis (DTaP) vaccination TDAP (ADULT) [facility] Start: 2002 Tetanus vaccination [facility] Start: 1997 HIV screening [facility] Bacteria identified in Stool by Culture [facility] Work Phone: Turner's yeast IgE Ab [Units/volume] in Serum [facility] Work Phone: Banana IgE Ab [Units/volume] in Serum [facility] Work Phone: Barley IgE Ab [Units/volume] in Serum [facility] Work Phone: Beef IgE Ab [Units/volume] in Serum [facility] Work Phone: Cheese cheddar type IgE Ab [Units/volume] in Serum [facility] Work Phone: Chicken meat IgE Ab [Units/volume] in Serum [facility] Work Phone: [place] IgE Ab [Units/volume] in Serum [facility] Work Phone: Cotinine [Mass/volum e] in Serum or Plasma [facility] Cow milk IgE Ab [Units/volume] in Serum [facility] Work Phone: DBT Breast - bilater al screening Bilateral screening mammogram with tomosynthesis Imaging Routine Encounter for screening mammogram for breast cancer Ordered: 03/12/2024 [facility] Comment on above: Ordered: 03/12/2024 Egg white IgE Ab [Units/volume] in Serum [facility] Work Phone: Gluten IgE Ab [Units/volume] in Serum [facility] Work Phone: Nicotine [Mass/volum e] in Serum or Plasma [facility] Oat IgE Ab [Units/volume] in Serum [facility] Work Phone: [place] IgE Ab [Units/volume] in Serum [facility] Work Phone: Patient Education Low back pain in adults [facility] Work Phone: Peanut IgE Ab [Units/volume] in Serum [facility] Work Phone: Pork IgE Ab [Units/volume] in Serum [facility] Work Phone: Potato IgE Ab [Units/volume] in Serum [facility] Work Phone: Rice IgE Ab [Units/volume] in Serum [facility] Work Phone: [place] IgE Ab [Units/volume] in Serum [facility] Work Phone: SENDOUT TEST MISCELLANEOUS [facility] SENDOUT TEST MISCELLANEOUS [facility] Lab Routine Screening for malignant neoplasm of cervix Ordered: 03/12/2024 [facility] Work Phone: Comment on above: Ordered: 03/12/2024 Soybean IgE Ab [Units/volume] in Serum [facility] Work Phone: Tomato IgE Ab [Units/volume] in Serum [facility] Work Phone: Wheat IgE Ab [Units/volume] in Serum [facility] Work Phone: XR Lumbar spine Views [facility] Immunizations Immunization Date Immunization Notes Care Provider Fa [facility] 12-28-2022 influenza, injectabl e, quadrivalent, preservative free Lorenzo Conteh Other [facility] 12-28-2022 influenza virus vacc ine, unspecified formulation Theodora JIMENEZ [facility] 06-20-2021 influenza virus vacc ine, unspecified formulation Theodora JIMENEZ [facility] 07-27-2020 COVID-19 Vaccine Pfi zer - Documentation Purposes Only Lorenzo Conteh Other [facility] 07-27-2020 SARS-CoV-2 (COVID-19 ) Ad26 vaccine, recombinant Theodora JIMENEZ [facility] 07-06-2020 COVID-19 Vaccine Pfi zer - Documentation Purposes Only Lorenzo Conteh Other [facility] 06-26-2020 SARS-CoV-2 (COVID-19 ) Ad26 vaccine, recombinant Theodora JIMENEZ [facility] Payers Date Payer Category Payer Self-pay [id number] 2021 Private Health Insurance [employer] [id number] 2018 Unknown [employer] M [place] xxxxxxxxxxxx 2018-Present [id number] 1984 Unknown [id number] 2.16.840.1.345279.3.579.2 .983 1984 Unknown [id number] 2.16.840.1.517854.3.579.2 .593 1984 Unknown [id number] 2.16.840.1.442089.3.579.2 .593 1984 Unknown [id number] 2.16.840.1.110507.3.579.2 .593 1984 Unknown [id number] 2.16.840.1.169816.3.579.2 .593 1984 Unknown [id number] 2.16.840.1.143041.3.579.2 .593 1984 Unknown [id number] 2.16.840.1.883502.3.579.2 .593 1984 Unknown [id number] 2.16.840.1.944281.3.579.2 .593 1984 Unknown [id number] 2.16.840.1.437052.3.579.2 .593 1984 Unknown [id number] 2.16.840.1.425366.3.579.2 .593 1984 Unknown [id number] 2.16.840.1.770775.3.579.2 .593 1984 Unknown [id number] 2.16.840.1.728453.3.579.2 .593 1984 Unknown [id number] 2.16840.1.286508.3.579.2 .593 1984 Unknown [id number] 2.16.840.1.593213.3.579.2 .593 1984 Unknown [id number] 2.16.840.1.625793.3.579.2 .1259 1984 Unknown [id number] 2.16.840.1.191393.3.579.2 .1259 1984 Unknown [id number] 2.16840.1.221557.3.579.2 .1259 1984 Unknown [id number] 2.16.840.1.447675.3.579.2 .727 1984 Unknown [id number] 2.16.840.1.007205.3.579.2 .727 1959 Unknown [id number] Medicaid [place] HMO 110 [id number] Unknown [id number] 2.16.840.1.159825.3.579.2 .531 Unknown [id number] 2.16.840.1.329988.3.579.2 .531 Social History Date Type Detail Facility Start: 07-11-2018 End: 04-29-2024 Tobacco smoking status NHIS Never smoker [facility] Start: 07-11-2018 History SDOH Alcohol Frequency 1 [facility] Start: 1985 Sex Assigned At Not on file [facility] Start: 02-25-2024 End: 04-29-2024 Sex Assigned At [facility] Start: 1985 Sex Assigned At Female F [facility] Tobacco smoking status Never [facility] Start: 02-25-2024 End: 04-29-2024 Alcoholic beverage intake Lifetime non-drinker (finding) [facility] Start: 02-25-2024 End: 04-29-2024 History of Social function [facility] Start: 02-13-2023 Alcohol Comment Caffeine intake: non e [facility] Start: 04-29-2024 Tobacco use and exposure Smokeless tobacco non-user [facility] Functional Status Date Assessment Result Facility 06-27-2023 Functional Status N/A [facility] 07-17-2022 Functional Status N/A [facility] 06-24-2022 Functional Status N/A [facility] Clinical Notes 03-27-2021 to 04-29-2024 Rikki Sheikh MD - 04/29/2024 2:20 PM Jorge Massey DO - 03/12/2024 11:45 AM AVI Valverde - 02/25/2024 2:50 PM EDT Note Date & Type Note Facility 04-29-2024 History of Present illness Narrative Jamil Quinn is a very pleasant 38 y.o. year old female who comes to the office today with the chief complaint of hives. She has had hives since November. They are on legs chest or back or arms. The patient notes that the hives are red, raised, itchy, and generally transient. She is not aware of any trigger for the hives. She has no symptoms of anaphylaxis with these episodes. She has tried Cetirizine 10 mg every day and this made her about 30% better. EXAM The patient appears comfortable in the office today. Lungs are clear to auscultation bilaterally. The oral mucosa is pink and healthy without any lesions or ulcers. The palate elevates in the midline. The nasal mucosa is pink and healthy. There is no epistaxis mucopus or nasal polyposis noted. The nasal septum is approximately in the midline. The skin is clear of any lesions, excoriations, or erythema. IMPRESSION: chronic idiopathic urticaria - I explained to the patient that this is a generally benign condition that has an autoimmune basis and generally responds well to high dose suppressive antihistamine therapy and is usually self limited with 50% of patients going into remission within 3-5 years. I also let the patient know that although allergic triggers are very rare for this condition that physical triggers such as heat, cold, pressure, and vibration are somewhat common but generally also respond well to antihistamine therapy. We agreed that the patient would use high dose non-sedating antihistamine with H2 joceline, montelukast. I cautioned the patient about the potential for emotional side effects with use of montelukast and suggested that they stopped this medication if any of these side effects are noted. Follow up was arranged in 1-2 months for reassessment or sooner should problems arise. documented in this encounter [facility] 03-12-2024 History of Present illness Narrative Images from the original note were not included. Tania Massey D.O. Obstetrics and Gynecology Patient: Jamil Quinn : 1985 (38 y.o.) Yearly Wellness Exam Date: 03/12/2024 Reason for Visit - Chief Complaint Patient presents with Gynecologic Exam Denies concerns, Denies bowel/bladder/breast concerns. LMP 02/16/24 menses regular. Visit Vitals BP 120/80 Wt 111 lb LMP 02/16/2024 BMI 21.68 kg/m Smoking Status Never BSA 1.46 m Allergies Allergen Reactions Cephalexin Diarrhea History of Present Illness, Associated Treatments and Results - OB History Para Term AB Living 3 2 2 0 1 0 SAB IAB Ectopic Multiple Live Births 1 0 0 0 0 # Outcome Date GA Lbr Scotty/2nd Weight Sex Type Anes PTL Lv 3 SAB 2 Term 1 Term Obstetric Comments Pap smear 02/14/23 wnl Review of Systems - General: Chills denies. Allergy/Immunology: Rash Denies. ENT: Denies Difficulty swallowing. Endocrine: Denies Cold intolerance denies. Heat intolerance denied. Respiratory: Denies Chest pain denies. Shortness of breath denies. Breast: Denies Bloody nipple discharge denies. Breast lump denies. Cardiovascular: Denies Chest pain. Gastrointestinal: Abdominal pain denies. Blood in stool denies. Hematology: Easy bruising denies. Prolonged bleeding denies. Women Only: Breast lump denies. Vaginal bleeding between periods is denied. Vaginal discharge/itching denied. Genitourinary: Blood in urine denies. Painful urination denies. Incontinence denies. Skin: Hair changes. Neurologic: Seizures denied. Stroke denies. Psychiatric: Anxiety denies. Depressed mood denies. Medication Documentation Review Audit Reviewed by Catarina Theodore MA (Counter Stitcher) on 03/12/24 at 1146 Medication Order Taking? Sig Documenting Provider Last Dose Status Discontinued 03/12/24 1146 losartan (Cozaar) 25 MG tablet [id number] 1 tablet Orally two times daily Tania Massey, DO Active Potassium Bicarbonate (EFFER-K PO) [id number] Effer-K Tania Massey, DO Active Past Medical History: Diagnosis Date Breast lump Bronchitis Gluten intolerance Hypertension (CMS/HCC) Kidney stones Past Surgical History: Procedure Laterality Date CATARACT EXTRACTION 2021 SECTION, LOW TRANSVERSE 2011 DILATION AND CURETTAGE 2018 hysteroscopy, endometrial ablation LITHOTRIPSY Family History Adopted: Yes Physical Exam - General appearance, mentation, extraocular movements, facial strength and movement, hearing, upper and lower extremity strength and tone, sensation to gross testing, coordination, and gait are normal or at baseline unless noted below. General Examination: GENERAL APPEARANCE: alert oriented well developed, well nourished. HEAD: normocephalic atraumatic. EYES: sclera anicteric. EARS: no obvious hearing deficit. SKIN: warm and dry. HEART: regular rate and rhythm. LUNGS: clear to auscultation bilaterally. CHEST: axillary nodes grossly normal. BREASTS: no masses palpable bilaterally, normal nipples bilaterally. ABDOMEN: soft, nontender, nondistended, no masses palpable. BACK: no costovertebral angle tenderness, no obvious scoliosis/kyphosis. FEMALE GENITOURINARY: normal vaginal mucosa, cervix absent of lesions, nontender, uterus AV, mobile, ovaries nonpalpable and nontender. EXTREMITIES: no edema. NEUROLOGIC: alert and oriented. PSYCH: cooperative with exam. Diagnoses and all orders for this visit: Encounter for gynecological examination without abnormal finding Screening for malignant neoplasm of cervix - SENDOUT TEST MISCELLANEOUS [facility] Encounter for screening mammogram for breast cancer - Bilateral screening mammogram with tomosynthesis Pap, pelvic and breast exam completed. Findings of today's exam discussed with the patient. Continue MSBE. Ca/Vit D recommendations reviewed with the patient. The patient is to contact the office with any changes to her gynecological condition. The patient is to return in 1 year or as needed ICD-10-CM 1. Encounter for gynecological examination without abnormal finding Z01.419 2. Screening for malignant neoplasm of cervix Z12.4 SENDOUT TEST MISCELLANEOUS [facility] 3. Encounter for screening mammogram for breast cancer Z12.31 Bilateral screening mammogram with tomosynthesis documented in this encounter [facility] 02-25-2024 History of Present illness Narrative Lesions: Location: right malar cheek Duration: couple of years Quality: denies pain, denies itch Associated symptoms: non-healing Treatments: none Rash Location: generalized Duration: on going for years, comes and goes Quality: itchy at times Associated symptoms: red and raised Current treatments: uses daughter clindamycin gel at times No rash present today. New patient All pertinent medical history, medications, and allergies were reviewed. General Exam: alert, oriented to person, place, and time, normal affect, well appearing Unaccompanied A focused exam completed based on patient reported problems, see below: 1. Capillary angioma Right Malar Cheek Scattered kang-red papule(s). The patient was informed that angiomas are benign growths on the the skin. No treatment is necessary. 2. Idiopathic urticaria Whealed pink plaques-none present today It was explained to the patient that this is a generally benign condition that can be caused by medications, infections, autoimmune disease , or unknown causes, generally responds well to suppressive antihistamine therapy and is usually self limited with 50% of patients going into remission within 3-5 years. Discussed a daily antihistamine and referral to sweet pickled fruit maker. Patient declined referral today. Will take daily lynda to see if this helps decrease flares. May contact the office if she flares again and I would be happy to see her. Next Visit: prn for any new/changing lesions documented in this encounter [facility] 06-27-2023 Hospital Discharge instructions Patient Education 06/27/2023 08:46:20 Dietary Guidelines [...] include: ?8 oz (237 mL) of milk, xkrnygx-ajprjzzmnrdc-wopii milk, and calcium-fortifiedfruit juice. Calcium-fortified means that [...] ?Spinach (cooked), rhubarb, beets, sweet potatoes, and [place]ian chard. ?Peanuts. ?Potato chips, welsh fries, and baked potatoes with skin on. ?Nuts and nut products. ?Chocolate. If you regularly take a diuretic medicine, make sure to eat at least 1 or 2 servings of fruits or vegetables that are high in potassium each day. These include: ?Avocado. ?Banana. ?[place], prune, carrot, or tomato juice. ?Baked potato. [...] magnesium, fish oil, or vitamin B6. Take uime-rne-dxaeepr and prescription medicines only as told by [...] Casseroles. Pizza. Lasagna. Frozen meals. Potato chips. Spanish fries. The items listed above may not [...] provider. Document Revised: 07/25/2022 Document Reviewed: 07/25/2022 [employer] Patient Education 2022 Thumb Reading. Follow Up Care 06/24/2022 15:38:24 With:TONY ROSALES, Theodora Rhoades, URL Address: [address] [place] [address]- When: Unknown [facility] 02-04-2023 Evaluation note Encounter Date Diagnosis Assessment Notes Jan, Well adult exam (ICD-10 - Z00.00) Jan, Screening for cardiovascular condition (ICD-10 - Z13.6) [employer] Other 03-22-2023 Hospital Discharge instructions Patient Education 07/17/2022 13:05:05 Kidney Stones, Ldkb-jq-Hotr Kidney Stones Kidney stones are rock-like masses [...] Follow these instructions at home: Medicines Take dhmt-knk-iyopzyv and prescription medicines only as told by [...] 09/30/2008 Document Revised: 08/31/2019 Document Reviewed: 08/31/2019 [employer] Patient Education 2020 Thumb Reading. Follow Up Care 07/12/2022 14:53:06 With:TONY ROSALES, Theodora Rhoades, NANDO Address: [facility] [address], [place] [phone] When: Unknown [facility] Alfonso 03-16-2023 NoteOP Note OPERATION DATE: 07/11/2022 PREOPERATIVE DIAGNOSIS: Right ureteral calculus. POSTOPERATIVE DIAGNOSIS: Right ureteral calculus. PROCEDURE: 1. Cystoscopy. 2. Rigid right ureteral dilation. 3. Right ureteroscopy. 4. Right holmium laser lithotripsy of ureteral calculus. 5. Right stone basket extraction. 6. Placement of 6-Spanish variable length right ureteral stent. ANESTHESIA: General [...] usual fashion. I started by passing a 22-Spanish Olympus cystoscope per urethra and into the [...] kidney. I then used an 8 and 10-Spanish rigid dilator to dilate the distal ureter. [...] into the bladder, and then slid a 6-Spanish variable length ureteral stent over the wire, into the kidney. The wire was removed and there were good curls in the kidney and in the bladder. I then used the [employer] Interactive evacuator to get all the stone pieces from the base of the bladder out, and they were sent for stone analysis. The bladder was drained of its contents and the scope was the removed. She was then transferred to a gurney bed and wheeled to PACU in stable condition. She will be discharged to home later today with a script for VESIcare 10 mg daily, #14 and Macrobid 100 mg daily, #14. Her stent will get taken out within two weeks.[id number] Discharge instructions Patient Education 06/24/2022 08:36:57 [...] include: ?Spinach. ?Rhubarb. ?Beets. ?Potato chips and welsh fries. ?Nuts. If you regularly take a diuretic medicine, make sure to eat at least 1 2 fruits or vegetables high in potassium each day. These include: ?Avocado. ?Banana. ?[place], prune, carrot, or tomato juice. ?Baked potato. [...] Casseroles. Pizza. Lasagna. Frozen meals. Potato chips. Spanish fries. Summary You can reduce your risk [...] 08/09/2011 Document Revised: 08/04/2019 Document Reviewed: 03/25/2017 [employer] Patient Education 2019 Thumb Reading. Follow Up Care 03/01/2022 09:02:20 With:TONY ROSALES, Theodora Rhoades, URL Address: [facility] [address] , [place] [address]- When: Unknown [facility] 10-18-2022 Evaluation note* Encounter Date Diagnosis Assessment Notes Treatment Notes Treatment Clinical Notes Jan, Well adult exam (ICD-10 - Z00.00) Paperwork completed for her physical, she will continue working with healthy dietary and exercise habits. She does plan to follow through with her colonoscopy, given the length and severity of her symptoms I agree with her doing so [employer] Other 09-12-2022 Evaluation note* Encounter Date Diagnosis Assessment Notes Treatment Notes Treatment Clinical Notes Dec, Alternating constipation and diarrhea (ICD-10 - R19.8) [employer] Other 09-08-2022 Evaluation note* Encounter Date Diagnosis Assessment Notes Treatment Notes Treatment Clinical Notes Dec, Alternating constipation and diarrhea (ICD-10 - R19.8) She needs to have a colonoscopy done, referral sent. In the meantime I recommended a lactose-free, low FODMAP diet and I also recommended she start an yyet-nkg-hwugkgp probiotic [employer] Other 07-01-2022 History general Narrative - Reported* Type Description Date Medical History hypertension Surgical History Cataract Surgery 10/2021 Surgical History Lithotripsy X2 10/2021 Hospitalization History child x 2 [employer] Other 07-01-2022 History general Narrative - Reported* Type Description Date Medical History hypertension Medical History kidney stones Surgical History Cataract Surgery 10/2021 Surgical History Lithotripsy X2 10/2021 Hospitalization History child x 2 [employer] Other 03-11-2022 Evaluation note* Encounter Date Diagnosis Assessment Notes Treatment Notes Treatment Clinical Notes Jun, Right lower lobe pulmonary nodule (ICD-10 - R91.1) Jun, Chronic diarrhea (ICD-10 - K52.9) [employer] Other 11-30-2021 Evaluation note* Encounter Date Diagnosis Assessment Notes Treatment Notes Treatment Clinical Notes Feb, Urticarial rash (ICD-10 - L50.9) Discussed that this would likely resolve on its own with Benadryl, but she prefers to take a few days of prednisone. She will call if the rash does not completely resolve [employer] Other chief complaint+Reason for visit Narrative* Chief Complaint Back pain m54.[address]Conley rawls, pain rt hip Reason for Visit Lumbar pain Piriformis syndrome of right side Greater trochanteric bursitis of right hip [facility] Work Phone: chief complaint+Reason for visit Narrative* Chief Complaint Back pain m54.[address]Conley rawls, pain rt hip steriod injection/r leg Reason for Visit Lumbar pain Piriformis syndrome of right side Greater trochanteric bursitis of right hip Piriformis syndrome of right side [facility] Work Phone: chief complaint+Reason for visit Narrative* Chief Complaint Back pain m54.[address]Conley rawls, pain rt hip steriod injection/r leg Pillars Reason for Visit Lumbar pain Piriformis syndrome of right side Greater trochanteric bursitis of right hip Piriformis syndrome of right side Trochanteric bursitis of right hip Myalgia, other site Screening for diabetes mellitus Screening for cardiovascular condition Well adult exam [facility] Work Phone: Chief complaint+Reason for visit Narrative* Chief Complaint Back pain m54.50 Referral -scoliosis, pain rt hip steriod injection/r leg Pillars z13.1 z13.6 z00.00 Reason for Visit Lumbar pain Piriformis syndrome of right side Greater trochanteric bursitis of right hip Piriformis syndrome of right side Trochanteric bursitis of right hip Myalgia, other site Screening for diabetes mellitus Screening for cardiovascular condition Well adult exam [facility] Work Phone: Evaluation + Plan note Future Appointments Appointment Date:06/27/2023 08:00:00 AM Scheduled Provider:Theodora JIMENEZ MD Location:[facility] Appointment Type:URO Office Visit [facility] evaluation + Plan note Future Appointments Appointment Date:07/02/2024 08:00:00 AM Scheduled Provider:Theodora JIMENEZ MD Location:[facility] Appointment Type:URO Office Visit [facility] evaluation noteNo InformationNort GenOil Other evaluation noteNo assessment information available [facility] Work Phone: evaluation note* Diagnosis Onset Date Resolution Status Lumbar pain noneactive [facility] Work Phone: evaluation note* Diagnosis Onset Date Resolution Status Lumbar pain noneactive Piriformis syndrome of right side noneactive Greater trochanteric bursitis of right hip noneactive [facility] Work Phone: Evaluation note* Diagnosis Onset Date Resolution Status Lumbar pain noneactive Piriformis syndrome of right side noneactive Greater trochanteric bursitis of right hip noneactive Piriformis syndrome of right side noneactive [facility] Work Phone: evaluation note* Diagnosis Onset Date Resolution Status Lumbar pain noneactive Piriformis syndrome of right side noneactive Greater trochanteric bursitis of right hip noneactive Piriformis syndrome of right side noneactive Trochanteric bursitis of right hip noneactive Myalgia, other site noneacti ve Screening for diabetes mellitus noneactive Screening for cardiovascular condition noneactive Well adult exam noneactive [facility] Work Phone: Evaluation note* Diagnosis Capillary angioma- Primary Nevus, non-neoplastic Idiopathic urticaria documented in this encounter [facility] HealthcareEvaluation note* Diagnosis Encounter for gynecological examination without abnormal finding Screening for malignant neoplasm of cervix Screening for malignant neoplasm of the cervix Encounter for screening mammogram for breast cancer documented in this encounter [facility] HealthcareEvaluation note* Diagnosis Chronic idiopathic urticaria- Primary Idiopathic urticaria documented in this encounter [facility] HealthcareHistory general Narrative - Reported* Type Description Date Medical History hypertension Surgical History No Surgical history information Hospitalization History child x 2 [employer] Other Hospital course Narrative No data available for this section [facility] progress note No data available for this section [facility] Summary Purpose Family History No Family History Records Found Relationship Condition Age at Onset Recorded Date/T jody Not Specified Adopted Unknown Relationship Condition Age at Onset Recorded Date/T jody Not Specified Adopted Unknown mother Unknown Hypertension Unknown Malignant neoplasm Unknown Advance Directives No Advanced Directives Records Found Advance Directive Response Recorded Date/ Time Advance Directives No March 31, 2017 12:07pm Discharge Instructions * Instructions* Jaret Manning, - 07/11/2018 Follow-up with your physician for recheck. Take your blood pressure once a day. See a physician if new or worsening symptoms. Do not take metoprolol if your heart rate is less than 60 * Attachments The following attachments cannot be sent through Care Everywhere. * High Blood Pressure ([facility]) ([place]) documented in this encounter Assessments Diagnosis Essential hypertension- Primary Unspecified essential hypertension Chief Complaint and Reason for Visit Chief Complaint right lower lobe pul monary nodule K52.9 Chief Complaint right lower lobe pul monary nodule K52.9 K52.9 Chief Complaint K52.9 K52.9 Z13.1 Z13.6 Chief Complaint K52.9 K52.9 Z13.1 Z13.6 Constipation, Diarrhea Chief Complaint Back pain Reason for Visit Lumbar pain Chief Complaint Back pain m54.50 Reason for Visit Lumbar pain Reason for Referral Reason alternating constipa tion and diarrhea -needs colonoscopy Diagnosis 1 Alternating constipa tion and diarrhea (R19.8) Referral Organization [facility] Iesha Matias Referring Provider First Name Lorenzo Referring Provider Last Name Angel Referring Provider Specialty Family Prac krystal Referred Provider Specialty Gastroentero logy Referral Priority Routine Additional Source Comments INFORMATION SOURCE (unrecogn ized section and content) DATE CREATED AUTHOR 10/21/2017 [facility] DATE CREATED AUTHOR AUTHOR'S ORGANIZ ATION 07/12/2018 [facility] DATE CREATED AUTHOR AUTHOR'S ORGANIZ ATION 10/04/2018 [facility] DATE CREATED AUTHOR AUTHOR'S ORGANIZ ATION 06/17/2021 [facility] [place] [facility] DATE CREATED AUTHOR AUTHOR'S ORGANIZ ATION 07/17/2022 [facility] [place] [facility] DATE CREATED AUTHOR AUTHOR'S ORGANIZ ATION 02/12/2024 [facility] DATE CREATED AUTHOR AUTHOR'S ORGANIZ ATION 05/06/2024 [facility] DATE CREATED AUTHOR AUTHOR'S ORGANIZ ATION 06/13/2024 [facility] Reason for Visit (unrecogniz ed section and content) Reason Comments Dizziness pt c/o dizziness jasvir t started yesterday. pt denies any syncopal episodes at this time. pt denies any n/v. Reason Comments Suspicious Skin Lesion Rash Reason Comments Gynecologic Exam Denies concerns, Den ies bowel/bladder/breast concerns. LMP 02/16/24 menses regular. Reason Comments new patient Pt states she has be en getting hives since November 2023. Care Teams (unrecognized sec tion and content) Team Status: Inactive Member Role Status Dates Lorenzo Conteh DO Primary Care Provider, Attending Provider Active Team Status: Active Member Role Status Dates Lorenzo Conteh DO Primary Care Provider Active Team Status: Inactive Member Role Status Dates Lorenzo Conteh DO Primary Care Provider Active Se Walker MD Attending Provider Active Team Status: Inactive Member Role Status Dates Lorenzo Conteh DO Primary Care Provid er, Attending Provider Active Start: December 01, 2023 End: December 01, 2023 Team Status: Inactive Member Role Status Dates Lorenzo Conteh DO Primary Care Provider Active Start: December 24, 2023 End: December 24, 2023 Milad Esquivel , DO Attending Provider Active Start: December 24, 2023 End: December 24, 2023 Team Status: Inactive Member Role Status Dates Lorenzo Conteh DO Primary Care Provider Active Start: January 14, 2024 End: January 14, 2024 Milad Stefani Esquivel , DO Attending Provider Active Start: January 14, 2024 End: January 14, 2024 Team Status: Inactive Member Role Status Dates Lorenzo Conteh DO Primary Care Provid er, Attending Provider Active Start: January 27, 2024 End: January 27, 2024 Team Status: Inactive Member Role Status Dates Lorenzo Conteh DO Primary Care Provid er, Attending Provider Active Start: January 30, 2024 End: January 30, 2024 Third Cook Relationship Specialty Start Date End Date Lorenzo Conteh [facility] [address] [place] [place] [phone] PCP - General Family Medicine 02/14/23 Third Cook Relationship Specialty Start Date End Date Lorenzo Conteh MD [address] [facility] [place] [address] PCP - General Family Medicine 02/14/23 Third Cook Relationship Specialty Start Date End Date Lorenzo Conteh MD [address] [place] [place] [phone] PCP - General Family Medicine 02/14/23 Third Cook Relationship Specialty Start Date End Date Lorenzo Conteh MD [address] [place] [phone] PCP - General Family Medicine 02/14/23 Goals (unrecognized section and content) Goals may [...] BE BASED ON THE PRIMARY CLINICAL RECORDS. [facility]. provides no warranty or guarantee of the accuracy or completeness of information in this document.
== END 2024-07-01 16:37 | disposition home or self-care (01) ==
LOC: RAD 16:38
PROVIDERS: PCP Family Medicine; Visit Provider Physician Assistant
DX: N20.0 Calculus of kidney (principal)
CPT/HCPCS: 74018